=== PATIENT | male | born 1955 | race African-American/Black ===

== ENCOUNTER → 2018-02-06 | Outpatient (CLI) | payer OTHER, BC ==
[~2018-02-06] MED LIST: ASPIRIN81 M2 PO; B12INJ; CARBIDOPA-LEVO1 EAC2; CARBIDOPA-LEVO1 EAC8 PO; CARBIDOPA-LEVO1 EAC9 PO; CARVEDILOL25 MG PO; CLEOCIN HCL300 MG PO; CYCLOBENZAPRINE10 MG PO; CYMBALTA60 MG PO; DILAUDID4 MG PO; DITROPAN XL10 M1 PO; DOXEPIN 10 MG C10 M1 PO; DULERA 200 MCG/13 GM; DUONEB 2.5-0.5 M3 ML; EXALGO32 MG; FARXIGA5 MG; FISH OIL 1,001000 M1 PO; FOSAMAX 70 MG T70 MG; GABAPENTIN600 M1 PO; GLUCOPHAGE XR500 MG PO; GLUCOPHAGE500 MG PO; GRALISE600 MG PO; HUMALOG100 UNIT/2 SUBQ; INVOKANA300 MG; IRON256 MG PO; IRON325 PO; ISOSORBIDE DINI30 MG PO; LAMISIL250 MG; LANTUS SUBQ; LEVAQUIN 500 M500 MG PO; LISINOPRIL10 MG PO; LISINOPRIL20 MG PO; LISINOPRIL5 MG PO; LYRICA 50 MG50 MG PO; LYRICA 75 MG CA75 MG PO; MIRAPEX0.125 MG; MULTIVITAMINS PO; NIASPAN 500 MG500 M1 PO; NOVOLOG100 UNIT/1; NUCYNTA ER250 MG PO; NUCYNTA50 MG PO; PENTOPAK400 MG PO; PERCOCET 10-321 EACH; PERCOCET 5-3251 EACH PO; PREDNISONE 20 M20 M1 PO; PROAIR HFA8.5 GM INH; PROVENTIL HFA6.7 G1 INH; SPIRIVA RESPIMAT4 G1 INH; TIZANIDINE HCL4 M1; TRAMADOL 50 MG50 MG PO; TRICOR145 MG PO; VITAMIN B-12250 MC2; VITAMIN D400 UNI1 PO; ZANAFLEX4 MG PO; ZETIA10 MG PO; ZPAK PO
== END ==
LOC: SLEEPLAB 16:27
DX: G47.33 Obstructive sleep apnea (adult) (pediatric) (principal); J44.9 Chronic obstructive pulmonary disease, unspecified

== ENCOUNTER 2018-10-06 17:47 | Inpatient (IN) | payer OTHER, BC ==
[~2018-10-06] VITALS: Ht 180.3 cm; Wt 125.6 kg
[2018-10-06] VITALS (7 sets, daily range): BP systolic 96–122; BP diastolic 36–57
--- NOTE | ~2018-10-06 | 2DMMODE ---
[facility] [address] [address] 2 D/M-MODE ECHOCARDIOGRAM Name: GERI MCARTHUR Room #: 455-P ADM IN .R.#: [id number] Admission: 10/06/18 Attend Phys: Talib Yi MD Discharge: Date of : 55 Date of Service: 10/11/18 1000 Report #: [id number] THIS REPORT FOR: //name// APPROVED REPORT Study performed: 10/11/2018 09:14:25 EXAM: Comprehensive 2D, Doppler, and color-flow Echocardiogram Patient Location: Bedside Room #: [facility] Status: routine BSA: 2.42 HR: 112 bpm BP: 159/110 mmHg Rhythm: Tachycardia Other Information Study Quality: Adequate Technically limited study due to body habitus, lung disease, heavy breathing. Indications Elevated Troponin. Hx: DM, COPD, [place], HTN, HLP. 2D Dimensions IVSd: 11.32 (7-11mm) LVOT Diam: 21.43 (18-24mm) LVDd: 56.17 mm PWd: 11.39 (7-11mm) LVDs: 49.56 (25-40mm) Aortic Root: 31.44 mm Volumes Left Atrial Volume (Systole) Single Plane 4CH: 67.36 mL Single Plane 2CH: 95.57 mL LA ESV Index: 37.00 mL/m2 Aortic Valve AoV Peak Gold.: 0.96 m/s AO Peak Gr.: 3.69 mmHg LVOT Max P.05 mmHg LVOT Max V: 0.72 m/s BENJIE Vmax: 2.69 cm2 Tricuspid Valve TR Peak Gold.: 2.63 m/s RAP Estimate: 10.00 mmHg TR Peak Gr.: 27.67 mmHg [facility] [address] [place] [address] 2 D/M-MODE ECHOCARDIOGRAM Name: GERI MCARTHUR Room #: 455- ADM IN .R.#: [id number] Admission: 10/06/18 Attend Phys: Talib Yi MD Discharge: Date of : 55 Date of Service: 10/11/18 1000 Report #: [id number] PA Pressure: 38.00 mmHg Left Ventricle The left ventricle is normal size. There is hypokinesis of the inferior and lateral segments. There is normal left ventricular wall thickness. Left ventricular systolic function is severely decreased. LVEF is 30%. This study is not technically sufficient to allow evaluation of the LV diastolic function. Right Ventricle The right ventricle is normal size. Right ventricle is hypokinetic. Atria Left atrium is mildly dilated. The right atrium size is normal. Aortic Valve The aortic valve is not well visualized but appears grossly normal. Trace to mild aortic regurgitation. Mitral Valve The mitral valve is normal in structure. Mild to moderate mitral regurgitation. Tricuspid Valve The tricuspid valve is normal in structure. Mild tricuspid regurgitation. Estimated PAP is 38mmHg. Pulmonic Valve Pulmonic valve is not well visualized. Great Vessels The aortic root is normal in size. Ascending aorta is not well visualized. IVC is dilated and collapses >50% with inspiration. Pericardium There is no pericardial effusion. <Conclusion> The left ventricle is normal size. There is normal left ventricular wall thickness. Left ventricular systolic function is severely decreased. LVEF is 30%. The right ventricle is normal size. [facility] [address] [place] [address] 2 D/M-MODE ECHOCARDIOGRAM Name: GERI MCARTHUR Room #: 455-P [facility] IN M.R.#: [id number] Admission: 10/06/18 Attend Phys: Talib Yi MD Discharge: Date of : 55 Date of Service: 10/11/18 1000 Report #: [id number] Left atrium is mildly dilated. The aortic valve is not well visualized but appears grossly normal. Trace to mild aortic regurgitation. Mild to moderate mitral regurgitation. Mild tricuspid regurgitation. Estimated PAP is 38mmHg. <ELECTRONICALLY SIGNED> By: Paul Rojas MD 10/11/18 1000 1000 1000 Paul Rojas MD /INF
--- NOTE | ~2018-10-06 | EKG ---
[address] [place] [address] ELECTROCARDIOGRAM REPORT Name: GERI MCARTHUR Room #: 241-P ADM IN M.R.#: [id number] Admission: 10/06/18 Attend Phys: Talib Yi MD Discharge: Date of : 55 Report #: [id number] THIS REPORT FOR: //name// [facility] Test Date: 2018-10-06 Test Time: 18:00:10 Pat Name: GERI MCARTHUR Department: Room: 241 Gender: M Authorization Representative: TITI : 1955 Requested By: Raven Wood Order Number: [id number] MD: Chet Rodriguez Measurements Intervals [place] Rate: 112 P: 36 RI: 144 QRS: -60 QRSD: 103 T: 250 QT: 415 QTc: 567 Interpretive Statements Sinus tachycardia Inferior infarct, age indeterminate Nonspecific ST and T wave abnormality Prolonged QT interval Compared to ECG 03/09/2018 06:00:04 Prolonged QT interval now present ST and T wave abnormality is more pronounced Electronically Signed On 10-07-2018 8:31:32 [employer] by Chet Rodriguez [email or web address] <ELECTRONICALLY SIGNED> By: Chet Rodriguez MD, [facility] 10/07/18 0831 1800 1800 Chet Rodriguez MD, [facility] /EPI
--- NOTE | ~2018-10-06 | HC ---
[facility] [place] [address] CONSULTATION Name: GERI MCARTHUR Room #: 242-P [facility] IN M.R.#: [id number] Admission: 10/06/18 Attend Phys: Talib Yi MD Discharge: Date of : 55 Report #: [id number] THIS REPORT FOR: //name// CC: Talib Plata DATE OF SERVICE: 10/08/2018 INFECTIOUS DISEASE CONSULTATION REASON FOR CONSULTATION: Evaluate bacteremia and sepsis. HISTORY OF PRESENT ILLNESS: The patient was a 63-year-old with underlying diabetes, COPD, chronic kidney disease, coronary artery disease, who has had chronic low back pain and a neurostimulator implant. He presents on 10/06/2018 with change in mental status that occurred the day before. His reports that on 10/05/2018, the patient became more confused and lethargic. He had emesis several times where he vomited over himself without regard. He remained anorexic. No diarrhea. No blood in his emesis. No abdominal pain. No documented fever, chills or sweats. He has had chronic low back pain. He had one blood sugar checked, which was 50. stated she treated this and it improved. He had further episodes of vomiting and remained obtunded. Brought in through the Emergency Room by EMS where he was found to be hypotensive with blood pressure down to 60 systolic and he was tachycardic at 114. The patient was unable to give much more detail. No documented chest pain, cough or sputum production. Denied any dysuria or hematuria. There has been no rash or ulcerations. No headache or seizure activity noted. A 10-point review of systems was negative other than what has been described above. He was admitted through the Emergency Room to the Intensive Care Unit. He was found to have acute renal failure and required hemodialysis. He dialyzed yesterday. Blood glucose control has been better. No further vomiting. No diarrhea. He had a right IJ catheter placed and a right IJ dialysis catheter placed. He received vancomycin. He has had 1 of 2 blood cultures positive for gram-positive cocci. Last hospitalization was in 02/2018 where he was diagnosed with congestive heart failure, possible aspiration and methicillin-susceptible Staph aureus left flank spinal stimulator pocket incision infection. This was treated initially with IV antibiotics and switched to oral therapy. He had followup in the outpatient clinic with pain management who reassessed his pocket, finding no further [address] [address] CONSULTATION Name: GERI MCARTHUR Room #: 242-P [facility] IN [facility].#: [id number] Admission: 10/06/18 Attend Phys: Talib Yi MD Discharge: Date of : 55 Report #: [id number] issues. The patient has gone 6 months without pain or swelling in that region. The patient also has bilateral total knee arthroplasties, which has been asymptomatic. ALLERGIES: COMPAZINE, CODEINE, STATINS. MEDICATIONS: As noted on his MAR including vancomycin. PAST MEDICAL HISTORY: Anterior diskectomy, chronic low back pain with neural stimulator implant, diabetes, COPD, obstructive sleep apnea, degenerative joint disease, peripheral neuropathy, hyperlipidemia, hypertension, [place], chronic kidney disease, bilateral total knee arthroplasties, depression, restless leg syndrome, meningitis, left elbow surgery, MRSA empyema in 2010. It is noted that it was a methicillin-susceptible Staph aureus infection in 02/2018. FAMILY HISTORY: Noncontributory. SOCIAL HISTORY: Past smoker. No significant alcohol intake. PHYSICAL EXAMINATION: GENERAL: The patient was alert and cooperative. He would drift off to sleep when not stimulated. He was able to give a reasonable history of the current events, but nothing prior to his admission. VITAL SIGNS: He is afebrile and hemodynamically stable. SKIN: Without decubitus. He had a wound to the right first metatarsophalangeal plantar skin with separation in the crease. There was no purulent drainage. No palpable adenopathy. HEENT: Eyes without scleral icterus or conjunctivitis. Mouth without lesion or mucositis. NECK: Supple, with no thyromegaly or mass. LUNGS: Clear to auscultation. No adventitious sounds. HEART: Regular, without murmur, gallop or rub. ABDOMEN: Protuberant with diffuse abdominal tenderness. There was some guarding where he grabbed my hand trying to remove it during the evaluation. No rebound tenderness. No appreciable mass or hepatosplenomegaly. GENITOURINARY: External genitalia unremarkable without lesion or mass. He has an indwelling Hernandez catheter. BACK: Left flank spinal stimulator pocket was tender. No erythema or fluctuance along the incision line. Also tenderness to his lumbar spine region to palpation. I did not appreciate any cellulitis, fluctuance or rash. Remainder of his spine was nontender to percussion. EXTREMITIES: No peripheral edema, cyanosis or clubbing. Cranial nerves were intact with strength in the upper or lower extremities normal. Sensation was intact in upper and lower extremities. MOOD: The patient was a bit sedate, but with no evidence of depression and anxiety. [facility] [address] [place] [address] CONSULTATION Name: GERI MCARTHUR Room #: 242-P ADM IN [place]#: [id number] Admission: 10/06/18 Attend Phys: Talib Yi MD Discharge: Date of : 55 Report #: [id number] LABORATORY STUDIES: Blood cultures 1 of 2 showing gram-positive cocci. Urinalysis was unremarkable. Chest x-ray was clear. ABG on room air, pO2 of 87, pCO2 of 28, pH 7.25. Hemoglobin 13.7, platelet count 111,000, WBC 5.7 with 70% segs, 16% lymphs. Sodium 139, potassium 5.2, creatinine was 5.8. Liver function test normal. IMPRESSION: A 63-year-old with sepsis associated with encephalopathy, vomiting, hypotension in the setting of diabetes and now acute renal failure. He has Gram-positive cocci bacteremia, source of which is yet to be determined, although the patient does have tenderness over his spinal stimulator pocket and lumbar spine. I am suspecting staphylococcal infection may be the underlying disease process here. Further complications include. 1. Acute renal failure and encephalopathy. 2. Diabetes. 3. Coronary artery disease. 4. Chronic obstructive pulmonary disease and obstructive sleep apnea. RECOMMENDATION: We will continue antibiotics with vancomycin and Unasyn adjusted for his renal failure. Images of the abdomen, pelvis and lumbar spine to assess for any abscess. Repeat his blood cultures. We will await identification of the current growth. Follow up chest x-ray and CBC. I have discussed the case with nursing at the bedside along with his family. I have discussed the plan of care with Nephrology Service. He will have a CT scan performed with oral contrast, no IV due to his renal failure. Further recommendations pending laboratory results. <ELECTRONICALLY SIGNED> By: Aneudy Zhong MD 10/09/18 0955 [id number] Aneudy Zhong MD /nt
--- NOTE | ~2018-10-06 | HC ---
[facility] [place] [address] CONSULTATION Name: GERI MCARTHUR Room #: 242-[facility] IN .R.#: [id number] Admission: 10/06/18 Attend Phys: Talib Yi MD Discharge: Date of : 55 Report #: [id number] THIS REPORT FOR: //name// CC: Talib Plata HISTORY OF PRESENT ILLNESS: The patient is a 63-year-old man who was admitted to the hospital with acute on chronic renal failure and sepsis. He was having myoclonus prior to admission and was noted to be very confused. He has improved markedly. On today's examination, he is alert and oriented with normal memory. The patient has chronic pain and has had has a nerve stimulator implanted in the back. He has had both cervical and lumbar laminectomies. He has also had bilateral knee arthroplasties. He had at home, been taking, apparently a combination of both Lyrica and gabapentin at relatively high doses as well as taking opiates. In addition, he was taking Mirapex or pramipexole for restless leg syndrome as well as trazodone. These medicines were held on admission. He continues to take tizanidine. FAMILY HISTORY, SOCIAL HISTORY, REVIEW OF SYSTEMS: As noted in the chart. PHYSICAL EXAMINATION: VITAL SIGNS: At this hour, blood pressure 155/90, pulse 102, temperature 36.5. NECK: Supple. GENERAL APPEARANCE: The patient is overweight. He is sitting up in bed, eating breakfast. His is at the bedside. He is calm, pleasant and cooperative. NECK: Supple. EXTREMITIES: No pedal edema is noted. NEUROLOGIC: He is alert and oriented with normal memory and speech. He could remember 3 words after 3 minutes. He could do simple calculations. He had no difficulty in giving a good medical narrative; however, his memory over the last few days is somewhat sketchy. On cranial nerve testing, the pupils are small, but equally round and reactive. There is a small cataract in the left eye with slight impairment of vision in that eye. Extraocular movements are full without nystagmus. Visual [place] were full to confrontation. Facial sensation and mobility were normal. Hearing was intact bilaterally. The tongue was normal. On motor testing, the patient had full power in his arms and right leg. There was 4/5 weakness of hip flexor in the left leg. No myoclonus was noted. No other movement disorder was noted. Tone was normal. Sensation testing revealed diminished vibration sense at the big toe. They had decreased appreciation to pin in the feet. Coordination testing was done well. Reflexes were absent throughout. [address] [address] CONSULTATION Name: GERI MCARTHUR Room #: 242-P [facility] IN M.R.#: [id number] Admission: 10/06/18 Attend Phys: Talib Yi MD Discharge: Date of : 55 Report #: [id number] scan done yesterday was unremarkable. IMPRESSION: Acute encephalopathy in the setting of acute renal failure and sepsis, but also in the setting of possible effects of medication, particularly the Lyrica and gabapentin, which are in the same family, which now are recognized as interacting with opiates. The patient also was on pramipexole, which has a high risk of mental confusion. We would recommend continuation of stopping the Lyrica and gabapentin at the doses since he will be on opiates indefinitely. By: [id number] Kye Wolfe MD /nt
--- NOTE | ~2018-10-06 | HC ---
[facility] [place] [address] CONSULTATION Name: GERI MCARTHUR Room #: 241-P [facility] IN M.R.#: [id number] Admission: 10/06/18 Attend Phys: Talib Yi MD Discharge: Date of : 55 Report #: [id number] THIS REPORT FOR: //name// CC: Talib Plata DATE OF SERVICE: 10/06/2018 TYPE OF REPORT: Nephrology consultation. REASON FOR CONSULTATION: Hyperkalemia and acute renal failure on top of chronic kidney disease. HISTORY OF PRESENT ILLNESS: This is a 63-year-old male who came to the Emergency Room as he was noted to have some mental status changes. He is a bit lethargic at this time, although apparently more responsive than upon first arrival. His gives much of the history. Up until yesterday, he apparently was feeling his normal self. Yesterday, he was weak and fatigued. Intake was less than normal. By the evening, he had an episode of emesis and that was repeated once earlier today and then what sounds like another time later on. With this, he became exceedingly weak, less responsive, he was noted to have a myoclonic like muscle twitches. He has been mildly short of breath. Once he started having mental status changes and became more obtunded, he was brought to the Emergency Room. Labs will be discussed below. The patient has a previously documented chronic kidney disease. He is followed in our office Octavio Hensley M.D. He was last seen in July of 2018. At that time, his creatinine level in the office was 2.28. He was on multiple medications for control of blood pressure and related issues. Looking back, he has had prior episodes of acute kidney injury with a creatinine level in February of 2018 as high as 2.4 in this institution. He was also hyperkalemic at that time. Both were treated and his creatinine improved down to 1.6 by the time of discharge. In addition, looking back to Dr. Hensley's last office note, the patient had 1.3 g of proteinuria at that time. Potassium level was 5.0. He had a bicarbonate of 21. Again, that was during the last office visit. Asked the patient multiple times about nonsteroidals or other new pain medications. He has not taken any usual nonsteroidals or ESCALANTE-2 inhibitors. He is unaware of prior potassium related problems. I would note that he has been on metformin with his worsening renal disease and comes in with a serum bicarbonate of 12. He reports no difficulty voiding urine. No recent problems with edema. He is unaware of what his blood pressure has been running. I would note that when he was last in the office, his blood pressure was still a bit elevated, in the 155/[address] [address] CONSULTATION Name: GERI MCARTHUR Room #: 241-P [facility] IN ..#: [id number] Admission: 10/06/18 Attend Phys: Talib Yi MD Discharge: Date of : 55 Report #: [id number] PAST MEDICAL HISTORY: Longstanding type 2 diabetes mellitus. He has some diabetic neuropathy as well as the diabetic nephropathy. He also has a history of hypertension. He has had 2 prior MIs with previous coronary artery angioplasty. He has ischemic cardiomyopathy with low ejection fraction. Echocardiogram done in February of this year showed EF of 40%. He had some inferolateral akinesis, inferior hypokinesis on that study. He has had prior episodes of acute renal failure. He is obese. He has sleep apnea. He supposed to be on BiPAP at home, but he wears it only occasionally and has some underlying COPD. Biggest problem from his standpoint is the fact that he has chronic pain. This includes both back lower and upper. He has had previous lumbar surgery. He has a previous cervical disk surgery. He has chronic pain with a pain pump and nerve stimulator implanted. MEDICATIONS: In the list that the patient's brought and is very similar to what Dr. Hensley had in the office and these include Zetia 10 mg daily; carvedilol 25 mg twice daily, which was increased from 12.5 mg twice daily during that July visit; gabapentin 600 mg twice daily; isosorbide mononitrate 30 mg daily; oxycodone; hydrocodone; tizanidine 8 mg daily; albuterol and ipratropium inhaler; multivitamin daily; Spiriva Respimat daily; Lyrica 150 mg in the morning, 300 mg in the evening; Welchol 3.75 g daily; metformin 2000 mg once daily and when I asked his he is taking this as recently as yesterday; Novolin and Lantus; aspirin 81 mg daily; Niaspan 500 mg 2 tablets daily; fish oil 3000 mg daily; furosemide 40 mg daily; Mirapex 0.125 mg daily; trazodone 150 mg at bedtime and Entresto 24/26 mg twice daily. ALLERGIES: No known medical allergies. FAMILY HISTORY: Negative for any renal disease of which he is aware. SOCIAL HISTORY: The patient is and lives in [place], [place]. He is medically disabled due to his back. He has not worked for many years, accompanied by his at this time. REVIEW OF SYSTEMS: States that prior to 2 days ago, he fairly much is normal self. He wears his BiPAP regularly. He does have dyspnea on exertion that has gotten worse, recently has been very weak. He has had some orthostatic type symptoms. He had a couple of episodes of emesis last night and this morning. States he has not been having recent edema. No problem passing urine until yesterday. Appetite was fairly good. No bowel issues. PHYSICAL EXAMINATION: GENERAL: This is a very large man. He intermittently drifts off to sleep and has immediate episodes of apnea when he does that. He is noted to have some myoclonic jerks while interviewing him. VITAL SIGNS: Blood pressure on presentation dropped as low as 62/43 and most [facility] [address] [place] [address] CONSULTATION Name: GERI MCARTHUR Room #: 241-P [facility] IN M.R.#: [id number] Admission: 10/06/18 Attend Phys: Talib Yi MD Discharge: Date of : 55 Report #: [id number] recently up to 105/43, heart rate 115, respiratory rate 17, oxygen saturation 99% and temperature 98.1 degrees Fahrenheit. HEENT: Shows pupils are 4 mm and reactive. Sclerae nonicteric. Oral mucosa is moist, without lesions. NECK: Supple without adenopathy, thyromegaly, JVD or bruit. CHEST: Fairly clear bilaterally, is a very large man. He has good excursion. BACK: Shows no CVA tenderness. CARDIOVASCULAR: Heart has a regular rate and rhythm, somewhat distant heart tones. No murmur, gallop or rub. ABDOMEN: Very large, few bowel sounds are present. EXTREMITIES: Shows no peripheral edema. He does have diminished pedal pulses. SKIN: Shows few irregular small nearly vesicular type lesions, which are erythematous, very mildly raised. LABORATORY DATA: Sodium 134, potassium 7.6, chloride 95, bicarbonate 12, BUN 95, creatinine 10.9 and glucose 147. AST 61, ALT 41, calcium 9.5, magnesium 2.2, total bilirubin normal, total protein 7.3 and albumin 3.4. Troponin 6.89. White count 6.2; hemoglobin 14.7; hematocrit 43.9 and platelets 157,000. Differential includes 82 neutrophils, 16 lymphs and 2 monocytes. Urinalysis: Specific gravity greater than 1.030, pH 5.0, 1+ protein, 1+ ketones and trace blood. Unremarkable microscopic exam. RADIOLOGICAL DATA: I looked at his chest x-ray, it is generally clear and no infiltrates. ASSESSMENT: 1. Hyperkalemia. He was treated his symptoms that was found in the Emergency Room. Currently, he has no EKG changes consistent with hyperkalemia. He received insulin, dextrose, albuterol and bicarbonate. We will recheck potassium level at this point and then retreat as needed. 2. Acute kidney injury. The labs would represent a longer term course of renal decline to get to a creatinine of 10.9. This is understood starting with creatinine level of 2.2, so he would likely take at least 5 or 6 days if not slightly longer to get those changes. In my history taking, I could not find anything in the timeframe between 6 and 10 days. As far as new medications, exposures, acute illnesses or anything else that could cause acute kidney injury. Of particular note with his chronic pain, I asked him multiple times about whether he had been taking any nonsteroidals and he denies that. It sounds like he was taking most of his other medications through yesterday. At this point, he has gotten a couple liters of IV fluids. His blood pressure is starting to come up. We need to make sure we support that blood pressure. 3. Chronic kidney disease stage 3, may be borderline stage 4. 4. Cardiomyopathy with ejection fraction of 40%. We will be cognizant of that as we give him IV fluids. 5. Longstanding diabetes mellitus. [facility] [address] [place] [address] CONSULTATION Name: GERI MCARTHUR Room #: 241-P ADM IN M.R.#: [id number] Admission: 10/06/18 Attend Phys: Talib Yi MD Discharge: Date of : 55 Report #: [id number] PLAN: 1. He has got a significant amount of IV fluids. We will continue with that, although we will switch him to bicarbonate containing IV fluids overnight. 2. Closely monitor urine output. 3. Repeat labs both now and then again in a few hours in the morning. 4. We will treat the potassium as needed. 5. Potentially retreating for hyperkalemia. 6. Consideration of dialysis, although I do not think it is needed at this time. 7. We will get him on his BiPAP at night. 8. Cultures have been drawn to make sure he is not septic. 9. We will talk more with the patient's going forward to make sure they are in complete understanding. 10. We will follow along closely in the care of this acutely ill patient. By: 01 231 Alex Thibodeaux MD /nt
[~2018-10-06 17:47] MED LIST changes: +ADULT LOW DOSE81 MG PO; +AUGMENTIN 500-1 EACH PO; +COZAAR 50 MG TA50 M2 PO; +DOXYCYCLINE150 MG PO; -DULERA 200 MCG/13 GM; +DULERA 200 MCG/13 GM INH; -DUONEB 2.5-0.5 M3 ML; +DUONEB 2.5-0.5 M3 ML INH; -EXALGO32 MG; +EXALGO32 MG PO; +GLUCOPHAGE XR500 M1 PO; +HUMALOG100 UNIT/1 SUBQ; +IMDUR 30 MG TAB30 M1 PO; +LASIX 40 MG TAB40 M2 PO; -LYRICA 75 MG CA75 MG PO; +LYRICA150 MG PO; +MIRAPEX0.125 MG PO; +PERCOCET PO; +TESTOSTERONE CYP5 GM BUCCAL; -TIZANIDINE HCL4 M1; +TIZANIDINE HCL4 M1 PO; +WELCHOL 625 MG625 MG PO
[2018-10-06 18:53] LABS: URINE BLOOD TRACE (Negative); URINE CLARITY CLEAR; URINE COLOR YELLOW; URINE GLUCOSE-RANDOM* NEGATIVE (Negative); URINE KETONES 1+ (Negative); URINE LEUKOCYTES NEGATIVE (Negative); URINE NITRITE NEGATIVE (Negative); URINE PROTEIN (DIPSTICK) 1+ (Negative); URINE SPECIFIC GRAVITY >= 1.030 (1.005-1.035); URINE UROBILINOGEN 0.2 E.U./dl (0.2-1.0)
[2018-10-06 18:55] LABS: ICTOTEST (BILI CONFIRMATORY) Negative (Negative); URINE BILIRUBIN NEGATIVE (Negative)
[2018-10-06 19:03] LABS: AMORPHOUS URATES Moderate /LPF (None Seen); BACTERIA None Seen /HPF (None Seen); HYALINE CASTS 0-3 Few /LPF (None Seen); SQUAMOUS None Seen /LPF (0-3); URINE RBC None Seen /HPF (0-2); URINE WBC None Seen /HPF (0-5)
[2018-10-06 19:03] LABS: HEMATOCRIT 43.9 % (42.0-52.0); HEMOGLOBIN 14.7 gm/dL (14.0-18.0); MCHC 33.6 g/dL (28.0-37.0); MCV 92.4 fL (80.0-100.0); PLATELET COUNT 157 thou/uL (150-400); RBC 4.75 mil/uL (4.50-6.00); RDW 15.3 % (10.5-14.5); WBC 6.2 thou/uL (4.0-11.0)
[2018-10-06 19:13] LABS: CALCIUM 9.5 mg/dL (8.5-10.1); CREATININE 10.9 mg/dL (0.7-1.3)
[2018-10-06 19:17] LABS: POTASSIUM 7.6 mmol/L (3.5-5.1)
[2018-10-06 19:21] LABS: ALBUMIN 3.4 g/dL (3.4-5.0); TOTAL BILIRUBIN 0.6 mg/dL (<0.1-1.0); TOTAL PROTEIN 7.3 g/dL (6.4-8.2)
[2018-10-06 19:23] LABS: TROPONIN-I 6.89 ng/mL (<0.06)
[2018-10-06 20:02] LABS: ABSOLUTE NEUTROPHILS 5.1 thou/uL (1.4-8.2)
[2018-10-06 22:25] LABS: CALCIUM 8.7 mg/dL (8.5-10.1)
[2018-10-06 22:36] LABS: POTASSIUM 6.7 mmol/L (3.5-5.1)
[2018-10-06] MEDS ORDERED: ZANAFLEX4 MG PO ×2 (22:54→22:55)
[2018-10-06] MEDS ORDERED: LUMIGAN2.5 M1 OPHTHALMIC (23:05)
[2018-10-06] MEDS ORDERED: PERCOCET 7.5-31 EACH PO (23:06)
[2018-10-06] MEDS ORDERED: TRAZODONE HCL100 MG PO (23:07)
[2018-10-06] MEDS ORDERED: SPIRIVA INH (23:12)
[2018-10-06] MEDS ORDERED: DULERA 200 MCG/13 GM INH (23:14)
[2018-10-06] MEDS ORDERED: HYDROMORPHONE E12 MG PO (23:17)
[2018-10-06] MEDS ORDERED: WELCHOL 625 MG625 M1 PO (23:20)
[2018-10-06] MEDS ORDERED: ENTRESTO 24 MG1 EACH PO (23:23)
[2018-10-06] MEDS ORDERED: NEURONTIN600 MG PO (23:27)
[2018-10-06] MEDS ORDERED: MIRAPEX0.125 MG PO (23:29)
[2018-10-06] MEDS ORDERED: ASPIR 8181 MG PO (23:38)
[2018-10-07] VITALS (77 sets, daily range): BP systolic 85–213; BP diastolic 40–113
[2018-10-07 04:49] LABS: ALBUMIN 2.8 g/dL (3.4-5.0); CALCIUM 8.4 mg/dL (8.5-10.1); CREATININE 10.5 mg/dL (0.7-1.3); PHOSPHORUS 4.9 mg/dL (2.5-4.9)
[2018-10-07 04:52] LABS: POTASSIUM 6.7 mmol/L (3.5-5.1)
[2018-10-07 05:00] LABS: BE(vivo) -13.3 mmol/L (-2 to +3); HCO3 12.4 mmol/L (22.0-26.0); PCO2 28.8 mmHg (35.0-45.0); PO2 87.6 mmHg (80.0-100.0); sO2 95.5 % (92.0-98.0)
[2018-10-07 05:01] LABS: pH 7.251 (7.360-7.450)
[2018-10-07 05:51] LABS: MCH 30.4 pg (26.0-34.0); MCHC 32.5 g/dL (28.0-37.0); MCV 93.5 fL (80.0-100.0); RBC 4.28 mil/uL (4.50-6.00); RDW 15.9 % (10.5-14.5); WBC 6.8 thou/uL (4.0-11.0)
[2018-10-07 08:04] LABS: CALCIUM 8.5 mg/dL (8.5-10.1); CREATININE 10.6 mg/dL (0.7-1.3)
[2018-10-07 08:05] LABS: POTASSIUM 5.3 mmol/L (3.5-5.1)
[2018-10-07 09:22] LABS: APTT 30.1 Seconds (24.5-32.8); INR 1.5; PROTIME 15.4 Seconds (9.3-11.4)
[2018-10-07 13:39] LABS: ALBUMIN 2.9 g/dL (3.4-5.0); CALCIUM 8.5 mg/dL (8.5-10.1); CREATININE 10.2 mg/dL (0.7-1.3); PHOSPHORUS 4.4 mg/dL (2.5-4.9)
[2018-10-07 23:07] LABS: HEPATITIS B SURFACE AG Negative (Negative)
[2018-10-08] VITALS (33 sets, daily range): BP systolic 115–169; BP diastolic 70–119
[2018-10-08 05:14] LABS: BASOPHILS 0.2 % (0.0-2.0); EOSINOPHILS 0.7 % (0.0-3.0); HEMATOCRIT 41.5 % (42.0-52.0); HEMOGLOBIN 13.7 gm/dL (14.0-18.0); LYMPHOCYTES 16.2 % (24.0-44.0); MCV 90.9 fL (80.0-100.0); PLATELET COUNT 111 thou/uL (150-400); POLYS 70.9 % (36.0-66.0); RBC 4.56 mil/uL (4.50-6.00); RDW 15.9 % (10.5-14.5); WBC 5.7 thou/uL (4.0-11.0)
[2018-10-08 05:23] LABS: ALBUMIN 2.9 g/dL (3.4-5.0); CALCIUM 8.4 mg/dL (8.5-10.1); MAGNESIUM 1.4 mg/dL (1.8-2.4); PHOSPHORUS 3.5 mg/dL (2.5-4.9); POTASSIUM 5.2 mmol/L (3.5-5.1); TOTAL BILIRUBIN 0.6 mg/dL (<0.1-1.0); TOTAL PROTEIN 6.6 g/dL (6.4-8.2)
[2018-10-08 05:28] LABS: CREATININE 5.8 mg/dL (0.7-1.3)
[2018-10-09] VITALS (80 sets, daily range): BP systolic 57–181; BP diastolic 36–124
[2018-10-09 03:30] LABS: ALBUMIN 2.5 g/dL (3.4-5.0); CALCIUM 8.5 mg/dL (8.5-10.1); CREATININE 4.4 mg/dL (0.7-1.3); PHOSPHORUS 2.5 mg/dL (2.5-4.9); POTASSIUM 4.5 mmol/L (3.5-5.1)
[2018-10-09 04:08] LABS: HEMATOCRIT 39.4 % (42.0-52.0); HEMOGLOBIN 13.1 gm/dL (14.0-18.0); MCHC 33.3 g/dL (28.0-37.0); MCV 90.2 fL (80.0-100.0); PLATELET COUNT 102 thou/uL (150-400); RBC 4.37 mil/uL (4.50-6.00); RDW 15.8 % (10.5-14.5); WBC 6.1 thou/uL (4.0-11.0)
[2018-10-09 05:43] LABS: ABSOLUTE NEUTROPHILS 3.2 thou/uL (1.4-8.2)
[2018-10-09 05:44] LABS: LARGE PLATELETS SEVERAL; PLATELET ESTIMATE NORMAL
[2018-10-09 12:15] LABS: BE(vivo) -1.8 mmol/L (-2 to +3); HCO3 23.5 mmol/L (22.0-26.0); PCO2 41.9 mmHg (35.0-45.0); PO2 85.2 mmHg (80.0-100.0); pH 7.366 (7.360-7.450); sO2 96.1 % (92.0-98.0)
[2018-10-10] VITALS (18 sets, daily range): BP systolic 105–158; BP diastolic 68–109
[2018-10-10 03:33] LABS: HEMATOCRIT 38.8 % (42.0-52.0); MCH 30.5 pg (26.0-34.0); MCHC 33.5 g/dL (28.0-37.0); PLATELET COUNT 82 thou/uL (150-400); RBC 4.27 mil/uL (4.50-6.00); RDW 15.7 % (10.5-14.5); WBC 5.7 thou/uL (4.0-11.0)
[2018-10-10 04:01] LABS: ALBUMIN 2.5 g/dL (3.4-5.0); CALCIUM 8.9 mg/dL (8.5-10.1); CREATININE 3.8 mg/dL (0.7-1.3); PHOSPHORUS 3.5 mg/dL (2.5-4.9); POTASSIUM 4.6 mmol/L (3.5-5.1)
[2018-10-10 05:42] LABS: ABSOLUTE NEUTROPHILS 3.4 thou/uL (1.4-8.2); ATYPICAL LYMPHS 3 %; LARGE PLATELETS OCCASIONAL; PLATELET ESTIMATE DECREASED
[2018-10-11 04:20] VITALS: BP 154/99
[2018-10-11 05:49] LABS: HEMATOCRIT 38.2 % (42.0-52.0); HEMOGLOBIN 12.4 gm/dL (14.0-18.0); MCHC 32.3 g/dL (28.0-37.0); MCV 92.6 fL (80.0-100.0); PLATELET COUNT 82 thou/uL (150-400); RBC 4.13 mil/uL (4.50-6.00); RDW 15.7 % (10.5-14.5); WBC 5.6 thou/uL (4.0-11.0)
[2018-10-11 06:04] LABS: ALBUMIN 2.6 g/dL (3.4-5.0); CALCIUM 9.1 mg/dL (8.5-10.1); CREATININE 3.5 mg/dL (0.7-1.3); PHOSPHORUS 2.9 mg/dL (2.5-4.9); POTASSIUM 4.2 mmol/L (3.5-5.1)
[2018-10-11 07:55] VITALS: BP 159/110
[2018-10-11 08:36] LABS: ABSOLUTE NEUTROPHILS 3.5 thou/uL (1.4-8.2); ANISOCYTOSIS SLIGHT; MACROCYTES SLIGHT; POLYCHROMASIA SLIGHT
[2018-10-11 20:58] VITALS: BP 132/92
[2018-10-12 04:10] VITALS: BP 148/101
[2018-10-12 07:05] LABS: ALBUMIN 2.6 g/dL (3.4-5.0); CREATININE 3.1 mg/dL (0.7-1.3); PHOSPHORUS 3.3 mg/dL (2.5-4.9)
[2018-10-12 08:13] VITALS: BP 150/90
[2018-10-12] MEDS ORDERED: COZAAR 25 MG TA25 M1 PO (12:46)
[2018-10-12] MEDS ORDERED: AUGMENTIN 500-1 EACH PO (12:46)
[2018-10-12] MEDS ORDERED: DEMADEX 2020 MG/1 TA PO (12:46)
[2018-10-12] MEDS ORDERED: LANTUS SUBQ (12:56)
[2018-10-12 13:18] VITALS: BP 150/90
== END 2018-10-12 14:14 | disposition home or self-care (01) | DRG 871 ==
LOC: ER 17:47 → EROBS 19:54 → ICU 19:54 → EROBS 21:04 → ICU 22:42 → 4W 10-10 12:19
PROVIDERS: Hospitalist; Internal Medicine Nephrology; Physician Assistant
PROC: 5A09357 Assistance with Respiratory Ventilation, Less than 24 Consecutive Hours, Continuous Positive Airway Pressure (ICD-10-PCS; 2018-10-06)
PROC: 02HV33Z Insertion of Infusion Device into Superior Vena Cava, Percutaneous Approach (ICD-10-PCS; principal; 2018-10-07)
PROC: B548ZZA Ultrasonography of Superior Vena Cava, Guidance (ICD-10-PCS; principal; 2018-10-07)
PROC: B5181ZA Fluoroscopy of Superior Vena Cava using Low Osmolar Contrast, Guidance (ICD-10-PCS; principal; 2018-10-07)
PROC: 5A1D70Z Performance of Urinary Filtration, Intermittent, Less than 6 Hours Per Day (ICD-10-PCS; 2018-10-07)
PROC: 5A09357 Assistance with Respiratory Ventilation, Less than 24 Consecutive Hours, Continuous Positive Airway Pressure (ICD-10-PCS; 2018-10-07)
PROC: B5181ZA Fluoroscopy of Superior Vena Cava using Low Osmolar Contrast, Guidance (ICD-10-PCS; 2018-10-07)
PROC: 02HV33Z Insertion of Infusion Device into Superior Vena Cava, Percutaneous Approach (ICD-10-PCS; 2018-10-07)
PROC: B548ZZA Ultrasonography of Superior Vena Cava, Guidance (ICD-10-PCS; 2018-10-07)
PROC: 5A09357 Assistance with Respiratory Ventilation, Less than 24 Consecutive Hours, Continuous Positive Airway Pressure (ICD-10-PCS; 2018-10-08)
PROC: 5A09357 Assistance with Respiratory Ventilation, Less than 24 Consecutive Hours, Continuous Positive Airway Pressure (ICD-10-PCS; 2018-10-09)
PROC: 5A09357 Assistance with Respiratory Ventilation, Less than 24 Consecutive Hours, Continuous Positive Airway Pressure (ICD-10-PCS; 2018-10-10)
PROC: 5A09357 Assistance with Respiratory Ventilation, Less than 24 Consecutive Hours, Continuous Positive Airway Pressure (ICD-10-PCS; 2018-10-11)
DX: A41.9 Sepsis, unspecified organism (principal); G93.41 Metabolic encephalopathy; J96.01 Acute respiratory failure with hypoxia; I50.43 Acute on chronic combined systolic (congestive) and diastolic (congestive) heart failure; N17.9 Acute kidney failure, unspecified; I13.0 Hypertensive heart and chronic kidney disease with heart failure and stage 1 through stage 4 chronic kidney disease, or unspecified chronic kidney disease; E87.2 Acidosis; F11.23 Opioid dependence with withdrawal; G93.49 Other encephalopathy; E11.22 Type 2 diabetes mellitus with diabetic chronic kidney disease; J44.9 Chronic obstructive pulmonary disease, unspecified; G47.33 Obstructive sleep apnea (adult) (pediatric); E11.40 Type 2 diabetes mellitus with diabetic neuropathy, unspecified; E78.00 Pure hypercholesterolemia, unspecified; G25.81 Restless legs syndrome; F32.9 Major depressive disorder, single episode, unspecified; F17.210 Nicotine dependence, cigarettes, uncomplicated; E87.5 Hyperkalemia; I25.5 Ischemic cardiomyopathy; K52.9 Noninfective gastroenteritis and colitis, unspecified; I95.9 Hypotension, unspecified; I25.10 Atherosclerotic heart disease of native coronary artery without angina pectoris; E78.5 Hyperlipidemia, unspecified; G89.4 Chronic pain syndrome; M19.90 Unspecified osteoarthritis, unspecified site; D69.6 Thrombocytopenia, unspecified; E86.9 Volume depletion, unspecified; N18.3 Chronic kidney disease, stage 3 (moderate); M54.9 Dorsalgia, unspecified; Z96.653 Presence of artificial knee joint, bilateral; Z79.4 Long term (current) use of insulin; I25.2 Old myocardial infarction; Z98.61 Coronary angioplasty status; Z86.14 Personal history of Methicillin resistant Staphylococcus aureus infection; Z88.6 Allergy status to analgesic agent; Z88.8 Allergy status to other drugs, medicaments and biological substances
CPT/HCPCS: 10045; 10078; 32100

== ENCOUNTER → 2018-12-14 | Outpatient (CLI) | payer OTHER, BC ==
[~2018-12-14] MED LIST changes: +ASPIR 8181 MG PO; +COZAAR 25 MG TA25 M1 PO; +DEMADEX 2020 MG/1 TA PO; +ENTRESTO 24 MG1 EACH PO; +HYDROMORPHONE E12 MG PO; +LUMIGAN2.5 M1 OPHTHALMIC; +NEURONTIN600 MG PO; +PERCOCET 7.5-31 EACH PO; +SPIRIVA INH; +TRAZODONE HCL100 MG PO; +WELCHOL 625 MG625 M1 PO
--- NOTE | 2018-12-15 17:27 | SLE ---
[facility] [place] [address] POLYSOMNOGRAPHY STUDY Name: GERI MCARTHUR Room #: REG [facility]#: [id number] Admission: 12/14/18 ������������������ Attend Phys: Frank Hernandez MD Discharge: ������������������ Date of : 55 Report #: [id number] THIS REPORT FOR: //name// CC: Frank THOMPSON MD DATE OF SERVICE: 12/14/2018 ATTENDING PHYSICIAN: Dr. David Thompson., The patient is 63 years old who weighs 291 pounds with a BMI of 40.6. The patient has history of complex sleep apnea. The patient has been on BiPAP. During his last titration, his BiPAP pressure was 20/11 with an AHI of 3.9 per hour. The patient has history of cardiomyopathy with an EF of 36%. He also was on chronic narcotics with hydromorphone and oxycodone. The patient was referred back for another BiPAP titration study. During the night study, the patient spent 429 minutes in bed and slept for 363 minutes with a sleep efficiency of 84%. Sleep latency was 2.5 minutes with a REM latency of 91.5 minutes. Overall, sleep architecture showed increased stage 1 and stage 2 sleep, normal N3 sleep and normal REM sleep, which was 17% of the total sleep time. EKG monitoring revealed an average heart rate of 65 beats per minute, maximum of 90 beats per minute. PVCs seen throughout the night, but no sustained arrhythmias observed. PLMS were seen at an index of 48 per hour and 7 per hour caused EEG arousals. The patient was started on BiPAP at a pressure of 16/6. The pressure was increased to eliminate apneas, hypopneas. Backup rate was initially added at 10 for central apneas and then increased to 14 towards the later part of the study. At a final pressure of 22/10, patient slept for 140 minutes. Backup rate was 14. The patient's AHI was 8 per hour and oxygen saturation remained above 90%. The patient had supine sleep throughout the final pressure and 29 minutes of REM sleep was also observed. I would recommend that the patient's final BiPAP pressure should be 23/11 to overcome the residual hypopneas seen at the final pressure. His rate was still be 14. IMPRESSION: 1. Complex sleep apnea diagnosed previously. 2. Moderate to severe periodic limb movements. RECOMMENDATIONS: 1. BiPAP at 23/11 should be used on a nightly basis along with a backup rate of [facility] [address] [place] [address] POLYSOMNOGRAPHY STUDY Name: GERI MCARTHUR Room #: REG [facility]#: [id number] Admission: 12/14/18 ������������������ Attend Phys: Frank Hernandez MD Discharge: ������������������ Date of : 55 Report #: [id number] 14 per minute/ ST mode 2. Follow up in 4-6 weeks to assess compliance and to document clinical improvement. 3. The patient has underlying cardiomyopathy with an EF of 36%, He is also on chronic narcotics including hydromorphone and oxycodone. Both can contribute to central apneas as well as hypopneas and if clinically feasible , dose of the narcotics should be reduced. 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 4. Caution regarding driving until the patient's hypersomnia is resolved with the above recommendations. ��������������������������������������������� <ELECTRONICALLY SIGNED> ���������������������������������������� By: Frank Hernandez MD ��������������������������������������������� 12/15/18 1727 1617 1640 Frank Hernandez MD /nt
== END ==
LOC: SLEEPLAB 10:58
DX: G47.33 Obstructive sleep apnea (adult) (pediatric) (principal); G47.61 Periodic limb movement disorder; Z88.8 Allergy status to other drugs, medicaments and biological substances; Z88.5 Allergy status to narcotic agent

== ENCOUNTER → 2019-02-28 | Outpatient (CLI) | payer OTHER, BC | LOC: HYPER 02-24 10:28 | DX: E11.621 Type 2 diabetes mellitus with foot ulcer (principal); L97.512 Non-pressure chronic ulcer of other part of right foot with fat layer exposed; L97.522 Non-pressure chronic ulcer of other part of left foot with fat layer exposed; E11.43 Type 2 diabetes mellitus with diabetic autonomic (poly)neuropathy; E11.22 Type 2 diabetes mellitus with diabetic chronic kidney disease; N13.0 Hydronephrosis with ureteropelvic junction obstruction; N18.4 Chronic kidney disease, stage 4 (severe); I50.9 Heart failure, unspecified; I25.10 Atherosclerotic heart disease of native coronary artery without angina pectoris; E78.00 Pure hypercholesterolemia, unspecified; N17.9 Acute kidney failure, unspecified; L84 Corns and callosities; I42.9 Cardiomyopathy, unspecified; I25.2 Old myocardial infarction; E78.5 Hyperlipidemia, unspecified; R60.0 Localized edema; G47.30 Sleep apnea, unspecified; J44.9 Chronic obstructive pulmonary disease, unspecified; Z79.4 Long term (current) use of insulin; Z96.653 Presence of artificial knee joint, bilateral; Z87.891 Personal history of nicotine dependence ==

== ENCOUNTER → 2019-03-08 | Outpatient (CLI) | payer OTHER, BC | LOC: HYPER 06:15 | DX: E11.621 Type 2 diabetes mellitus with foot ulcer (principal); L97.512 Non-pressure chronic ulcer of other part of right foot with fat layer exposed; L97.522 Non-pressure chronic ulcer of other part of left foot with fat layer exposed; E11.43 Type 2 diabetes mellitus with diabetic autonomic (poly)neuropathy; R60.0 Localized edema; I25.10 Atherosclerotic heart disease of native coronary artery without angina pectoris; E78.00 Pure hypercholesterolemia, unspecified ==

== ENCOUNTER → 2019-03-22 | Outpatient (CLI) | payer OTHER, BC | LOC: HYPER 06:52 | DX: E11.621 Type 2 diabetes mellitus with foot ulcer (principal); L97.512 Non-pressure chronic ulcer of other part of right foot with fat layer exposed; L97.522 Non-pressure chronic ulcer of other part of left foot with fat layer exposed; E11.43 Type 2 diabetes mellitus with diabetic autonomic (poly)neuropathy; R60.0 Localized edema; I25.10 Atherosclerotic heart disease of native coronary artery without angina pectoris; E78.00 Pure hypercholesterolemia, unspecified; E11.22 Type 2 diabetes mellitus with diabetic chronic kidney disease; I13.2 Hypertensive heart and chronic kidney disease with heart failure and with stage 5 chronic kidney disease, or end stage renal disease; N18.4 Chronic kidney disease, stage 4 (severe); I50.9 Heart failure, unspecified; I42.9 Cardiomyopathy, unspecified; I25.2 Old myocardial infarction; E78.5 Hyperlipidemia, unspecified; G47.30 Sleep apnea, unspecified; J44.9 Chronic obstructive pulmonary disease, unspecified; Z96.653 Presence of artificial knee joint, bilateral; Z79.4 Long term (current) use of insulin; Z87.891 Personal history of nicotine dependence ==

== ENCOUNTER → 2019-03-30 | Outpatient (CLI) | payer OTHER, BC ==
[~2019-03-30] VITALS: Ht 180.3 cm; Wt 127.0 kg
[~2019-03-30] MED LIST changes: +ALLOPURINOL 10100 M1 PO; +COLESEVELAM H3.75 GM PO; +DEMADEX20 MG PO; +FISH OIL 1,001000 M2 PO; +LOSARTAN POTASS50 MG PO; +LUNESTA3 MG PO; +NITROGLYCERIN0.4 MG SUBLING; +OXYCODONE-ACET1 EACH PO; +PLAVIX 75 MG TA75 M1 PO; +REGRANEX15 GM TOP; +SILDENAFIL20 MG PO; +SYMBICORT160 MCG/4. INH
[2019-03-30 07:51] VITALS: BP 131/72
--- NOTE | 2019-04-03 09:01 | HC ---
[facility] [place] [address] CONSULTATION Name: GERI MCARTHUR Room #: REG [facility]#: [id number] Admission: 03/30/19 ������������������ Attend Phys: Trevor Lopez MD Discharge: ������������������ Date of : 55 Report #: [id number] THIS REPORT FOR: //name// CC: Adele Bean DATE OF SERVICE: 03/30/2019 We were asked by Dr. Lopez to see the patient. HISTORY OF PRESENT ILLNESS: The patient is a 63-year-old with limiting left lower extremity claudication. The patient states that after he walks a block or so his leg goes , it takes some time for it to get better. No history of rest pain or night pain. The patient does have neuropathy distally, but no nonhealing lesions. PAST MEDICAL HISTORY: Also significant for coronary artery disease, heart failure, chronic kidney disease, chronic obstructive pulmonary disease, hypercholesterolemia, hypertension, diabetes mellitus. The patient has had back surgery and total knee replacement on both sides. MEDICATIONS: Includes allopurinol, Lumigan ophthalmic drops, Coreg, Welchol, Lunesta, Zetia, Neurontin, hydromorphone, insulin, isosorbide, Dulera inhaler, vitamins, niacin, oxycodone, Mirapex, Lyrica, Bactrim, Spiriva, Zanaflex and Demadex. ALLERGIES: CODEINE, PROCHLORPERAZINE, CRESTOR, LIPITOR, LIVALO, ZOCOR, LISINOPRIL. FAMILY HISTORY: The patient states that father had many of his diseases, which include coronary artery disease, kidney disease, diabetes mellitus, and hypertension. SOCIAL HISTORY: The patient is a former smoker, smoked for 30 years, quit approximately 6 years ago. REVIEW OF SYSTEMS: GENERAL: Denies weight change, fever. EYES: Denies vision change. ENT: Denies hearing loss or sinus problem. CARDIAC: Denies having angina to me. No palpitations. RESPIRATORY: No cough or hemoptysis. GASTROINTESTINAL: No blood in stools. No nausea or vomiting. GENITOURINARY: No blood in urine, no dysuria. [facility] [address] [place] [address] CONSULTATION Name: GERI MCARTHUR Room #: REG [facility]#: [id number] Admission: 03/30/19 ������������������ Attend Phys: Trevor Lopez MD Discharge: ������������������ Date of : 55 Report #: [id number] MUSCULOSKELETAL: As mentioned, the patient has limiting left lower extremity claudication not related to his joints. Does have chronic back problems. SKIN: No rash or infection. ENDOCRINE: No tremor. No goiter. NEUROLOGIC: Has peripheral neuropathy. Denies weakness. HEMATOLOGIC: Denies bruisability or bleeding. PHYSICAL EXAMINATION: GENERAL: The patient is lying in bed, alert, oriented, without distress after catheterization today. HEENT: No scleral icterus, no arcus. Pupils are round, equal. Normocephalic. No oral or pharyngeal problems evident. NECK: No mass, no bruit. CHEST: Clear to auscultation. HEART: Rhythm regular, no murmur. ABDOMEN: Soft, no mass. EXTREMITIES: Trace edema in the periphery. I do not feel left popliteal dorsalis pedis or posterior tibial pulses. Left femoral pulses 1+. Right femoral pulse was not examined due to recent catheterization. We note that catheterization today demonstrated important left iliac and left femoral problems. The left external iliac stent was placed, but there was a tight left common femoral lesion seen that would be most amenable to angioplasty. Below the femoral artery, there was some popliteal arterial occlusive disease and this appears to have been ballooned satisfactorily without stenting. I discussed risks and details of left femoral endarterectomy to improve blood flow to the left lower extremity. The risks and details of this were discussed. Options and alternatives were reviewed. The patient understands all of this and wishes to proceed with surgery. We will schedule this as an elective admission. We note that the patient will be started on aspirin and Plavix and we will be able to continue this for our operation. Thank you for the consult. ��������������������������������������������� <ELECTRONICALLY SIGNED> ���������������������������������������� By: Benito Mo MD ��������������������������������������������� 04/03/19 0901 1316 0007 Benito Mo MD /nt
== END | disposition home or self-care (01) ==
LOC: SPEC 07:14
DX: I70.248 Atherosclerosis of native arteries of left leg with ulceration of other part of lower leg (principal); I70.212 Atherosclerosis of native arteries of extremities with intermittent claudication, left leg; L97.929 Non-pressure chronic ulcer of unspecified part of left lower leg with unspecified severity; I70.1 Atherosclerosis of renal artery; I13.0 Hypertensive heart and chronic kidney disease with heart failure and stage 1 through stage 4 chronic kidney disease, or unspecified chronic kidney disease; N18.3 Chronic kidney disease, stage 3 (moderate); E11.22 Type 2 diabetes mellitus with diabetic chronic kidney disease; J44.9 Chronic obstructive pulmonary disease, unspecified; E78.00 Pure hypercholesterolemia, unspecified; I50.20 Unspecified systolic (congestive) heart failure; G47.33 Obstructive sleep apnea (adult) (pediatric); G62.9 Polyneuropathy, unspecified; F32.9 Major depressive disorder, single episode, unspecified; I25.2 Old myocardial infarction; Z96.653 Presence of artificial knee joint, bilateral; Z98.890 Other specified postprocedural states; Z79.899 Other long term (current) drug therapy; Z79.4 Long term (current) use of insulin; Z87.891 Personal history of nicotine dependence; Z87.01 Personal history of pneumonia (recurrent); Z88.6 Allergy status to analgesic agent; Z88.8 Allergy status to other drugs, medicaments and biological substances; Z79.82 Long term (current) use of aspirin

== ENCOUNTER → 2019-03-31 | Outpatient (CLI) | payer OTHER, BC | LOC: HYPER | DX: E11.621 Type 2 diabetes mellitus with foot ulcer (principal); L97.512 Non-pressure chronic ulcer of other part of right foot with fat layer exposed; L97.522 Non-pressure chronic ulcer of other part of left foot with fat layer exposed; E11.43 Type 2 diabetes mellitus with diabetic autonomic (poly)neuropathy; E11.22 Type 2 diabetes mellitus with diabetic chronic kidney disease; I12.9 Hypertensive chronic kidney disease with stage 1 through stage 4 chronic kidney disease, or unspecified chronic kidney disease; N18.4 Chronic kidney disease, stage 4 (severe); E11.40 Type 2 diabetes mellitus with diabetic neuropathy, unspecified; R60.0 Localized edema; I25.10 Atherosclerotic heart disease of native coronary artery without angina pectoris; E78.00 Pure hypercholesterolemia, unspecified; N17.9 Acute kidney failure, unspecified; L84 Corns and callosities; I42.9 Cardiomyopathy, unspecified; E78.5 Hyperlipidemia, unspecified; I25.2 Old myocardial infarction; G47.30 Sleep apnea, unspecified; J44.9 Chronic obstructive pulmonary disease, unspecified; Z96.653 Presence of artificial knee joint, bilateral; Z79.4 Long term (current) use of insulin; Z87.891 Personal history of nicotine dependence ==

== ENCOUNTER → 2019-04-07 | Outpatient (CLI) | payer OTHER, BC ==
--- NOTE | 2019-04-07 15:44 | 2DMMODE ---
[facility] [address] [place] [address] 2 D/M-MODE ECHOCARDIOGRAM Name: GERI MCARTHUR Room #: REG [facility]#: [id number] ������������� Admission: 04/07/19 ������������� Attend Phys: Paul Rojas MD Discharge: ��� ������������� ��� Date of : 55 Date of Service: 04/07/19 1544 �� Report #: [id number] �������� ��������������������������������������������[id number] THIS REPORT FOR: //name// APPROVED REPORT Study performed: 04/07/2019 13:56:48 EXAM: Comprehensive 2D, Doppler, and color-flow Echocardiogram Patient Location: Echo lab Room #: Outpatient Status: routine BSA: 2.43 HR: 76 bpm BP: 146/80 mmHg Rhythm: NSR Other Information Study Quality: Adequate Technically limited study due to body habitus, lung disease. Risk Factors: Cardiac Risk Factors: DM, HTN, Hyperlipidemia Indications Pre-Op COPD Previous MT 2D Dimensions IVSd: 8.82 (7-11mm) LVOT Diam: 22.00 (18-24mm) LVDd: 67.68 mm PWd: 9.25 (7-11mm) Ascending Ao: 32.11 (22-36mm) LVDs: 59.31 (25-40mm) Aortic Root: 31.29 mm LV Single Plane 4CH: 33.95 % LV Single Plane 2CH: 40.93 % Biplane EF: 39.1 % Volumes Left Atrial Volume (Systole) Single Plane 4CH: 82.66 mL Single Plane 2CH: 70.86 mL LA ESV Index: 35.00 mL/m2 Aortic Valve [facility] [address] [place] [address] 2 D/M-MODE ECHOCARDIOGRAM Name: GERI MCARTHUR Room #: REG [facility]#: [id number] ������������� Admission: 04/07/19 ������������� Attend Phys: Paul Rojas MD Discharge: ��� ������������� ��� Date of : 55 Date of Service: 04/07/19 1544 �� Report #: [id number] �������� ��������������������������������������������[id number] AoV Peak Gold.: 1.55 m/s AO Peak Gr.: 9.63 mmHg LVOT Max P.23 mmHg LVOT Max V: 1.03 m/s BENJIE Vmax: 2.46 cm2 AI Vmax: 3.42 m/s AI Vernon: 2.16 m/s2 AI PHT: 459.96 ms TDI Medial E' Gold.: 0.06 m/s Lateral E' Gold.: 0.05 m/s Pulmonary Valve PV Peak Gold.: 0.87 m/s PV Peak Gr.: 3.04 mmHg Pulmonary Vein P Vein S: 0.33 m/s P Vein A: 0.30 m/s P Vein D: 0.63 m/s P Vein A Dur.: 92.3 msec P Vein S/D Ratio: 0.52 Tricuspid Valve RAP Estimate: 7.00 mmHg Left Ventricle Left ventricle is dilated. There is hypokinesis of the septum, inferior, and lateral guevara. There is normal left ventricular wall thickness. Left ventricular systolic function is moderate to severely decreased. LVEF is 35%. Grade II - pseudonormal filling dynamics. Right Ventricle The right ventricle is normal size. Right ventricle is mildly hypokinetic. Atria Left atrium is borderline dilated. The right atrium size is normal. Aortic Valve The Aortic valve is sclerotic. Mild aortic regurgitation. There is no aortic valvular stenosis. Mitral Valve There is mitral annular calcification. Mild to moderate mitral regurgitation. No evidence of mitral valve stenosis. [facility] [address] [place] [address] 2 D/M-MODE ECHOCARDIOGRAM Name: GERI MCARTHUR Room #: REG [facility]#: [id number] ������������� Admission: 04/07/19 ������������� Attend Phys: Paul Rojas MD Discharge: ��� ������������� ��� Date of : 55 Date of Service: 04/07/19 1544 �� Report #: [id number] �������� ��������������������������������������������[id number] Tricuspid Valve The tricuspid valve is normal in structure. Trace tricuspid regurgitation. Unable to assess PA pressure. Pulmonic Valve The pulmonary valve is normal in structure. Trace pulmonic regurgitation. Great Vessels The aortic root is normal in size. The ascending aorta is normal in size. IVC is normal in size and collapses >50% with inspiration. Pericardium There is no pericardial effusion. <Conclusion> Left ventricle is dilated. There is normal left ventricular wall thickness. Left ventricular systolic function is moderate to severely decreased. LVEF is 35%. Grade II - pseudonormal filling dynamics. The right ventricle is normal size. Left atrium is borderline dilated. Mild aortic regurgitation. Mild to moderate mitral regurgitation. Trace tricuspid regurgitation. ��������������������������������������������� <ELECTRONICALLY SIGNED> ���������������������������������������� By: Paul Rojas MD ��������������������������������������������� 04/07/19 1544 1544 1544 Paul Rojas MD /INF
== END ==
LOC: CV 13:44
DX: I08.0 Rheumatic disorders of both mitral and aortic valves (principal); R60.0 Localized edema; I25.10 Atherosclerotic heart disease of native coronary artery without angina pectoris; E11.9 Type 2 diabetes mellitus without complications; I10 Essential (primary) hypertension; E78.5 Hyperlipidemia, unspecified; Z88.5 Allergy status to narcotic agent; Z88.8 Allergy status to other drugs, medicaments and biological substances

== ENCOUNTER 2019-05-14 09:44 | Inpatient (IN) | payer OTHER, BC ==
[~2019-05-14] VITALS: Ht 180.3 cm; Wt 133.9 kg
[2019-05-14 09:47] VITALS: BP 172/98
[2019-05-14 10:01] LABS: HEMATOCRIT 37.4 % (42.0-52.0); HEMOGLOBIN 11.8 gm/dL (14.0-18.0); MCH 26.4 pg (26.0-34.0); MCHC 31.5 g/dL (28.0-37.0); MCV 83.8 fL (80.0-100.0); PLATELET COUNT 153 thou/uL (150-400); RBC 4.46 mil/uL (4.50-6.00); RDW 18.4 % (10.5-14.5); WBC 14.2 thou/uL (4.0-11.0)
[2019-05-14 10:07] LABS: ANION GAP 7 mmol/L (7-16); BUN 70 mg/dL (7-18); CALCIUM 9.2 mg/dL (8.5-10.1); CHLORIDE 102 mmol/L (98-107); CO2 29 mmol/L (21-32); CREATININE 3.8 mg/dL (0.7-1.3); GLUCOSE 136 mg/dL (74-106); POTASSIUM 4.7 mmol/L (3.5-5.1); SODIUM 138 mmol/L (136-145)
[2019-05-14 10:16] LABS: TROPONIN-I <0.06 ng/mL (<0.06)
[2019-05-14 10:28] LABS: ABSOLUTE NEUTROPHILS 12.2 thou/uL (1.4-8.2)
[2019-05-14 10:29] LABS: ANISOCYTOSIS 2+
[2019-05-14 10:44] LABS: BE(vivo) 0.2 mmol/L (-2 to +3); HCO3 24.3 mmol/L (22.0-26.0); PCO2 37.6 mmHg (35.0-45.0); PO2 52.2 mmHg (80.0-100.0); pH 7.428 (7.360-7.450)
[2019-05-14] MEDS ORDERED: OMEGA-31000 M2 PO (12:27)
[2019-05-14 14:54] LABS: ALBUMIN 3.5 g/dL (3.4-5.0); TOTAL PROTEIN 7.8 g/dL (6.4-8.2)
[2019-05-14 15:21] LABS: TSH 2.284 uIU/mL (0.358-3.740)
[2019-05-14 19:21] VITALS: BP 134/66
[2019-05-14 19:43] VITALS: BP 114/54
[2019-05-14 20:05] VITALS: BP 104/73
[2019-05-15] VITALS (8 sets, daily range): BP systolic 86–118; BP diastolic 31–70
[2019-05-15 05:19] LABS: CALCIUM 8.5 mg/dL (8.5-10.1); MAGNESIUM 1.7 mg/dL (1.8-2.4)
[2019-05-15 05:21] LABS: POTASSIUM 6.6 mmol/L (3.5-5.1)
[2019-05-15 05:22] LABS: HEMATOCRIT 35.1 % (42.0-52.0); MCH 26.4 pg (26.0-34.0); MCHC 31.2 g/dL (28.0-37.0); MCV 84.6 fL (80.0-100.0); RBC 4.15 mil/uL (4.50-6.00); RDW 19.1 % (10.5-14.5); WBC 21.8 thou/uL (4.0-11.0)
--- NOTE | 2019-05-15 07:14 | NUR ---
PATIENT ARRIVED TO THE FLOOR FROM THE ED AT APPROXIMATELY 2000. PATIENT ACCOMPANIED BY SPOUSE. PATIENT IS AAOX4, ON ROOM AIR, AND PLEASANT. PATIENT EDUCATED ON CARE PLAN AND FALL PRECAUTIONS. PATIENT VERBALIZED UNDERSTANDING. HOURLY ROUNDING COMPLETED AND ASSESSMENTS CHARTED. NO ACUTE EVENTS OCCURRED AND VS REMAINED STABLE.
[2019-05-15 09:32] LABS: BE(vivo) -2.5 mmol/L (-2 to +3); HCO3 21.2 mmol/L (22.0-26.0); PCO2 33.1 mmHg (35.0-45.0); PO2 64.9 mmHg (80.0-100.0); pH 7.424 (7.360-7.450); sO2 93.4 % (92.0-98.0)
[2019-05-15 09:58] LABS: URINE BILIRUBIN NEGATIVE (Negative); URINE BLOOD TRACE (Negative); URINE CLARITY CLEAR; URINE COLOR YELLOW; URINE GLUCOSE-RANDOM* NEGATIVE (Negative); URINE KETONES NEGATIVE (Negative); URINE LEUKOCYTES NEGATIVE (Negative); URINE NITRITE NEGATIVE (Negative); URINE PROTEIN (DIPSTICK) TRACE (Negative); URINE SPECIFIC GRAVITY <= 1.005 (1.005-1.035)
[2019-05-15 10:03] LABS: URINE CREATININE-RANDOM* 169.2 mg/dL; URINE PROTEIN-RANDOM* 31.7 mg/dL (<11.9)
--- NOTE | 2019-05-15 17:47 | HC ---
[facility] [place] [address] CONSULTATION Name: GERI MEDLEY Room #: 353-P ADM IN M.R.#: [id number] Admission: 05/14/19 Attend Phys: Melvin Martinez MD Discharge: Date of : 55 Report #: [id number] THIS REPORT FOR: //name// CC: SEPIDEH physician/PCP Melvin Martinez DATE OF SERVICE: 05/15/2019 CONSULTATION: Infectious Diseases. HISTORY OF PRESENT ILLNESS: Geri Medley is a 63-year-old -Chinese gentleman admitted through the ER yesterday with sepsis. According to his , the patient was in his usual reasonably good health on 05/13/2019. On 05/14/2019, the patient developed chest pain and shortness of breath. Workup revealed that his creatinine was elevated, his white count was elevated, his temperature was elevated and he had an elevated procalcitonin. The patient was admitted to the hospital for possible sepsis. Infectious Disease consultation was requested. PAST MEDICAL HISTORY: Significant for diabetes with hypertension and hyperlipidemia. Other diagnoses include chronic obstructive pulmonary disease, empyema in 2010, peripheral artery disease, chronic kidney disease, sleep apnea, coronary artery disease with myocardial infarctions and congestive heart failure. PAST SURGICAL HISTORY: Include laminectomy with chronic pain treated with a neurostimulator. He has had bilateral knee replacements. Approximately a month ago, the patient had angioplasty to the left femoral popliteal area. At that time, an MRSA swab of the nares was done, which was positive for MRSA. Other surgical history includes cholecystectomy, hernia repair, cervical disk, elbow surgery, umbilical hernia as well as surgical treatment for the empyema. ALLERGIES: THE PATIENT HAS A HISTORY OF ALLERGY OR INTOLERANCE TO COMPAZINE, STATINS AND CODEINE. FAMILY HISTORY: Noncontributory. SOCIAL HISTORY: The patient is and lives with his of 40 years. No history of drug use. REVIEW OF SYSTEMS: The patient notes he is feeling better now. He is breathing comfortably on a BiPAP. He has not been complaining of fevers, chills or sweats. No head or neck complaints. The patient has been mentally baseline and alert. He has not had any stiffness of the neck. The patient currently is not feeling short of breath nor having chest pain. The patient denies nausea, vomiting, diarrhea, constipation, abdominal pain. Of note, the says the [facility] [place] [address] [place] [address] CONSULTATION Name: GERI MEDLEY Room #: 353-P [facility] IN ..#: [id number] Admission: 05/14/19 Attend Phys: Melvin Martinez MD Discharge: Date of : 55 Report #: [id number] patient has had no complaints of urinary symptoms. He specifically has not had any symptoms of urinary obstruction or bladder distention. No frequency or dysuria. He takes diuretics and generally has a daily diuresis. No pain in the extremities. PHYSICAL EXAMINATION: GENERAL: The patient appears her stated age, somewhat lethargic, but appearing comfortable on a BiPAP, not in any distress. VITAL SIGNS: Showed temperature was 103.3 in the ER. It went down to 98 and this morning again went up to 103.2. The blood pressure now is 98/54, pulse 93. On admission, in the ER the blood pressure is 172/98 with pulse 113. SKIN: Shows no rash, lesion, or exanthem. ENT: Negative, although exam limited by the BiPAP mask. NECK: Supple. HEART: Sounds S1, S2. LUNGS: Breath sounds are diminished. ABDOMEN: Belly is obese, soft, nontender. I cannot appreciate any organomegaly. GENITALIA: Demonstrates a Hernandez catheter with clear urine. EXTREMITIES: Unremarkable. LABORATORY DATA: Blood gas on 2 liters oxygen supplementation the ER had pH 7.43, pCO2 of 38, pO2 of 52. Sodium was 136, potassium has gone up from 4.7 to 6.6, chloride 103, bicarbonate 21, BUN is 73, creatinine 4.0. Yesterday, creatinine was 3.8. His creatinine when discharged from the hospital a month ago had gone from 3.0 to 2.2. The CBC shows a white count was 14,000 yesterday and 21.8 today, hemoglobin 11, hematocrit 35%, platelet 130,000. On 04/04/2019, the patient had a positive MRSA swab from the nares. The urinalysis shows no white cells. The nurses report that the patient had 900 mL in the bladder when a catheter was placed. He had no complaints from that. The chest x-ray shows chronic changes, but really no acute disease. CT of the chest is pending. ASSESSMENT AND PLAN: In summary, we have a gentleman who presents with chest pain and shortness of breath, but was found to have fever, leukocytosis, elevated procalcitonin, worsening renal failure with 900 mL of urine in the bladder without symptoms. I am suspicious that the patient may have had a urinary tract infection, although he did not have any white cells in the urine. The UA may be worth repeating. The chest x-ray does not suggest pneumonia and his chest pain and shortness of breath might have just been an anginal complication from the sepsis. We will see if the CT scan shows any acute disease in the chest. The patient clearly has evidence of sepsis with a systemic failure including breathing, renal and the leukocytosis. I would suggest we treat him broadly. With a history of methicillin-resistant Staphylococcus aureus in the nares, we will use Zyvox for Gram-positive coverage and Zosyn for gram-negative. I would [facility] [place] [address] CONSULTATION Name: GERI MEDLEY Room #: 353-P ADM IN M.R.#: [id number] Admission: 05/14/19 Attend Phys: Melvin Martinez MD Discharge: Date of : 55 Report #: [id number] like to follow septic parameters including lactate and procalcitonin. We can obtain repeat blood cultures if fever. We want to repeat the MRSA in the nares and use mupirocin decontamination. We will use contact isolation until the MRSA swabs come back negative. I appreciate the opportunity of input in the care of this ill gentleman. I discussed my conclusions with the patient and his who was at the bedside. Dr. Zhong will return tomorrow to assume additional care from the Infectious Disease specialty. Thank you for this consultation. <ELECTRONICALLY SIGNED> By: Benito Valentino MD 05/15/19 1747 1104 1235 Benito Valentino MD /nt
--- NOTE | 2019-05-15 18:28 | NUR ---
ASSUMED PATIENT CARE AT 0700. A/O X4. GENERLIZED WEAKNESS. CRITUCAL LAB REPORTED TO PHYSISAN. BOLUS 2L NS FOR LOW BP. PATIENT WAS ON 35% FIO2 BIPAP MOST OF TIMES TODAY. LAST VIT AT 1830 BP UP TO 118/52. TEMP DOWN TO 100.1. AT BEDSIDE. SOLWLY TOWARDS POC GOALS.
[2019-05-16 04:28] VITALS: BP 99/56
[2019-05-16 06:08] LABS: HEMATOCRIT 30.9 % (42.0-52.0); HEMOGLOBIN 9.9 gm/dL (14.0-18.0); MCH 26.9 pg (26.0-34.0); MCHC 31.9 g/dL (28.0-37.0); MCV 84.5 fL (80.0-100.0); RBC 3.66 mil/uL (4.50-6.00); RDW 18.8 % (10.5-14.5); WBC 19.7 thou/uL (4.0-11.0)
[2019-05-16 06:17] LABS: CALCIUM 8.7 mg/dL (8.5-10.1); CREATININE 4.1 mg/dL (0.7-1.3); MAGNESIUM 1.8 mg/dL (1.8-2.4); POTASSIUM 4.2 mmol/L (3.5-5.1)
--- NOTE | 2019-05-16 07:46 | NUR ---
PT MAKING PROGRESS TOWARDS GOALS. ELEVATED TEMP REPORTED BY DAY RN AND TYLENOL GIVEN. NO FEVERS NOTED OVERNIGHT. NO REPORTED SWEATS OR CHILLS. ON BIPAP THROUGHOUT THE NIGHT.
[2019-05-16 07:56] VITALS: BP 104/60
--- NOTE | 2019-05-16 08:50 | EKG ---
[address] [place] [address] ELECTROCARDIOGRAM REPORT Name: JEREMI MCARTHURIN ZACHARIAH Room #: 353-P ADM IN M.R.#: [id number] Admission: 05/14/19 Attend Phys: Melvin Martinez MD Discharge: Date of : 55 Report #: [id number] THIS REPORT FOR: //name// [facility] ED Test Date: 2019-05-14 Test Time: 09:46:24 Pat Name: GERI MCARTHUR Department: Room: 353 Gender: M [employer] Processing [employer] Leader: 12 : 1955 Requested By: Joseph Rayo Order Number: [id number] MD: Chet Rodriguez Measurements Intervals [place] Rate: 112 P: UT: QRS: -25 QRSD: 79 T: 42 QT: 305 QTc: 417 Interpretive Statements Atrial fibrillation Abnormal R-wave progression, early transition Inferior infarct, old Compared to ECG 04/04/2019 10:33:10 Ventricular premature complex(es) no longer present Electronically Signed On 05-16-2019 8:49:48 CDT by Chet Rodriguez [email or web address] <ELECTRONICALLY SIGNED> By: Chet Rodriguez MD, [facility] 05/16/19 0849 0946 0946 Chet Rodriguez MD, [facility] /EPI
--- NOTE | 2019-05-16 09:54 | 2DMMODE ---
[facility] [address] [place] [address] 2 D/M-MODE ECHOCARDIOGRAM Name: GERI MCARTHUR Room #: 353-P ADM IN M.R.#: [id number] Admission: 05/14/19 Attend Phys: Melvin Martinez, Discharge: Date of : 55 Date of Service: 05/16/19 0954 Report #: [id number] THIS REPORT FOR: //name// APPROVED REPORT Study performed: 05/16/2019 08:58:45 EXAM: Comprehensive 2D, Doppler, and color-flow Echocardiogram Patient Location: Bedside Room #: 353 Status: routine BSA: 2.50 HR: 82 bpm BP: 99/56 mmHg Rhythm: NSR Other Information Study Quality: Adequate Indications Hypotension COPD Diabetes Dyspnea CAD Hypertension/HDD 2D Dimensions IVSd: 9.91 (7-11mm) LVDd: 50.54 mm PWd: 10.35 (7-11mm) LVDs: 42.17 (25-40mm) Aortic Root: 31.47 mm IVC: 30.00 mm Tricuspid Valve TR Peak Gold.: 2.66 m/s TR Peak Gr.: 28.26 mmHg PA Pressure: 38.00 mmHg Left Ventricle The left ventricle is normal size. Regional wall motion abnormalities are noted. There is normal left ventricular wall thickness. Left ventricular systolic function is moderately decreased. LVEF is 35%. This study is not technically sufficient to allow evaluation of the [facility] [address] [place] [address] 2 D/M-MODE ECHOCARDIOGRAM Name: GERI MCARTHUR Room #: 353-P ADM IN M.R.#: [id number] Admission: 05/14/19 Attend Phys: Melvin Martinez, Discharge: Date of : 55 Date of Service: 05/16/19 0954 Report #: [id number] LV diastolic function. Right Ventricle Right ventricle is borderline dilated. Atria Left atrium is dilated. Right atrium is dilated. Aortic Valve The aortic valve is normal in structure. Aortic valve is calcified. Trace aortic regurgitation. There is no aortic valvular stenosis. Mitral Valve The mitral valve is normal in structure. Mild mitral regurgitation. No evidence of mitral valve stenosis. Tricuspid Valve The tricuspid valve is normal in structure. There is mild tricuspid regurgitation. Estimated PAP 38 mmHg. There is mild pulmonary hypertension. Pulmonic Valve The pulmonary valve is normal in structure. Great Vessels The aortic root is normal in size. IVC is dilated and collapses <50% with inspiration. Pericardium Trace pericardial effusion. <Conclusion> The left ventricle is normal size. There is normal left ventricular wall thickness. Left ventricular systolic function is moderately decreased. Regional wall motion abnormalities are noted. Left atrium is dilated. Right atrium is dilated. Mild mitral regurgitation. Aortic valve is calcified. There is mild tricuspid regurgitation. Estimated PAP 38 mmHg. <ELECTRONICALLY SIGNED> By: Paul Rojas MD 05/16/19 0954 0954 0954 Paul Rojas MD /INF
[2019-05-16 11:37] VITALS: BP 108/54
--- NOTE | 2019-05-16 12:11 | NUR ---
ASSESSMENT: CM REVIEWED CHART AND MET WITH PATIENT AT THE BEDSIDE. PT REPORTS HE LIVES AT HOME WITH HIS IN A HOUSE. PT REPORTS NO STEPS TO ENTER THE HOME AND NO STEPS HE HAS TO USE ONCE INSIDE. PT REPORTS USING A CANE FOR AMBULATION AND ALSO HAS A WALKER. PT STATES HE USES A BIPAP AT NIGHT. PT REPORTS HAVING A GRAB BAR IN THE SHOWER AND HAS A SHOWER CHAIR. PT STATES HE IS INDEPENDENT WITH ADLS. CM DISCUSSED ROLE. PT REPORTS THAT HE DOES NOT FEEL HE WILL NEED HH AND HAS NOT HAD IT IN THE PAST. PT/OT EVALS PENDING. CM WILL CONTINUE TO FOLLOW TO ASSIST NEEDED.
[2019-05-16 16:28] VITALS: BP 119/49
--- NOTE | 2019-05-16 19:57 | NUR ---
ASSUMED PATIENT CARE AT 0700. A/0 X4. TOLERATED ON 3L/NC. UP WALK WITH CANE. VSS, LOW GRADE TEMP. C/O BACK PAIN. WOUND CARE PER ORDER.USE BIPAP AT NIGHT. PROGRESSING TOWARDS POC GOAls.
[2019-05-16 21:39] VITALS: BP 114/56
--- NOTE | 2019-05-17 03:39 | NUR ---
PT COMPLAINS OF A HEADACHE TONIGHT. HE IS RESTING, AND CONTINUES ON HIS IV FLUIDS. KEEPING O2 SATS GREater than 97%. careplan revewied. no discharge concerns voiced.
[2019-05-17 04:33] VITALS: BP 138/66
[2019-05-17 05:18] LABS: HEMATOCRIT 31.2 % (42.0-52.0); HEMOGLOBIN 9.9 gm/dL (14.0-18.0); MCH 26.4 pg (26.0-34.0); MCHC 31.7 g/dL (28.0-37.0); MCV 83.2 fL (80.0-100.0); RBC 3.76 mil/uL (4.50-6.00); RDW 18.3 % (10.5-14.5); WBC 21.8 thou/uL (4.0-11.0)
[2019-05-17 05:29] LABS: ALBUMIN 2.3 g/dL (3.4-5.0); CALCIUM 8.6 mg/dL (8.5-10.1); CREATININE 3.2 mg/dL (0.7-1.3); PHOSPHORUS 3.7 mg/dL (2.5-4.9); POTASSIUM 3.6 mmol/L (3.5-5.1)
[2019-05-17 07:56] VITALS: BP 134/67
[2019-05-17 11:10] VITALS: BP 116/49
--- NOTE | 2019-05-17 12:40 | NUR ---
on-going assessment: CM REVIEWED CHART AND SPOKE WITH ATTENDING. PT IS NOT MEDICALLY STABLE FOR DISCHARGE TODAY DUE TO WBC IS STILL ELEVATEDAND IS STILL ON 2L OXYGEN WHICH HE DOES NOT HAVE AT HOME. CM SPOKE WITH PATIENT REGARDING RECOMMENDATION FOR HH. PT STATING HE DOES NOT WANT HH AT DISCHARGE. CM DISCUSSED BENEFITS OF HH BUT PT STILL DECLINES. CM ATTEMPTED TO REACH PATIENTS REINIER BUT UNABLE TO REACH AT THIS TIME AND VM WAS LEFT.
--- NOTE | 2019-05-17 14:20 | NUR ---
Nutrition: pt admitted with PNA, sepsis, MARGO on CKD. Seen due to BMI 41, extreme class 3 obesity. Weight hx shows no significant changes. Pt rolled his eyes when this senior mortgage underwriter came into room. Was lethargic. Currently eating < 50% of meals. Usual appetite at home is good. Attempted to obtain food preferences, assist with meal ordering-pt refused. On multiple diet restrictions. May benefit from liberalization if po does not improve. Voiced no desire for diet review at this time. Place as low risk.
--- NOTE | 2019-05-17 14:56 | HC ---
[facility] [place] [address] CONSULTATION Name: GERI MCARTHUR Room #: 353-P ADM IN M.R.#: [id number] Admission: 05/14/19 Attend Phys: Melvin Martinez MD Discharge: Date of : 55 Report #: [id number] THIS REPORT FOR: //name// CC: SEPIDEH physician/PCP Melvin Martinez DATE OF SERVICE: 05/16/2019 CHIEF COMPLAINT: Bilateral great toe ulcerations. HISTORY OF PRESENT ILLNESS: This is a 63-year-old male patient with whom we are familiar from the Wound Care Service with a history of hypertension, peripheral arterial disease and diabetes. He has had recent femoral endarterectomy. He was admitted with fever, chills and hypotension. He denies any pain associated with his feet, but I have been asked to see him with regard to wound care here. PAST MEDICAL HISTORY: The patient's past medical history is positive for history of hyperlipidemia, back pain, COPD, diabetes mellitus, hypertension, bilateral knee replacements and peripheral arterial disease, status post popliteal artery stent placement, 03/2019. ALLERGIES: COMPAZINE, STATINS AND CODEINE. MEDICATIONS: Include [place] 3 fatty acids, Mirapex, Zetia, niacin, Coreg, multivitamin, Lyrica, Dulera, Imdur, Humalog, testosterone, Zanaflex, Lumigan, hydromorphone, Neurontin, aspirin, Plavix, sildenafil, torsemide and allopurinol. SOCIAL HISTORY: The patient is a previous smoker, having quit greater than a year ago. History of occasional alcohol use. FAMILY HISTORY: Noncontributory. REVIEW OF SYSTEMS: CONSTITUTIONAL: The patient denies fever, chills or weight loss. NEUROLOGIC: The patient denies focal weakness, numbness or tingling. EYES: The patient denies any visual changes, redness or drainage. ENT: The patient denies earache, nasal drainage or sore throat. CARDIOVASCULAR: The patient denies chest pain, palpitations or diaphoresis. PULMONARY: The patient denies cough or shortness of breath. GASTROINTESTINAL: The patient denies nausea, vomiting, diarrhea or abdominal pain. ORTHOPEDIC: The patient has ulcerations on bilateral great toes. Other systems in a 14-point review of systems are negative. PHYSICAL EXAMINATION: [address] [address] CONSULTATION Name: GERI MCARTHUR Room #: 353-[facility] IN ..#: [id number] Admission: 05/14/19 Attend Phys: Melvin Martinez MD Discharge: Date of : 55 Report #: [id number] VITAL SIGNS: The patient's vital signs at this time include temperature 37.0, pulse 82, respiratory rate 16 and blood pressure 119/49. GENERAL: This is a chronically ill-appearing male patient, who appears to be in minimal distress. HEENT: Head normocephalic. Nose and throat are clear. NECK: Supple. LUNGS: Clear. ABDOMEN: Soft. Bowel sounds present. EXTREMITIES: Examination of the lower extremities demonstrates circular ulcerations on the great toes bilaterally, larger on the right than on the left. Both are healthy, clean and granulating. No evidence of infection or exposure of deep structures. NEUROLOGIC: The patient is alert, oriented and appropriate. LABORATORY DATA: White blood cell count 19.7 with hemoglobin of 9.9, hematocrit of 30.9 and platelet count is 109,000. Sodium 137, potassium 4.2, chloride 105, CO2 of 20, BUN 76, creatinine 4.1 and glucose 128. CLINICAL IMPRESSION: 1. Diabetic ulcerations to bilateral great toes. 2. Peripheral arterial disease. 3. Diabetes mellitus with hyperglycemia. 4. Chronic kidney disease. 5. Sepsis, pneumonia versus urinary tract infection. RECOMMENDATIONS: At this point in time, we will recommend topical Xeroform gauze and a bordered foam to both toe ulcers daily. Continuation of current medications and current medical therapy, will need nutritional support to maintain optimal wound healing and maintain glycemic control. I appreciate being asked to see him in consultation. <ELECTRONICALLY SIGNED> By: Beau Guillermo MD 05/17/19 1456 1846 1434 Beau Guillermo MD /nt
[2019-05-17 16:00] VITALS: BP 119/67
--- NOTE | 2019-05-17 20:27 | NUR ---
pt is A&OX3, pt is cotinuing o2 2l/nolan/nc, and iv abt, pt's vs, o2sat are stable , pt has slowly meet care plan goals.
[2019-05-17 22:06] LABS: ADENOVIRUS Negative (Negative); INFLUENZA A Negative (Negative); INFLUENZA B Negative (Negative); METAPNEUMOVIRUS Negative (Negative); PARAINFLUENZA 1 Negative (Negative); PARAINFLUENZA 2 Negative (Negative); PARAINFLUENZA 3 Negative (Negative); RHINOVIRUS Negative (Negative); RSV A Negative (Negative); RSV B Negative (Negative)
[2019-05-17 23:10] VITALS: BP 141/65
[2019-05-17 23:59] LABS: CALCIUM 8.9 mg/dL (8.5-10.1); CREATININE 3.2 mg/dL (0.7-1.3); MAGNESIUM 1.7 mg/dL (1.8-2.4); POTASSIUM 3.3 mmol/L (3.5-5.1)
[2019-05-18 04:10] VITALS: BP 139/79
[2019-05-18 07:05] LABS: HEMOGLOBIN 9.9 gm/dL (14.0-18.0); MCHC 32.1 g/dL (28.0-37.0); MCV 84.3 fL (80.0-100.0); RBC 3.68 mil/uL (4.50-6.00); RDW 18.6 % (10.5-14.5); WBC 27.1 thou/uL (4.0-11.0)
--- NOTE | 2019-05-18 07:37 | NUR ---
0: TELEMETRY SHOW SR 70-80'S WITH BURSTS OF SVT THAT LAST AROUND 30 SEC. Jena CASEYP NOTIFIED AND ORDERS FOR LOPRESSOR 5MG IVP GIVEN. LABS DRAWN 19 Jena CASEYP NOTIFIED OF LAB RESULTS AND K+ AND MG++ ORDERED. 06 NO FURTHER BURST OF SVT SINCE 339. VSS. NOTED ABDOMAN MORE DISTENDED AND FIRM THIS AM SINCE 429. DENIES COMPLAINTS OF PAIN IN ABDOMAN, NAUSEA OR DIFFICULTY BREATHING. STATES YEAH ITS A LITTLE BIGGER. BOWEL SOUNDS HYPOACTIVE. DR. ISABEL HERE AND CT OF ABDOMAN ORDERED. NOTIFIED Jersey LLAMAS OF STATUS CHANGE. NO FURTHER ORDERS.
[2019-05-18 08:15] VITALS: BP 135/67
[2019-05-18 09:09] LABS: ALBUMIN 2.4 g/dL (3.4-5.0); CREATININE 3.2 mg/dL (0.7-1.3); PHOSPHORUS 3.7 mg/dL (2.5-4.9); POTASSIUM 3.4 mmol/L (3.5-5.1)
--- NOTE | 2019-05-18 10:18 | NUR ---
PT RETURN FROM MRI.
[2019-05-18 11:10] VITALS: BP 125/65
--- NOTE | 2019-05-18 11:24 | NUR ---
PT ON HOME CPAP.
[2019-05-18 14:29] LABS: ALBUMIN 2.5 g/dL (3.4-5.0); DIRECT BILIRUBIN 0.8 mg/dL (<0.1-0.3); TOTAL BILIRUBIN 1.2 mg/dL (<0.1-1.0); TOTAL PROTEIN 6.1 g/dL (6.4-8.2)
--- NOTE | 2019-05-18 14:42 | NUR ---
ON-GOING ASSESSMENT: PT HAD CT OF SPINE COMPLETED. PATIETNS WBC CONTINUES TO ELEVATE AND HE IS NOT MEDICALLY STABLE FOR DISCHARGE TODAY. CM WILL CONTINUE TO FOLLOW TO ASSIST NEEDED.
[2019-05-18 16:24] VITALS: BP 125/61
[2019-05-18 17:29] LABS: % SATURATION 4 % (20-39); IRON 10 ug/dL (65-175); TIBC 239 ug/dL (250-450)
--- NOTE | 2019-05-18 17:51 | NUR ---
PT UP TO CHAIR WITH PT TODAY. PT HAD SEVERAL LOOSE STOOLS. CHANGE DRESSING LEFT AC.
[2019-05-18 19:59] VITALS: BP 115/55
[2019-05-19] VITALS (7 sets, daily range): BP systolic 108–139; BP diastolic 37–68
[2019-05-19 00:47] LABS: URINE BILIRUBIN 2+ (Negative); URINE BLOOD 3+ (Negative); URINE CLARITY TURBID; URINE COLOR BROWN; URINE GLUCOSE-RANDOM* NEGATIVE (Negative); URINE KETONES TRACE (Negative); URINE NITRITE-REFLEX NEGATIVE (Negative); URINE PROTEIN (DIPSTICK) 2+ (Negative); URINE SPECIFIC GRAVITY >= 1.030 (1.005-1.035); URINE UROBILINOGEN 0.2 E.U./dl (0.2-1.0)
[2019-05-19 00:53] LABS: URINE LEUKOCYTES-REFLEX 1+ (Negative)
[2019-05-19 01:19] LABS: CALCIUM OXALATE 4-10 Moderate /LPF (None Seen); FINE GRANULAR CASTS 0-3 Few /LPF (None Seen); HYALINE CASTS 0-3 Few /LPF (None Seen); MUCUS 4-6 Moderate strn/LPF (None Seen); SQUAMOUS 4-10 Moderate /LPF (0-3); URINE RBC >20 Many /HPF (0-2); URINE WBC-REFLEX 6-15 Few /HPF (0-5)
--- NOTE | 2019-05-19 05:00 | NUR ---
SLEPT MOST OF SHIFT. ON HOME BIPAP. DENIES PRESENT COMPLAINTS OF PAIN. ABDOMAN REMAINS DISTENDED PAST 3 SOFT/LOOSE BOWEL MOVEMENTS. DENIES COMPLAINTS OF ABDOMANAL PAIN OR NAUSEA. URINE OUTPUT 100 CC THIS SHIFT, RESTAURANT HOSTESS NOTIFIED AND HOME DOSE OF DEMEDEX ORDERED AND GIVEN. TELEMETRY SHOWS SR WITH PVC'S AMD HAD 11 BEATS VT, RESTAURANT HOSTESS NOTIFIED, PATIENT ASYMPTOMATIC. WORKING ON GOALS AND PLAN OF CARE FOR NOC. NOT PROGRESSING TOWARDS DISCHARGE GOALS. ASSIST TO REPOSITION NEEDED. CONTINUE TO ASSES CLOSELY.
[2019-05-19 05:58] LABS: CALCIUM 8.5 mg/dL (8.5-10.1); PHOSPHORUS 4.3 mg/dL (2.5-4.9); POTASSIUM 3.3 mmol/L (3.5-5.1)
[2019-05-19 06:14] LABS: CREATININE 4.7 mg/dL (0.7-1.3)
[2019-05-19 08:27] LABS: HEMATOCRIT 27.4 % (42.0-52.0); HEMOGLOBIN 8.7 gm/dL (14.0-18.0); RDW 18.3 % (10.5-14.5)
[2019-05-19 08:29] LABS: MCHC 31.8 g/dL (28.0-37.0); RBC 3.23 mil/uL (4.50-6.00)
[2019-05-19 08:48] LABS: BE(vivo) -19.5 mmol/L (-2 to +3); HCO3 10.4 mmol/L (22.0-26.0); PCO2 40.3 mmHg (35.0-45.0); PO2 81.9 mmHg (80.0-100.0)
[2019-05-19 08:49] LABS: pH 7.029 (7.360-7.450)
--- NOTE | 2019-05-19 09:10 | NUR ---
Received pt s/p code blue from floor. Awake and alert. VSS although difficult to read NBP at times. Currently on 50 venimask. Bilateral BS clear and diminished. Denies chest pain or pressure. Does have some slight abd pain but pt states it is better today. Incontinent of stool, brown with red flecks. SR in the 90s. At 0949 pt went into a narrow complex SVT, Dr. Garcia here and cardiology UNIVERSITY COUNSELOR. Pt was asmymtoatic at this time. Adenosine drawn up but never given because pt then tin down and eventually went asystole. Code blue called. CPR was started at once. See code blue sheet. Once pt intubated and stablized, was transferred to laborer wharf for heart cath, IABP therapy and IR was consulted to place HD catheter. Pt left unit with laborer wharf personell at 1045.
[2019-05-19 09:21] LABS: ABSOLUTE NEUTROPHILS 11.3 thou/uL (1.4-8.2); PLATELET COUNT 96 thou/uL (150-400)
[2019-05-19 09:22] LABS: ANISOCYTOSIS 1+
[2019-05-19 10:26] LABS: BE(vivo) -16.2 mmol/L (-2 to +3); HCO3 13.8 mmol/L (22.0-26.0); PCO2 51.5 mmHg (35.0-45.0); PO2 63.7 mmHg (80.0-100.0); pH 7.046 (7.360-7.450); sO2 81.3 % (92.0-98.0)
[2019-05-19 10:39] LABS: CALCIUM 9.1 mg/dL (8.5-10.1); CREATININE 4.9 mg/dL (0.7-1.3); POTASSIUM 3.2 mmol/L (3.5-5.1)
--- NOTE | 2019-05-19 10:43 | NUR ---
0910-Into 236 via bed s/p resp arrest on floor (accompanied pt from floor). Pt waking up, approp answers all ?'s,CURRY,follows 1&2 step commands.-Jeanette updated. in,updated.--vw 1045-TO CV LAB W CV CREW,FULLY MONITORED,.100% ON VENT. GTTS-AMIODARONE @ 1MG/MIN, LEVOPHED @ 20MCG/MIN, EPI @ 2MCG/MIN, PROPOFOL @ 50MCG/KG/MIN. IN BRIEFLY TO SEE. PT MOVING ALL EXTREM'S, NOT FOLLOWING ANY COMMANDS,PULLING AGAINST RESTRAINTS.2 AMPS NA BICARB GIVEN PER PRIOR TO LEAVING FOR CV LAB.--VW
[2019-05-19 10:45] LABS: ALBUMIN 2.1 g/dL (3.4-5.0); TOTAL BILIRUBIN 1.1 mg/dL (<0.1-1.0); TOTAL PROTEIN 6.4 g/dL (6.4-8.2)
--- NOTE | 2019-05-19 11:19 | NUR ---
CALL TO TO UPDATE VIA OFFICE.--VW
--- NOTE | 2019-05-19 12:16 | NUR ---
Dinh WEEMS& AL-YARA UPDATED.--VW
--- NOTE | 2019-05-19 12:56 | EKG ---
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: REENA : 1955 Requested By: Suman Garcia Order Number: [id number] MD: Antwon Champagne Measurements Intervals [place] Rate: 106 P: 38 PA: 165 QRS: -43 QRSD: 90 T: 133 QT: 334 QTc: 444 Interpretive Statements Sinus tachycardia Multiform ventricular premature complexes Probable left atrial enlargement Inferior lateral infarct, old Nonspecific ST-T wave changes Compared to ECG 05/14/2019 09:46:24 Ventricular premature complex(es) now present Atrial fibrillation no longer present Electronically Signed On 05-19-2019 12:55:56 CDT by Antwon Champagne [email or web address] <ELECTRONICALLY SIGNED> By: Antwon Champagne MD 05/19/19 1255 0845 0845 Antwon Champagne MD /EPI
--- NOTE | 2019-05-19 12:57 | EKG ---
[address] [address] ELECTROCARDIOGRAM REPORT Name: GERI MCARTHUR Room #: 236-P ADM IN M.R.#: [id number] Admission: 05/14/19 Attend Phys: Melvin Martinez MD Discharge: Date of : 55 Report #: [id number] THIS REPORT FOR: //name// [facility] Test Date: 2019-05-19 Test Time: 10:12:43 Pat Name: GERI MCARTHUR Department: Room: 236 P Gender: M Agent Based Modeler: REENA : 1955 Requested By: Vish Jose Order Number: [id number] MD: Antwon Champagne Measurements Intervals [place] Rate: 87 P: 67 FL: 191 QRS: -29 QRSD: 106 T: 144 QT: 401 QTc: 483 Interpretive Statements Sinus rhythm Atrial premature complex Inferior lateral infarct, old Nonspecific ST-T wave changes Compared to ECG 05/14/2019 09:46:24 Atrial premature complex(es) now present Electronically Signed On 05-19-2019 12:57:09 CDT by Antwon Champagne [email or web address] <ELECTRONICALLY SIGNED> By: Antwon Champagne MD 05/19/19 1257 1012 1012 Antwon Champagne MD /EPI
[2019-05-19 13:55] LABS: HEMATOCRIT 27.2 % (42.0-52.0); HEMOGLOBIN 8.8 gm/dL (14.0-18.0); MCH 26.9 pg (26.0-34.0); MCHC 32.2 g/dL (28.0-37.0); MCV 83.4 fL (80.0-100.0); RBC 3.26 mil/uL (4.50-6.00)
[2019-05-19 14:11] LABS: APTT 83.6 Seconds (24.5-32.8); INR 3.2; PROTIME 32.8 Seconds (9.3-11.4)
[2019-05-19 14:12] LABS: URINE BILIRUBIN NEGATIVE (Negative); URINE BLOOD 3+ (Negative); URINE CLARITY CLEAR; URINE COLOR YELLOW; URINE GLUCOSE-RANDOM* NEGATIVE (Negative); URINE KETONES NEGATIVE (Negative); URINE LEUKOCYTES-REFLEX NEGATIVE (Negative); URINE NITRITE-REFLEX NEGATIVE (Negative); URINE PROTEIN (DIPSTICK) 1+ (Negative); URINE UROBILINOGEN 0.2 E.U./dl (0.2-1.0)
[2019-05-19 14:13] LABS: ALBUMIN 1.9 g/dL (3.4-5.0); CALCIUM 8.7 mg/dL (8.5-10.1); CREATININE 4.9 mg/dL (0.7-1.3); POTASSIUM 3.1 mmol/L (3.5-5.1); TOTAL BILIRUBIN 1.1 mg/dL (<0.1-1.0)
[2019-05-19 14:21] LABS: BACTERIA-REFLEX None Seen /HPF (None Seen); CRYSTALS None Seen /LPF (None Seen); HYALINE CASTS 0-3 Few /LPF (None Seen); SQUAMOUS None Seen /LPF (0-3); URINE RBC >20 Many /HPF (0-2); URINE WBC-REFLEX 0-5 Rare /HPF (0-5)
[2019-05-19 14:37] LABS: BE(vivo) -10.9 mmol/L (-2 to +3); HCO3 15.7 mmol/L (22.0-26.0); PCO2 37.2 mmHg (35.0-45.0); PO2 313.4 mmHg (80.0-100.0); pH 7.242 (7.360-7.450); sO2 99.6 % (92.0-98.0)
--- NOTE | 2019-05-19 14:45 | NUR ---
CALL TO VIA OFFICE W LAB/ABG RESULTS,UPDATE.--VW
[2019-05-19 14:48] LABS: HEMATOCRIT 27.2 % (42.0-52.0); MCV 83.7 fL (80.0-100.0); RBC 3.25 mil/uL (4.50-6.00)
[2019-05-19 14:49] LABS: HEMOGLOBIN 8.8 gm/dL (14.0-18.0); MCH 27.1 pg (26.0-34.0); MCHC 32.4 g/dL (28.0-37.0); PLATELET COUNT 91 thou/uL (150-400); RDW 18.2 % (10.5-14.5); WBC 17.4 thou/uL (4.0-11.0)
[2019-05-19 15:31] LABS: ABSOLUTE NEUTROPHILS 16.5 thou/uL (1.4-8.2); ANISOCYTOSIS 1+; PLATELET ESTIMATE SLIGHTLY DECREASED
--- NOTE | 2019-05-19 16:05 | NUR ---
PT CODED (VFIB) TODAY AND NOW INTUBATED ON VENT, WENT TO [facility]TER [facility], HAD PTCA TO LAD, NOW ON CRRT AND IABP. FAMILY HERE AND UPDATED.
--- NOTE | 2019-05-19 16:18 | CATHLAB ---
[facility] [address] [place] [address] INVASIVE PROCEDURE REPORT Name: GERI MCARTHUR Room #: 236-P ADM IN M.R.#: [id number] Admission: 05/14/19 Attend Phys: Melivn Martinez, Discharge: Date of : 55 Date of Service: 05/19/19 1618 Report #: [id number] THIS REPORT FOR: //name// APPROVED REPORT Study performed: 05/19/2019 10:26:27 Patient Details Patient Status: In-Patient Room #: The patient is a 63 year-old male Event Personnel Paul Rojas Hardboard Panel Printer, Brandon Walker RN RN, Jemima Suh Monitor, Piper Cameron RTR, STALIN Scrub, Sedrick Jimenez RTR Scrub, Cristin Pino RTR Monitor, Brandin Gomez RN RN, Irma Esteves Interventional Radiologist Procedures Performed Art Access - R femoral artery* Shahram Access - R femoral vein Left Heart Cath w/or w/o Coronaries [id number] [facility] w/wo Plasty Single LAD [id number] IABP Placement [id number] IABPI Hemostasis with Manual pressure Indication Arrhythmia, Unstable angina , Chest pain, Patient with cardiac arrest/ventricle tachycardia/cardiogenic shock. Risk Factors Obesity, Hypercholesterolemia, Coronary Artery DiseaseHypertensionRenal Failure, Diabetes Previous Procedures/Diagnoses Previous CVAPrevious PCI, Previous Femoral Procedure, Previous CA Procedure Narrative The patient was brought emergently to the Cardiac Catheterization Laboratory and was prepped and draped in a sterile manner. The Right Groin^ was infiltrated with 1% Lidocaine subcutaneous anesthesia. A PINNACLE 6FR Sheath #[id number] sheath was inserted into the RFA^. Coronary angiography was performed using coronary diagnostic catheters. The right coronary system was accessed and visualized with a JR 4 catheter. The left coronary system was accessed and visualized with a JL 4 catheter. The left ventricle was accessed and visualized with a JR 4 catheter. Left ventricular/Aortic Valve gradient assessed [facility] [address] [place] [address] INVASIVE PROCEDURE REPORT Name: GERI MCARTHUR Room #: 236-P [facility] IN ..#: [id number] Admission: 05/14/19 Attend Phys: Melvin Martinez, Discharge: Date of : 55 Date of Service: 05/19/19 1618 Report #: [id number] via catheter pullback. The patient tolerated the procedure well and there were no complications associated with the procedure. There was no hematoma. Fluoro Time: 12.48 minutes Dose: DAP 49522.00 cGycm2 3017 mGy Contrast Type and Amount: Visipaque 160 ml Coronary Angiography The patient's coronary anatomy is right dominant. Diagnostic Cath Left Main This is a large caliber vessel with mild disease at the distal segment. LAD This is a moderate to large caliber vessel, traversing the anterior wall and wrapping around the apex, terminating in the distal inferior wall. There is a severe occlusion in the proximal segment, 95%. Diagonal 1 This is a small to moderate size caliber vessel with a severe stenosis proximally, 70%. Circumflex This supplies a moderate size OM1 vessel. May be occluded after giving off OM1. OM1 This is a moderate size caliber vessel, traversing the lateral wall, with mild disease in the midsegment. Right Coronary This is a chronically occluded vessel. The distal branches are filled via collateral circulation from the left coronary artery. Left Ventriculography Left Ventriculography was not performed. Ejection Fraction was 35% based off patient's Echocardiogram. An LVEDP was measured and there is no gradient across the outflow tract. Hemodynamics The aortic pressure is 92/55 mmHg with a mean of 70 mmHg. The left ventricular pressure is 108/23 mmHg with a mean of mmHg. The left ventricular end diastolic pressure is 42 mmHg. PCI Technique Lesion Anticoagulation was achieved with Angiomax. Patient was preloaded with Effient. Percutaneous coronary intervention was performed on the proximal left anterior descending artery segment. The lesion stenosis prior to intervention was 95% with BEN 3 flow. A VISTA 6FR XB 3.5 #[id number] Guide Catheter was used to engage the ostium. A Luge Wire .014 x 182CM #[id number] Interventional Guidewire was used to cross the lesion. [address] [address] INVASIVE PROCEDURE REPORT Name: GERI MCARTHUR Room #: 236-P [facility] IN M.R.#: [id number] Admission: 05/14/19 Attend Phys: Melvin Martinez, Discharge: Date of : 55 Date of Service: 05/19/19 1618 Report #: [id number] BALLOON DILATION A Balloon catheter Euphora RX 2.5 x 15 #[id number] was inserted and inflated up to 18.00atm for 28seconds. STENT DEPLOYMENT A drug-eluting stent RESOLUTE BONY RX 3.0 X 18 #[id number] was inserted and inflated up to 16.00atm for 29seconds. POST STENT DEPLOYMENT BALLOON DILATION A Balloon catheter Euphora NC RX 3.25 x 12 #[id number] was inserted and inflated up to 18.00atm for 22seconds. Additional Inflation: 18.00atm for 21seconds. Final angiography reveals 0 % stenosis with BEN 3 flow. Conclusion 1. Successful insertion of a drug-eluting stent into the proximal LAD stenosis. 2. Placement of an intra-aortic balloon pump for cardiogenic shock. 3. Chronically occluded RCA, the distal vessel is filled via collateral circulation from the left coronary artery. 4. Recommend dual antiplatelet therapy. <ELECTRONICALLY SIGNED> By: Paul Rojas MD 05/19/19 1618 17 Paul Rojas MD /INF
[2019-05-19 17:07] LABS: IgG 748 mg/dL (700-1600)
[2019-05-19 20:07] LABS: BE(vivo) -7.2 mmol/L (-2 to +3); HCO3 18.7 mmol/L (22.0-26.0); PCO2 39.1 mmHg (35.0-45.0); PO2 140.8 mmHg (80.0-100.0); sO2 98.6 % (92.0-98.0)
[2019-05-19 20:08] LABS: pH 7.297 (7.360-7.450)
--- NOTE | 2019-05-19 20:23 | NUR ---
1335-RETURNED FROM [employer], S/P PTCA LAD,IABP & LINE PLACEMENTS. SEE CCFS FOR VS,GTT TITRATIONS,SIG EVENTS,HRLY UOP.--VW SUMMARY-VRY DEPENDENT ON LEVOPHED-CHANGED TO QUAD STR EARLIER,TOOK ~40 MIN TO REGAIN ADEQ AO PRESSURES. DOPPLED DISTAL PULSES HRLY,NO CHANGES. RT GROIN SITE SOFT,NO HEMATOMA. HEPARING GTT INFUSING. IN EARLIER,UPDATED.MUCH SUPPORT TO PT'S & SON. AWARE OF CRITICAL CONDITION OF PT.KEPT UPDATED ON POC.CARE TURNED OVER TO ONCOMING RN.--VW
[2019-05-19 20:25] LABS: HEMATOCRIT 28.1 % (42.0-52.0); HEMOGLOBIN 9.2 gm/dL (14.0-18.0)
[2019-05-19 20:35] LABS: ALBUMIN 1.9 g/dL (3.4-5.0); CALCIUM 8.6 mg/dL (8.5-10.1); TOTAL BILIRUBIN 0.8 mg/dL (<0.1-1.0); TOTAL PROTEIN 6.1 g/dL (6.4-8.2)
[2019-05-19 20:36] LABS: CREATININE 3.9 mg/dL (0.7-1.3)
[2019-05-20] VITALS: BP 144/58
[2019-05-20 00:42] LABS: HEMATOCRIT 28.5 % (42.0-52.0); HEMOGLOBIN 9.3 gm/dL (14.0-18.0)
[2019-05-20 02:06] LABS: HAV IgM AB (ANTI-HAV IgM) Negative (Negative); HEPATITIS B SURFACE AG Negative (Negative); HEPATITIS C VIRUS AB <0.1 (0.0-0.9)
[2019-05-20 04:28] LABS: RDW 18.4 % (10.5-14.5); WBC 11.5 thou/uL (4.0-11.0)
[2019-05-20 04:30] LABS: HEMATOCRIT 27.4 % (42.0-52.0); MCH 26.8 pg (26.0-34.0); MCHC 32.6 g/dL (28.0-37.0); MCV 82.2 fL (80.0-100.0); PLATELET COUNT 82 thou/uL (150-400); RBC 3.34 mil/uL (4.50-6.00)
[2019-05-20 04:31] LABS: PROTIME 12.2 Seconds (9.3-11.4)
[2019-05-20 04:33] LABS: INR 1.2
[2019-05-20 04:37] LABS: ALBUMIN 1.7 g/dL (3.4-5.0); CALCIUM 8.7 mg/dL (8.5-10.1); POTASSIUM 3.1 mmol/L (3.5-5.1); TOTAL BILIRUBIN 0.9 mg/dL (<0.1-1.0); TOTAL PROTEIN 5.9 g/dL (6.4-8.2); TROPONIN-I 0.08 ng/mL (<0.06)
[2019-05-20 04:50] LABS: BE(vivo) -4.9 mmol/L (-2 to +3); PCO2 36.1 mmHg (35.0-45.0); PO2 163.9 mmHg (80.0-100.0); pH 7.361 (7.360-7.450)
[2019-05-20 04:58] LABS: CREATININE 2.8 mg/dL (0.7-1.3)
[2019-05-20 06:25] LABS: ABSOLUTE NEUTROPHILS 11.3 thou/uL (1.4-8.2)
[2019-05-20 06:26] LABS: ANISOCYTOSIS 2+; PLATELET ESTIMATE DECREASED; POIKILOCYTOSIS 2+; POLYCHROMASIA 1+
--- NOTE | 2019-05-20 07:38 | NUR ---
END OF SHIFT SUMMARY: Slow progress toward goals. Pt remains extremely bradycardic, rates 32-45, with frequent multi-focal PVC's. Initally on Levophed 30 mcg/min and Vasopressin 0.03 units/min to keep augmented SBP >/= 100 and MAP >/= 60; able to titrate Levophed off and Vasopressin down to 0.02 units/min. Pt remains on Amiodorone 0.5 mg/min per order Dr. Rodriguez. Pt remains on ventilator; FiO2 titrated down from 80% to 50% over this shift. Sat remains 100%. OG tube patent, initially small amount coffee ground drainage, but now just brown bile. Hgb and Hct checked q 4 hours per order and have remained stable around 9.0 and 28.0. Pt on CRRT throughout shift. Tolerated well. See CRRT flowsheet for details.
--- NOTE | 2019-05-20 08:01 | EKG ---
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: Xavier PRESLEY : 1955 Requested By: Paul Rojas Order Number: [id number] MD: Chet Rodriguez Measurements Intervals [place] Rate: 56 P: 58 MT: 190 QRS: -31 QRSD: 87 T: QT: 559 QTc: 540 Interpretive Statements Sinus bradycardia Frequent premature ventricular complexes Inferior infarct, old Nonspecific ST and T wave abnormality Prolonged QT interval Compared to ECG 05/19/2019 10:12:43 Ventricular premature complex(es) now present Atrial premature complexes are no longer present Prolonged QT interval now present Electronically Signed On 05-20-2019 8:01:45 CDT by Chet Rodriguez [email or web address] <ELECTRONICALLY SIGNED> By: Chet Rodriguez MD, [facility] 05/20/19 0801 171 171 Chet Rodriguez MD, FAC /EPI
--- NOTE | 2019-05-20 08:17 | EKG ---
[address] [address] [address] [facility] [facility] 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: Sanket SANDERS : 1955 Requested By: Paul Rojas Order Number: [id number] MD: Chet Rodriguez Measurements Intervals [place] Rate: 41 P: 26 WI: 194 QRS: -28 QRSD: 106 T: -30 QT: 607 QTc: 502 Interpretive Statements Sinus bradycardia Inferior infarct, old Abnormal T, consider ischemia, anterior leads Prolonged QT interval Compared to ECG 05/19/2019 10:12:43 premature ventricular complexes are no longer present QT interval has lengthened Electronically Signed On 05-20-2019 8:17:35 CDT by Chet Rodriguez [email or web address] <ELECTRONICALLY SIGNED> By: Chet Rodriguez MD, [facility] 05/20/19 0817 [phone] Chet Rodriguez MD, [facility] /EPI
[2019-05-20 11:47] LABS: HEMATOCRIT 26.6 % (42.0-52.0); HEMOGLOBIN 8.6 gm/dL (14.0-18.0)
--- NOTE | 2019-05-20 11:52 | NUR ---
Nutrition status change, S/P cardiac arrest
[2019-05-20 15:10] LABS: ANA INTERPRETATION Negative (Negative); CERULOPLASMIN 50.8 mg/dL (16.0-31.0)
[2019-05-20 15:31] LABS: ALBUMIN 1.7 g/dL (3.4-5.0); CALCIUM 8.5 mg/dL (8.5-10.1); CREATININE 2.3 mg/dL (0.7-1.3); PHOSPHORUS 3.8 mg/dL (2.5-4.9); POTASSIUM 3.5 mmol/L (3.5-5.1)
--- NOTE | 2019-05-20 19:30 | NUR ---
SHIFT SUMMARY: PT REMAINS CRITICAL WITH VERY MINIMAL PROGRESS TODAY. SEDATED ON VENT WITH 4 POINT RESTRAINTS TO KEEP R FEMORAL IABP INTACT, TO KEEP ETT INTACT AND DIALYSIS CATHETER INTACT DURING CRRT. IN AFTERNOON, NOTED SLIGHT SPONTANEOUS MOVEMENT OF EYES/MOUTH. SB IN 40'S, AMIODARONE GTT OFF IN AM, SLOWLY HR INCREASED TO SB UPPER 50'S. VASOPRESSIN DOWN TO O.O1 UNITS/MIN. HEPARIN GTT INCREASED PER PROTOCOL SINCE SIGNIFICANTLY SUBTHERAPEUTIC. PER PAGE TO DR. BLAKELY, HE OPTED NOT TO ADMINISTER HEPARIN BOLUS WITH THIS DOSE. BREATHING ABOVE SET RATE ON VENT. BLOODY ORAL DRAINAGE IN MOUTH & PER HI/LOW SUCTION. NG DRAINAGE SLOWLY IMPROVING- NOW BROWN LIQUID WITH COFFEE GROUNDS. NO STOOLS. CONTINOUS CRRT 1:1, WELL TOLERATING. SMALL AMOUNT URINE OUTPUT DESPITE DIALYSIS. SEVERAL FAMILY MEMBERS PRESENT INTERMITTENTLY THROUGH SHIFT. DOCTORS UPDATING ON PT STATUS, IE DR. BLAKELY. SEE ICU FLOWSHEET, INSULIN INFUSION FLOWSHEET, IABP STRIPS AND CRRT (CONTINOUS RENAL) FLOWSHEET PER CHART. REPORT TO ARMAAN MEADOWS. NO BOLUS
[2019-05-21] VITALS (8 sets, daily range): BP systolic 115–130; BP diastolic 46–81
[2019-05-21 00:28] LABS: HEMOGLOBIN 8.9 gm/dL (14.0-18.0)
[2019-05-21 04:22] LABS: HEMATOCRIT 26.7 % (42.0-52.0); HEMOGLOBIN 8.8 gm/dL (14.0-18.0); MCHC 32.8 g/dL (28.0-37.0); MCV 82.3 fL (80.0-100.0); RBC 3.25 mil/uL (4.50-6.00); RDW 18.1 % (10.5-14.5); WBC 16.3 thou/uL (4.0-11.0)
[2019-05-21 04:33] LABS: ALBUMIN 1.8 g/dL (3.4-5.0); CALCIUM 8.8 mg/dL (8.5-10.1); CREATININE 1.9 mg/dL (0.7-1.3); PHOSPHORUS 3.7 mg/dL (2.5-4.9); POTASSIUM 3.4 mmol/L (3.5-5.1)
[2019-05-21 04:59] LABS: BE(vivo) -2.2 mmol/L (-2 to +3); HCO3 23.1 mmol/L (22.0-26.0); PCO2 42.2 mmHg (35.0-45.0); PO2 127.8 mmHg (80.0-100.0); pH 7.357 (7.360-7.450); sO2 98.4 % (92.0-98.0)
--- NOTE | 2019-05-21 06:00 | NUR ---
PT REMAINS INTUBATED AND SEDATED WITH PROPOFOL GTT 40 MCG VASO INSULIN HEPARIN AND PROTONIX GTT ORDERED REMAINS ON CONT CRRT R JUG AND IABP 1:1 RIGHT FEMEROLO SITE EYES SLIGHTLY OPEN. FOLLOWS NO COMMANDS. PUPILS SLUGGISH. SUCTIONED FOR A MOD AMT ORAL BLOODY SECRETIONS EARLIER. MUCH LESS NOW. 117 CC UO THIS SHIFT. REMAINS IN SINUS STEPHY TO SINUS RHYTHM WITH OCC PVC. WILL CONT TO
--- NOTE | 2019-05-21 07:45 | NUR ---
dr. Ocampo here. Reported APTT results. Will check again later and pull IABP if down.
--- NOTE | 2019-05-21 13:40 | NUR ---
Dr. Ocampo called to check on pt. APTT now 25. on his way to pull balloon. 1510 MS04 4mg given prior to pulling balloon pump. 1515 IABP and veneous sheath d/cd per Dr. Ocampo. Hemostasis at 1540.
--- NOTE | 2019-05-21 18:45 | NUR ---
End of shift note. Pt progressing towards goals. Pressors weaned off. Continues on SLED. Tolorating well. IABP dcd. R groin stable. VSS. SB. Morphine given x 1 for percieved pain. Remains intubated fi02 down to 40% today. Insulin gtt at 4u/hr. Propofol for sedation.
[2019-05-22] VITALS (14 sets, daily range): BP systolic 93–138; BP diastolic 52–77
[2019-05-22 04:18] LABS: BE(vivo) 0.3 mmol/L (-2 to +3); HCO3 24.8 mmol/L (22.0-26.0); PCO2 39.4 mmHg (35.0-45.0); PO2 82.9 mmHg (80.0-100.0); pH 7.416 (7.360-7.450); sO2 96.3 % (92.0-98.0)
[2019-05-22 04:30] LABS: HEMATOCRIT 28.6 % (42.0-52.0); HEMOGLOBIN 9.3 gm/dL (14.0-18.0); MCH 26.7 pg (26.0-34.0); MCHC 32.6 g/dL (28.0-37.0); RBC 3.49 mil/uL (4.50-6.00); RDW 18.4 % (10.5-14.5); WBC 13.6 thou/uL (4.0-11.0)
[2019-05-22 04:44] LABS: ALBUMIN 1.9 g/dL (3.4-5.0); CALCIUM 8.5 mg/dL (8.5-10.1); CREATININE 1.5 mg/dL (0.7-1.3); MAGNESIUM 2.4 mg/dL (1.8-2.4); PHOSPHORUS 3.3 mg/dL (2.5-4.9); POTASSIUM 3.7 mmol/L (3.5-5.1); TOTAL BILIRUBIN 0.6 mg/dL (<0.1-1.0); TOTAL PROTEIN 5.9 g/dL (6.4-8.2)
--- NOTE | 2019-05-22 06:00 | NUR ---
REMAINS INTUBATED AND SEDATED. ON CONT CRRT FOLLOWS NO COMMANDS. PUPILS SLUGGISH. RIGHT GROIN SITE INTACT. AREA IS SOFT. INSULIN GTT AT 3 UNITS PROTONIX GTT PROPOFOL 36 MCG. REMAINS IN SINUS STEPHY TO SR WITH OCC PVC BATHED. WILL CONT TO MONITOR CLOSELY.
--- NOTE | 2019-05-22 16:15 | NUR ---
NOTIFYING DR. FARIAS OF CONSULT REQUESTED BY DR. RIBEIRO FOR L GROIN INCISIONAL ABCESS. ATTEMPTING TO EXPLAIN THE WEEPING INCISION'S COMPLEXITY/ DETERIORATION, THEN ORDER GIVEN FOR JASMYN DRESSING PER NURSING.
--- NOTE | 2019-05-22 19:30 | NUR ---
SHIFT SUMMARY: PT PROGRESSING TODAY. MOVING HEAD SLIGHTLY BACK AND FORTH, FACIAL GRIMACE WHEN UNCOMFORTABLE NURSING CARES PROVIDED, NOTED SLIGHT SPONTANEOUS MOVEMENT OF ALL EXTEMITIES HOWEVER NOT SIMULTANEOUSLY. NO COMMANDS FOLLOWED TO VOICE OR DEEP PAIN. PROPOFOL TITRATED DOWN SOON CRRT COMPLETED. SB WITH PVC'S, INCREASED TO SR. WARMING BLANKET REAPPLIED AFTER CRRT. CONTINUES BREATHING ABOVE VENT SET RATE, FIO2 DOWN TO 30%. RED THICK SECRETIONS PER HIGH/LOW TUBE IN AM, RESOLVING. CONTINUING SMALL AMOUNT URINE OUTPUT. PROGRESSING. , DAUGHER, SON IN LAW ALL PRESENT TODAY. DR. BLAKELY, RAISSA HERNÁNDEZ AND DR. RIBEIRO ALL SPOKE WITH FAMILY.
--- NOTE | 2019-05-22 22:30 | NUR ---
JASMYN DRESSING APPLIED TO RIGHT FEMEROL SITE WOUND.
[2019-05-23] VITALS (41 sets, daily range): BP systolic 101–145; BP diastolic 44–75
[2019-05-23 05:27] LABS: BE(vivo) -1.2 mmol/L (-2 to +3); HCO3 23.4 mmol/L (22.0-26.0); PCO2 38.7 mmHg (35.0-45.0); PO2 86.5 mmHg (80.0-100.0); pH 7.399 (7.360-7.450); sO2 96.6 % (92.0-98.0)
--- NOTE | 2019-05-23 06:00 | NUR ---
PT IS AWAKE AND MUCH MORE ALERT. REMAINS INTUBATED AND LIGHTLY SEDATED WITH PROPOFOL GTT.MOVING ARMS AND LEGS. LEFT GROIN JASMYN DRESSING SATURATED WITH SEROUS DRAINAGE. PULSES INTACT., 500 CC UO THIS SHIFT. REMAINS ON INSULIN AND PROTONIX GTTS ORDERED. SINUS RHYTHM. WILL CONT TO MONITOR CLOSELY.
[2019-05-23 06:21] LABS: HEMATOCRIT 30.1 % (42.0-52.0); HEMOGLOBIN 9.7 gm/dL (14.0-18.0); MCH 26.6 pg (26.0-34.0); MCHC 32.1 g/dL (28.0-37.0); MCV 82.9 fL (80.0-100.0); RBC 3.63 mil/uL (4.50-6.00); RDW 18.2 % (10.5-14.5); WBC 16.2 thou/uL (4.0-11.0)
[2019-05-23 06:33] LABS: ALBUMIN 2.1 g/dL (3.4-5.0); CALCIUM 8.6 mg/dL (8.5-10.1); CREATININE 1.9 mg/dL (0.7-1.3); PHOSPHORUS 3.3 mg/dL (2.5-4.9); POTASSIUM 3.9 mmol/L (3.5-5.1)
--- NOTE | 2019-05-23 10:02 | 2DMMODE ---
[address] [place] [address] 2 D/M-MODE ECHOCARDIOGRAM Name: GERI MCARTHUR Room #: 236-P ADM IN M.R.#: [id number] Admission: 05/14/19 Attend Phys: Melvin Martinez, Discharge: Date of : 55 Date of Service: 05/23/19 1002 Report #: [id number] THIS REPORT FOR: //name// APPROVED REPORT Study performed: 05/23/2019 09:09:24 EXAM: Comprehensive 2D, Doppler, and color-flow Echocardiogram Patient Location: ICU Room #: 236 Status: routine BSA: 2.60 HR: 77 bpm BP: 136/71 mmHg Rhythm: NSR Other Information Study Quality: Adequate Indications Hypotension CAD S^P Cardiac arrest Tricuspid Valve TR Peak Gold.: 2.89 m/s TR Peak Gr.: 33.33 mmHg PA Pressure: 48.00 mmHg Left Ventricle Left ventricle is borderline dilated. Regional wall motion abnormalities are noted. There is hypokinesis of the inferior wall. There is normal left ventricular wall thickness. Left ventricular systolic function is moderate to severely decreased. LVEF is 35%. Right Ventricle Right ventricle is at the upper limits of normal. Right ventricle is mildly hypokinetic. Atria Left atrium is dilated. Right atrium is borderline dilated. Aortic Valve The aortic valve is normal in structure. Trace aortic regurgitation. [address] [place] [address] 2 D/M-MODE ECHOCARDIOGRAM Name: GERI MCARTHUR Room #: 236-P ADM IN M.R.#: [id number] Admission: 05/14/19 Attend Phys: Melvin Martinez, Discharge: Date of : 55 Date of Service: 05/23/19 1002 Report #: [id number] There is no aortic valvular stenosis. Mitral Valve The mitral valve is normal in structure. Mild mitral regurgitation. No evidence of mitral valve stenosis. Tricuspid Valve The tricuspid valve is normal in structure. There is trace tricuspid regurgitation. Estimated PAP 48 mmHg. There is moderate pulmonary hypertension. Pulmonic Valve The pulmonary valve is normal in structure. Great Vessels The aortic root is normal in size. The inferior vena cava is dilated with no inspiratory collapse. Pericardium Trace pericardial effusion. <Conclusion> Left ventricle is borderline dilated. Left ventricular systolic function is moderate to severely decreased. LVEF is 35%. Regional wall motion abnormalities are noted. Left atrium is dilated. Trace aortic regurgitation. Mild mitral regurgitation. There is trace tricuspid regurgitation. Estimated PAP 48 mmHg. <ELECTRONICALLY SIGNED> By: Paul Rojas MD 05/23/19 1002 1002 1002 Paul Rojas MD /INF
--- NOTE | 2019-05-23 10:15 | NUR ---
PATIENT TO OR PER BED WITH MONITOR FOR DEBRIDMENT OF LEFT GROIN WOUND, WITH MONITOR ACCOMPANIED BY OR STAFF. FAMILY HERE AND AWARE OF CONDITION.
--- NOTE | 2019-05-23 14:31 | NUR ---
PATIENT RETURNED TO THE ROOM DIRECTLY FROM OR POST DEBRIDMENT OF LEFT GROIN WOUND WITH WOUND VAC IN PLACE. SILVANA IN LEFT RADIAL ARTERY PATENT. READING HIGHER THAN CUFF, PROPOFOL INCREASED TO 55 MCG/KG/HR BY ANETHETHIA.
--- NOTE | 2019-05-23 15:20 | NUR ---
CALLED INTO THE ROOM BY THE PATIENT'S FOR BLEEDING FROM THE LEFT GROIN. LEFT GROIN DRESSING OOZING FROM WOUND VAC DRESSING. WOUND VAC NURSE FERNANDO NOTIFIED AND CAME OVER TO INSPECT WOUND. DR VALLES INFORMED OF THE SITUATION.
[2019-05-23 16:59] LABS: HEMATOCRIT 30.7 % (42.0-52.0); HEMOGLOBIN 10.1 gm/dL (14.0-18.0); MCHC 32.9 g/dL (28.0-37.0); MCV 81.9 fL (80.0-100.0); PLATELET COUNT 109 thou/uL (150-400); RBC 3.74 mil/uL (4.50-6.00); RDW 18.2 % (10.5-14.5); WBC 18.1 thou/uL (4.0-11.0)
--- NOTE | 2019-05-23 17:10 | NUR ---
DR VALLES IN EARLIER AND EXAMINED THE WOUND SITE, DISCUSSED THE SITUATION WITH THE PATIENT'S AND PATIENT WAS TRANSPORTED TO THE OR VIA OR STAFF WITH CARDIOPULMONARY SUPERVISOR. DIALYSIS CCOMPLETED EARLIER TO RETURN TO THE OR.
[2019-05-23 17:22] LABS: ABSOLUTE NEUTROPHILS 16.7 thou/uL (1.4-8.2)
[2019-05-23 17:23] LABS: ANISOCYTOSIS 1+
--- NOTE | 2019-05-23 19:00 | NUR ---
PATIENT RETURNED FROM THE OR AT YI 1820 AND ATTACHED TO MONITOR. VSS. TEMP 94.4 AXILLARY AND WARMING BLANKET APPLIED. VENT SETTING UNCHANGED AND INSULIN DRIP REMAINS AT 3UNITS/HR. LEFT GROIN DRESSING IS DRY AND INTACT.
[2019-05-24] VITALS (90 sets, daily range): BP systolic 93–146; BP diastolic 43–80
[2019-05-24] LABS: HEMATOCRIT 26.3 % (42.0-52.0); HEMOGLOBIN 8.6 gm/dL (14.0-18.0)
--- NOTE | 2019-05-24 01:18 | NUR ---
ASSUMED CARE OF PATIENT AT 190. GROIN SITE CHECKED WITH OUTGOING RN. C/D/I AT THAT TIME. AT 2229, SITE REASSESSED AND FOUND TO BE SATURATED. DRESSING REPLACED AND REINFORCED. 2329, OBTAINED ORDERS FROM CELINA FELDMAN NP FOR STAT HH. BLOOD PRESSURE IN THE HIGH 90'S SYSTOLIC. LAB RESULTS OBTAINED, DR FARIAS NOTIFIED. ORDERS TO GIVE ONE UNIT OF PRBC OBTAINED. CALLED, VERBAL CONSENT FOR BLOOD TRANSFUSION OBTAINED. BLOOD INFUSING AT THIS TIME, TOLERATING WELL. WILL CONTINUE TO MONITOR.
[2019-05-24 04:51] LABS: BE(vivo) 0.5 mmol/L (-2 to +3); HCO3 24.6 mmol/L (22.0-26.0); PCO2 37.4 mmHg (35.0-45.0); PO2 68.5 mmHg (80.0-100.0); pH 7.436 (7.360-7.450); sO2 94.3 % (92.0-98.0)
[2019-05-24 05:05] LABS: HEMATOCRIT 29.5 % (42.0-52.0); HEMOGLOBIN 9.6 gm/dL (14.0-18.0); MCH 26.8 pg (26.0-34.0); MCHC 32.5 g/dL (28.0-37.0); MCV 82.6 fL (80.0-100.0); PLATELET COUNT 131 thou/uL (150-400); RBC 3.57 mil/uL (4.50-6.00); RDW 17.3 % (10.5-14.5); WBC 19.4 thou/uL (4.0-11.0)
[2019-05-24 05:06] LABS: ALBUMIN 2.1 g/dL (3.4-5.0); CALCIUM 8.3 mg/dL (8.5-10.1); CREATININE 2.4 mg/dL (0.7-1.3); PHOSPHORUS 3.5 mg/dL (2.5-4.9); POTASSIUM 4.8 mmol/L (3.5-5.1)
[2019-05-24 05:27] LABS: ABSOLUTE NEUTROPHILS 18.2 thou/uL (1.4-8.2)
[2019-05-24 05:28] LABS: ANISOCYTOSIS 1+
[2019-05-24 07:03] LABS: FIBRINOGEN 295.7 mg/dL (210-360); INR 1.1; PROTIME 11.4 Seconds (9.3-11.4)
--- NOTE | 2019-05-24 09:35 | NUR ---
Nutrition: Pt NPO x 5 days. REC start Nepro at 25 mL/hr goal rate 35 mL/hr while on dialysis/propofol. Vital High protein formula will best meet needs if dialysis is discontinued, REC goal 60 mL/hr with this formula.
--- NOTE | 2019-05-24 16:35 | NUR ---
PT HAD SURGERY YESTERDAY TO ADDRESS WOUND AT SITE OF FEMORAL VASCULAR SURGERY DONE AT PRIOR ADMIT. SITE BLED POST OP AND PT RETURNED TO OR AND WAS TRANSFUSED. HEMODIALYSIS WITH UF TODAY. REMAINS ON VENT. FAMILY HERE DAILY AND PHYSICIANS COMMNUNICATE WITH FAMILY. UNCLEAR DC PLAN AT PRESENT, LTAC STAY?
--- NOTE | 2019-05-24 19:00 | NUR ---
ASSUMMED CARE THIS AM. WOUND DRESSING NOW HAS WOUND VAC PLACED BY FERNANDO WOUND CARE NURSE AND Janelle HALL. DRESSOMG REMAINS D/I WITH SEAL INTACT. TOLERATED DIALYSIS WITHOUT INCIDENT, VSS. INSULIN DRIP AND PROPOFOL TARAH PER PROTOCOL. UPDATED AND REASSURANCE GIVEN.
[2019-05-25] VITALS (49 sets, daily range): BP systolic 116–145; BP diastolic 53–99
[2019-05-25 05:30] LABS: ALBUMIN 2.1 g/dL (3.4-5.0); CALCIUM 8.4 mg/dL (8.5-10.1); CREATININE 1.7 mg/dL (0.7-1.3); PHOSPHORUS 4.7 mg/dL (2.5-4.9); POTASSIUM 4.3 mmol/L (3.5-5.1)
[2019-05-25 05:42] LABS: MCHC 32.6 g/dL (28.0-37.0); RBC 2.31 mil/uL (4.50-6.00)
[2019-05-25 05:43] LABS: MCH 27.3 pg (26.0-34.0); MCV 83.9 fL (80.0-100.0); PLATELET COUNT 87 thou/uL (150-400); RDW 17.2 % (10.5-14.5); WBC 11.5 thou/uL (4.0-11.0)
[2019-05-25 05:56] LABS: HEMATOCRIT 19.4 % (42.0-52.0); HEMOGLOBIN 6.3 gm/dL (14.0-18.0)
[2019-05-25 06:05] LABS: BE(vivo) 0.1 mmol/L (-2 to +3); HCO3 24.9 mmol/L (22.0-26.0); PCO2 41.1 mmHg (35.0-45.0); PO2 127.1 mmHg (80.0-100.0); pH 7.401 (7.360-7.450); sO2 98.5 % (92.0-98.0)
--- NOTE | 2019-05-25 06:23 | NUR ---
ASSUMED CARE OF PATIENT AT 1900. VSS, AFEBRILE. BLOOD SUGARS CHECKED, SEE FLOW SHEET. INSULIN GTT INFUSING WELL PROPOFOL. CRITICAL LAB VALUES CALLED TO FOOD BEVERAGE MANAGER THIS AM. REPEAT LABS ORDERED FOR 6 HOURS FROM NOW. TWO LARGE BOWEL MOVEMENTS. TUBE FEEDING STARTED. WORKING TOWARDS POC GOALS
--- NOTE | 2019-05-25 08:11 | O ---
[facility] [place] [address] OPERATIVE REPORT Name: GERI MCARTHUR Room #: 236-P ADM IN M.R.#: [id number] Admission: 05/14/19 Attend Phys: Melvin Martinez MD Discharge: Date of : 55 Report #: [id number] THIS REPORT FOR: //name// CC: SEPIDEH physician/PCP Melvin Martinez DATE OF SERVICE: 05/23/2019 PREOPERATIVE DIAGNOSIS: Dehiscence of left groin wound. POSTOPERATIVE DIAGNOSIS: Dehiscence of left groin wound. OPERATION: Exploration, debridement and wound VAC placement for nonhealing left groin wound. SURGEON: Benito Mo MD SECOND BALLER: David Melo. ANESTHESIA: General. INDICATIONS: The patient is a 63-year-old who approximately a month and a half ago had a left femoral endarterectomy. The patient had done well and we had followed the patient in the office and he had no evidence for wound healing issues. However, this past week, the patient was admitted with infection, pulmonary dysfunction and required Emergency angioplasty for coronary artery disease with a high-grade LAD lesion. The patient began to develop a clear drainage from the left groin incision and a duplex exam yesterday showed a seroma. FINDINGS AND TECHNIQUE: After general anesthesia was established, an incision was made in the left groin. The left groin incision had in areas. There was more evidence of nonhealing that rather than cellulitis at the skin level. The wound was opened and there was a seroma medially in an area of what appeared to be fat necrosis. Cultures were sent, but there was no evidence for purulence. The wound was debrided sharply down to fascia and the measurements were 12 cm x 2 cm and the debridement was done sharply. Hemostasis was ascertained after the sharp debridement, Pulsavac was used for irrigation and debridement of the subcutaneous fat, more of this was debrided sharply. When we sought that the wound had been satisfactorily debrided, then fine mesh [facility] [address] [place] [address] OPERATIVE REPORT Name: LYUBOVGERI SONI Room #: 236-P [facility] IN M.R.#: [id number] Admission: 05/14/19 Attend Phys: Melvin Martinez MD Discharge: Date of : 55 Report #: [id number] was placed at the depth and then the wound VAC sponge was placed followed by the adhesive covering. The patient tolerated all of this well and was taken back to the intensive care unit. <ELECTRONICALLY SIGNED> By: Benito Mo MD 05/25/19 0811 1149 1156 Benito Mo MD /nt
[2019-05-25 08:35] LABS: ABSOLUTE NEUTROPHILS 10.7 thou/uL (1.4-8.2); ANISOCYTOSIS SLIGHT; HYPOCHROMASIA 2+; PLATELET ESTIMATE DECREASED
[2019-05-25 11:40] LABS: BE(vivo) 1.1 mmol/L (-2 to +3); HCO3 25.5 mmol/L (22.0-26.0); PCO2 39.6 mmHg (35.0-45.0); PO2 107.5 mmHg (80.0-100.0); pH 7.427 (7.360-7.450)
[2019-05-25 14:47] LABS: MAGNESIUM 1.4 mg/dL (1.8-2.4); PHOSPHORUS 3.4 mg/dL (2.5-4.9)
[2019-05-25 15:21] LABS: HEMOGLOBIN 9.4 gm/dL (14.0-18.0); MCH 26.9 pg (26.0-34.0); MCHC 32.5 g/dL (28.0-37.0); MCV 82.8 fL (80.0-100.0); RBC 3.5 mil/uL (4.50-6.00); RDW 17.4 % (10.5-14.5); WBC 15.3 thou/uL (4.0-11.0)
--- NOTE | 2019-05-25 19:26 | HC ---
[facility] [place] [address] CONSULTATION Name: GERI MCARTHUR Room #: 236-P ADM IN M.R.#: [id number] Admission: 05/14/19 Attend Phys: Melvin Martinez MD Discharge: Date of : 55 Report #: [id number] THIS REPORT FOR: //name// CC: [facility] physician/PCP Melvin Martinez REASON FOR THE CONSULTATION: Acute kidney injury. REASON FOR THE PRESENTATION: Fever. HISTORY OF PRESENT ILLNESS: A 63-year-old with past medical history of hypertension, coronary artery disease, diabetes mellitus, peripheral vascular disease, status post recent femoral endarterectomy. He presented to the hospital reporting that he has been having shortness of breath, associated with fever, increased pulse rate and hypoxia. He was on the hypotensive side when he presented. He denies previous similar episodes. The patient was admitted for further evaluation and management. Creatinine on presentation was found to be elevated at 3.8. This had risen up significantly. He did report suprapubic pain. V/Q scan was negative for PE. He continued to have high temperature all through yesterday and cultures were obtained along with the appropriate antibiotic. He is currently being treated as pneumonia. I am being consulted to manage his acute kidney injury. Of note is the fact that the patient has been evaluated by our team in the past. He had required hemodialysis. Specifically and back in 09/2018, he was evaluated by Dr. Thibodeaux. He is followed in our office also by Dr. Hensley. His most recent creatinine was 2.28 back in 07/2018 when he used to see Dr. Hensley. PAST MEDICAL HISTORY: 1. Diabetes mellitus. 2. Chronic kidney disease. 3. Diabetic nephropathy. 4. Cardiomyopathy with ejection fraction of 40%. 5. Obstructive sleep apnea. 6. Femoral endarterectomy. 7. Lumbar surgeries. 8. Chronic pain with pain pump stimulator. FAMILY HISTORY: No known family history of renal disease. SOCIAL HISTORY: and lives in [place]. ALLERGIES: STATIN. MEDICATIONS: 1. Tizanidine. 2. Plavix. 3. Carvedilol. [facility] [address] [place] [address] CONSULTATION Name: GERI MCARTHUR Room #: 236-P [facility] IN .R.#: [id number] Admission: 05/14/19 Attend Phys: Melvin Martinez MD Discharge: Date of : 55 Report #: [id number] 4. Losartan. 5. Torsemide. 6. Allopurinol. REVIEW OF SYSTEMS: GENERAL: Significant for fever and chills. CARDIOVASCULAR: No chest pain, but significant shortness of breath. PULMONARY: Significant for shortness of breath. GASTROINTESTINAL: No nausea or vomiting, but decreased p.o. intake. GENITOURINARY: He did report reduced urine output. PHYSICAL EXAMINATION: GENERAL: He seems to be confused. VITAL SIGNS: Blood pressure is 102/31. HEAD AND NECK: No jugular venous distention. CHEST: No crackles. CARDIOVASCULAR: No rub. ABDOMEN: Soft, distended bladder. EXTREMITIES: Lower extremities: No edema. LABORATORY AND DIAGNOSTIC DATA: Laboratory values reviewed. White blood cell count is 21.8. Sodium 136, potassium 6.6, BUN 73, creatinine is 4.0. Of note is the fact that the patient's creatinine on 04/19/2019 was 2.2. ASSESSMENT AND IMPRESSION: 1. Acute kidney injury. 2. Obstructive uropathy. 3. Hyperkalemia. 4. Fever. 5. Leukocytosis. 6. Chronic kidney disease. 7. Diabetes mellitus. 8. Hypertension. The patient's acute kidney injury seems to be due to obstructive uropathy. Bedside bladder scan revealed more than 900 mL of urine. PLAN: 1. Place Hernandez catheter. 2. Hold all medication that might contribute to hyperkalemia. 3. Treat his hyperkalemia. 4. Address his fever with appropriate workup and antibiotic. [address] [address] CONSULTATION Name: GERI MCARTHUR Room #: 236-P ADM IN .R.#: [id number] Admission: 05/14/19 Attend Phys: Melvin Martinez MD Discharge: Date of : 55 Report #: [id number] Baseline creatinine is around 2.0 and I expect his kidney function to fully recover back to his baseline. <ELECTRONICALLY SIGNED> By: Kojo Aj MD 05/25/19 1926 2 0852 MD jomar Rucker
--- NOTE | 2019-05-25 20:10 | NUR ---
END OF SHIFT NOTE PT CPAP SEVERAL HOURS TODAY. TOLORATED WELL BUT WAS GAGING ALOT. VSS. LIQUID STOOL. RECTAL TUBE PLACED. REMAINS SEDATED ON DIPRIVAN. INSULIN GTT OFF. PURPOSEFUL MOVEMENT BUT NOT FOLLOWING ANY COMMANDS.
[2019-05-26] VITALS (18 sets, daily range): BP systolic 121–156; BP diastolic 53–85
[2019-05-26 03:59] LABS: BE(vivo) 1.6 mmol/L (-2 to +3); HCO3 26.5 mmol/L (22.0-26.0); PCO2 42.9 mmHg (35.0-45.0); PO2 92.1 mmHg (80.0-100.0); pH 7.409 (7.360-7.450); sO2 97.1 % (92.0-98.0)
--- NOTE | 2019-05-26 06:00 | NUR ---
REMAINS INTUBATED AND SEDAted with propofol. LUNGS COARSE BILAT. [facility] CATH INTACT. LEFT GROIN WOUND VAC 200 CC OUT AND 1800 CCTHIS HSIFT. BATHED. FLEXISEAL CATH WITH 100 CC BROWN STOOL. WILL CONT TO MONITOR
[2019-05-26 06:14] LABS: HEMATOCRIT 27.1 % (42.0-52.0); HEMOGLOBIN 8.9 gm/dL (14.0-18.0); MCH 27.2 pg (26.0-34.0); MCHC 32.7 g/dL (28.0-37.0); MCV 83.1 fL (80.0-100.0); RBC 3.26 mil/uL (4.50-6.00); RDW 17.4 % (10.5-14.5); WBC 15.6 thou/uL (4.0-11.0)
[2019-05-26 06:31] LABS: ALBUMIN 2.2 g/dL (3.4-5.0); CALCIUM 8.4 mg/dL (8.5-10.1); CREATININE 1.6 mg/dL (0.7-1.3); PHOSPHORUS 3.8 mg/dL (2.5-4.9)
[2019-05-26 06:32] LABS: ALBUMIN 2.1 g/dL (3.4-5.0); DIRECT BILIRUBIN 0.3 mg/dL (<0.1-0.3); TOTAL BILIRUBIN 0.6 mg/dL (<0.1-1.0); TOTAL PROTEIN 5.8 g/dL (6.4-8.2)
--- NOTE | 2019-05-26 16:14 | NUR ---
PT REMAINS ON VENT. VS STALBE. PT FOLLOWS COMMANDS WITH EYES OPEN AND CLOSES. VS STABLE. LUNGS ARE CLEAR TO DIMINISHED. WOUND VAC TO LEFT GROIN AREA. BOOTS ON BILATERAL TO LEGS. TURN Q 2 HOURS PER NURSING. REMAINS ON THE VENT. FAMILY AT BEDSIDE TODAY FOR SUPPORT. BUCKLEY TO DD WITH PERLA URINE PRESENT. TOLERATING TUBR FEEDINGS WELL. LOOSE STOOL TODAY WITH FECAL MANAGEMENT SYSTEM CHANGED SHEETS AND BATH DONE AT THIS TIME PER NURSING. WILL CONTINUE TO ASSESS AND MONITOR PER NURSING
[2019-05-27] VITALS (19 sets, daily range): BP systolic 130–162; BP diastolic 60–91
[2019-05-27 05:37] LABS: HEMATOCRIT 27.7 % (42.0-52.0); MCH 27.4 pg (26.0-34.0); MCHC 32.5 g/dL (28.0-37.0); MCV 84.5 fL (80.0-100.0); RBC 3.28 mil/uL (4.50-6.00); RDW 17.4 % (10.5-14.5); WBC 12.5 thou/uL (4.0-11.0)
[2019-05-27 05:43] LABS: ALBUMIN 2.2 g/dL (3.4-5.0); CALCIUM 8.6 mg/dL (8.5-10.1); CREATININE 1.4 mg/dL (0.7-1.3); PHOSPHORUS 3.5 mg/dL (2.5-4.9); POTASSIUM 3.4 mmol/L (3.5-5.1)
--- NOTE | 2019-05-27 06:00 | NUR ---
REMAINS INTUBATED AND SEDATED WITH PROPOFOL GTT. HAD 3 LARGE SOFT BROWN STOOLS OZZING AROUND FLEXISEAL. BATHED. EUGENIA TUBE FEEDING. LUNGS SLIGHTLY COARSE BILAT. 1000 CC UO AND 250 CC WOUND VAc drg this shfft. will cont to monitor. henley but not to command. sinus rhythm. will cont to monitor.
--- NOTE | 2019-05-27 12:16 | NUR ---
OPENS EYES TO VERBAL STIULI AND APPEARS TO TRACK BUT DOES NOT FOLLOW COMMANDS. PROPROFOL OFF AT 1130 AND VENT CHANGED TO CPAP. WOUND CARE TEAM CHANGED LEFT GROIN WOUND VAC MORPHINE 2MG GIVEN PRIOR TO DRESSING CHANGE. RIGHT TRIPLE LUMEN JUGULAR INTACT. BUCKLEY TO DD WITH CLEAR YELLOW URINE OUTPUT. TUBE FEEDING CHANGED TO VITAL HP WITH A RATE OF 60CC/HR PER TUBE BENDER HAND RECOMENDATION. FAMILY AT BEDSIDE.
--- NOTE | 2019-05-27 16:26 | NUR ---
FOLLOWING FOR DC PLANNING. CLINICAL INFO REVIEWED. REMAINS ON VENT, POORLY RESPONSIVE, CT HEADA PLANNED FOR TODAY. DIALYSIS CATH OUT. WOUND VAC REMAINS TO FEMORAL WOUND SITE AND CTS FOLLOWING.
[2019-05-28] VITALS (28 sets, daily range): BP systolic 132–181; BP diastolic 58–113
[2019-05-28 06:01] LABS: ALBUMIN 2.1 g/dL (3.4-5.0); CALCIUM 8.7 mg/dL (8.5-10.1); CREATININE 1.5 mg/dL (0.7-1.3); PHOSPHORUS 3.2 mg/dL (2.5-4.9); POTASSIUM 4.1 mmol/L (3.5-5.1)
--- NOTE | 2019-05-28 17:41 | NUR ---
PT OFF SEDATION SINCE 939, OPENS EYES, TRACKS NURSE FROM SIDE TO SIDE OF BED. NODDED HEAD YES WHEN ASKED IF HE WAS COLD. SQUEEZES WIFES HAND ON COMMAND. VITAL SIGNS STABLE, FECAL SYSTEM INTACT NOT LEAKING AT THIS TIME, HOWEVER DID LEAK TIME TO TIME THROUGHOUT DAY, BARRIER CREAM APPLIED TO BOTTOM, WHEN WIPED PT WINCES TO PAIN, BOTTOM RED, EXCORATED. FAMILY AGREES WITH CURRENT PLAN OF CARE, DISCUSSED DAILY CPAP TRIALS AND SEDATION VACATIONS. WILL CONTINUE TO MONITOR.
[2019-05-29] VITALS (16 sets, daily range): BP systolic 139–187; BP diastolic 72–111
--- NOTE | 2019-05-29 04:42 | NUR ---
ASSUMED CARE OF PATIENT AT 1900. VITAL SIGNS STABLE, OPENS EYES, WILL BLINK OR SQUEEZE HANDS OCCASIONALLY ON COMMAND. FECAL MANAGEMENT SYSTEM LEAKING, FLUSHED AND IRRIGATED. CHECKED BALLOON FOR ACCURATE INFLATION. NO MORE LEAKING NOTED. TURNED Q2, ORAL CARE GIVEN. AT BEDSIDE THROUGH THE NIGHT. PROGRESSING SLOWLY TOWARDS POC GOALS.
[2019-05-29 05:40] LABS: ABSOLUTE NEUTROPHILS 14.4 thou/uL (1.4-8.2); BASOPHILS 0.1 % (0.0-2.0); HEMATOCRIT 26.5 % (42.0-52.0); HEMOGLOBIN 8.4 gm/dL (14.0-18.0); LYMPHOCYTES 15.5 % (24.0-44.0); MCHC 31.7 g/dL (28.0-37.0); MCV 85.3 fL (80.0-100.0); MONOCYTES 7.4 % (1.0-8.0); PLATELET COUNT 193 thou/uL (150-400); RBC 3.11 mil/uL (4.50-6.00); RDW 17.7 % (10.5-14.5); WBC 18.7 thou/uL (4.0-11.0)
[2019-05-29 05:44] LABS: ALBUMIN 2.3 g/dL (3.4-5.0); CALCIUM 8.5 mg/dL (8.5-10.1); CREATININE 1.6 mg/dL (0.7-1.3); PHOSPHORUS 2.9 mg/dL (2.5-4.9); POTASSIUM 3.6 mmol/L (3.5-5.1)
[2019-05-29 05:45] LABS: ALBUMIN 2.2 g/dL (3.4-5.0); DIRECT BILIRUBIN 0.4 mg/dL (<0.1-0.3); TOTAL BILIRUBIN 0.6 mg/dL (<0.1-1.0); TOTAL PROTEIN 6.6 g/dL (6.4-8.2)
[2019-05-29 07:30] LABS: URINE BILIRUBIN NEGATIVE (Negative); URINE BLOOD 3+ (Negative); URINE CLARITY SL CLOUDY; URINE COLOR YELLOW; URINE GLUCOSE-RANDOM* NEGATIVE (Negative); URINE KETONES NEGATIVE (Negative); URINE NITRITE-REFLEX NEGATIVE (Negative); URINE PROTEIN (DIPSTICK) 2+ (Negative); URINE SPECIFIC GRAVITY 1.015 (1.005-1.035); URINE UROBILINOGEN 0.2 E.U./dl (0.2-1.0)
[2019-05-29 07:31] LABS: URINE LEUKOCYTES-REFLEX 2+ (Negative)
[2019-05-29 07:42] LABS: CRYSTALS None Seen /LPF (None Seen)
[2019-05-29 07:43] LABS: URINE RBC >20 Many /HPF (0-2)
[2019-05-29 07:44] LABS: CASTS None Seen /LPF (None Seen); SQUAMOUS 0-3 Few /LPF (0-3)
--- NOTE | 2019-05-29 10:55 | O ---
[facility] [place] [address] OPERATIVE REPORT Name: GERI MCARTHUR Room #: 236-P ADM IN M.R.#: [id number] Admission: 05/14/19 Attend Phys: Melvin Martinez MD Discharge: Date of : 55 Report #: [id number] THIS REPORT FOR: //name// CC: [facility] physician/PCP Melvin Martinez DATE OF SERVICE: 05/23/2019 PREOPERATIVE DIAGNOSIS: Bleeding, status post exploration of the left groin. POSTOPERATIVE DIAGNOSIS: Bleeding, status post exploration of the left groin. OPERATION: Exploration of the bleeding. SURGEON: Benito Mo M.D. SHEET METAL OPERATOR: ISABEL Holt. ANESTHESIA: General. INDICATIONS: The patient is a 63-year-old who is known to me from the left femoral endarterectomy. The patient had dehiscence of the left groin incision after readmission to the hospital for pneumonia and important cardiac event. The patient appears to have a draining seroma and earlier in the day, the wound was explored and debrided and wound VAC was placed. Unfortunately, during the course of dialysis, the wound VAC canister and a VAC sponge itself has become saturated with blood and there appears to be some bleeding points that need to be addressed. This is likely related to the important antiplatelet medicine that the patient is on after his cardiac procedure. FINDINGS AND TECHNIQUE: After general anesthesia was established, the wound VAC was removed. Wound was explored. There were multiple tiny bleeding points along the skin edge where the wound had been freshened and these were addressed with cautery. The wound itself was irrigated and then packed. We waited at least 10 minutes before deciding that we were satisfied with the hemostasis because of the problems related to the VAC, we made a decision to just line the wound with the Darmacea fine mesh gauze and then to pack it with moist Kerlix with the anticipation that in the morning we would place the VAC when things have stabilized. The patient tolerated all this well and was returned to the Intensive Care Unit in good condition. <ELECTRONICALLY SIGNED> By: Benito Mo MD 05/29/19 1055 0808 0851 Benito Mo MD /nt
--- NOTE | 2019-05-29 11:49 | EKG ---
[address] [place] [address] ELECTROCARDIOGRAM REPORT Name: GERI MCARTHUR Room #: 236-P ADM IN M.R.#: [id number] Admission: 05/14/19 Attend Phys: Melvin Martinez MD Discharge: Date of : 55 Report #: [id number] THIS REPORT FOR: //name// [facility] Test Date: 2019-05-29 Test Time: 07:32:44 Pat Name: GERI MCARTHUR Department: Room: 236 P Gender: M Meter Supervisor: roderick : 1955 Requested By: Paul Rojas Order Number: [id number] MD: Paul Rojas Measurements Intervals [place] Rate: 112 P: 65 CT: 159 QRS: -21 QRSD: 83 T: 117 QT: 263 QTc: 359 Interpretive Statements Sinus tachycardia ventricular premature complexes Inferior infarct, old Lateral leads are also involved Compared to ECG 05/20/2019 06:58:45 Ventricular premature complex(es) now present Sinus bradycardia no longer present T-wave abnormality no longer present Possible ischemia no longer present Prolonged QT interval no longer present Myocardial infarct finding still present Electronically Signed On 05-29-2019 11:48:56 CDT by Paul Rojas [email or web address] <ELECTRONICALLY SIGNED> By: Paul Rojas MD 05/29/19 1148 0732 0732 Paul Rojas MD /EPI
--- NOTE | 2019-05-29 17:54 | NUR ---
0710 PT HEART RATE 150, BP REMAINED STABLE, STAT EKG ORDERED. DR ROSA BAZAN. PT ONLY RAPID HEART RATE APPROX 4 MINS, THEN STABLIZED TO LOW 100'S. 0900 DR BLAKELY AND DONNA AT BEDSIDE, ORDERS TO INCREASE COREG AND MONITOR.
--- NOTE | 2019-05-29 18:19 | NUR ---
PT VITALS SIGNS STABLE THROUGHTOUT THE REST OF THE DAY, FAMILY AT BEDSIDE ON AND OFF, PT OPENS EYES, RESPONDS TO VERBAL STIMULATION, PT HAS BEEN AWAKE ALL DAY, ORDERS TO PLACE PT ON LOW DOSE PROPOFOL TO ALLOW PT FOR REST.
[2019-05-30] VITALS (19 sets, daily range): BP systolic 121–145; BP diastolic 62–79
[2019-05-30 05:49] LABS: HEMATOCRIT 24.1 % (42.0-52.0); HEMOGLOBIN 7.7 gm/dL (14.0-18.0); MCH 27.3 pg (26.0-34.0); MCHC 31.8 g/dL (28.0-37.0); MCV 85.9 fL (80.0-100.0); RBC 2.81 mil/uL (4.50-6.00); RDW 17.7 % (10.5-14.5); WBC 17.7 thou/uL (4.0-11.0)
[2019-05-30 06:05] LABS: CALCIUM 8.5 mg/dL (8.5-10.1); CREATININE 1.6 mg/dL (0.7-1.3); PHOSPHORUS 3.4 mg/dL (2.5-4.9); POTASSIUM 3.9 mmol/L (3.5-5.1)
--- NOTE | 2019-05-30 07:13 | NUR ---
SEE [facility] FOR ASSESSMENT. PT RESTING ON PROPOFOL -AWAKENS EASILY. BECOMES AGITATED WITH CARE AT TIMES. REFUSED ORAL CARE. MONITOR SHOWS SR WITH PAC, PVC ELECTROLYTES WNL. GOOD UO. INCONT AT TIMES AROUND FECAL TUBE. BATH AND PERICARE DONE. MINIMAL RESIDUAL WITH TUBE FEEDING. INSULIN GIVEN FOR BS. CONT ON VENT, WITH 02 AT .30FIO2. LS-DIMINISHED BUT CLEAR. RESTRAINTS ON ORDERED. CONT PLAN OF CARE
--- NOTE | 2019-05-30 18:35 | NUR ---
END OF SHIFT NOTE. PT TRIED TO EXTUBATE SELF, NOT FOLLOWING COMMANDS. CURRY SPONTANEOUSLY. VSS. COPIOUS ORAL SECRETIONS. NO CPAP TRIAL TODAY. PLAN FOR TRACH. TOLORATING TUBE FEEDING. BLOOD SUGARS GOING UP. WILL INCREASE TO HIGHER SCALE.
[2019-05-31] VITALS (23 sets, daily range): BP systolic 100–164; BP diastolic 52–98
[2019-05-31 05:52] LABS: HEMATOCRIT 23.9 % (42.0-52.0); HEMOGLOBIN 7.7 gm/dL (14.0-18.0); MCH 27.6 pg (26.0-34.0); MCHC 32.1 g/dL (28.0-37.0); MCV 85.9 fL (80.0-100.0); RBC 2.78 mil/uL (4.50-6.00); RDW 17.8 % (10.5-14.5); WBC 14.4 thou/uL (4.0-11.0)
[2019-05-31 06:03] LABS: CALCIUM 8.6 mg/dL (8.5-10.1); CREATININE 1.6 mg/dL (0.7-1.3); PHOSPHORUS 3.8 mg/dL (2.5-4.9); POTASSIUM 4.1 mmol/L (3.5-5.1)
--- NOTE | 2019-05-31 08:38 | NUR ---
PT RESTING ON PROPOFOL. WILL AWAKEN WHEN LIGHTENED, OPENS EYES SPONT. MOVES EXTREMITIES ON OWN, NOT TO COMMANDS. REMAINS IN RESTRAINTS. VS WNL. GOOD URINE OUTPUT. 02SAT WNL ON VENT. THICK YELLOW SECRETIONS. FIGHTS WITH DOING ORAL CARE, HE DOES NOT LIKE IT. TUBE FEEDING INFUSING. EUGENIA WITH WATER FLUSHES -CONT WITH FECAL TUBE. CONT PLAN OF CARE. PROGRESSING TOWARD GOALS. SEE [facility] FOR ASSESSMENTS
--- NOTE | 2019-05-31 09:31 | NUR ---
Nutrition: To meet protein needs suggest add 1 packet beneprotein powder in each water flush. If propofol remains off, REC increase tube feed rate to 60 mL/hr and no need for beneprotein powder.
[2019-05-31 11:04] LABS: BE(vivo) -2.3 mmol/L (-2 to +3); HCO3 22.5 mmol/L (22.0-26.0); PCO2 38.7 mmHg (35.0-45.0); PO2 125.7 mmHg (80.0-100.0); pH 7.383 (7.360-7.450); sO2 98.5 % (92.0-98.0)
--- NOTE | 2019-05-31 12:32 | NUR ---
SW reviewed chart and spoke with attending physician. Pt is progressing well and plan to hopefully extubate pt today. Should pt fail extubation, may need trach and peg. [facility] is following to assist as needed with discharge planning.
--- NOTE | 2019-05-31 16:31 | NUR ---
PATIENT EXTUBATED TODAY AT 1240. HE TOLERATED EXTUBATION WELL. HE IS COOPERATIVE AND PLEASANT. O2 HAS BEEN TITRATED BY RT. FECAL MANAGEMENT SYSTEM DISCONTINUED FLUSH PORT WAS BROKEN OFF. HE HAS HAD FREQUENT STOOLS AROUND FECAL MANAGEMENT SYSTEM TOO PRIOR TO REMOVAL. OG TUBE REMOVED WITH EXTUBATION. NO TUBE FEEDINGS AT THIS TIME. PATIENT TO WEAR BIPAP AT WHEN ASLEEP HE WEARS IT AT HOME TOO. THIS IS PER DR. CADET. ANOTHER ABG TO BE DRAWN PER PHYSICIAN ORDER. NURSE TO CONTINUE TO MONITOR PATIENT STATUS, ASSESSMENTS, OXYGENATION, AND INCREASE ACTIVITY.
[2019-05-31 17:34] LABS: BE(vivo) -1.1 mmol/L (-2 to +3); HCO3 23.9 mmol/L (22.0-26.0); PCO2 41.1 mmHg (35.0-45.0); PO2 83.2 mmHg (80.0-100.0); pH 7.382 (7.360-7.450); sO2 96.1 % (92.0-98.0)
[2019-06-01] VITALS (21 sets, daily range): BP systolic 132–176; BP diastolic 68–100
[2019-06-01 06:47] LABS: ALBUMIN 2.2 g/dL (3.4-5.0); CALCIUM 9.4 mg/dL (8.5-10.1); CREATININE 1.5 mg/dL (0.7-1.3); PHOSPHORUS 2.8 mg/dL (2.5-4.9); POTASSIUM 3.3 mmol/L (3.5-5.1)
--- NOTE | 2019-06-01 17:13 | NUR ---
SW reviewed chart and spoke with attending physician. Pt was extubated yesterday and tolerating O2 via NC. Therapy ordered and 5N consult ordered to evaluate pt for inpt acute rehab. [facility] is following to assist as needed with discharge planning.
--- NOTE | 2019-06-01 18:12 | NUR ---
Patient progressing towards outcome goals as evident by increased ability to assist with turning from side to side for bed changes. Advanced to pureed diet and sitting in the chair position for meals. Occ strong loose non productive cough.
[2019-06-02] VITALS (27 sets, daily range): BP systolic 124–171; BP diastolic 58–104
[2019-06-02 05:21] LABS: ALBUMIN 2.3 g/dL (3.4-5.0); CALCIUM 9.2 mg/dL (8.5-10.1); CREATININE 1.7 mg/dL (0.7-1.3); PHOSPHORUS 2.5 mg/dL (2.5-4.9); POTASSIUM 3.4 mmol/L (3.5-5.1)
[2019-06-02 05:57] LABS: HEMATOCRIT 25.7 % (42.0-52.0); HEMOGLOBIN 8.2 gm/dL (14.0-18.0); MCH 27.4 pg (26.0-34.0); MCHC 31.9 g/dL (28.0-37.0); RBC 2.99 mil/uL (4.50-6.00); RDW 17.5 % (10.5-14.5); WBC 14.1 thou/uL (4.0-11.0)
--- NOTE | 2019-06-02 06:30 | NUR ---
Pt remains stable in this shift. No changes from last assessment. Wound vac is inplaced with serious drainage noted. No other skin issues. Reposition him q 2 hrs. VSS. Afebrile in this shift. he is slowly progressing toward goals.
--- NOTE | 2019-06-02 19:43 | NUR ---
Patient affect flat today, restless in bed, scooting down. Right concrete handler and movement weaker than left. KCL replacement givent for serum potassium of 3.5. Monitor continues to show NSR with PVC's and rare couplet noted. Consuming saw 30 to 40% of diet. Honey thick water encouraged. IS encouraged but appears to have difficulty with the coordination of using it, will pull 500 to 750 about 3 times and then refuses to try anymore. Family at bedside and kept informed of the POC and reassurance given.
[2019-06-03] VITALS (36 sets, daily range): BP systolic 124–206; BP diastolic 46–133
--- NOTE | 2019-06-03 01:36 | NUR ---
WHEN ASSESSED AT START OF SHIFT, PT FOLLOWED SIMPLE COMMANDS AND STRENGTH WAS EQUAL BILATERALLY, JUST SLIGHTLY MORE REACTIVE WITH THE RUE. PRIOR NURSE SUSPECTED R SIDED WEAKNESS AND A HEAD CT WAS ORDERED. PT TAKEN TO CT, WHICH SHOWED NO ACUTE CHANGES. SINCE RETURNING FROM CT, PT HAS SHOWN MOVEMENT OF ALL EXTREMETIES AND EQUAL STRENGTH BILATERALLY. HOWEVER, PT IS SLOW TO RESPOND AND RELUCTANT TO FOLLOW COMMANDS; PT MUST BE ASKED MULTIPLE TIMES TO FOLLOW SIMPLE COMMANDS. PT WILL TRACK NURSING STAFF, BUT IT SEEMS THOUGH PT IS HAVING A DIFFICULT TIME PROCESSING WHAT IS SAID TO HIM. PT'S SPEECH IS INCOMPREHENSIBLE AND SOUNDS THOUGH HE IS ATTEMPTING TO RESPOND TO A QUESTION, BUT IS UNABLE TO MAKE OUT THE WORDS. PT HAS BEEN VERY RESTLESS TONIGHT, AND IT IS EVIDENT THAT THE PT HAS RESTLESS LEG SYNDROME. PRIOR SHIFT REPORTED THAT THE PT HAS NOT SLEPT WELL SINCE BEING EXTUBATED. PT TAKES MIRAPEX AND ZANAFLEX AT HOME. PT MAY NEED TO BE STARTED BACK ON SOMETHING FOR HIS RESTLESS LEG SYNDROME, SO THAT HE CAN SLEEP AT NIGHT. THIS WILL BE PASSED ALONG TO THE NEXT NURSE IN THE MORNING. WILL CONTINUE TO MONITOR.
[2019-06-03 05:55] LABS: HEMATOCRIT 25.4 % (42.0-52.0); MCH 27.5 pg (26.0-34.0); MCHC 31.7 g/dL (28.0-37.0); MCV 86.7 fL (80.0-100.0); RBC 2.93 mil/uL (4.50-6.00); WBC 12.6 thou/uL (4.0-11.0)
[2019-06-03 06:03] LABS: ALBUMIN 2.2 g/dL (3.4-5.0); CALCIUM 9.1 mg/dL (8.5-10.1); CREATININE 1.6 mg/dL (0.7-1.3)
--- NOTE | 2019-06-03 15:32 | NUR ---
SW reviewed chart and spoke with nursing and attending physician. Pt is progressing towards goals to discharge to 5N. SW discussed case with rehabilitation inspector, who states they are able to accept pt as early as Thursday, 06/05. SW updated attending physician. Discharge to 5N is anticipated for Thursday. [facility] rehabilitation inspector aware. SW is following to assist as needed with discharge planning.
--- NOTE | 2019-06-03 16:01 | NUR ---
PATIENT IS ACCEPTED FOR ADMISSION TO ACUTE REHAB/5N. POSSIBLE ADMISSION OVER WEEKEND OF JUN 04. IF PATIENT IS READY TO DISCHARGE, PLEASE NOTIFIY INGOT CASTER BRUCE AT [phone] TO MAKE ARRANGEMENTS FOR REHAB ADMISSION. THANK YOU FOR THIS REFERRAL.
--- NOTE | 2019-06-03 19:32 | NUR ---
PATIENT REMAINED ALERT WITH CONFSION AND SLOW TO RESPOND. PATIENT WOULD FOLLOW SOME SIMPLE COMMANDS, HOWEVER OTHER TIMES HE WOULD NOT. PATIENT WENT INTO [facility] RVR THIS AM, DR TREVINO AWARE AND ORDERS RECIEVED TO INCREASE COREG AND START AMIO. PATIENT CONVERTED BACK TO SR WITH FREQUENT ECTOPY. PATIENT AT BEDSIDE FOR MOST OF THE DAY. PATIENT NOW TRANSFERRED TO ROOM 350 ON 3W. PATIENT'S WAS NOTIFIED OF THE ROOM PLACEMENT. NO FURTHER CONCERNS AT THIS TIME. WILL CONTINUE TO MONITOR AND CARE PER PLAN OF CARE.
[2019-06-04 00:10] LABS: MAGNESIUM 1.7 mg/dL (1.8-2.4); POTASSIUM 3.2 mmol/L (3.5-5.1)
[2019-06-04 01:32] VITALS: BP 184/90
--- NOTE | 2019-06-04 02:07 | NUR ---
PT ARRIVED FROM ICU VIA BED. PLACED IN ROOM 350. PT AWAKE, POORLY ALERT. PT WOULD ONLY SAY HIS FIRST NAME "GERI." DID NOT ANSWER ANY OTHER QUESTIONS. RECIEVED INFORMATION FOR REPORT FROM DAY RN. ASSESSMENT ONGOING.
[2019-06-04 04:05] VITALS: BP 159/91
[2019-06-04 07:11] VITALS: BP 173/92
--- NOTE | 2019-06-04 08:22 | NUR ---
PT MAKING SLOW PROGRESS TOWARDS GOALS. PT IN SINUS RHYTHM/TACH OVERNIGHT WITH OCCASIONAL FREQUENT PVC'S. AT APPROXIMATELY 2244 HRS PT HAD SUDDEN RUN OF WIDE COMPLEX RAPID TACHYCARDIA WITH SPONTANEOUS AND UNASSISTED RESUMPTION OF SINUS RHYTHM. PT WAS REPORTEDLY JUST LYING IN BED PER RN THAT CHECKED ON THE PT. LABS DRAWN, MAG 1.7 AND k+3.2. SPOKE WITH DIAGNOSTIC TECHNOLOGIST, TELE STRIPS VIEWED. MAG AND K+ REPLACEMENT ORDER AND INTITIATED. PT DID HAVE SECOND EPISODE OF WIDE COMPLEX AND RAPID TACHYCARDIA THAT WAS 12 BEATS IN LENGTH. PT VIEW AT THAT MOMENT BUT DID NOT APPEAR TO BE IN ANY DISTRESS. PT ASKED "ARE YOU OK." PT REPLIED, "YEA." K/MG INFUSIONS ALREADY IN PROGRESS. REPORT GIVEN TO KHRIS CROOK THIS MORNING.
[2019-06-04 08:58] LABS: HEMATOCRIT 26.5 % (42.0-52.0); HEMOGLOBIN 8.5 gm/dL (14.0-18.0); MCV 87.6 fL (80.0-100.0); RBC 3.02 mil/uL (4.50-6.00); RDW 18.1 % (10.5-14.5); WBC 13.8 thou/uL (4.0-11.0)
[2019-06-04 09:08] LABS: ALBUMIN 2.3 g/dL (3.4-5.0); CALCIUM 8.9 mg/dL (8.5-10.1); CREATININE 1.7 mg/dL (0.7-1.3); PHOSPHORUS 2.8 mg/dL (2.5-4.9); POTASSIUM 3.4 mmol/L (3.5-5.1)
--- NOTE | 2019-06-04 10:30 | EKG ---
[address] [place] [address] ELECTROCARDIOGRAM REPORT Name: GERI MCARTHUR Room #: 350-P ADM IN M.R.#: [id number] Admission: 05/14/19 Attend Phys: Melvin Martinez MD Discharge: Date of : 55 Report #: [id number] THIS REPORT FOR: //name// [facility] Test Date: 2019-06-03 Test Time: 09:34:22 Pat Name: GERI MCARTHUR Department: Room: 350 Gender: M Raw Shellfish Preparer: BLAKE : 1955 Requested By: Chet Rodriguez Order Number: [id number] MD: Chet Rodriguez Measurements Intervals [place] Rate: 122 P: IN: QRS: -15 QRSD: 93 T: 55 QT: 361 QTc: 515 Interpretive Statements Probable sinus tachycardia with first-degree AV block Ventricular premature complex Inferior infarct, old Poor R wave progression Nonspecific ST and T wave abnormality Prolonged QT interval Compared to ECG 05/29/2019 07:32:44 No significant change was found Electronically Signed On 06-04-2019 10:30:38 CDT by Chet Rodriguez [email or web address] <ELECTRONICALLY SIGNED> By: Chet Rodriguez MD, [facility] 06/04/19 1030 0934 0934 Chet Rodriguez MD, [facility] /EPI
--- NOTE | 2019-06-04 10:46 | EKG ---
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 Mixer Driver: REENA : 1955 Requested By: Vish Jose Order Number: [id number] MD: Chet Rodriguez Measurements Intervals [place] Rate: 88 P: 51 [place]: 151 QRS: -13 QRSD: 76 T: 31 QT: 393 QTc: 476 Interpretive Statements Sinus rhythm Multiple ventricular premature complexes Abnormal R-wave progression, early transition Inferior infarct, old Nonspecific T wave abnormality No previous ECGs available for comparison Electronically Signed On 06-04-2019 10:46:19 CDT by Chet Rodriguez [email or web address] <ELECTRONICALLY SIGNED> By: Chet Rodriguez MD, [facility] 06/04/19 1046 0756 0756 Chet Rodriguez MD, [facility] /EPI
[2019-06-04 11:03] VITALS: BP 128/72
[2019-06-04 16:45] VITALS: BP 172/96
--- NOTE | 2019-06-04 17:53 | NUR ---
ASSUMED CARE OF PT AT 0700. PT ALERT AND ORIENTED TO SELF - MINIMALLY INTERACTIVE. UNABLE TO GET OUT OF BED TODAY PER PHYSICAL THERAPY. VERY SMALL APPETITE. FLUIDS ENCOURAGED - PT REFUSING. MANY FAMILY AT BEDSIDE. INCONTINENT OF STOOL. UNEVENTFUL ON TELEMETRY THIS SHIFT. RELAYED TO CARDIOLOGY EVENTS OVERNIGHT - CARDIAC MEDS ADJUSTED. CURRENTLY SINUS. WILL CONT TO MONITOR. NO PROGRESS TOWARD POC GOALS AT THIS TIME.
[2019-06-04 19:19] VITALS: BP 138/68
[2019-06-05 04:08] VITALS: BP 147/79
--- NOTE | 2019-06-05 04:41 | NUR ---
Patient making progrss towards outcome goals. Vital signs and rhythm stbale. No vtach tonight. IVFluids infusing. Fair urine output. Wound vac intact . Discharge plans to rehab tomorrow.
[2019-06-05 05:25] LABS: HEMOGLOBIN 8.4 gm/dL (14.0-18.0)
[2019-06-05 05:27] LABS: HEMATOCRIT 25.9 % (42.0-52.0); MCH 28.5 pg (26.0-34.0); MCHC 32.5 g/dL (28.0-37.0); MCV 87.9 fL (80.0-100.0); RBC 2.95 mil/uL (4.50-6.00); RDW 18.9 % (10.5-14.5); WBC 9.8 thou/uL (4.0-11.0)
[2019-06-05 05:39] LABS: CALCIUM 8.7 mg/dL (8.5-10.1); CREATININE 1.7 mg/dL (0.7-1.3); POTASSIUM 3.5 mmol/L (3.5-5.1)
[2019-06-05 07:33] VITALS: BP 140/61
--- NOTE | 2019-06-05 11:03 | EKG ---
[address] [place] [address] ELECTROCARDIOGRAM REPORT Name: GERI MCARTHUR Room #: 350-P ADM IN M.R.#: [id number] Admission: 05/14/19 Attend Phys: Melvin Martinez MD Discharge: Date of : 55 Report #: [id number] THIS REPORT FOR: //name// [facility] Test Date: 2019-06-05 Test Time: 10:13:05 Pat Name: GERI MCARTHUR Department: Room: 350 P Gender: M Hunter Trapper: BS : 1955 Requested By: Chet Rodriguez Order Number: [id number] MD: Chet Rodriguez Measurements Intervals [place] Rate: 74 P: 57 [place]: 157 QRS: -20 QRSD: 82 T: QT: 510 QTc: 566 Interpretive Statements Sinus rhythm Multiple premature complexes, vent & supraven Abnormal R-wave progression, early transition Inferior infarct, old Prolonged QT interval Compared to ECG 06/04/2019 07:56:39 Prolonged QT interval now present Ventricular premature complex(es) no longer present Electronically Signed On 06-05-2019 11:03:25 CDT by Chet Rodriguez [email or web address] <ELECTRONICALLY SIGNED> By: Chet Rodriguez MD, [facility] 06/05/19 1103 1013 1013 Chet Rodriguez MD, [facility] /EPI
[2019-06-05 11:55] VITALS: BP 163/83
[2019-06-05 15:58] VITALS: BP 144/89
--- NOTE | 2019-06-05 18:10 | NUR ---
ASSUMED CARE AT SHIFT CHANGE, ALERT AND ORIENTED X1-2, MININMUM VERBAL RESPONDS AND POOR PO INTAKE. PATIENT WAS ENCOURAGED TO DRINK WATER THROUGH THE DAY, AND FAMILY HELPED BUT HE REFUSES TO DRINK OT EAT. IV FLUIDS INFUSING. BUCKLEY TO DD, AND WOUND VAC INTACT TO LT GRION. WILL CONTINUE WITH POC.
[2019-06-05 19:30] VITALS: BP 154/86
[2019-06-06 04:37] VITALS: BP 150/74
--- NOTE | 2019-06-06 04:48 | NUR ---
PT RESTING OFF AND ON THRU THE NOC, Q 2H TURNS, NO C/O PAIN, BUCKLEY DRAINING YELLOW URINE, ENCOURAGED PO INTAKE PT USUALLY REFUSES, WND VAC TO LEFT GROIN INTACT, VSS, WILL CON'T TO MONITOR PER PPOC.
[2019-06-06 07:43] VITALS: BP 169/85
[2019-06-06 08:30] LABS: HEMOGLOBIN 8.5 gm/dL (14.0-18.0)
[2019-06-06 08:32] LABS: HEMATOCRIT 26.5 % (42.0-52.0); MCH 28.4 pg (26.0-34.0); MCHC 32.1 g/dL (28.0-37.0); MCV 88.4 fL (80.0-100.0); RBC 2.99 mil/uL (4.50-6.00); WBC 8.3 thou/uL (4.0-11.0)
[2019-06-06 08:40] LABS: CALCIUM 9.2 mg/dL (8.5-10.1); CREATININE 1.7 mg/dL (0.7-1.3); POTASSIUM 3.3 mmol/L (3.5-5.1)
--- NOTE | 2019-06-06 13:13 | NUR ---
SW reviewed chart and spoke with nursing and attending physician. Pt was transferred to ICU from 3W. Slowly progressing towards goals for discharge. SW discussed case with 5N rehabilitation therapist. Plan was for pt to discharge to 5N yesterday or today. Will determine if pt still qualifies for 5N based on therapy today and tomorrow. Should pt not qualify for 5N, SNF would be recommended. ELOINA is following to assist as needed with discharge planning.
[2019-06-06 16:29] VITALS: BP 150/70
--- NOTE | 2019-06-06 18:28 | NUR ---
PT A LITTLE MORE ALERT THIS EVENING. STILL GARBLED SPEECH, ABLE TO UNDERSTAND SOME INTERMITTENT CURSE WORDS AND THE WORD PHONE.
[2019-06-06 20:00] VITALS: BP 109/57
[2019-06-07 05:02] VITALS: BP 155/76
--- NOTE | 2019-06-07 05:15 | NUR ---
FOLLOWING POC WITH IVF/IVPB. PT IS FUSSY AND SLAPS AT STAFF DURING 2 BED CHANGES AFTER FECAL INCONTINENCE. WOUND VAC AND BUCKLEY IN PLACE. INSTALLED LOW LOSS AIR PUMP DUE TO SERGO SCORE AND IMMOBILE. INSOLATION PRECAUTIONS IN PLACE. HOURLY ROUNDING.
[2019-06-07 05:25] LABS: HEMATOCRIT 25.5 % (42.0-52.0); HEMOGLOBIN 8.2 gm/dL (14.0-18.0); MCH 28.4 pg (26.0-34.0); MCHC 32.1 g/dL (28.0-37.0); MCV 88.3 fL (80.0-100.0); RBC 2.89 mil/uL (4.50-6.00); RDW 19.8 % (10.5-14.5); WBC 7.3 thou/uL (4.0-11.0)
[2019-06-07 05:38] LABS: ALBUMIN 2.2 g/dL (3.4-5.0); CALCIUM 8.5 mg/dL (8.5-10.1); CREATININE 1.8 mg/dL (0.7-1.3); PHOSPHORUS 3.1 mg/dL (2.5-4.9); POTASSIUM 3.2 mmol/L (3.5-5.1)
[2019-06-07 07:56] VITALS: BP 135/61
--- NOTE | 2019-06-07 14:49 | NUR ---
ELOINA reviewed chart and spoke with nursing and attending physician. Discussed case with IrvinN. Pt is not able to follow commands or work with therapy at this time. Pt's HS meds to be adjusted. Pt is also in need of a life vest. At this time, but is unable to receive education on the life vest. Recommendation made for pt to go to a SNF until he would be able to tolerate the required hours of therapy for acute rehab. ELOINA met with pt's and dtr-in-law at bedside. Provided update. Pt and family verbalize understand that SNF will need to be considered. Pt's requests to see if the [facility] will cover post acute needs. [facility]. ELOINA spoke with Aleksandra at [facility] who states that she is unable to pull up pt's info. ELOINA spoke with Priya at the [facility], who states pt appears to be 50-100% service connected. ELOINA placed call to the transition SW team at the [facility] and spoke with Miley, who transferred SW to [place] in the outpatient SNF and dept. The VA will not cover post-acute care following this hospitalization, due to pt being here under his Medicare Part A. ELOINA is following to assist as needed with discharge planning.
[2019-06-07 17:06] VITALS: BP 143/80
--- NOTE | 2019-06-07 17:18 | EKG ---
[address] [place] [address] ELECTROCARDIOGRAM REPORT Name: GERI MCARTHUR Room #: 350-P ADM IN M.R.#: [id number] Admission: 05/14/19 Attend Phys: Melvin Martinez MD Discharge: Date of : 55 Report #: [id number] THIS REPORT FOR: //name// [facility] Test Date: 2019-06-06 Test Time: 08:24:11 Pat Name: GERI MCARTHUR Department: Room: 350 P Gender: M Client Reporting Associate: BLAKE : 1955 Requested By: Chet Rodriguez Order Number: [id number] MD: Chet Rodriguez Measurements Intervals [place] Rate: 66 P: 45 NV: 50 QRS: -17 QRSD: 158 T: 75 QT: 455 QTc: 477 Interpretive Statements Sinus rhythm Ventricular premature complex Nonspecific ST and T wave abnormality Inferior infarct, old Compared to ECG 06/05/2019 10:13:05 Ventricular premature complex(es) now present Electronically Signed On 06-07-2019 17:18:25 CDT by Chet Rodriguez [email or web address] <ELECTRONICALLY SIGNED> By: Chet Rodriguez MD, FACC 06/07/19 1718 3 Chet Rodriguez MD, [facility] /EPI
--- NOTE | 2019-06-07 19:50 | NUR ---
Assumed care approx. 0700 this AM. Family updated at bedside between nursing staff, doctors and therapists. Patient was confused, agitated, and would thrash arms many different times when touched. Patient became more cooperative around 1700, but not oriented and still confused. PPN started, IV potassium, and suppository given per orders. Patient taken to CT for abdominal distention, then suppository given per request of EZRA Sal. Patient passed flatus, but no BM's this shift. Hernandez remains intact. Maintenance fluids remain infusing; Right IJ line intact- IV team came to reinforce dressing due to it peeling back. Wound vac and groin dressing intact. Patient not eating meals sent by dietary, but tolerating pills crushed in applesauce. Report passed on to spinning frame fixer by this RN to use PRN haldol that was ordered by Dr. Martinez today if needed for patient to tolerate bipap tonight. Dr. Meidna made nursing staff and RT aware that he wants the patient to be wearing bipap at bedtime. Not much progression toward plan of care at this time.
[2019-06-07 20:31] VITALS: BP 141/73
[2019-06-08 05:56] VITALS: BP 139/76
[2019-06-08 05:59] LABS: HEMATOCRIT 25.6 % (42.0-52.0); HEMOGLOBIN 8.1 gm/dL (14.0-18.0); MCH 27.9 pg (26.0-34.0); MCHC 31.7 g/dL (28.0-37.0); MCV 88.1 fL (80.0-100.0); RBC 2.9 mil/uL (4.50-6.00); RDW 20.8 % (10.5-14.5); WBC 6.7 thou/uL (4.0-11.0)
[2019-06-08 06:24] LABS: CALCIUM 8.4 mg/dL (8.5-10.1); CREATININE 1.6 mg/dL (0.7-1.3); MAGNESIUM 1.8 mg/dL (1.8-2.4); POTASSIUM 3.6 mmol/L (3.5-5.1)
--- NOTE | 2019-06-08 06:35 | NUR ---
RESUMED CARE FOR PT AGAIN. DURING HANDOFF WAS INSTRUCTED TO PLACE PT BACK ON BIPAP THIS EVENING. ORDERS WERE TO GIVE HALIDOL PER EMAR BEFORE AND IT WORKED WELL. Q2 TURNS, IVF/IVPB PER POC. THE PT WAS STARTED ON PPN AT 80ML/HR. FALL AND ISOLATION PRECAUTIONS IN PLACE. HOURLY ROUNDING.
[2019-06-08 08:17] VITALS: BP 140/67
[2019-06-08 11:46] VITALS: BP 125/57
--- NOTE | 2019-06-08 12:24 | NUR ---
SW reviewed chart and spoke with attending physician. Pt's meds changed and pt is doing better today. 5N to re-evaluate pt today. Discussed with 5N rehabilitation services manager. SW is following to assist as needed with discharge planning.
[2019-06-08 16:44] VITALS: BP 143/70
[2019-06-08 19:30] VITALS: BP 134/66
--- NOTE | 2019-06-08 20:23 | NUR ---
Assumed care approx. 0700 this AM. Patient much more awake and alert than yesterday. Patient attempted to feed himself, but not eating much because he doesn't like the thickened liquids and soft/pureed food. Speech therapy assessed patient and told family a swallow study will be performed tomorrow to see if we can safely advance the patient's diet. PPN and dextrose still infusing per orders. Blood sugars remain high. Room air still tolerated well during day time. Right IJ, shepadr, and wound vac intact. Pills crushed in applesauce then given one at a time whole in pudding. Patient making slow progress toward plan of care.
[2019-06-09 04:00] VITALS: BP 146/75
[2019-06-09 05:00] LABS: CALCIUM 8.6 mg/dL (8.5-10.1); CREATININE 1.6 mg/dL (0.7-1.3); MAGNESIUM 1.7 mg/dL (1.8-2.4); POTASSIUM 3.7 mmol/L (3.5-5.1)
[2019-06-09 05:35] LABS: HEMATOCRIT 25.7 % (42.0-52.0); HEMOGLOBIN 8.4 gm/dL (14.0-18.0); MCH 28.6 pg (26.0-34.0); MCHC 32.8 g/dL (28.0-37.0); MCV 87.3 fL (80.0-100.0); RBC 2.95 mil/uL (4.50-6.00); RDW 19.6 % (10.5-14.5); WBC 8.7 thou/uL (4.0-11.0)
[2019-06-09 08:01] VITALS: BP 138/68
--- NOTE | 2019-06-09 10:28 | NUR ---
Nutrition: Received consult for Calorie Count to start 06/08 and stop 06/10. Calorie Count sign was not hung or started yesterday. RD hung appropriate signage this AM for staff to start saving menus. At time of visit, pt was being taken to video swallow. Spoke to ON SITE MANAGER. Per chart review, pt continues on Clinimix PPN at 80 ml/hr and a Pureed Carb Controlled Diet with nectar thick liquids. The hope today is that diet can possibly be advanced as nursing notes indicate pt is not eating much. Does not like pureed foods, does not like thickened liquids. Refused all supplements yesterday (magic cup, Ensure pudding) and only managed 20% of meals. Unable to complete calorie count today. Will follow up for results tomorrow. Video swallow results pending.
--- NOTE | 2019-06-09 10:43 | HC ---
[facility] [place] [address] CONSULTATION Name: GERI MCARTHUR Room #: 350- ADM IN M.R.#: [id number] Admission: 05/14/19 Attend Phys: Melvin Martinez MD Discharge: Date of : 55 Report #: [id number] THIS REPORT FOR: //name// CC: [facility] physician/PCP Melvin Martinez DATE OF SERVICE: 06/02/2019 HISTORY OF PRESENT ILLNESS: This is a 63-year-old male patient who was seen by me because rehab physician evaluated him and he was found to have weakness on the right side. It is not clear how long this weakness is going on. He has been admitted to the ICU with multiple critical problems and he has been followed by multiple consultants here. Nurses tell me he was in the balloon pump. He was at one time running temperature. He had shortness of breath when he came in and now he was noticed to have weakness on the right side. REVIEW OF SYSTEMS: Positive for renal failure, hypoxemic respiratory failure and this patient had a pretty prolonged course here in the hospital. REVIEW OF SYSTEMS: A 14-point review of system was carried out as well. He also had cardiac abnormalities for which he is being followed by Cardiology. PAST MEDICAL HISTORY: Negative for the stroke, the best I can tell. FAMILY HISTORY: Unremarkable. SOCIAL HISTORY: He is and I talked to his . PHYSICAL EXAMINATION: Indicates he speaks he does not make much sense. His memory is pretty impaired. Cranial nerve examination 2-12 was attempted. He could not cooperate, so I cannot tell about visual [place] or even facial weakness. He does appear to be weak on the right side, but sometimes he does not move anything well at all including left leg and so the responses intermittent but is not possible to tell how much is because of the patient's inability to understand and how much it is because of actual weakness. He did have a CT scan looks like on 05/27/2019 that was unremarkable, but the weakness has been noticed recently. Vital signs indicated blood pressure of 149/95, pulse is 91. LABORATORY DATA: Indicates a hemoglobin of 8.2. CT is as described above. IMPRESSION: It is difficult to form in this patient, but I agree with Dr. Villalobos that this patient needs a workup for that. I am going to order a CT scan after getting clearance from Cardiology. Further workup will depend upon [address] [address] CONSULTATION Name: GERI MCARTHUR Room #: 350-P [facility] IN ..#: [id number] Admission: 05/14/19 Attend Phys: Melvin Martinez MD Discharge: Date of : 55 Report #: [id number] the outcome of that testing. Dr. Delgado will follow up this patient with you from tomorrow. <ELECTRONICALLY SIGNED> By: Alessandro Diamond MD 06/09/19 1043 [id number] Alessandro Diamond MD /kandi
[2019-06-09 11:40] VITALS: BP 134/69
--- NOTE | 2019-06-09 12:19 | HC ---
[facility] [place] [address] CONSULTATION Name: GERI MCARTHUR Room #: 350- ADM IN M.R.#: [id number] Admission: 05/14/19 Attend Phys: Melvin Martinez MD Discharge: Date of : 55 Report #: [id number] THIS REPORT FOR: //name// CC: SEPIDEH physician/PCP Melvin Martinez DATE OF SERVICE: 06/01/2019 HISTORY OF PRESENT ILLNESS: The patient is a 63-year-old male with a complex history with peripheral arterial disease, left leg angio, left popliteal stent on 03/30/2019 followed by a left femoral endarterectomy on 04/18/2019. He was admitted on 05/14/2019 with increased shortness of breath, noted to have sepsis likely secondary to community-acquired pneumonia. He had acute on chronic kidney disease and COPD. He had exploration of the left groin wound on 05/23/2019. His course has been complicated by a code blue with SVT followed by asystole and ventricular tachycardia. Code blue was called twice. He was intubated and moved to the ICU, taken to the veterinary laboratory technician, had a stent placed to LAD and balloon pump placed. He is on hemodialysis per Nephrology. He was treated for severe sepsis with possible aspiration pneumonia. He has gradually improved. He was extubated 2 days ago and is now off dialysis and is back to his prior chronic renal function. He continues to be treated for the sepsis/possible aspiration pneumonia and has a wound VAC to the left thigh post incision and drainage. Infectious Disease is involved. He is noted to have an encephalopathy, toxic metabolic and there is a question of a hypoxic component. He was noted to have COPD, severity unknown. As far as the cardiac arrest, the emergent catheterization was on 05/19/2019 with stent to the LAD and the intraaortic balloon pump was discontinued on 05/21/2019. The patient continues in the ICU and we are seeing him in rehabilitation medicine consultation. PAST MEDICAL HISTORY: Extensive with a prior history of an anterior cervical diskectomy, ____; history of insulin-dependent diabetes mellitus, COPD, sleep apnea with BiPAP, chronic back pain, history of neuropathy, hypertension, bilateral knee replacements, restless legs syndrome, and left knee quadriceps repair. He has had a spinal stimulator, prior history of thoracentesis with empyema. MEDICATIONS: Please see the full medication listing. SOCIAL HISTORY: He lives with , house, no steps, premorbidly ambulated without gait aids in the house, used a cane in the community. is retired and supportive. 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 FAMILY HISTORY: Noncontributory. REVIEW OF SYSTEMS: Did not offer any current complaints of chest pain, [address] [place] [address] CONSULTATION Name: GERI MCARTHUR Room #: 350-P ADM IN M.R.#: [id number] Admission: 05/14/19 Attend Phys: Melvin Martinez MD Discharge: Date of : 55 Report #: [id number] shortness of breath, or abdominal discomfort. He is a vague historian. PHYSICAL EXAMINATION: GENERAL: The patient is seen in the ICU, 63-year-old male, nasal prong O2 is in place, left groin wound VAC, Hernandez catheter. NEUROLOGIC: There is a definite delay in his responses and he tends to be easily distractable. He will follow basic 1-step commands, but I need to be looking at him and have his full attention. He does have exogenous obesity. Upper extremity strength is probably a grade 3+/5. Lower extremity strength, he appeared weaker of that right lower extremity proximal than distal, but again it was difficult to get him to follow commands for actual manual muscle testing. He has bilateral knee incisions that are well healed. No focal calf swelling. He appears to be around antigravity for basic strength, but again it was somewhat difficult to test with his mental status. ASSESSMENT: The patient is a 63-year-old male with the following problem list: 1. Multifactorial encephalopathy, toxic metabolic and possibly hypoxic. 2. Cardiac arrest, supraventricular tachycardia followed by asystole, emergent catheterization, stent to LAD, prior intraaortic balloon pump, discontinued. 3. Acute respiratory failure due to cardiac arrest, is now stable post-extubation. 4. Acute renal injury, was on hemodialysis, has obstructive uropathy, urinary retention, and chronic kidney disease, is now off hemodialysis. 5. Severe sepsis with septic shock, severe acidosis, improved. 6. 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 7. Chronic obstructive pulmonary disease. 8. Peripheral vascular disease with recent right femoral endarterectomy, stent. 9. Chronic back pain with prior neurostimulator. 10. Diabetes mellitus type 2. 11. Hypertension. PLAN: Therapies will be reevaluating him and we will need to see what his functional status is. Discussion with the patient's and [id number]. Speech therapy saw him and have placed him on a pureed honey thickened liquid diet. We will need to see how he does as far as tolerance for rehab therapies and we will follow with you as he further stabilizes. Thank you for asking us to assist in this patient's care. <ELECTRONICALLY SIGNED> By: Trevor Villalobos MD 06/09/19 1219 [id number] Trevor Villalobos MD /[facility]
--- NOTE | 2019-06-09 14:00 | NUR ---
ELOINA reviewed chart and spoke with nursing and attending physician. Discussed case with [facility]. Pt has been accepted to [facility] when medically stable. Pt to have GI procedure tomorrow. ELOINA received call from pt's dtr-in-law, Wendy, regarding need to be fitted for a Life Vest. [facility] rep was by this morning and states that pt cannot be fitted more than 48 hours prior to admission. ELOINA spoke with Samantha at [facility], who states that she will coordinate with pt's family to have pt fitted later today or tomorrow. Anticipate pt will discharge to [facility] tomorrow after GI procedure. Pt and family all in agreement with plan. Pt's family was in agreement with [facility], if [facility] was not an option. ELOINA provided update to family about VA benefits. Post acute services will not be covered by the VA, as pt is here using his Medicare benefits. ELOINA is following to assist as needed with discharge planning.
[2019-06-09 15:56] VITALS: BP 129/73
--- NOTE | 2019-06-09 17:50 | NUR ---
END OF SHIFT NOTE. PT WITH PT TODAY, SAT ON BSC X 3 ASSIST. TO SPEECH FOR EVAL. ALSO FITTED FOR ZOLL DEFIBILATOR. REMAINS LETHARGIC. APPITITE POOR. WOUND VAC WITH GOOD SEAL.
[2019-06-09 19:30] VITALS: BP 127/66
[2019-06-10 04:00] VITALS: BP 125/57
--- NOTE | 2019-06-10 06:43 | NUR ---
PATIENT IS ALERT TO SELF. PATIENT IS ON CPAP HS AND PRN. PATIENT IS INCONTIENT. PATIENT HAS A BUCKLEY. PATIENT HAS ORDERS TO GET UP TO CHAIR DURING THE DAY. PATIENT IS ROOM AIR DURING DAY. PATIENT DENIES PAIN. PATIENT IS Q2 TURN. PATIENT IS PENDING POSSIBLE REHAB TODAY. PATIENT WOUND VAC IS CLEAN DRY AND INTACT. PATIENTS CENTERAL LINE WAS DC PER Magdiel STOKES. PATIENT IS RESSTING COMFORTABLY IN BED. WCM. PATIENT IS PROGRESSING TO GOALS.
--- NOTE | 2019-06-10 10:21 | NUR ---
Followup: Video swallow result completed and pt will be on puree, mo mix consistencies, and upgrade to regular liquids with constant supervision. Noted pt still with fatigue. Remains on supplemental PPN. NPO today for colonoscopy, then possible transfer to rehab over the weekend which calorie count can be reinitiated. Plan to followup again on Wednesday 06/13.
[2019-06-10 11:02] LABS: HEMOGLOBIN 8.9 gm/dL (14.0-18.0); MCH 28.5 pg (26.0-34.0); MCHC 33.1 g/dL (28.0-37.0); MCV 86.1 fL (80.0-100.0); RBC 3.14 mil/uL (4.50-6.00); RDW 19.3 % (10.5-14.5); WBC 8.1 thou/uL (4.0-11.0)
[2019-06-10 11:06] LABS: CALCIUM 8.5 mg/dL (8.5-10.1); CREATININE 1.6 mg/dL (0.7-1.3); MAGNESIUM 1.8 mg/dL (1.8-2.4); POTASSIUM 3.1 mmol/L (3.5-5.1)
[2019-06-10 11:59] VITALS: BP 121/61
--- NOTE | 2019-06-10 14:32 | NUR ---
ELOINA reviewed chart and spoke with nursing and attending physician. Pt is progressing towards goals for discharge. Pt to have GI procedure tomorrow and then discharge to . ELOINA discussed case with rehab tech who states they are able to accept pt over the weekend. Pt was fitted for his Life Vest yesterday. ELOINA updated [employer] Life Vest rep, Mariam. ELOINA spoke with pt's dtr-in-law, Wendy to provide update. Pt's family is aware and agreeable with discharge plan. ELOINA is following to assist as needed with discharge planning.
[2019-06-10 16:29] VITALS: BP 146/77
--- NOTE | 2019-06-10 17:30 | NUR ---
PATIENT IS BEING FOLLOWED BY DR. MERRITT TO ASSESS CANDIDACY FOR ACUTE REHAB. DR. MERRITT TO CONTINUE FOLLOWING. FOR QUESTIONS/UPDATES ABOUT REHAB REHAB ADMISSION OVER THE WEEKEND, PLEASE CONTACT GEOMAGNETICIAN AT [phone].
--- NOTE | 2019-06-10 17:57 | NUR ---
ASSUMED CARE OF PT AT 0700. PT ALERT AND ORIENTED X2 IN NO ACUTE DISTRESS. STARTED COLON PREP AT APPROX 1100. PT ALREADY WITH MULTIPLE LOOSE ORANGE COLORED STOOL. MANY FAMILY AT BEDSIDE, AGREEABLE WITH COLON SCOPE. IV TEAM PLACED NEW PERIPHERAL. NOTED CLOT ON RIGHT FOREARM - ULTRASOUND OF RUE ORDERED. VITALS STABLE. REHAB STATES UNABLE TO RECEIVE PATIENT AFTER COLONSCOPY TOMORROW, AND WILL HAVE TO WAIT UNTIL THURSDAY, ASSUMING PATIENT IN STABLE CONDITION. PT PROGRESSING TOWARD POC GOALS.
[2019-06-10 19:23] VITALS: BP 124/67
--- NOTE | 2019-06-11 03:05 | NUR ---
PATIENT IS ALERT TO SELF AND SITUATION. PATIENT IS ON ROOM AND C PAP HS. PATIENT HAS A WOUND VAC CANISTER CHANGED. PATIENT IS ON PPN. PATIENT IS Q2TURN. PATIENT HAS BEEN NPO SENSE MIDNIGHT. PATIENT IS PENDING COLONOSCOPY TODAY. AND MAYBE REHAB THE . PATIENT IS INCONTIENT LBM WAS TODAY THE . PATIENT HAS A BUCKLEY. PATIENT IS NSR TO SINUS STEPHY ON TELE. PATIENT DENIES PAIN. PATIENT IS RESTING COMFORTABLY IN BED. WCM. PATIENT IS PRGRESSING TO GOALS.
[2019-06-11 03:09] VITALS: BP 156/75
[2019-06-11 06:25] LABS: ALBUMIN 1.8 g/dL (3.4-5.0); CALCIUM 7.4 mg/dL (8.5-10.1); CREATININE 1.3 mg/dL (0.7-1.3); PHOSPHORUS 3.7 mg/dL (2.5-4.9)
[2019-06-11 06:30] LABS: POTASSIUM 2.9 mmol/L (3.5-5.1)
[2019-06-11 08:16] VITALS: BP 142/69
[2019-06-11 11:40] VITALS: BP 125/54
--- NOTE | 2019-06-11 15:22 | NUR ---
PATIENT HAS SLEPT POST COLONOSCOPY. UTILIZES BIPAP. WHEN HE IS AWAKE HE SPEAKS IN LOW TONE MOSTLY UNINTELLIGIBL. TURN Q2. RESPIRATIONS NON LABORED. WILL CONT WITH PLAN OF CARE.
[2019-06-11 16:31] VITALS: BP 133/67
[2019-06-11 19:38] VITALS: BP 129/66
--- NOTE | 2019-06-12 03:12 | NUR ---
PATIENT IS ALERT TO SELF AND SITUATION. PATIENT IS Q2 TURN. PATIENT IS AWAKE MOST OF THE NIGHT AND DOES NOT WANT BIPAP ON WHEN WATCHING TV. PATIENT IS ON ROOM AIR. STATS IN THE 90S. PATIENT IS NSR ON TELE EXTERNAL ZOLL IN PLACE. PATIENTS LBM WAS THE . SUMIT HAS MARCIO. PATIENT IS ACHS ACCUCHECKS. PATIENTS WOUND VAC IS CLEAN DRY AND INTACT. SUCTION 125MMHG. PATIENT IS PENDING DISCHARGE TO REHAB TODAY. PATIENT DENIES PAIN. PATIENT IS RESTING COMFORTABLY IN BED. WCM. PATIENT IS PROGRESSING TO GOALS
[2019-06-12 03:45] VITALS: BP 138/76
[2019-06-12 07:42] VITALS: BP 121/61
--- NOTE | 2019-06-12 11:09 | NUR ---
PT WILL BE ADMITTED TO 5TH FLOOR REHAB TODAY. IV TEAM STARTED NEW IV LEFT UA 20G. PT UP IN CARDIAC CHAIR TODAY. WILL CONTINUE TO ASSESS.
[2019-06-12 11:37] VITALS: BP 141/67
[2019-06-12] MEDS ORDERED: PACERONE 200 M200 M1 PO (12:12)
[2019-06-12] MEDS ORDERED: CATAPRES-TTS 20.2 MG TRANSDERM (12:13)
--- NOTE | 2019-06-12 12:22 | NUR ---
REPORT CALLED TO ANJANA RN IN REHAB.
[2019-06-12] MEDS ORDERED: LANTUS100 UNIT/M SUBQ (12:23)
[2019-06-12] MEDS ORDERED: CEFAZOLIN2 GM/100 M IV (12:27)
--- NOTE | 2019-06-14 08:06 | HC ---
[facility] [place] [address] CONSULTATION Name: GERI MCARTHUR Room #: 350-[facility] IN M.R.#: [id number] Admission: 05/14/19 Attend Phys: Hoda Hernandez MD Discharge: 06/12/19 Date of : 55 Report #: [id number] THIS REPORT FOR: //name// CC: SEPIDEH physician/PCP Hoda Hernandez DATE OF SERVICE: 06/04/2019 ENDOCRINOLOGY CONSULTATION CONSULTING PHYSICIAN: Dr. Suman Garcia. REASON FOR CONSULTATION: Uncontrolled type 2 diabetes mellitus. HISTORY OF PRESENT ILLNESS: This is a 63-year-old male patient whose medical background is noted for multiple issues including type 2 diabetes mellitus, chronic kidney disease, obesity, obstructive sleep apnea and hypertension. The patient was admitted to [facility] on 05/14/2019 with shortness of breath as well as chest pain and was febrile, tachycardic and hypoxic on arrival to the ER. Since his admission, the patient had a fairly eventful hospital stay including cardiac arrest several days ago and issues pertaining to SVT, asystole and V-tach. The patient was intubated and monitored in the ICU at that time. The patient was also catheterized and a stent was placed to the LAD and a balloon pump was placed at that time, but then discontinued. Also, the patient had needed to undergo hemodialysis multiple times. The patient had dealt with severe sepsis in the setting of aspiration pneumonia. Again, the patient has a background as noted for type 2 diabetes mellitus and has been managed by insulin therapy slowly since metformin was discontinued over a year ago due to declining kidney function. The patient's was available at bedside and provided much of the history as the patient is not interactive and seems sleepy and lethargic. She indicated that prior to this admission, the patient was treated with Lantus insulin 12 units at night in addition to Humalog insulin taken in a sliding scale manner, but averaging at about 12 units per meal. She notes that most of his blood glucose values had been under adequate control and reports that most were in the low to mid 100 mg/dL range with infrequent occurrences of hypoglycemia. REVIEW OF SYSTEMS: CONSTITUTIONAL: 1. Fatigue, tiredness, fever, pulmonary shortness of breath, cough, but not hemoptysis. Also, the patient utilizes a BiPAP due to obstructive sleep apnea. 2. CARDIAC: As noted above the patient had the events of a recent cardiac arrest and at that time complained of chest pain, palpitations. [facility] [address] [place] [address] CONSULTATION Name: GERI MCARTHUR Room #: 350-P [facility] IN .R.#: [id number] Admission: 05/14/19 Attend Phys: Hoda Hernandez MD Discharge: 06/12/19 Date of : 55 Report #: [id number] 3. GASTROINTESTINAL: Negative for abdominal pain, nausea, vomiting. 4. GENITOURINARY: Negative for polyuria, hematuria, nocturia. 5. MUSCULOSKELETAL: Back pain, muscle aches, joint aches, nonspecific. 6. NEUROLOGY: The patient has been less interactive, less verbal, sleepy, but without reports of seizures or headaches. 7. HEENT: Negative for congestion or hemoptysis. 8. SKIN: Negative for ecchymosis, itching, rash. Otherwise, review of systems noncontributory other than what is noted in HPI. PAST MEDICAL HISTORY: 1. Type 2 diabetes mellitus. 2. Hypertension. 3. Hyperlipidemia. 4. Obesity. 5. Obstructive sleep apnea. 6. Chronic kidney dysfunction. 7. Recent cardiac arrest. 8. SVT. 9. CAD, status post recent stent placement in the LAD. 10. Aspiration pneumonia. 11. Obesity. 12. Atrial flutter. 13. COPD. 14. Back pain. 15. Gout. 16. Osteoarthritis. 17. Glaucoma. CURRENT MEDICATIONS: Amiodarone 200 mg daily, aspirin 81 mg daily, Solu-Medrol 40 mg IV daily, latanoprost 1 drop, pantoprazole 40 mg b.i.d. IV, budesonide 0.5 mg b.i.d., carvedilol 25 mg b.i.d. p.o., potassium chloride 40 mEq as needed, albuterol/ipratropium, Humalog supplemental scale, glucagon as needed, metoprolol 5 mg q. 6 hours IV, morphine 2 mg as needed, clonidine 0.2 mg q. 7 days transdermal. ALLERGIES: CODEINE, STATINS. FAMILY HISTORY: Hypertension. SOCIAL HISTORY: , ex-smoker, quit in 2012. Rare alcohol use. PHYSICAL EXAMINATION: GENERAL: This is a middle-aged -[place] male patient who is not in apparent pain or distress, but is sleepy, lethargic and does not answer questions readily. [facility] [address] [place] [address] CONSULTATION Name: GERI MCARTHUR Room #: 350-P [facility] IN M.R.#: [id number] Admission: 05/14/19 Attend Phys: Hoda Hernandez MD Discharge: 06/12/19 Date of : 55 Report #: [id number] VITAL SIGNS: Blood pressure is 128/72 mmHg, heart rate is 83 beats per minute, respirations 22 per minute, temperature 35.7 degrees. HEENT: Unremarkable to inspection. Anicteric. NECK: Supple, without JVD, carotid bruits or lymphadenopathy. Thyroid size appears normal. LUNGS: Chest is clear to auscultation with scattered rales and rhonchi. Distant breath sounds, but no wheezes. CARDIOVASCULAR: Heart is irregularly irregular. No murmurs, rubs or gallops. ABDOMEN: Soft and lax. No organomegaly. No tenderness or guarding. SKIN: Intact. No rash or skin ulceration is noted. Lower extremities noted. EXTREMITIES: Trace ankle edema. No ulceration. NEUROLOGIC: The patient again is arousable, follows verbal stimuli, but speaks very little, not interactive, not cooperative with a full neurological examination. PSYCHIATRIC: The patient again is arousable, follows verbal stimuli, but speaks very little, not interactive, not cooperative with a full neurological examination. The patient is lethargic and unable to assess his psych status. LABORATORY RESULTS: Glucose values have run consistently in the low to mid 200 mg/dL with occasional flashes in the 100 mg/dL range. Sodium 145, potassium 3.4, chloride 113, CO2 of 22, anion gap 10, BUN 38, creatinine 1.7, glucose 266, AST 33, lipase 609, total bilirubin 0.6, direct bilirubin 0.4, calcium 8.9, phosphorus 2.8, magnesium 1.7, ALT 54, total protein 6.6, albumin 2.3, lactic acid 2.1, troponin 0.08. Triglyceride 123. BNP 6591. INR 1.1. White blood count 13.8, hemoglobin 8.5, hematocrit 26.5, platelets 235. TSH 2.284, ferritin 278. Vitamin B12 552. Hemoglobin A1c 6.0. ASSESSMENT AND PLAN: 1. Type 2 diabetes mellitus. As noted in HPI, the patient's spouse gave a history of what appears to be reasonably controlled level of hyperglycemia at home, utilizing multiple daily injections of insulin. While the patient's most recent hemoglobin A1c measures at 6.0, this is highly unreliable in the setting of hemodialysis and cannot be adequately utilized to assess the patient's status. During his hospital stay, the patient's course had been complicated by multiple significant events as noted above including a cardiac arrest and now the patient has been significantly less interactive, has minimal p.o. intake and is largely bedridden. All these variables would certainly affect his current level of control. The patient is currently managed by Humalog sliding scale only and has maintained a blood glucose level of control in the low to mid 200 mg/dL range. I would very much like to see him more so in the 140-180 mg/dL range to help maintain adequate control. However with that in mind, it will be prudent to avoid occurrences of hypoglycemia, especially in the setting of recent SVTs and atrial flutter as these might be precipitated by severe hypoglycemia. This of course calls for caution as we approached the patient and in a such I would like to start with a low dose of Lantus insulin at 10 units daily in addition to his coverage with Humalog supplemental scale. Going [address] [address] CONSULTATION Name: GERI MCARTHURELL Room #: 350-P [facility] IN M.R.#: [id number] Admission: 05/14/19 Attend Phys: Hoda Hernandez MD Discharge: 06/12/19 Date of : 55 Report #: [id number] forward, the patient's therapeutic needs are highly likely to change again given the anticipated change to his p.o. intake level of activity and the status of the associated and current comorbidities. That said, blood sugar monitoring will continue a.c. and at bedtime and his therapeutic needs will be assessed continuously and his regimen will be adjusted according to his needs. 2. Thyroid disease. Given the active use of amiodarone, I would like to establish a baseline thyroid function panel including with a TSH and free T4 levels. 3. Hyperlipidemia. Given the patient's active events, diet lipid control will be required eventually, however, we are significantly limited by his sensitivity to statins. I believe that it would be prudent to bypass the current critical state that the patient is in before finalizing such treatment plans, which might include PSCK9 inhibitors, again to be considered following a sustained stability. I certainly appreciate this consultation by Dr. Garcia. <ELECTRONICALLY SIGNED> By: Marco A Campbell MD 06/14/19 0806 [id number] Marco A Campbell MD /nt
--- NOTE | 2019-06-14 08:07 | HC ---
[facility] [place] [address] CONSULTATION Name: GERI MCARTHUR Room #: 350-[facility] IN M.R.#: [id number] Admission: 05/14/19 Attend Phys: Hoda Hernandez MD Discharge: 06/12/19 Date of : 55 Report #: [id number] THIS REPORT FOR: //name// CC: SEPIDEH physician/PCP Hoda Hernandez DATE OF SERVICE: 06/04/2019 ENDOCRINOLOGY CONSULTATION CONSULTING PHYSICIAN: Dr. Suman Garcia. REASON FOR CONSULTATION: Uncontrolled type 2 diabetes mellitus. HISTORY OF PRESENT ILLNESS: This is a 63-year-old male patient whose medical background is noted for multiple issues including type 2 diabetes mellitus, chronic kidney disease, obesity, obstructive sleep apnea and hypertension. The patient was admitted to [facility] on 05/14/2019 with shortness of breath as well as chest pain and was febrile, tachycardic and hypoxic on arrival to the ER. Since his admission, the patient had a fairly eventful hospital stay including cardiac arrest several days ago and issues pertaining to SVT, asystole and V-tach. The patient was intubated and monitored in the ICU at that time. The patient was also catheterized and a stent was placed to the LAD and a balloon pump was placed at that time, but then discontinued. Also, the patient had needed to undergo hemodialysis multiple times. The patient had dealt with severe sepsis in the setting of aspiration pneumonia. Again, the patient has a background as noted for type 2 diabetes mellitus and has been managed by insulin therapy slowly since metformin was discontinued over a year ago due to declining kidney function. The patient's was available at bedside and provided much of the history as the patient is not interactive and seems sleepy and lethargic. She indicated that prior to this admission, the patient was treated with Lantus insulin 12 units at night in addition to Humalog insulin taken in a sliding scale manner, but averaging at about 12 units per meal. She notes that most of his blood glucose values had been under adequate control and reports that most were in the low to mid 100 mg/dL range with infrequent occurrences of hypoglycemia. REVIEW OF SYSTEMS: CONSTITUTIONAL: 1. Fatigue, tiredness, fever, pulmonary shortness of breath, cough, but not hemoptysis. Also, the patient utilizes a BiPAP due to obstructive sleep apnea. 2. CARDIAC: As noted above the patient had the events of a recent cardiac arrest and at that time complained of chest pain, palpitations. [facility] [address] [place] [address] CONSULTATION Name: GERI MCARTHUR Room #: 350-P [facility] IN .R.#: [id number] Admission: 05/14/19 Attend Phys: Hoda Hernandez MD Discharge: 06/12/19 Date of : 55 Report #: [id number] 3. GASTROINTESTINAL: Negative for abdominal pain, nausea, vomiting. 4. GENITOURINARY: Negative for polyuria, hematuria, nocturia. 5. MUSCULOSKELETAL: Back pain, muscle aches, joint aches, nonspecific. 6. NEUROLOGY: The patient has been less interactive, less verbal, sleepy, but without reports of seizures or headaches. 7. HEENT: Negative for congestion or hemoptysis. 8. SKIN: Negative for ecchymosis, itching, rash. Otherwise, review of systems noncontributory other than what is noted in HPI. PAST MEDICAL HISTORY: 1. Type 2 diabetes mellitus. 2. Hypertension. 3. Hyperlipidemia. 4. Obesity. 5. Obstructive sleep apnea. 6. Chronic kidney dysfunction. 7. Recent cardiac arrest. 8. SVT. 9. CAD, status post recent stent placement in the LAD. 10. Aspiration pneumonia. 11. Obesity. 12. Atrial flutter. 13. COPD. 14. Back pain. 15. Gout. 16. Osteoarthritis. 17. Glaucoma. CURRENT MEDICATIONS: Amiodarone 200 mg daily, aspirin 81 mg daily, Solu-Medrol 40 mg IV daily, latanoprost 1 drop, pantoprazole 40 mg b.i.d. IV, budesonide 0.5 mg b.i.d., carvedilol 25 mg b.i.d. p.o., potassium chloride 40 mEq as needed, albuterol/ipratropium, Humalog supplemental scale, glucagon as needed, metoprolol 5 mg q. 6 hours IV, morphine 2 mg as needed, clonidine 0.2 mg q. 7 days transdermal. ALLERGIES: CODEINE, STATINS. FAMILY HISTORY: Hypertension. SOCIAL HISTORY: , ex-smoker, quit in 2012. Rare alcohol use. PHYSICAL EXAMINATION: GENERAL: This is a middle-aged -[place] male patient who is not in apparent pain or distress, but is sleepy, lethargic and does not answer questions readily. [facility] [address] [place] [address] CONSULTATION Name: GERI MCARTHUR Room #: 350-P [facility] IN M.R.#: [id number] Admission: 05/14/19 Attend Phys: Hoda Hernandez MD Discharge: 06/12/19 Date of : 55 Report #: [id number] VITAL SIGNS: Blood pressure is 128/72 mmHg, heart rate is 83 beats per minute, respirations 22 per minute, temperature 35.7 degrees. HEENT: Unremarkable to inspection. Anicteric. NECK: Supple, without JVD, carotid bruits or lymphadenopathy. Thyroid size appears normal. LUNGS: Chest is clear to auscultation with scattered rales and rhonchi. Distant breath sounds, but no wheezes. CARDIOVASCULAR: Heart is irregularly irregular. No murmurs, rubs or gallops. ABDOMEN: Soft and lax. No organomegaly. No tenderness or guarding. SKIN: Intact. No rash or skin ulceration is noted. Lower extremities noted. EXTREMITIES: Trace ankle edema. No ulceration. NEUROLOGIC: The patient again is arousable, follows verbal stimuli, but speaks very little, not interactive, not cooperative with a full neurological examination. PSYCHIATRIC: The patient again is arousable, follows verbal stimuli, but speaks very little, not interactive, not cooperative with a full neurological examination. The patient is lethargic and unable to assess his psych status. LABORATORY RESULTS: Glucose values have run consistently in the low to mid 200 mg/dL with occasional flashes in the 100 mg/dL range. Sodium 145, potassium 3.4, chloride 113, CO2 of 22, anion gap 10, BUN 38, creatinine 1.7, glucose 266, AST 33, lipase 609, total bilirubin 0.6, direct bilirubin 0.4, calcium 8.9, phosphorus 2.8, magnesium 1.7, ALT 54, total protein 6.6, albumin 2.3, lactic acid 2.1, troponin 0.08. Triglyceride 123. BNP 6591. INR 1.1. White blood count 13.8, hemoglobin 8.5, hematocrit 26.5, platelets 235. TSH 2.284, ferritin 278. Vitamin B12 552. Hemoglobin A1c 6.0. ASSESSMENT AND PLAN: 1. Type 2 diabetes mellitus. As noted in HPI, the patient's spouse gave a history of what appears to be reasonably controlled level of hyperglycemia at home, utilizing multiple daily injections of insulin. While the patient's most recent hemoglobin A1c measures at 6.0, this is highly unreliable in the setting of hemodialysis and cannot be adequately utilized to assess the patient's status. During his hospital stay, the patient's course had been complicated by multiple significant events as noted above including a cardiac arrest and now the patient has been significantly less interactive, has minimal p.o. intake and is largely bedridden. All these variables would certainly affect his current level of control. The patient is currently managed by Humalog sliding scale only and has maintained a blood glucose level of control in the low to mid 200 mg/dL range. I would very much like to see him more so in the 140-180 mg/dL range to help maintain adequate control. However with that in mind, it will be prudent to avoid occurrences of hypoglycemia, especially in the setting of recent SVTs and atrial flutter as these might be precipitated by severe hypoglycemia. This of course calls for caution as we approached the patient and in a such I would like to start with a low dose of Lantus insulin at 10 units daily in addition to his coverage with Humalog supplemental scale. Going [address] [address] CONSULTATION Name: GERI MCARTHURELL Room #: 350-P [facility] IN M.R.#: [id number] Admission: 05/14/19 Attend Phys: Hoda Hernandez MD Discharge: 06/12/19 Date of : 55 Report #: [id number] forward, the patient's therapeutic needs are highly likely to change again given the anticipated change to his p.o. intake level of activity and the status of the associated and current comorbidities. That said, blood sugar monitoring will continue a.c. and at bedtime and his therapeutic needs will be assessed continuously and his regimen will be adjusted according to his needs. 2. Thyroid disease. Given the active use of amiodarone, I would like to establish a baseline thyroid function panel including with a TSH and free T4 levels. 3. Hyperlipidemia. Given the patient's active events, diet lipid control will be required eventually, however, we are significantly limited by his sensitivity to statins. I believe that it would be prudent to bypass the current critical state that the patient is in before finalizing such treatment plans, which might include PSCK9 inhibitors, again to be considered following a sustained stability. I certainly appreciate this consultation by Dr. Garcia. <ELECTRONICALLY SIGNED> By: Marco A Campbell MD 06/14/19 0807 [id number] Marco A Campbell MD /[facility]
== END 2019-06-12 14:00 | DRG 853 ==
LOC: ER 09:44 → ICU 12:19 → 3W 12:19 → EROBS 12:19 → 3W 19:50 → ICU 05-19 09:15 → 3W 05-27 18:20 → ICU 05-27 18:23 → 3W 06-03 20:42
PROVIDERS: Emergency Medicine; Hospitalist; Internal Medicine; Internal Medicine Cardiovascular Disease; Internal Medicine Gastroenterology; Internal Medicine Infectious Disease; Internal Medicine Nephrology; Internal Medicine Pulmonary Disease; Nurse Practitioner; Nurse Practitioner Acute Care; Nurse Practitioner Family; Pediatrics; Specialist; Surgery Vascular Surgery; ADMIT Internal Medicine
PROC: 5A09357 Assistance with Respiratory Ventilation, Less than 24 Consecutive Hours, Continuous Positive Airway Pressure (ICD-10-PCS; 2019-05-14)
PROC: 5A09357 Assistance with Respiratory Ventilation, Less than 24 Consecutive Hours, Continuous Positive Airway Pressure (ICD-10-PCS; 2019-05-15)
PROC: 5A09357 Assistance with Respiratory Ventilation, Less than 24 Consecutive Hours, Continuous Positive Airway Pressure (ICD-10-PCS; 2019-05-16)
PROC: 5A09357 Assistance with Respiratory Ventilation, Less than 24 Consecutive Hours, Continuous Positive Airway Pressure (ICD-10-PCS; 2019-05-17)
PROC: 5A09357 Assistance with Respiratory Ventilation, Less than 24 Consecutive Hours, Continuous Positive Airway Pressure (ICD-10-PCS; 2019-05-18)
PROC: 5A09357 Assistance with Respiratory Ventilation, Less than 24 Consecutive Hours, Continuous Positive Airway Pressure (ICD-10-PCS; principal; 2019-05-19)
PROC: B5181ZA Fluoroscopy of Superior Vena Cava using Low Osmolar Contrast, Guidance (ICD-10-PCS; principal; 2019-05-19)
PROC: B548ZZA Ultrasonography of Superior Vena Cava, Guidance (ICD-10-PCS; principal; 2019-05-19)
PROC: 02HV33Z Insertion of Infusion Device into Superior Vena Cava, Percutaneous Approach (ICD-10-PCS; principal; 2019-05-19)
PROC: 0BH17EZ Insertion of Endotracheal Airway into Trachea, Via Natural or Artificial Opening (ICD-10-PCS; principal; 2019-05-19)
PROC: 027034Z Dilation of Coronary Artery, One Artery with Drug-eluting Intraluminal Device, Percutaneous Approach (ICD-10-PCS; principal; 2019-05-19)
PROC: 5A02210 Assistance with Cardiac Output using Balloon Pump, Continuous (ICD-10-PCS; principal; 2019-05-19)
PROC: B211YZZ Fluoroscopy of Multiple Coronary Arteries using Other Contrast (ICD-10-PCS; principal; 2019-05-19)
PROC: 5A1955Z Respiratory Ventilation, Greater than 96 Consecutive Hours (ICD-10-PCS; principal; 2019-05-19)
PROC: 4A023N7 Measurement of Cardiac Sampling and Pressure, Left Heart, Percutaneous Approach (ICD-10-PCS; principal; 2019-05-19)
PROC: 0Y380ZZ Control Bleeding in Left Femoral Region, Open Approach (ICD-10-PCS; 2019-05-23)
PROC: 5A1D70Z Performance of Urinary Filtration, Intermittent, Less than 6 Hours Per Day (ICD-10-PCS; 2019-05-23)
PROC: 0JD80ZZ Extraction of Abdomen Subcutaneous Tissue and Fascia, Open Approach (ICD-10-PCS; 2019-05-23)
PROC: 30233N1 Transfusion of Nonautologous Red Blood Cells into Peripheral Vein, Percutaneous Approach (ICD-10-PCS; 2019-05-24)
PROC: 5A1D70Z Performance of Urinary Filtration, Intermittent, Less than 6 Hours Per Day (ICD-10-PCS; 2019-05-24)
PROC: 5A09357 Assistance with Respiratory Ventilation, Less than 24 Consecutive Hours, Continuous Positive Airway Pressure (ICD-10-PCS; 2019-06-07)
PROC: 5A09357 Assistance with Respiratory Ventilation, Less than 24 Consecutive Hours, Continuous Positive Airway Pressure (ICD-10-PCS; 2019-06-08)
PROC: 5A09357 Assistance with Respiratory Ventilation, Less than 24 Consecutive Hours, Continuous Positive Airway Pressure (ICD-10-PCS; 2019-06-10)
PROC: 0DJD8ZZ Inspection of Lower Intestinal Tract, Via Natural or Artificial Opening Endoscopic (ICD-10-PCS; 2019-06-11)
DX: A41.01 Sepsis due to Methicillin susceptible Staphylococcus aureus (principal); G92 Toxic encephalopathy; I46.9 Cardiac arrest, cause unspecified; R65.21 Severe sepsis with septic shock; J69.0 Pneumonitis due to inhalation of food and vomit; J15.1 Pneumonia due to Pseudomonas; E43 Unspecified severe protein-calorie malnutrition; J96.21 Acute and chronic respiratory failure with hypoxia; N17.9 Acute kidney failure, unspecified; I13.0 Hypertensive heart and chronic kidney disease with heart failure and stage 1 through stage 4 chronic kidney disease, or unspecified chronic kidney disease; I47.1 Supraventricular tachycardia; I47.2 Ventricular tachycardia; E87.2 Acidosis; Z68.41 Body mass index [BMI] 40.0-44.9, adult; T81.31XA Disruption of external operation (surgical) wound, not elsewhere classified, initial encounter; K56.7 Ileus, unspecified; G93.1 Anoxic brain damage, not elsewhere classified; L76.34 Postprocedural seroma of skin and subcutaneous tissue following other procedure; E87.0 Hyperosmolality and hypernatremia; G72.81 Critical illness myopathy; I48.92 Unspecified atrial flutter; J44.9 Chronic obstructive pulmonary disease, unspecified; E78.5 Hyperlipidemia, unspecified; E11.22 Type 2 diabetes mellitus with diabetic chronic kidney disease; E11.40 Type 2 diabetes mellitus with diabetic neuropathy, unspecified; I50.9 Heart failure, unspecified; G25.81 Restless legs syndrome; Z96.653 Presence of artificial knee joint, bilateral; I25.10 Atherosclerotic heart disease of native coronary artery without angina pectoris; E11.51 Type 2 diabetes mellitus with diabetic peripheral angiopathy without gangrene; G47.33 Obstructive sleep apnea (adult) (pediatric); N13.9 Obstructive and reflux uropathy, unspecified; E87.5 Hyperkalemia; L97.529 Non-pressure chronic ulcer of other part of left foot with unspecified severity; L97.519 Non-pressure chronic ulcer of other part of right foot with unspecified severity; E11.621 Type 2 diabetes mellitus with foot ulcer; E11.65 Type 2 diabetes mellitus with hyperglycemia; R33.9 Retention of urine, unspecified; M19.90 Unspecified osteoarthritis, unspecified site; H40.9 Unspecified glaucoma; M54.9 Dorsalgia, unspecified; M54.2 Cervicalgia; D69.6 Thrombocytopenia, unspecified; D50.9 Iron deficiency anemia, unspecified; I25.5 Ischemic cardiomyopathy; E66.9 Obesity, unspecified; M10.9 Gout, unspecified; N18.3 Chronic kidney disease, stage 3 (moderate); K64.8 Other hemorrhoids; F17.210 Nicotine dependence, cigarettes, uncomplicated; I25.2 Old myocardial infarction; Z98.42 Cataract extraction status, left eye; Z90.49 Acquired absence of other specified parts of digestive tract; Z98.41 Cataract extraction status, right eye; Z95.820 Peripheral vascular angioplasty status with implants and grafts; Z86.14 Personal history of Methicillin resistant Staphylococcus aureus infection; Z79.02 Long term (current) use of antithrombotics/antiplatelets; Z79.4 Long term (current) use of insulin; Z79.82 Long term (current) use of aspirin; Z79.899 Other long term (current) drug therapy; Z88.5 Allergy status to narcotic agent; Z88.8 Allergy status to other drugs, medicaments and biological substances; Z82.49 Family history of ischemic heart disease and other diseases of the circulatory system; Z74.01 Bed confinement status
CPT/HCPCS: 10078; 10203; 10204; 10779; 10879; 32100; 50101; 50386; 50417; 50643; 50970; 53078; 56760; 57092; 57116; 57188; 57189; 62110; 62900; 65020; 65040; 85076

== ENCOUNTER 2019-06-05 16:07 | Inpatient (IN) | payer OTHER, BC ==
[~2019-06-05] VITALS: Ht 180.3 cm; Wt 124.4 kg
--- NOTE | ~2019-06-05 | H ---
[facility] [place] [address] HISTORY AND PHYSICAL Name: GERI MCARTHUR Room #: 513-P ADM IN M.R.#: [id number] Admission: 06/12/19 Attend Phys: Trevor Villalobos MD Discharge: Date of : 55 Report #: [id number] THIS REPORT FOR: //name// CC: Trevor Villalobos [facility] physician/PCP DATE OF SERVICE: 06/12/2019 HISTORY AND PHYSICAL/POST-ADMISSION PHYSICIAN EVALUATION HISTORY OF PRESENT ILLNESS: The patient is a 63-year-old male with a complex history with peripheral arterial disease, left leg angiogram, left popliteal stent on 03/30/2019 followed by a left femoral endarterectomy on 04/18/2019. He was admitted to the [facility] acute hospital on 05/14/2019 with increased shortness of breath, noted to have sepsis likely secondary to a community-acquired pneumonia. He had acute on chronic kidney disease and COPD. He had exploration of the left groin wound on 05/23/2019. His course has been complicated by code blue with SVT followed by asystole and ventricular tachycardia. Code blue was called twice. He was intubated and moved to the ICU, taken to the paint laboratory technician and had a stent placed to the LAD and a balloon pump was placed. He was on hemodialysis per Nephrology. He was treated for severe sepsis with possible aspiration pneumonia. He gradually improved. He was extubated and taken off dialysis with improvement in his renal function. He has been treated for sepsis/possible aspiration pneumonia and has a wound VAC to the left thigh post incision and drainage. He is noted to have an encephalopathy, toxic metabolic along with a hypoxic component. He had a prolonged hospital course. He did have a video swallow and has been advanced. He has been fitted with a LifeVest/external defibrillator. He was felt to be ready and to have the tolerance to now, be admitted for an acute in-hospital inpatient rehabilitation stay. PAST MEDICAL HISTORY: Prior history of anterior cervical diskectomy, history of insulin-dependent diabetes mellitus, COPD, sleep apnea with BiPAP, chronic back pain, neuropathy, hypertension, bilateral knee replacements, restless leg syndrome, left knee quadriceps repair, spinal stimulator and prior history of thoracentesis with empyema. MEDICATIONS: Please see the full medication listing. This includes vitamins, herbals, and supplements per report. SOCIAL HISTORY: He lives with , house, no steps, premorbidly ambulated without gait aids in the house. He use a cane in the community. is retired and supportive. 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 FAMILY HISTORY: Noncontributory. [address] [address] HISTORY AND PHYSICAL Name: GERI MCARTHURELL Room #: 513-P [facility] IN M.R.#: [id number] Admission: 06/12/19 Attend Phys: Trevor Villalobos MD Discharge: Date of : 55 Report #: [id number] REVIEW OF SYSTEMS: No current complaints of chest pain, shortness of breath or abdominal discomfort. No noted fever or chills. Denies any visual issues. He has the numbness of his distal lower extremities, which is premorbid. He does have some generalized weakness. He has some discomfort from the left groin as expected and has the wound VAC in place. He has had both knee replacements and has some chronic arthritic complaints. No new GI complaints. PHYSICAL EXAMINATION: GENERAL: A 63-year-old male, in no obvious distress. He is a male, 5 feet 11 inches, 274 pounds. NEUROLOGIC: There is a definite latency to his responses. There is some decreased attention. He will follow basic 1 step commands, has problems with any further complexity of commands, however. EOMs appeared to be full. Facies are symmetric. CHEST: Some diffuse decreased breath sounds throughout. CARDIOVASCULAR: Sounded regular rate and rhythm. ABDOMEN: Obese, bowel sounds positive, nontender. GENITOURINARY AND RECTAL: He does have the indwelling Hernandez catheter. He has the left groin wound VAC in place. EXTREMITIES: He has bilateral knee incisions, which are well healed. There is no focal calf swelling. He has decreased distal sensation consistent with his peripheral neuropathy with decreased proprioception and large toes. Lower extremity strength is quite weak, probably a grade 3+/5. He has been full max assist of 2 with basic bed mobility, but again this was prior to the rehab hughes transfers. ASSESSMENT: A 63-year-old male with the following problem list: 1. Critical illness myopathy. 2. Multifactorial encephalopathy with a toxic metabolic and hypoxic component. 3. Cardiac arrest supraventricular tachycardia followed by asystole emergent catheterization prior intraaortic balloon pump. 4. Acute respiratory failure due to cardiac arrest. 5. Acute renal injury, was on hemodialysis and is now off. 6. Severe sepsis with septic shock. 7. Chronic obstructive pulmonary disease. 8. Peripheral vascular disease with recent right femoral endarterectomy. 9. Diabetes mellitus type 2 with peripheral neuropathy. 10. Chronic pain with prior neural stimulator. 11. Hypertension. PLAN: The patient has been admitted for acute in-hospital inpatient rehabilitation. From a postadmission physician evaluation perspective, there are no relevant changes since the preadmission screening. Please see the above review of prior and current medical and functional conditions and comorbidities. Please see the patient's previous and current functional status. As far as [facility] [address] [place] [address] HISTORY AND PHYSICAL Name: GERI MCARTHUR Room #: 513-P ADM IN M.R.#: [id number] Admission: 06/12/19 Attend Phys: Trevor Villalobos MD Discharge: Date of : 55 Report #: [id number] risk of complications, the patient has multiple medical comorbidities as noted above. Initial plan of care involves the interdisciplinary acute inpatient rehabilitation program with the goal of maximizing his functional independence, he can hopefully return back to his prior living situation. Measurable functional goals would be for the patient to become modified independent with transfers, mobility, ADLs as well as communication, cognition, so he can return back to the home setting. Prognosis is reasonably good with estimated length of stay probably several weeks at least 3 weeks. Potential barriers would include his multiple medical comorbidities and decreased functional status. The patient meets diagnostic criteria for an acute in-hospital inpatient rehabilitation stay. He meets medical necessity criteria and we will have the multiple programmer analyst consultant physicians continue to follow. He does have the tolerance for therapies and has appropriate discharge goals back to the home setting. By: [id number] Trevor Villalobos MD /nt
--- NOTE | ~2019-06-05 | PLAN ---
[facility] [place] [address] REHAB UNIT PLAN OF CARE Name: GERI MCARTHUR Room #: 513-P ADM IN M.R.#: [id number] Admission: 06/12/19 Attend Phys: Trevor Villalobos MD Discharge: Date of : 55 Report #: [id number] THIS REPORT FOR: //name// CC: Trevor Villalobos [facility] physician/PCP DATE OF SERVICE: 06/15/2019 PROGRESS NOTE AND OVERALL PLAN OF CARE SUBJECTIVE: The patient is seen back today in followup. He is alert, in good spirits. We will follow basic 1 step commands and appears to have a less latency in doing so. Temperature 97.5, pulse 72, respirations 20, blood pressure 104/55. Transfers are still max assist of 2. Bed mobility is improved from dependent to max assist. Sit to supine is now mod assist. In occupational therapy, lower body dressing is dependent, upper body is dependent. In speech therapy, he has significant dysphagia and is on a pureed diet with thin liquids. Functionally, he needs assistance with basic cognition and has a definite latency overall in his responses. ASSESSMENT: 1. Critical illness myopathy. 2. Multifactorial encephalopathy. 3. Respiratory failure. 4. Acute renal insufficiency, was previously on hemodialysis. 5. Severe sepsis. 6. Dysphagia, on modified diet. 7. Left groin surgical site wound with wound VAC. 8. Chronic obstructive pulmonary disease. 9. Peripheral vascular disease with recent endarterectomy with stent. 10. Diabetes mellitus type 2. 11. Hypertension. 12. Chronic back pain. PLAN: The overall plan of care is based on the preadmission screen, post-admission physician evaluation and information garnered from therapy assessments. 1. Estimated length of stay is at least 2-3 weeks. We will be ____ next week. 2. Medical prognosis is reasonably good. 3. Anticipated interventions includes the interdisciplinary acute inpatient rehabilitation program. 4. Anticipated functional outcomes at this point would be for him to become modified independent with transfers, and basic mobility issues at the wheelchair level. 5. Discharge destination would be for him to return back home with family as he does have a very supportive as well as involved children. He will need to [facility] [address] [place] [address] REHAB UNIT PLAN OF CARE Name: GERI MCARTHUR Room #: 513-P [facility].#: [id number] Admission: 06/12/19 Attend Phys: Trevor Villalobos MD Discharge: Date of : 55 Report #: [id number] make significant progress in this regard, however. 6. Expected therapy by discipline includes PT and OT and speech 1 hour per day each five days a week throughout the duration of the acute inpatient rehabilitation stay. By: [id number] Trevor Villalobos MD /nt
[~2019-06-05 16:07] MED LIST changes: +OMEGA-31000 M2 PO
[2019-06-12] MEDS ORDERED: PACERONE 200 M200 M1 PO (12:12)
[2019-06-12] MEDS ORDERED: CATAPRES-TTS 20.2 MG TRANSDERM (12:13)
[2019-06-12] MEDS ORDERED: LANTUS100 UNIT/M SUBQ (12:23)
[2019-06-12] MEDS ORDERED: CEFAZOLIN2 GM/100 M IV (12:27)
--- NOTE | 2019-06-12 14:51 | NUR ---
1415 PATIENT ADMITTED TO ROOM 513. PATIENT TRANSFERED FROM THE CARDIAC CHAIR WITH 3 STAFF AND GAITBELT. PATIENT HAS WOUND VAC TO BE CHANGED ON THURSDAY. PATIENT HAS CARDIAC VEST ON. PATIENT LUNGS ARE CLEAR AND DEMINISHED. PATIENT COTINUES ON RESPIRATORY TX. ABD IS SOFT WITH BSX4. PATIENT HAS BUCKLEY CATHETER TO DD, DRAINING PERLA COLORED URINE. PATIENT VERY SLEEPY, ALERT AND ORIENTED TO SELF ONLY. POOR FIRER PORTABLE BOILER STRENGTH. PT/OT/ST EVALS TO BE DONE IN A.M. WILL CONTINUE TO MONITER.
[2019-06-12 20:57] VITALS: BP 152/82
--- NOTE | 2019-06-13 02:46 | NUR ---
ASSUMED CARES AT 1900. PT ORIENTED TO SELF ONLY. VERY SLEEPY, IMPULSIVE (SLIDING HIS LEGS OFF THE BED). DENIES PAIN. VITALS REMAIN STABLE. PT SLEPT THROUGH THE NIGHT BUT AWAKENS EASILY. CARDIAC VEST REMAINS IN PLACE. WOUND VAC REMAINS INTACT AND PATENT, DRAINAGE IS CREAMY COLORED. BUCKLEY REMAINS INTACT AND PATENT, URINE IS CLEAR AND PERLA. PT REFUSED REPOSITIONING, FIGHTS OR GRABS STAFF'S HANDS. PT REMOVED BIPAP AFTER 10MINS AND REFUSED TO HAVE IT BACK ON. O2 SATS REMAIN STABLE. FREQUENT VISUAL CHECKS. CALL LIGHT WITHIN REACH. FALL PRECAUTIONS IN PLACE
[2019-06-13 05:45] LABS: HEMATOCRIT 24.5 % (42.0-52.0); MCHC 32.5 g/dL (28.0-37.0); MCV 86.2 fL (80.0-100.0); RBC 2.85 mil/uL (4.50-6.00); RDW 18.9 % (10.5-14.5)
[2019-06-13 05:51] LABS: CALCIUM 8.4 mg/dL (8.5-10.1); CREATININE 1.3 mg/dL (0.7-1.3); POTASSIUM 3.3 mmol/L (3.5-5.1)
[2019-06-13 08:26] VITALS: BP 139/76
--- NOTE | 2019-06-13 12:13 | NUR ---
chart review, pt on isolation precaution. pt at bedside. pt did not verbally , he would open eyes off and on. bedside nurse in room. pt have cough vest " i know how to change it and needs to be changed every 2-3 days to be washed"/ zane. pt lives with at home, no steps. hh in past not sure who it will as with, independent, doesnt drive much, drives 99.9% of time. has cane and fww. helps with socks and shoes. manages own medication. has transport chair, has not used it in while. education with on dcp, and team meeting. will cont following as needed for dc needs.
[2019-06-13 18:53] VITALS: BP 153/86
[2019-06-13 20:00] VITALS: BP 164/82
--- NOTE | 2019-06-13 20:10 | NUR ---
PATIENT ALERT AND ORIENTED AND COOPERTIVE BUT DOES NOT HAVE APPETITE AND EATING VERY LITTLE ON MEAL TRAYS. STAFF AND SPOUSE ATTEMPT TO ENCOURAGE EATING UNSUCCESSFUL. CALORIE COUNT PER DIETARY. WOUND CARE CHANGED WOUND VAC DRESSING TODAY.
--- NOTE | 2019-06-14 03:01 | NUR ---
ASSUMED CARES AT 1900. PT IN BED ASLEEP. CONFUSED, ORIENTED TO PERSON ONLY. DENIES PAIN. VITALS STABLE. LS CLEAR/DIMINISHED, PT REFUSED BIPAP AT HS ON O2 MONITOR OVERNIGHT WITH SATS AT 98-100% AND HR IN THE 60'S. GLOVE SEWER VEST REMAINS IN PLACE. LEFT GROIN WOUND REMAINS INTACT, WOUND VAC INTACT AND PATENT, NS BAG CHANGED. BUCKLEY REMAINS INTACT AND PATENT, URINE LIGHT YELLOW AND CLEAR. PT REMAINS INCONTINENT OF BM, PERICARE COMPLETED. REPOSITIONED Q2H. Q1H VISUAL CHECKS. CALL LIGHT WITHIN REACH. FALL PRECAUTIONS IN PLACE
[2019-06-14 06:30] LABS: ALBUMIN 2.2 g/dL (3.4-5.0); CALCIUM 8.8 mg/dL (8.5-10.1); CREATININE 1.6 mg/dL (0.7-1.3); PHOSPHORUS 2.8 mg/dL (2.5-4.9); POTASSIUM 3.1 mmol/L (3.5-5.1)
--- NOTE | 2019-06-14 08:07 | HC ---
[facility] [place] [address] CONSULTATION Name: GERI MCARTHUR Room #: 513-P ADM IN M.R.#: [id number] Admission: 06/12/19 Attend Phys: Trevor Villalobos MD Discharge: Date of : 55 Report #: [id number] THIS REPORT FOR: //name// CC: Trevor Villalobos FAM physician/PCP DATE OF SERVICE: 06/13/2019 ENDOCRINE CONSULTATION CONSULTING PHYSICIAN: Trevor Villalobos MD REASON FOR CONSULTATION: Uncontrolled type 2 diabetes mellitus. HISTORY OF PRESENT ILLNESS: This is a 63-year-old male patient whose medical background is significant for a recent prolonged hospital admission at [facility] during which he had experienced several significant medical issues including respiratory failure requiring mechanical ventilation, cardiopulmonary arrest requiring a code blue, encephalopathy as well as difficulties controlling his type 2 diabetes mellitus. During this hospital stay, the patient has had difficulties resuming normal p.o. intake and has resisted eating despite the continuous attempts of his family members as well as those of speech therapy. His p.o. intake remains minimal at this point. The patient's outpatient antidiabetic regimen consisted of multiple daily injections of Lantus insulin, Humalog insulin coverage for meals, but in the hospital, we had to rerefer to a combination of Lantus insulin, Humalog supplemental scale, as well as Tradjenta due to his limited and inconsistent p.o. intake. His most recent regimen have consisted of Lantus insulin 30 units q.p.m., Humalog supplemental scale, moderate intensity as well as Tradjenta. Blood glucose control has improved significantly with this setup; however, the patient exhibited features of tyoy-bh-bkshlcjt hypoglycemia over the past 48 hours with his most recent blood glucose being at 64 mg/dL. REVIEW OF SYSTEMS: CONSTITUTIONAL: Fatigue, tiredness, but no fever or chills. PULMONARY: Shortness of breath and cough, but no hemoptysis. CARDIAC: Negative for chest pain, palpitations, syncope or presyncope with noted for lower extremity edema. GASTROINTESTINAL: Noted for diminished appetite, occasional nausea, distention, but not pain or hematemesis. NEUROLOGIC: Lightheadedness, dizziness, but not seizures or loss of consciousness. SKIN: Negative for rash, ulceration or itching. PSYCHIATRIC: Negative for depression, hallucination or delusions. HEENT: Negative for congestion, nasal drainage or epistaxis. [address] [address] CONSULTATION Name: GERI MCARTHUR Room #: 513-P [facility] IN .R.#: [id number] Admission: 06/12/19 Attend Phys: Trevor Villalobos MD Discharge: Date of : 55 Report #: [id number] Otherwise his review of systems is noncontributory other than those mentioned in HPI. PAST MEDICAL HISTORY: 1. Type 2 diabetes mellitus. 2. Obesity. 3. Hypertension. 4. Hyperlipidemia. 5. CAD status post AR and stent placement on 05/19/2019. 6. Cardiopulmonary arrest requiring code blue for asystole, V-tach and SVTs. 7. Chronic obstructive pulmonary disease. 8. Recent history of respiratory failure requiring intubation, currently using BiPAP intermittently. 9. Obstructive sleep apnea. 10. Encephalopathy. 11. Chronic kidney disease with acute kidney injury. 12. Gastroesophageal reflux disease. 13. Glaucoma. CURRENT MEDICATIONS: 1. Lantus insulin 30 units q.p.m. 2. Tradjenta 5 mg daily. 3. Humalog, supplemental scale, moderate intensity. 4. Albuterol p.r.n. 5. Hydromorphone p.r.n. 6. Haloperidol 1 mg every 6 hours p.r.n. 7. Cefazolin q. 12 hours. 8. Amiodarone 400 mg b.i.d. 9. Aspirin 81 mg daily. 10. Methylprednisolone 40 mg daily. 11. Latanoprost one drop ophthalmic. 12. Pantoprazole 40 mg b.i.d. 13. Carvedilol 25 mg b.i.d. 14. Metoprolol 5 mg q. 6 hours IV. ALLERGIES: No known drug allergies. FAMILY HISTORY: Noncontributory. SOCIAL HISTORY: Denies use of tobacco, alcohol or illicit drugs. PHYSICAL EXAMINATION: GENERAL: Pleasant, middle-aged -[place] male patient who is not in apparent pain or distress. VITAL SIGNS: Blood pressure is 139/76 mmHg, heart rate is 62 beats per minute, respiratory rate is 16 per minute and temperature 98.4 [place] [address] CONSULTATION Name: GERI MCARTHUR Room #: 513-P [facility] IN ..#: [id number] Admission: 06/12/19 Attend Phys: Trevor Villalobos MD Discharge: Date of : 55 Report #: [id number] HEENT: Anicteric sclerae. Intact extraocular motions. NECK: Supple, without JVD, carotid bruits or lymphadenopathy. I do not appreciate thyromegaly. CHEST: Noted for distant breath sounds, scattered rales and rhonchi. No wheezes or crackles. HEART: Regular rate and rhythm without murmurs or gallops. ABDOMEN: Obese, but soft and lax without tenderness or organomegaly. No guarding. Active bowel sounds. EXTREMITIES: Lower extremity exam, +1 ankle edema bilaterally. No skin breaks or ulcerations. SKIN: No ulceration or discoloration. NEUROLOGIC: Awake, alert and oriented to time, place and person. The patient is the most interactive that I have seen him since I started caring for him over a week ago. His exam is grossly nonfocal. His speech is fairly clear. PSYCHIATRIC: Normal mood and affect. Answers questions appropriately. The remainder of his examination is unremarkable. LABORATORY RESULTS: Blood glucose was 78 mg/dL, 102 mg/dL, 88 mg/dL. Otherwise, sodium 144, potassium 3.3, chloride 112, CO2 of 20, anion gap 12, BUN 22, creatinine 1.3, glucose 67, AST 33, lipase 609, total bilirubin 0.6, calcium 8.4, phosphorus 3.7, magnesium 1.7, alkaline phosphatase 205, GFR 68. Lactic acid 2.1, triglycerides 123. BNP 6591. Free T4 1.3. White blood count 5.0, hemoglobin 8.0, hematocrit 24.5, platelets 172. TSH 3.125. Hemoglobin A1c 6.0. ASSESSMENT AND PLAN: 1. Type 2 diabetes mellitus. This is a patient who has had a longstanding history of type 2 diabetes mellitus, but with reportedly well controlled outlook in the outpatient setting. During this hospital stay, the patient had dramatic events surrounding his stay as noted above including a cardiopulmonary arrest. The main challenge and variable to his glycemic control has been his limited p.o. intake. Subsequently, he was maintained on a framework of basal insulin plus Humalog supplemental scale plus Tradjenta, with which he has done fairly well. Towards the last 2 days of his hospital stay, the patient was noted to develop lower blood glucose values than we would like to see including one at 64 mg/dL this morning. That said, I would like to reduce his insulin dose so as to avoid hypoglycemia. I am optimistic about his improving p.o. intake and I hope to see us going back to where we can have a more structured meal coverage like he had in the outpatient setting. Currently, I will place him on Lantus insulin 24 units q.p.m., Humalog supplemental scale low intensity, and maintain Tradjenta 5 mg daily coverage. Blood glucose monitoring will continue a.c. and at bedtime, and blood glucose and insulin regimen will be adjusted accordingly. 2. Hypertension. The patient is currently on carvedilol, clonidine, Demadex [address] [address] CONSULTATION Name: GERI MCARTHURELL Room #: 513-P [facility] IN ..#: [id number] Admission: 06/12/19 Attend Phys: Trevor Villalobos MD Discharge: Date of : 55 Report #: [id number] and doing well. Continue with the current regimen. 3. Hyperlipidemia. The patient has a reported intolerance to statins; he is currently on ezetimibe 10 mg daily. Given his significant cardiovascular disease including AR as noted above, the patient will need tight lipid control. He might be a candidate for PCSK9 inhibitors; however, this would have to wait until we get the patient stabilized further and possibly address this following his discharge. I certainly appreciate this consultation by Dr. Villalobos. <ELECTRONICALLY SIGNED> By: Marco A Campbell MD 06/14/19 0807 [id number] Marco A Campbell MD /nt
--- NOTE | 2019-06-14 11:57 | NUR ---
Nutrition: Day one calorie count confirms very poor intake continues. Pt consumed 300 kcals and 10 gm protein meeting 13% kcal needs, 10% low end protein needs. Supplements are provided, consumed 25% and 75% of [address] reports pt needs to be fed and requires constant cueing to swallow. Weight down 25# in one month-8% severe. REC PEG tube for nutrition if POC is aggressive. Will continue calorie count one more day.
--- NOTE | 2019-06-14 13:56 | NUR ---
team meeting, recommendation: 1-1 feeding all meals, on puree with thin. re team.
[2019-06-14 19:50] VITALS: BP 104/55
--- NOTE | 2019-06-14 21:35 | NUR ---
ASSUMED CARE OF PT AT 0715. PT IS DISORIENTED X4 AND VITAL SIGNS ARE STABLE. PT IS UNABLE TO PARTICIPATE IN ASSESSMENT OR CARES. PT UNABLE TO ADEQUATELY EXPRESS NEEDS AND WANTS. PER JAMES PAIN ASSESSMENT, PT IN NOT IN ANY PAIN, BUT IS PERIODICLY AGITATED WITH STAFF WHEN CARES AND THERAPY BEING PERFORMED. PT QUICKLY ABLE TO BE CALMED WITH REMOVAL OF STIMULATION AND REST PERIODS. PT TURNED EVERY 2 HOURS BY STAFF. LIFE VEST IN PLACE AND WAS CHANGED DURING MORNING OT SESSION WITH THIS NURSE IN ROOM DURING ENTIRE CHANGING. BUCKLEY CATHETER IN PLACE AND DRAINING APPROPRITELY WITH SECUREMENT TO THE LEFT LEG. WOUND VAC TO THE LEFT GROIN IN PLACE AND WORKING APPROPRIATELY, CANISTER CHANGED THIS SHIFT. IV TO RIGHT HAND AND LEFT UPPER ARM FLUSH APPROPRAITELY, DRESSINGS C/D/I, SITES WITHOUT REDNESS, DRAINAGE, WARMTH, OR EDEMA. ACCU CHECKS ACHS, PT DID NOT REQUIRE CORRECTION OF BG THIS SHIFT. REQUIRES STAFF MEMBER TO FEED PT. IN CONTACT ISOLATION FOR MRSA OF NARES. PT REQUIRES EXTRA TIME WITH MEDICATION ADMINISTRATION. MEDICATIONS CRUSHED IN PUREE, THIN LIQUIDS BETWEN BITES. REQUIRED EDUCATION ABOUT PT SAFETY MEASURES WITH DIET AND MEDICAITONS, VERBALIZED UNDERSTADING. IV MAGNESIUM ADMINISTERED THIS SHIFT PER ORDERS. FALL PRECAUTIONS IN PLACE AND NURSING WILL CONTINUE TO MONITOR.
--- NOTE | 2019-06-15 04:32 | NUR ---
PT ALERT AND ORIENTED X 4. BUCKLEY PATENT DRAINING CLEAR YELLOW URINE. LEFT GROIN WOUND VAC INTACT WITH YELLOW DRAINAGE. PT TOOK HS MEDS CRUSHED IN APPLESAUCE WITHOUT DIFFICULTY. PT REFUSED BIPAP TONIGHT. CONT 02 SAT MONITOR ON. PT DENIES PAIN OR DISCOMFORT. BED ALARM ON FOR SAFETY. PT APPEARS TO BE SLEEPING ON HOURLY ROUNDS.
[2019-06-15 06:21] LABS: ALBUMIN 2.1 g/dL (3.4-5.0); CALCIUM 8.6 mg/dL (8.5-10.1); CREATININE 1.6 mg/dL (0.7-1.3); PHOSPHORUS 2.9 mg/dL (2.5-4.9); POTASSIUM 3.5 mmol/L (3.5-5.1)
[2019-06-15 08:00] VITALS: BP 134/71
--- NOTE | 2019-06-15 14:34 | NUR ---
WOUND CARE FOLLOW UP; THE DIRECTOR GRAPHICS NOTIFIED ME ABOUT CALLOUSED DARK AREA TO THE PLANTAR SURFACE OF THE FEET BILATERALLY. UPON ASSESSMENT NO ACUTE WOUNDS WERE VISUALIZED. RECOMMENMDATIONS; GET A PODIATRY CONSULT IF DR MERRITT AGREES. DISCUSSED WITH ARMAAN
[2019-06-15 18:22] LABS: ABSOLUTE NEUTROPHILS 4.2 thou/uL (1.4-8.2); BASOPHILS 0.2 % (0.0-2.0); HEMATOCRIT 27.2 % (42.0-52.0); HEMOGLOBIN 8.7 gm/dL (14.0-18.0); LYMPHOCYTES 18.1 % (24.0-44.0); MCH 27.7 pg (26.0-34.0); MCHC 31.8 g/dL (28.0-37.0); MONOCYTES 11.2 % (1.0-8.0); PLATELET COUNT 184 thou/uL (150-400); POLYS 69.5 % (36.0-66.0); RBC 3.13 mil/uL (4.50-6.00); RDW 19.1 % (10.5-14.5)
[2019-06-15 18:34] LABS: ALBUMIN 2.3 g/dL (3.4-5.0); CALCIUM 8.7 mg/dL (8.5-10.1); CREATININE 1.9 mg/dL (0.7-1.3); PHOSPHORUS 3.1 mg/dL (2.5-4.9); POTASSIUM 3.4 mmol/L (3.5-5.1)
[2019-06-15 19:30] VITALS: BP 132/67
[2019-06-15 19:41] LABS: ANISOCYTOSIS 2+
[2019-06-15 19:42] LABS: POLYCHROMASIA OCCASIONAL
--- NOTE | 2019-06-15 20:27 | NUR ---
ASSUMED CARE OF PT AT 0715. PT IS ALERT OCCASSIONALLY ORIENTED TO SELF, BUT HAS PERIODS OF BEING DISORIENTED X4. PT REPORTED ABDOMIAL PAIN, ABDOMINAL SOUNDS NOTED IN ALL QUADRANTS ABDOMEN DISTENDED AND FIRM. KUB ORDERED BY OIL LEASE BROKER AND RESULTS RECOMMENDED SURGICAL CONSULT. DR. RAUSCH CONSULTED AND ORDERS GIVEN FOR STRICT NPO STATUS NOW, CBC AND RENAL PANEL NOW AND IN AM. OIL LEASE BROKER NOTIFIED OF STRICT NPO STATUS AND ABOUT INABILITY TO GIVE PO MEDICAITONS, AWAITING ORDERS AT THIS TIME. SURGEON INDICATED PLAN TO VISIT PT IN AM. ORDERS TO CONTACT IF PT BECOMES FEBRILE, VOMITS, OR INCREASED PAIN. IV TO RIGHT HAND AND LEFT UPPER ARM FLUSH APPROPRIATELY, DRESSING C/D/I, SITE W/O REDNESS, WARMTH, DRAINAGE AND EDEMA. ACCU CHECKS ACHS, NO CORRECTION INDICATED PER ORDERS THIS SHIFT. WOUND VAC TO LEFT GROIN, CANISTER CHANGED THIS SHIFT. BUCKLEY IN PLACE AND DRAINING APPROPRIATELY, SECURED TO LEG. LIFE VEST IN PLACE AND MONITORED BY THIS NURSE FOR PROPER FUCTION, BATTERY CHANGED AT START OF SHIFT. TURNED Q2 PER ORDERS. ISOLATION FOR MRSA OF NARES. FALL PRECAUTIONS IN PLACE AND NURSING WILL CONTINUE TO MONITOR.
--- NOTE | 2019-06-16 00:59 | NUR ---
ASSUMED CARE AT APPROX 1900. PT LYING IN BED WITH HEAD OF BED ELEVATED C/O ABD PAIN, RESTLESS, CALLING OUT FREQUENTLY FOR SOMEONE TO HELP HIM. PT SOMEWHAT CONFUSED, FORGETFUL. PT ABLE TO SETTLE DOWN WITH STAFF IN ROOM. BUCKLEY TO DD WITH YELLOW URINE TO BAG. PT WITH BRIEF ON AND NO STOOL IN BRIEF. WOUND VAC TO LEFT GROIN AREA WITH CARTRIDGE FULL AND CHANGED BY INNOVATION ANALYST. PT WITH LIFE VEST ON BEEPING AT CHANGE OF SHIFT AND PT REPOSITIONED TO CHECK AND ALARM STOPPED AFTER REPOSITIONING. PT WITH NO VOMITING HOWEVER STATES HE HAS NAUSEA OFF AND ON. IV TO RIGHT HAND DCD IT WAS LEAKING. PT NPO. DR RAUSCH ROUNDED ON PT APPROX 2100 AND ORDER FOR CONSULT TO DR SHEREE CALLE. BENI AND DR CALLE CALLED BACK GIVING ORDERS AND TO MOVE PT TO MED SURG/TELE TO BE MORE CLOSELY MONITORED. INNOVATION ANALYST BENI AND TOBIAS ABZAN. PT TRANSFERRE TO 359 APPROX 0030. REPORT GIVEN TO MIGUEL ON [facility]. PTS REINIER CALLED BY THIS WET AND DRY SUGAR BIN OPERATOR TO NOTIFY OF ROOM CHANGE. PT WITH NO STOOL AND THEREFORE RECTAL TUBE NOT PLACED BEFORE TRANSFER HOWEVER NOTIFED MIGUEL OF SUCH ON [facility].
[2019-06-16] MEDS ORDERED: PACERONE 200 M200 M1 PO (02:02)
[2019-06-16] MEDS ORDERED: ASPIR 8181 MG PO (02:03)
[2019-06-16] MEDS ORDERED: BUDESONIDE0.5 MG/2 M INH (02:05)
[2019-06-16] MEDS ORDERED: COREG25 MG PO (02:06)
[2019-06-16] MEDS ORDERED: PLAVIX 75 MG TA75 M1 PO (02:08)
[2019-06-16] MEDS ORDERED: ZANAFLEX4 MG PO (02:14)
[2019-06-16] MEDS ORDERED: MAGOX 400400 MG PO (02:16)
[2019-06-16] MEDS ORDERED: ZETIA10 MG PO (02:17)
[2019-06-16] MEDS ORDERED: IPRAT-ALBUT 0.5-3 ML INH (02:22)
--- NOTE | 2019-06-16 11:26 | HC ---
[facility] [place] [address] CONSULTATION Name: GERI MCARTHUR Room #: 513-P [facility] IN M.R.#: [id number] Admission: 06/12/19 Attend Phys: Trevor Villalobos MD Discharge: 06/16/19 Date of : 55 Report #: [id number] THIS REPORT FOR: //name// CC: Trevor Villalobos [facility] physician/PCP DATE OF SERVICE: 06/15/2019 CONSULTING PHYSICIAN: Dr. Collin Contreras. REASON FOR CONSULTATION: Severe colonic distention. ASSESSMENT: Likely adynamic ileus of colon. The patient is having liquid stools and a lot of flatus. However, his colonic distention has seemed to worsen on serial imaging, RECOMMENDATIONS: 1. Thank you for the consultation. We will follow. 2. Recommend Gastroenterology consultation for possible decompressive colonoscopy. A consultation has been and they will evaluate. He will likely only be able to undergo conservative measures for treatment of ileus, which includes correction of electrolytes, correction of any underlying comorbidities, ambulation, bowel rest, possible NG tube, limiting narcotics, limiting agents that decrease motility of the GI tract such as calcium channel blockers or narcotics, etc. There are medications we could consider; however, this likely will not be possible in this gentleman with his severe cardiac status and currently wearing a LifeVest. 3. We will follow along. HISTORY OF PRESENT ILLNESS: This is a very pleasant 63-year-old gentleman that I was consulted on for a reported 2-day history of abdominal pain. The patient underwent a KUB, which showed severe colonic distention. The nurse and the patient endorsed that he is having bowel movements, several liquid stools, the patient reports that he is passing gas. He denies nausea or vomiting. The patient has been stable today and afebrile. From the chart, I did review his history, but felt that he initially came in with pneumonia and had a very complex hospital stay including left leg angiogram and stent placement, which was complicated by wound issue. The patient coded twice while in the ICU. He did go for heart catheterization and a stent was placed in the LAD. He did require a balloon pump. He did require hemodialysis. He did gradually improve. He was transferred to the inpatient rehabilitation. Although the patient does converse with me, he is not reliable in answering questions. For example when I asked if he had any abdominal surgeries, he did [facility] [address] [place] [address] CONSULTATION Name: GERI MCARTHUR Room #: 513-P [facility] IN .R.#: [id number] Admission: 06/12/19 Attend Phys: Trevor Villalobos MD Discharge: 06/16/19 Date of : 55 Report #: [id number] respond yeah I have had some of those, but not sure which one. PAST MEDICAL HISTORY: 1. Coronary artery disease, status post stent, on Plavix. 2. Peripheral vascular disease. 3. Hypertension. 4. Hyperlipidemia. 5. Status post cardiopulmonary arrest, now with a LifeVest. 6. Morbid obesity. 7. Diabetes mellitus. PAST SURGICAL HISTORY: 1. Cholecystectomy. 2. Hernia repair. 3. Total knee replacement. 4. Cervical diskectomy. 5. Elbow surgery. 6. Neurostimulator. 7. Knee surgery. 8. Umbilical hernia repair. 9. Thoracentesis. SOCIAL HISTORY: Nonsmoker, occasional alcohol use, no drug use. Lives with family. FAMILY HISTORY: Denies coagulopathy. REVIEW OF SYSTEMS: CONSTITUTIONAL: No fever. No chills. HEENT: Denies blurring of vision, double vision, headaches, hearing loss, sinus drainage or sore throat. Denies blurring of vision, double vision, headaches, hearing loss, sinus drainage or sore throat. CARDIOVASCULAR: See above and below. RESPIRATORY: Denies cough, wheezing, hemoptysis, or shortness of air. GASTROINTESTINAL: See above and below. GENITOURINARY: Denies dysuria or hematuria or kidney stones. No urinary frequency, urgency or incontinence. Denies dysuria or hematuria or kidney stones. No urinary frequency, urgency or incontinence. MUSCULOSKELETAL: No joint pain. No muscle pain. NEUROLOGICAL: Denies tremor, stroke or seizure. Denies tremor, stroke or seizure. HEMATOLOGIC / LYMPHATICS: Denies easy bruising, easy bleeding or enlarged lymph nodes. SKIN: No rash or ulceration. ENDOCRINE: No heat or cold intolerance PSYCHIATRIC: Denies depression, anxiety, or schizophrenia. [address] [address] CONSULTATION Name: GERI MCARTHUR Room #: 513-P [facility] IN M.R.#: [id number] Admission: 06/12/19 Attend Phys: Trevor Villalobos MD Discharge: 06/16/19 Date of : 55 Report #: [id number] PHYSICAL EXAMINATION: VITAL SIGNS: Blood pressure is stable, heart rate in the 60s, afebrile. GENERAL: No apparent distress, alert and oriented x3. HEENT: PERRLA, EOMI, MMM, NCAT NECK: Supple. No LAD CARDIOVASCULAR: Normal capillary refill, LifeVest present. PULMONARY: Nonlabored. Clear to auscultation bilaterally ABDOMEN: Soft, morbidly obese, mild tenderness to palpation throughout, distended, no obvious hernias, no guarding, rebound or rigidity. EXTREMITIES: Calves soft, nontender, no edema. SKIN: No rashes or bruises. PSYCHIATRIC: Normal mood and affect Normal mood and affect NEUROLOGICAL: Grossly intact. CN II-XII grossly intact. MUSCULOSKELETAL: 5/5 strength in upper extremities and lower extremities bilaterally LYMPHATICS: No cervical, inguinal, or supraclavicular lymphadenopathy. LABORATORY DATA: White blood count normal, hemoglobin 8. KUB: On my impression, the patient does have severe colonic distention and small bowel distention with a cecum of 15 cm. No free air. <ELECTRONICALLY SIGNED> By: Collin Contreras MD 06/16/19 1126 [id number] Collin Contreras MD /nt
== END 2019-06-16 00:33 | DRG 91 ==
PROVIDERS: Hospitalist; Surgery; ADMIT Physical Medicine & Rehabilitation
PROC: 5A09357 Assistance with Respiratory Ventilation, Less than 24 Consecutive Hours, Continuous Positive Airway Pressure (ICD-10-PCS; principal; 2019-06-13)
DX: G72.81 Critical illness myopathy (principal); G92 Toxic encephalopathy; I46.9 Cardiac arrest, cause unspecified; J96.00 Acute respiratory failure, unspecified whether with hypoxia or hypercapnia; A41.9 Sepsis, unspecified organism; R65.21 Severe sepsis with septic shock; J69.0 Pneumonitis due to inhalation of food and vomit; E43 Unspecified severe protein-calorie malnutrition; G93.1 Anoxic brain damage, not elsewhere classified; N17.9 Acute kidney failure, unspecified; I47.1 Supraventricular tachycardia; D62 Acute posthemorrhagic anemia; L76.34 Postprocedural seroma of skin and subcutaneous tissue following other procedure; J44.9 Chronic obstructive pulmonary disease, unspecified; E11.51 Type 2 diabetes mellitus with diabetic peripheral angiopathy without gangrene; E11.42 Type 2 diabetes mellitus with diabetic polyneuropathy; G89.29 Other chronic pain; E87.6 Hypokalemia; E11.22 Type 2 diabetes mellitus with diabetic chronic kidney disease; N18.9 Chronic kidney disease, unspecified; M10.9 Gout, unspecified; E78.5 Hyperlipidemia, unspecified; I25.10 Atherosclerotic heart disease of native coronary artery without angina pectoris; G47.33 Obstructive sleep apnea (adult) (pediatric); I12.9 Hypertensive chronic kidney disease with stage 1 through stage 4 chronic kidney disease, or unspecified chronic kidney disease; K21.9 Gastro-esophageal reflux disease without esophagitis; R13.10 Dysphagia, unspecified; E66.01 Morbid (severe) obesity due to excess calories; Z96.653 Presence of artificial knee joint, bilateral; Y83.8 Other surgical procedures as the cause of abnormal reaction of the patient, or of later complication, without mention of misadventure at the time of the procedure; E11.649 Type 2 diabetes mellitus with hypoglycemia without coma; E11.65 Type 2 diabetes mellitus with hyperglycemia; E11.621 Type 2 diabetes mellitus with foot ulcer; L97.519 Non-pressure chronic ulcer of other part of right foot with unspecified severity; L97.529 Non-pressure chronic ulcer of other part of left foot with unspecified severity; Z95.5 Presence of coronary angioplasty implant and graft; Z79.4 Long term (current) use of insulin; Z79.899 Other long term (current) drug therapy; Z88.6 Allergy status to analgesic agent; Y92.89 Other specified places as the place of occurrence of the external cause; Z79.02 Long term (current) use of antithrombotics/antiplatelets; Z88.8 Allergy status to other drugs, medicaments and biological substances; Z68.38 Body mass index [BMI] 38.0-38.9, adult
CPT/HCPCS: 10112; 57188

== ENCOUNTER 2019-06-15 23:50 | Inpatient (IN) | payer OTHER, BC ==
[~2019-06-15] VITALS: Ht 182.9 cm; Wt 128.6 kg
[~2019-06-15 23:50] MED LIST changes: +CATAPRES-TTS 20.2 MG TRANSDERM; +CEFAZOLIN2 GM/100 M IV; +LANTUS100 UNIT/M SUBQ; +PACERONE 200 M200 M1 PO
[2019-06-16 00:20] VITALS: BP 140/68
[2019-06-16] MEDS ORDERED: PACERONE 200 M200 M1 PO (02:02)
[2019-06-16] MEDS ORDERED: ASPIR 8181 MG PO (02:03)
[2019-06-16] MEDS ORDERED: BUDESONIDE0.5 MG/2 M INH (02:05)
[2019-06-16] MEDS ORDERED: COREG25 MG PO (02:06)
[2019-06-16] MEDS ORDERED: PLAVIX 75 MG TA75 M1 PO (02:08)
[2019-06-16] MEDS ORDERED: ZANAFLEX4 MG PO (02:14)
[2019-06-16] MEDS ORDERED: MAGOX 400400 MG PO (02:16)
[2019-06-16] MEDS ORDERED: ZETIA10 MG PO (02:17)
[2019-06-16] MEDS ORDERED: IPRAT-ALBUT 0.5-3 ML INH (02:22)
[2019-06-16 04:10] VITALS: BP 151/70
--- NOTE | 2019-06-16 06:39 | NUR ---
Admitted from -Rehab around 0035. Pt. alert and oriented to person,place with periods of confusion. Unable tos ign consent due to cognitive status. He has been repositioned. Fecal management system placed. KUB done an hour later per order. Result called to OUTSIDE SALES ACCOUNT MANAGER and Dr. Baker. He started having liquid stools per FMS. Stool for c diff sent to lab. Isolation precaution maintained , afebrile.IV fluids started. Kept NPO per order. No nausea or vomiting. Will continue to monitor.
[2019-06-16 07:34] VITALS: BP 157/84
[2019-06-16 09:06] LABS: HEMATOCRIT 28.4 % (42.0-52.0); MCH 27.8 pg (26.0-34.0); MCHC 31.8 g/dL (28.0-37.0); MCV 87.4 fL (80.0-100.0); RBC 3.25 mil/uL (4.50-6.00); RDW 19.5 % (10.5-14.5); WBC 5.9 thou/uL (4.0-11.0)
[2019-06-16 09:09] LABS: CALCIUM 9.2 mg/dL (8.5-10.1); CREATININE 1.7 mg/dL (0.7-1.3); POTASSIUM 3.1 mmol/L (3.5-5.1)
[2019-06-16 09:11] LABS: INR 1.6; PROTIME 16.3 Seconds (9.3-11.4)
--- NOTE | 2019-06-16 10:30 | NUR ---
Severe protein calorie malnutrition with severe wt loss >25 lb, poor oral intake several weeks. With ileus, may need to consider start of tpn, and possible need to address PEG for longer term nutrition. Will continue to follow plan of care.
--- NOTE | 2019-06-16 15:33 | NUR ---
[facility] CAN ACCEPT PATIENT BACK TO REHAB UNIT, BUT PATIENT WILL NEED TO BE ON AT LEAST A FULL LIQUID DIET WITH PLANS FOR ADVANCEMENT. ALSO, FECAL TUBE WILL NEED TO BE DISCONTINUED. THIS INFORMATION WAS SHARED WITH PATIENT'S AVIATION METALSMITH AND SOCAIL WORKER. THANK YOU FOR THIS REFERAL.
[2019-06-16 16:30] VITALS: BP 123/61
[2019-06-16 17:41] LABS: ALBUMIN 2.3 g/dL (3.4-5.0); CALCIUM 8.6 mg/dL (8.5-10.1); CREATININE 1.6 mg/dL (0.7-1.3); TOTAL BILIRUBIN 0.6 mg/dL (<0.1-1.0); TOTAL PROTEIN 5.8 g/dL (6.4-8.2)
--- NOTE | 2019-06-16 19:47 | NUR ---
care of pt assumed this am @ ~0700. pt noted to be awake and restless most of the day. pt attended to by his family members (spouse and daughter) most of the day, they are very attentive to him. pt npo today, but requesting to have water to drink frequently throughout the day, pt given swabs to hydrate mouth. pt receiving ivf's to fiona w/o concern. pt w/ a fecal management system intact, cdiff specimen sent today. pt denies co pain today, but co nausea early evening and given zofran w/ relief. shepard intact and functional. pt w/ wound vac to lt groin intact, functional w/o a leak. pt and family are hopeful for dc back up to [facility] within the next couple of days so taht his acute rehab can continue.
[2019-06-16 20:05] VITALS: BP 156/78
[2019-06-17 04:13] VITALS: BP 157/87
[2019-06-17 06:12] LABS: ALBUMIN 2.3 g/dL (3.4-5.0); CALCIUM 8.8 mg/dL (8.5-10.1); CREATININE 1.4 mg/dL (0.7-1.3); PHOSPHORUS 3.4 mg/dL (2.5-4.9)
[2019-06-17 06:16] LABS: POTASSIUM 4.1 mmol/L (3.5-5.1)
--- NOTE | 2019-06-17 07:43 | NUR ---
Pt. slept intermittently in between cares and repositioning. Periods of confusion and disorientation. Frequently reoriented. Denies any pain. Life vest on , no dysrythmias. Tolerating RA , no respiratory distress. refused BIPAP last night and also refused SCD's.Cont. on MRSA isolation , c diff sent came back negative. FMS in place with liquid stool. Left groin with wound vac in place. Kept NPO per order. Bed alarm on for safety. Will continue to monitor.
--- NOTE | 2019-06-17 08:06 | HC ---
[facility] [place] [address] CONSULTATION Name: GERI MCARTHUR Room #: 359-P [facility] IN ..#: [id number] Admission: 06/16/19 Attend Phys: Suman Garcia MD Discharge: Date of : 55 Report #: [id number] THIS REPORT FOR: //name// CC: FAM physician/PCP Suman Garcia DATE OF SERVICE: 06/16/2019 ENDOCRINE CONSULTATION NOTE CONSULTING PHYSICIAN: Jenna Billingsley MD REASON FOR CONSULTATION: Uncontrolled type 2 diabetes mellitus. HISTORY OF PRESENT ILLNESS: This is a 63-year-old male patient who is known to have an extensive medical background including type 2 diabetes mellitus, hypertension, coronary artery disease, peripheral vascular disease, who had a lengthy hospital stay starting on 05/14/2019, when he presented with what appears to be community-acquired pneumonia and sepsis. During that initial hospital stay, the patient's course has been complicated by the issues of respiratory failure requiring mechanical ventilation, as well as asystole on the heels of SVT and ventricular tachycardia leading to a code blue being called twice. Moreover, the patient had acutely worsening kidney function requiring hemodialysis and ongoing therapy for sepsis. During the last 2 weeks of his hospital stay, the patient's glycemic control was impacted by the issues of minimal p.o. intake, ongoing medical complications, initiating glucocorticoids for pulmonary indications, all of which led to a rising blood glucose values. Eventually, he was placed on a combination of basal insulin in the form of Lantus insulin, Tradjenta, and Humalog supplemental scale coverage. He did well with that until glucocorticoids were discontinued and his insulin needs dropped continuously until he was completely off Lantus insulin and has remained that way for the past 5 days. Subsequently, the patient was maintained on Tradjenta monotherapy as well as coverage with Humalog supplemental scale, which he hardly needed during the past several days. The patient was transferred to the acute inpatient rehabilitation unit on 06/12/2019, but due to issues pertaining to increasing abdominal pain and distention and a suspicion of bowel obstruction, the patient was moved back again to the med/surg floor on 06/15/2019. REVIEW OF SYSTEMS: CONSTITUTIONAL: Fatigue, tiredness, but no fever or chills. PULMONARY: Shortness of breath, cough, but no hemoptysis. CARDIAC: Negative for chest pain, palpitations, syncope or presyncope. [address] [address] CONSULTATION Name: GERI MCARTHUR Room #: 359-P [facility] IN [facility].#: [id number] Admission: 06/16/19 Attend Phys: Suman Garcia MD Discharge: Date of : 55 Report #: [id number] GASTROINTESTINAL: Noted for abdominal distention, abdominal pain, occasional nausea, but no vomiting. MUSCULOSKELETAL: Muscle aches, joint aches, nonspecific diffuse. NEUROLOGY: Negative for loss of consciousness, headaches or seizures. HEENT: Negative for sinus pressure, nasal drainage. Otherwise, review of systems noncontributory other than those mentioned in HPI. PAST MEDICAL HISTORY: 1. Chronic kidney disease with acute renal injury during his recent hospital stay. 2. Respiratory failure requiring mechanical ventilation. The patient is currently stable. 3. Obstructive sleep apnea. 4. Obesity. 5. Cellulitis of the left hand. 6. Cellulitis of the left thumb. 7. Congestive heart failure. 8. COPD. 9. Type 2 diabetes mellitus. 10. Hypertension. 11. Hyperlipidemia. 12. Atrial flutter. 13. GERD. MEDICATION ALLERGIES: Include COMPAZINE, CODEINE, AND STATINS. ACTIVE MEDICATIONS: Include Zanaflex 4 mg daily, amiodarone 200 mg b.i.d., aspirin 81 mg daily, carvedilol 25 mg b.i.d., Plavix 75 mg daily, ezetimibe 10 mg daily, ipratropium albuterol sulfate q. 6 hours while awake. Mirapex 0.125 mg at bedtime, Niaspan 500 mg, Multivitamins, Spiriva, Humalog supplemental scale coverage. SOCIAL HISTORY: The patient quit tobacco over 10 years ago. Denies use of alcohol. PHYSICAL EXAMINATION: GENERAL: A pleasant middle-aged -Sudanese male patient who is not in apparent pain or distress. VITAL SIGNS: Blood pressure is 157/84 mmHg, heart rate of 75 beats per minute, respirations 18 per minute, temperature 36.9 degrees. HEENT: Anicteric sclerae. Intact extraocular motions. NECK: Supple, without JVD, carotid bruits or lymphadenopathy. I do not appreciate thyromegaly. CHEST: Noted for distant breath sounds, scattered rales, but no wheezes or crackles. CARDIOVASCULAR: Regular rate and rhythm without murmurs or gallops. [address] [address] CONSULTATION Name: GERI MCARTHURELL Room #: 359-P [facility] IN M.R.#: [id number] Admission: 06/16/19 Attend Phys: Suman Garcia MD Discharge: Date of : 55 Report #: [id number] ABDOMEN: Obese, but soft and lax, a bit distended, no guarding, no tenderness. Sluggish bowel sounds. EXTREMITIES: Lower extremity, ankle edema noted bilaterally. NEUROLOGIC: Awake, alert, oriented x 3, more interactive verbally. PSYCHIATRIC: Normal mood and affect. LABORATORY RESULTS: Glucose 91. White blood count 5.9, hemoglobin 9.0, hematocrit 28.4, platelets 200. INR 1.6, sodium 143, potassium 3.1, chloride 109, carbon dioxide 17, anion gap 17, BUN 15, creatinine 1.7, GFR 50, calcium 9.2. ASSESSMENT AND PLAN: 1. Type 2 diabetes mellitus. The patient has an uncontrolled baseline; however, judging by the history obtained from his family, it seems that he was not far from good control on a regimen that involves using Lantus insulin 14 units q.p.m. and Humalog insulin 12 units t.i.d. a.c. As noted above, the patient's therapeutic needs have changed dramatically during this hospital stay, but then again this happened in the context of significant clinical events that were noted in HPI. More recently, the patient was under very good control with Tradjenta 5 mg daily with background coverage with Humalog supplemental scale, which had not come in to use at all over the past week or so. If anything, the patient's blood glucose values were trending just below 100. Currently, he has been without Tradjenta for 48 hours and his blood glucose values continued to be in the 90s for the majority of the time. That said, I would like to go on for the time being without active therapy while we maintain coverage for potential hyperglycemia with supplemental scale as we are doing currently. I suspect that once the patient's overall state stabilizes further and his p.o. intake draws near to normal that his therapeutic needs will change yet again. We will maintain blood glucose monitoring a.c. and at bedtime to be in tune to that and adjust his regimen as needed when that happens. 2. Hypertension. The patient's level of blood pressure control has fluctuated over the past few days. He remains on therapy with clonidine. I will defer this aspect of management to Nephrology. 3. Hyperlipidemia. The patient has severe statin intolerance and therefore his therapeutic options will have to rule these out. He had tolerated his ramipril well in the past. He is currently on niacin. Given his significant CVD background, the patient might need to be considered for PCSK9 inhibitors in the future. 4. Chronic kidney disease. As noted above, the patient had acute kidney injury requiring hemodialysis in the past few weeks. However, he has stabilized somewhat since then and his creatinine today is at 1.7 with a GFR of 50. He remains under Nephrology followup. [address] [address] CONSULTATION Name: GERI MCARTHURELL Room #: 359-P [facility] IN [facility]#: [id number] Admission: 06/16/19 Attend Phys: Suman Garcia MD Discharge: Date of : 55 Report #: [id number] I certainly appreciate this consultation. <ELECTRONICALLY SIGNED> By: Marco A Campbell MD 06/17/19 0806 [id number] 0019 MD jomar Daly
[2019-06-17 08:12] VITALS: BP 149/63
--- NOTE | 2019-06-17 09:09 | HC ---
[facility] [place] [address] CONSULTATION Name: GERI MCARTHUR Room #: 359-P [facility] IN M.R.#: [id number] Admission: 06/16/19 Attend Phys: Suman Garcia MD Discharge: Date of : 55 Report #: [id number] THIS REPORT FOR: //name// CC: [facility] physician/PCP Suman Garcia DATE OF SERVICE: 06/16/2019 INTRODUCTION: The patient is a 63-year-old male being seen at [facility] for evaluation of his feet. The patient has a history of diabetes, diabetic peripheral neuropathy, onychodystrophy and chronic plantar hallux ulcerations. He has been admitted last month for complications stemming from sepsis, which have included cardiovascular event, respiratory distress, sepsis, and renal failure. His status has improved. He is being seen on a regular hospital floor today. Remainder of his past medical history with regard to this consultation is unremarkable. He has seen me in my private office regularly for general foot care and as mentioned above he has had a history of ulcerations that have periodically transitioned from phases of healing only to be followed by reoccurrence. These ulcers are associated with the creases of both great toes and had been initiated by abnormal weight load and neuropathy. PHYSICAL EXAMINATION: PEDAL EXAM: Dorsalis pedis, posterior tibial pulses graded at 1/4, capillary refill time is within normal limits. NEUROLOGICAL: The patient lacks protective threshold to the ankle level with testing utilizing [place] monofilament. MUSCULOSKELETAL: Reveals no gross abnormalities. DERMATOLOGIC: Demonstrates elongated, thickened nails clinically consistent with onychomycosis in varying degrees. There are no acute findings in this regard. His skin is generally dry. Bilateral plantar hallux wound sites are completely healed with hyperkeratosis in these areas. There is a thick hyperkeratotic tissue was debrided today and there is no underlying wound and no evidence of infection. The current stable status of these wounds is likely owing to the fact the patient has been relatively nonweightbearing. IMPRESSION: 1. Diabetes mellitus with diabetic peripheral neuropathy. 2. A past history of diabetic foot wounds. 3. Onychodystrophy associated with onychomycosis, bilateral feet. PLAN: The patient's condition was reviewed with him once again. His nails were debrided as were the past wound site areas with hyperkeratotic callus tissue. No additional pathology noted. No additional treatment was required. It has been a pleasure having the opportunity of working with the patient. [address] [address] CONSULTATION Name: GERI MCARTHUR Room #: 359-P [facility] IN [facility]#: [id number] Admission: 06/16/19 Attend Phys: Suman Garcia MD Discharge: Date of : 55 Report #: [id number] will be pleased to follow up with him upon request and suggested that if able that we resume regular foot care schedule on a quarterly basis. <ELECTRONICALLY SIGNED> By: Vipul Cullen DPM 06/17/19 0909 [id number] Vipul Cullen DPM /nt
--- NOTE | 2019-06-17 10:02 | NUR ---
Since ileus slow to resolve, recommend change IVF to clinimix PPN at 100ml/hr with 250ml 20% lipids MWF. Pt has not eaten well for several weeks and severe wt loss.
--- NOTE | 2019-06-17 14:09 | NUR ---
WOUND CARE FOLLOW UP; I WAS ASKED TO CHANGE THE LEFT GROIN WOUND DRESSING TODAY. TODAY WE WILL HOLD THE VAC FOR THE WEEKEND. TODAY WE WILL APPLY PURACOL AG, AQUACEL AG TO THE WOUND BED, ABD, SECURE WITH TAPE. RN PRESENT
[2019-06-17 15:13] VITALS: BP 164/79
--- NOTE | 2019-06-17 16:05 | NUR ---
INITIAL ASSESSMENT: ELOINA reviewed chart and spoke with nursing and attending physician. Pt was admitted from due to abdminal distension. Pt has rectal tube in place and currently NPO. ELOINA discussed case with rehab physician's VACUUM FURNACE OPERATOR, who confirms they are able to accept pt back to on Thursday/Thursday or once he is medically stable. Pt's family are aware and agreeable. Pt must be started on a diet and have rectal tube removed prior to discharge to . SW is available to assist as needed.
--- NOTE | 2019-06-17 19:22 | NUR ---
FECAL MANAGEMENT SYSTEM IN PLACE. PATIENT HAS RESTED IN BED THROUGH DAY. HE IS QUITE CONFUSED. BUCKLEY IN PLACE DRAINING DARK BROWN URINE. WILL CONT WITH PLAN OF CARE.
[2019-06-17 19:32] VITALS: BP 146/82
--- NOTE | 2019-06-18 02:00 | NUR ---
RESTING QUIETLY TONIGHT. HE CONSTANTLY ASKS HOW HE CAN GO HOME. HE NEEDS CONSTANT REASSURING. CONTINUES ON IV FLUIDS. KEEPING LIFE VEST IN PLACE. CAREPLAN REVIEWED.
--- NOTE | 2019-06-18 02:42 | NUR ---
WOUND VAC REMAINS OFF. DRESSING TO LEFT GRION INTACT. TURNS AND CLEANING, CAREPLAN REVIWED. RESTING VERY WELL TONIGHT.
[2019-06-18 04:17] VITALS: BP 116/59
[2019-06-18 08:34] VITALS: BP 138/63
[2019-06-18 12:21] VITALS: BP 125/66
[2019-06-18 14:06] LABS: HEMATOCRIT 29.4 % (42.0-52.0); HEMOGLOBIN 9.4 gm/dL (14.0-18.0); MCH 28.3 pg (26.0-34.0); MCHC 31.9 g/dL (28.0-37.0); MCV 88.8 fL (80.0-100.0); RBC 3.31 mil/uL (4.50-6.00); RDW 19.3 % (10.5-14.5); WBC 10.2 thou/uL (4.0-11.0)
[2019-06-18 14:17] LABS: ALBUMIN 2.2 g/dL (3.4-5.0); CALCIUM 8.6 mg/dL (8.5-10.1); CREATININE 1.4 mg/dL (0.7-1.3); MAGNESIUM 1.3 mg/dL (1.8-2.4); PHOSPHORUS 3.1 mg/dL (2.5-4.9); POTASSIUM 3.5 mmol/L (3.5-5.1)
[2019-06-18 16:59] VITALS: BP 138/69
--- NOTE | 2019-06-18 19:28 | NUR ---
PATIENT IS QUITE HESITANT WITH CARES. HE SAYS NO TO ANY CARES BEING PROVIDED AND ONLY CONSENTS AFTER BEING TALKED TO. HE IS NOW SLEEPING AND RESPIRAIONS ARE EVEN AND NON LABORED. WILL CONT WITH PLAN OF CARE.
[2019-06-18 19:40] VITALS: BP 138/67
--- NOTE | 2019-06-19 03:44 | NUR ---
Pt. slept well during the night. When awake he likes to reposition frequently but does not want to be bothered when he's asleep. Refused to wear BIPAP. Life vest on , no dysrythmias. Left groin dressing intact. Making progress towards care plan goals.
--- NOTE | 2019-06-19 06:38 | NUR ---
Emptied 100 ml of blood tinged urine this am (light red). Irrigated and got out a small piece of blood clot then started draining. Emptied 300 ml of tea colored urine. PERIOPERATIVE ASSISTANT notified.
[2019-06-19 07:25] VITALS: BP 149/69
[2019-06-19 09:18] LABS: HEMATOCRIT 26.9 % (42.0-52.0); HEMOGLOBIN 8.7 gm/dL (14.0-18.0); MCH 28.1 pg (26.0-34.0); MCHC 32.5 g/dL (28.0-37.0); MCV 86.6 fL (80.0-100.0); RBC 3.1 mil/uL (4.50-6.00); RDW 19.7 % (10.5-14.5); WBC 7.7 thou/uL (4.0-11.0)
[2019-06-19 09:30] LABS: ALBUMIN 2.1 g/dL (3.4-5.0); CALCIUM 8.4 mg/dL (8.5-10.1); CREATININE 1.5 mg/dL (0.7-1.3); PHOSPHORUS 2.5 mg/dL (2.5-4.9)
[2019-06-19 12:41] VITALS: BP 149/69
[2019-06-19] MEDS ORDERED: EFFIENT10 MG PO (15:08)
[2019-06-19] MEDS ORDERED: PACERONE 200 M200 M1 PO (15:10)
[2019-06-19] MEDS ORDERED: LANTUS100 UNIT/M SUBQ (15:12)
--- NOTE | 2019-06-19 16:16 | NUR ---
PATIENT WILL BE DISCHARGED TO [facility] AT THIS TIME. IN NO PAIN AT THE MOMENT. RESPIRATIOSN ARE EVEN NON LABORED. IN A GOOD MOOD. WILL CONT WITH PLAN OF CARE.
== END 2019-06-19 16:20 | DRG 871 ==
LOC: 3W 23:50
PROVIDERS: Hospitalist; Nurse Practitioner; Nurse Practitioner Family; ADMIT Hospitalist
PROC: 0HBRXZZ Excision of Toe Nail, External Approach (ICD-10-PCS; principal; 2019-06-16)
DX: A41.9 Sepsis, unspecified organism (principal); J96.00 Acute respiratory failure, unspecified whether with hypoxia or hypercapnia; E43 Unspecified severe protein-calorie malnutrition; J69.0 Pneumonitis due to inhalation of food and vomit; N17.9 Acute kidney failure, unspecified; I13.0 Hypertensive heart and chronic kidney disease with heart failure and stage 1 through stage 4 chronic kidney disease, or unspecified chronic kidney disease; I48.92 Unspecified atrial flutter; I47.1 Supraventricular tachycardia; G93.1 Anoxic brain damage, not elsewhere classified; G72.81 Critical illness myopathy; K56.7 Ileus, unspecified; I47.2 Ventricular tachycardia; R65.20 Severe sepsis without septic shock; R14.0 Abdominal distension (gaseous); E11.42 Type 2 diabetes mellitus with diabetic polyneuropathy; L60.3 Nail dystrophy; B35.1 Tinea unguium; I25.10 Atherosclerotic heart disease of native coronary artery without angina pectoris; E11.51 Type 2 diabetes mellitus with diabetic peripheral angiopathy without gangrene; N18.9 Chronic kidney disease, unspecified; E11.22 Type 2 diabetes mellitus with diabetic chronic kidney disease; G47.33 Obstructive sleep apnea (adult) (pediatric); E66.9 Obesity, unspecified; I50.9 Heart failure, unspecified; J44.9 Chronic obstructive pulmonary disease, unspecified; E78.5 Hyperlipidemia, unspecified; K21.9 Gastro-esophageal reflux disease without esophagitis; E11.65 Type 2 diabetes mellitus with hyperglycemia; G89.29 Other chronic pain; M54.9 Dorsalgia, unspecified; Z96.653 Presence of artificial knee joint, bilateral; N18.3 Chronic kidney disease, stage 3 (moderate); E87.6 Hypokalemia; E83.42 Hypomagnesemia; R13.10 Dysphagia, unspecified; M10.9 Gout, unspecified; K59.8 Other specified functional intestinal disorders; E11.621 Type 2 diabetes mellitus with foot ulcer; L97.519 Non-pressure chronic ulcer of other part of right foot with unspecified severity; L97.529 Non-pressure chronic ulcer of other part of left foot with unspecified severity; K63.89 Other specified diseases of intestine; G47.00 Insomnia, unspecified; D64.9 Anemia, unspecified; B96.5 Pseudomonas (aeruginosa) (mallei) (pseudomallei) as the cause of diseases classified elsewhere; N13.9 Obstructive and reflux uropathy, unspecified; Z22.321 Carrier or suspected carrier of Methicillin susceptible Staphylococcus aureus; Z68.38 Body mass index [BMI] 38.0-38.9, adult; Z88.6 Allergy status to analgesic agent; Z88.8 Allergy status to other drugs, medicaments and biological substances; Z79.899 Other long term (current) drug therapy; Z79.4 Long term (current) use of insulin; Z79.82 Long term (current) use of aspirin; I25.2 Old myocardial infarction; Z98.42 Cataract extraction status, left eye; Z98.41 Cataract extraction status, right eye; Z87.891 Personal history of nicotine dependence; Z90.49 Acquired absence of other specified parts of digestive tract
CPT/HCPCS: 10879

== ENCOUNTER 2019-06-19 10:20 | Inpatient (IN) | payer OTHER, BC ==
[~2019-06-19] VITALS: Ht 180.3 cm; Wt 125.2 kg
[~2019-06-19 10:20] MED LIST changes: +BUDESONIDE0.5 MG/2 M INH; +COREG25 MG PO; +IPRAT-ALBUT 0.5-3 ML INH; +MAGOX 400400 MG PO
[2019-06-19] MEDS ORDERED: EFFIENT10 MG PO (15:08)
[2019-06-19] MEDS ORDERED: PACERONE 200 M200 M1 PO (15:10)
[2019-06-19] MEDS ORDERED: LANTUS100 UNIT/M SUBQ (15:12)
[2019-06-19 16:00] VITALS: BP 124/61
--- NOTE | 2019-06-19 19:22 | NUR ---
ASSUMED CARE OF PT AT 1600. REPORT GIVEN TO THIS NURSE BY RNMADELYN ON 3W. PT MEDICATION LIST FAXED TO PHARMACY, ADMISSION ASSESSMENT COMPLETED, ADMISSION EDUCATION COMPLETED, VITAL SIGNS AND BLOOD GLUCOSE DONE. CONSENTS SIGNED AND PLACED IN CHART, CONSULTS CALLED WHERE POSSIBLE, UNABLE TO CONTACT SOME DOCTORS AT THIS TIME. PT TRANSFERED TO BED WITH 3 STAFF SLIDE FROM CHAIR TO BED. LIFE VEST IN PLACE AND WORKING. AT BEDSIDE. FALL PRECATIONS IN PLACE AND NURSING WILL CONTINUE TO MONITOR.
[2019-06-19 20:05] VITALS: BP 133/73
--- NOTE | 2019-06-20 04:18 | NUR ---
Assumed pt care at 1900,A/OX3,confused but able to make needs known. Denies pain on assessment,VSS. Life vest in place.Abd slightly distended, BS active. Hernandez in place draining dark yellow urine. Dressing on left groin changed with wet to dry dressing at HS. Pt declined insulin at HS.Repositioned every 2 hrs.Contact isolation maintained. Fall precautions in place.
[2019-06-20 05:52] LABS: HEMATOCRIT 25.4 % (42.0-52.0); HEMOGLOBIN 8.2 gm/dL (14.0-18.0); MCH 28.4 pg (26.0-34.0); MCHC 32.4 g/dL (28.0-37.0); MCV 87.8 fL (80.0-100.0); RBC 2.89 mil/uL (4.50-6.00); RDW 19.9 % (10.5-14.5); WBC 4.8 thou/uL (4.0-11.0)
[2019-06-20 06:06] LABS: ALBUMIN 2.1 g/dL (3.4-5.0); CALCIUM 8.5 mg/dL (8.5-10.1); CREATININE 1.5 mg/dL (0.7-1.3); PHOSPHORUS 2.3 mg/dL (2.5-4.9); POTASSIUM 3.1 mmol/L (3.5-5.1)
[2019-06-20 07:45] VITALS: BP 138/84
[2019-06-20 19:24] VITALS: BP 156/94
--- NOTE | 2019-06-20 19:53 | NUR ---
ASSUME PT CARE AT 0715. VSS ON RA. PT ALERT AND ORIENTED X4, ABLE TO VOICE HIS OWN NEEDS. REPORTS DIDN'T SLEEP WELL LAST NIGHT. C/O NAUSEA, STOMACH DISCOMFORT, HEADACHE AND INSOMNIA. NOTIFIED DR. BLAKELY AND OBTAINED ORDERS FOR PT. SEE Gen110. DOCTOR ALSO CAME TO SEE PT. LIFE VEST IN PLACE. NO BM NOTICED TODAY. MIRALAX OBTAINED AND GIVEN. IV ON RIGHT UPPER ARM SL. BUCKLEY CATH INTACT AND PATENT. HAS DARK URINE 200CC. ENCOURAGED PT TO DRINK MORE. PT HAS POOR APPETITE. ENCOURAGED PT TO DRINK ENSURE. DRESSING ON LEFT GROIN C/D/I. NIGHT NURSE CHANGED LAST NIGHT. PT REFUSED TO CHANGE TODAY. WILL NOTIFY NIGHT NURSE TONIGHT TO CHANGE AND TAKE ADMISSION PICTURE. PT'S GOALS TO GO HOME. ENCOURAGED PT TO PARTICIPATE IN THERAPY. UP IN FROM 11AM- 4PM. FAMILY VISIT AND WHEELED PT AROUND. PT IS IN GOOD SPIRIT. DENIES PAIN, NAUSEA, N/V NOW. OFFERED SUPPORTIVE CARE. CONTACT ISOLATION MAINTAINED. FALL PRECAUTION IN PLACE. AT BEDSIDE. REPORT TO NIGHT NURSE TO CONTINUE TO MONITOR.
--- NOTE | 2019-06-21 00:20 | NUR ---
PT ASSESSMENT DONE AND VSS. MEDS GIVEN AND WELL TOLERATED. FALL PRECAUTIONS IN PLACE. LIFE VEST ON AND WNL. DRESSING TO LEFT LOWER GROIN COMPLETED AND PICTURE TAKEN. SUPPORTIVE AT BEDSIDE EARLY DURING SHIFT. SCD'S ON. BUCKLEY DRAINING DK YELLOW URINE. TURNING ORDERED. SLEEPING WELL WITH CPAP ON. WILL CONTINUE TO MONITOR FREQUENTLY.
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
[2019-06-21 09:00] VITALS: BP 146/81
--- NOTE | 2019-06-21 13:09 | NUR ---
team meeting recommendation: re teaming
[2019-06-21 16:29] VITALS: BP 154/112
--- NOTE | 2019-06-21 16:30 | NUR ---
RECEIVED REPORT FROM ARMAAN MEADOWS THAT SHE RECEIVED ORDER FROM DR. ARANGO TO GIVE FLUID 1L ONCE TIME AND WOUND DOCTOR MAY STOP BY TO REAPPLY WOUND VAC. B/P 154/112 HR 60. GIVE CARVEDILOL ORDERED. LIFE VEST IN PLACE. CONTINUE TO BE ON MRSA FOR NARE. BS 102, WILL GIVE 14 UNITS OF LANTUS WHEN PT EAT MEALS. PT STILL HAS POOR APPETITE. ENCOURAGED PT TO EAT. TOOK PT FOR A RIDE. MASK WEAR. DENIES PAIN OR DISCOMFORT AT THIS MOMENT. WILL CONTINUE TO MONITOR.
[2019-06-21 20:15] VITALS: BP 150/71
--- NOTE | 2019-06-22 01:48 | NUR ---
ASSUMED CARE AROUND 1900. AXOX4. VERY FRUSTRATED WITH CARE. WANTED TO AMA. CAME AND CONSOLED PT. OK NOW. L GROIN DRESSING CHANGE AND CARE COMPLETED. NO S/S ACUTE DISTRESS NOTED OR REPORTED AT THIS TIME. WILL CONT TO MONITOR FOR ANY CHANGES IN CONDITION.
[2019-06-22 07:08] LABS: CALCIUM 8.7 mg/dL (8.5-10.1); CREATININE 1.6 mg/dL (0.7-1.3); PHOSPHORUS 3.2 mg/dL (2.5-4.9); POTASSIUM 3.3 mmol/L (3.5-5.1)
[2019-06-22 09:00] VITALS: BP 145/75
--- NOTE | 2019-06-22 09:18 | HC ---
[facility] [place] [address] CONSULTATION Name: GERI MCARTHUR Room #: 513-P ADM IN M.R.#: [id number] Admission: 06/19/19 ������������������ Attend Phys: Trevor Villalobos MD Discharge: ������������������ Date of : 55 Report #: [id number] THIS REPORT FOR: //name// CC: Trevor Villalobos FAM physician/PCP DATE OF SERVICE: 06/20/2019 ENDOCRINE CONSULTATION ATTENDING PHYSICIAN: Dr. Trevor Villalobos. REASON FOR CONSULTATION: Uncontrolled type 2 diabetes mellitus. HISTORY OF PRESENT ILLNESS: This is a 63-year-old male patient whose medical background is significant for multiple medical issues including coronary artery disease, hypertension, obesity, hyperlipidemia, chronic kidney disease, obstructive sleep apnea among other issues. The patient has had a very prolonged hospital stay as he was initially admitted on 05/14/2019 with an outlook of septicemia and pneumonia. Later into his stay, the patient's course had been complicated by cardiopulmonary arrest, requiring code blue twice. He was subsequently mechanically ventilated and managed in the ICU. His course was further complicated by acute renal injury on top of chronic kidney disease requiring hemodialysis for a brief period of time. The patient had been stabilized considerably and had transferred to the rehab unit to undergo intensive physical therapy. However, a few days into his rehabilitation stay, the patient developed an outlook of small-bowel obstruction and was transferred back to med/surg floor where he was monitored for few days. Upon stabilization, the patient is being referred back to the rehab unit for intensive physical therapy. The patient has done remarkably well given the events that he has been through and is now quite interactive, alert, focus and is able to ambulate minimally and eat without difficulties. PAST MEDICAL HISTORY: As noted above, the patient has a background this is significant for type 2 diabetes mellitus for the past several years. MEDICATIONS: His antidiabetic regimen prior to admission consisted of Levemir insulin 14 units q.p.m. in addition to Humalog insulin 14 units before meals. His hemoglobin A1c at baseline was 6.0 and his family reported that his blood glucose control at home was fairly reasonable. During his hospital stay the patient has initially needed very little to no insulin as he had a minimal p.o. intake. Then, we found ourselves having to advance insulin therapy to progressively higher doses as the patient received glucocorticoids for pulmonary reasons. Later on, the patient had showed diminishing insulin needs again as glucocorticoids were stopped and he was maintained on Tradjenta monotherapy for [address] [address] CONSULTATION Name: GERI MCARTHUR Room #: 513-P [facility].#: [id number] Admission: 06/19/19 ������������������ Attend Phys: Trevor Villalobos MD Discharge: ������������������ Date of : 55 Report #: [id number] a while and then was kept on monitoring only for about a week. A few days ago, the patient has improved his p.o. intake significantly to where his blood glucose values have risen and he was placed 2 days ago on a combination of Lantus insulin 14 units q.p.m. in addition to Tradjenta 5 mg p.o. daily. With this combination, the patient has maintained blood glucose values predominantly below 160 mg/dL. Also, the patient has hyperlipidemia and reports significant allergies to STATINS, which has precluded their use in the past. He has been placed on ezetimibe 10 mg daily only. REVIEW OF SYSTEMS: CONSTITUTIONAL: Fatigue, tiredness, but improving. No chills or fever. HEENT: No sinus pain, nasal drainage, earache or ear drainage. PULMONARY: Occasional shortness of breath, especially on exertion. No cough or hemoptysis. CARDIAC: Occasional palpitations. No chest pain, syncope, or presyncope. GASTROINTESTINAL: No abdominal pain, nausea, vomiting or changes in bowel movement frequency. NEUROLOGY: No loss of consciousness, seizures or headaches. MUSCULOSKELETAL: Scattered joint and muscle aches. SKIN: Negative for ulceration, rash or itching. PSYCHIATRIC: No hallucinations, delusions. Otherwise, review of systems noncontributory other than those mentioned in HPI. PAST MEDICAL HISTORY: 1. Obesity. 2. Type 2 diabetes mellitus. 3. Hypertension. 4. Hyperlipidemia. 5. Chronic kidney disease with history of acute kidney injury during his recent hospital stay. 6. Obstructive sleep apnea. 7. Recent issues with respiratory failure, requiring mechanical ventilation. CURRENT MEDICATIONS: Include Zofran 4 mg q. 6 hours p.r.n., Zanaflex 8 mg at bedtime, Effient 10 mg daily, Mirapex 0.125 mg at bedtime, niacin ER 1000 mg daily, multivitamin 1 tab daily, mag oxide 400 mg daily, Humalog supplemental scale coverage, Lantus insulin 14 units q.p.m., ezetimibe 10 mg daily, trazodone 50 mg at bedtime, clonidine patch 0.2 mg q. 3 days, carvedilol 25 mg b.i.d., calcium carbonate 500 mg t.i.d., Pulmicort b.i.d., aspirin 81 mg daily, amiodarone 400 mg daily, albuterol p.r.n., acetaminophen p.r.n. ALLERGIES: The patient is allergic to COMPAZINE, CODEINE, AND STATINS. SOCIAL HISTORY: There is no active history of tobacco or alcohol use. PHYSICAL EXAMINATION: [facility] [place] [address] CONSULTATION Name: GERI MCARTHUR Room #: 513-P ADM IN M.R.#: [id number] Admission: 06/19/19 ������������������ Attend Phys: Trevor Villalobos MD Discharge: ������������������ Date of : 55 Report #: [id number] GENERAL: Pleasant, middle-aged -Beninese male patient who is not in apparent pain or distress. VITAL SIGNS: Blood pressure is 138/84 mmHg, heart rate is 58 beats per minute, respirations 18 per minute, temperature 36.6 degrees. HEENT: Anicteric sclerae. Intact extraocular motions. NECK: Supple, without JVD, carotid bruits or lymphadenopathy. I do not appreciate thyromegaly. CHEST: Noted for distant breath sounds, scattered rales. No wheezes or crackles. HEART: Regular rate and rhythm without murmurs or gallops. ABDOMEN: Obese, but soft and lax without tenderness or organomegaly. Has active bowel sounds. EXTREMITIES: Noted for edema bilaterally. No skin breaks or lacerations. NEUROLOGIC: Awake, alert and oriented to time, place and person. The remainder of his examination is grossly nonfocal. PSYCHIATRIC: Normal mood and affect, interactive, pleasant. LABORATORY RESULTS: Blood glucose values over the past 24 hours have ranged from 120-126. Hemoglobin 8.2, white blood count 4.8, hematocrit 25.4, platelets 145. Sodium 143, potassium 3.1, chloride 112, carbon dioxide 21, anion gap 10, BUN 7, creatinine 1.5, GFR 57. ASSESSMENT AND PLAN: 1. Type 2 diabetes mellitus, uncontrolled. As noted above, the patient has been through significant and fluctuating and shifting clinical events throughout the past 6 weeks. This mandated successive changes in his antidiabetic regimen. Notably, his p.o. intake has a weight in heavily on his diabetic management. Currently, the patient is on coverage with Lantus insulin 14 units q.p.m. in addition to Humalog supplemental scale coverage as well as a blood glucose monitoring a.c. and at bedtime. He seems to be doing very well in the immediate setting as per his recorded blood glucose values. I will maintain the same regimen for now, but will stay into his blood glucose values to adjust his regimen as needed going forward. I suspect that as we continue to see developments in his level of physical activity, p.o. intake and associated comorbidities that such therapeutic changes will be necessary. 2. Hypertension. The patient is currently on therapy with a clonidine patch, amiodarone, carvedilol and seems to be doing rather well. He is to continue with the current regimen. 3. Hyperlipidemia. As noted above, the patient has reported significant allergies [place] [id number] CONSULTATION Name: GERI MCARTHUR Room #: 513-P [facility] IN M.R.#: [id number] Admission: 06/19/19 ������������������ Attend Phys: Trevor Villalobos MD Discharge: ������������������ Date of : 55 Report #: [id number] such he is currently without any. For the time being, he is on a combination of ezetimibe and niacin. Given his background that is noted for type 2 diabetes mellitus and CAD, tight lipid control will be needed. He would likely need to be considered for PCSK9 inhibitors as an outpatient once his other medical issues stabilized. 4. Chronic kidney disease. The patient's current kidney function indices are consistent with stage 3 kidney disease with a GFR of 57. This aspect has been stable for the past 2 weeks since his acute renal injury, requiring hemodialysis earlier in his hospital stay. I certainly appreciate this consultation by Dr. Villalobos. ��������������������������������������������� <ELECTRONICALLY SIGNED> ���������������������������������������� By: Marco A Campbell MD ��������������������������������������������� 06/22/19 0918 [id number] Marco A Campbell MD /nt
--- NOTE | 2019-06-22 16:07 | NUR ---
ASSUME PT CARE AT 0700. VSS ON RA. ALERT AND ORIENTED X3, POOR INSIGHT, FRUSTRATED ABOUT SITUATION LAST NIGHT ABOUT LEAVING THE FLOOR. DRESSING CHANGED THIS AM ORDERED. PICTURE TAKEN ON THU PROTOCOL. WOUND NURSE CAME AND APPLIED WOUND VAC. REASSESSMENT PER CHART. BS TYMPANIC BS. GI DOCTOR CAME TO SEE PT AND ENCOURAGED PT TO TURN FROM SIDE TO SIDE. PT UP AND PARTICIPATES WELL WITH THERAPY. AT BEDSIDE. OFFERED SUPPORTIVE CARE. ENCOURAGED PT TO VOICE HIS NEEDS. MEDS GIVEN. LABS REVIEWED. K 3.3 POTASSIUM SUPPLEMENT GIVEN. BUCKLEY CATH INTACT WITH LOW URINE OUTPUT. LU AWARE. FALL PRECAUTION IN PLACE. CALL LIGHT WITHIN REACH. WILL CONTINUE TO MONITOR.
[2019-06-22 17:48] VITALS: BP 126/63
[2019-06-22 20:10] VITALS: BP 129/66
--- NOTE | 2019-06-23 01:13 | NUR ---
PT ASSESSMENT DONE AND VSS. MED GIVEN ORDERED AND TOLERATED WELL. FALL PRECAUTION IN PLACE. CPAP ON. SAT 100% ON RA. UA COLLECTED AND SENT TO LAB-PENDING. WOUND WNL. SCD'S ON. TURNS WITH WEDGE. SLEEP MED HELPFUL. IV MAG GIVEN. WILL CONTINUE TO MONITOR.
[2019-06-23 01:45] LABS: URINE BILIRUBIN 1+ (Negative); URINE BLOOD 3+ (Negative); URINE CLARITY SL CLOUDY; URINE COLOR YELLOW; URINE GLUCOSE-RANDOM* NEGATIVE (Negative); URINE KETONES NEGATIVE (Negative); URINE PROTEIN (DIPSTICK) 2+ (Negative); URINE UROBILINOGEN 0.2 E.U./dl (0.2-1.0)
[2019-06-23 01:53] LABS: URINE LEUKOCYTES-REFLEX 1+ (Negative); URINE NITRITE-REFLEX POSITIVE (Negative)
[2019-06-23 01:55] LABS: SQUAMOUS 0-3 Few /LPF (0-3); URINE WBC-REFLEX 6-15 Few /HPF (0-5)
[2019-06-23 01:56] LABS: CALCIUM OXALATE 0-3 Few /LPF (None Seen); HYALINE CASTS 4-10 Moderate /LPF (None Seen); MUCUS 0-3 Light strn/LPF (None Seen)
[2019-06-23 06:04] LABS: ABSOLUTE NEUTROPHILS 1.9 thou/uL (1.4-8.2); BASOPHILS 0.4 % (0.0-2.0); EOSINOPHILS 2.8 % (0.0-3.0); HEMATOCRIT 25.4 % (42.0-52.0); HEMOGLOBIN 8.2 gm/dL (14.0-18.0); LYMPHOCYTES 26.1 % (24.0-44.0); MCH 28.2 pg (26.0-34.0); MCHC 32.3 g/dL (28.0-37.0); MCV 87.4 fL (80.0-100.0); MONOCYTES 11.7 % (1.0-8.0); PLATELET COUNT 139 thou/uL (150-400); RBC 2.91 mil/uL (4.50-6.00); RDW 19.3 % (10.5-14.5); WBC 3.2 thou/uL (4.0-11.0)
[2019-06-23 06:39] LABS: CALCIUM 8.6 mg/dL (8.5-10.1); CREATININE 1.6 mg/dL (0.7-1.3); MAGNESIUM 1.9 mg/dL (1.8-2.4); POTASSIUM 3.2 mmol/L (3.5-5.1)
[2019-06-23 07:15] VITALS: BP 128/68
[2019-06-23 09:06] LABS: URINE BLOOD 3+ (Negative); URINE CLARITY CLOUDY; URINE COLOR YELLOW; URINE GLUCOSE-RANDOM* NEGATIVE (Negative); URINE KETONES NEGATIVE (Negative); URINE LEUKOCYTES-REFLEX 1+ (Negative); URINE NITRITE-REFLEX POSITIVE (Negative); URINE PROTEIN (DIPSTICK) 2+ (Negative); URINE SPECIFIC GRAVITY 1.025 (1.005-1.035); URINE UROBILINOGEN 0.2 E.U./dl (0.2-1.0)
[2019-06-23 09:07] LABS: ICTOTEST (BILI CONFIRMATORY) Negative (Negative); URINE BILIRUBIN NEGATIVE (Negative)
[2019-06-23 09:15] LABS: SQUAMOUS 0-3 Few /LPF (0-3)
[2019-06-23 09:16] LABS: CRYSTALS None Seen /LPF (None Seen); HYALINE CASTS 0-3 Few /LPF (None Seen); URINE WBC-REFLEX 6-15 Few /HPF (0-5)
[2019-06-23 20:22] VITALS: BP 139/77
--- NOTE | 2019-06-23 20:25 | NUR ---
Assumed care approx. 0700 this AM. Patient cooperative with nursing staff but frustrated and fussy because he is ready to be discharged. Patient noted to be fighting with family about leaving rehab, but family is telling the patient how he is no where ready to be discharged. IV antibiotics started today for UTI. Zofran given for intermittent nausea. Life vest and electrodes intact. Patient noted to start eating more of meals than he has reportedly been consuming. Urine output remains to be poor from shepard cath. Wound vac intact. Patient pivoted with nursing staff from wheelchair to bed a couple times today. Slow progression toward plan of care at this time.
--- NOTE | 2019-06-24 02:17 | NUR ---
ASSUMED CARE OF PT AT 1915. PT IS A&OX4. IS ON ROOM AIR, BUT USES CPAP AT HS. PT TAKES IT OFF & DOESN'T KEEP IT ON ALL NIGHT. PT IS STABLE. DENIES PAIN IN LEFT GROIN. WOUND VAC INTACT. LIFE VEST INTACT. IS UP WITH MAX ASSIST OF 1-2, GB, W, STAND PIVOT TO CHAIR & COMMODE. FALL PRECAUTIONS & HOURLY ROUNDING MAINTAINED. BUCKLEY INTACT. LABS & VITALS REVIEWED. WILL CONTINUE TO MONITOR. CALL LIGHT WITHIN REACH.
[2019-06-24 08:15] VITALS: BP 127/80
[2019-06-24 20:35] VITALS: BP 137/66
--- NOTE | 2019-06-24 21:05 | NUR ---
ASSUMED CARE OF PT AT 0715. PT IS A&OX4 AND VITAL SIGNS ARE STABLE. PT DENIES PAIN AND PARTICIPATED IN SCHEDULED THERAPIES. WOUND VAC CHANGED BY WOUND NURSE THIS MORNING. WOUND VAC DRAINING APPROPRAITELY. LIFE VEST IN PLACE, BATTERY CHANGED AT END 0F SHIFT, WORKING APPROPRAITELY. ACCU CHECKS ACHS AND MANGED WITH INSULIN SS. BUCKLEY CATHETER DRAINING APPROPRIATELY AND SECURED IN PLACE. AT BEDSIDE. PT CONTINUES TO BE IN ISOLATION FOR MRSA OF SPUTUM. FALL PRECAUTIONS IN PLACE AND NURSING WILL CONTINUE TO MONITOR.
--- NOTE | 2019-06-24 23:03 | NUR ---
ASSUMED CARE OF THE PT AT 1914 PM. ALERT ET ORIENTED X 3. MAKES NEEDS KNOWN. HAS A WOUND VAC IN PLACE, HAS A BUCKLEY WHICH IS IN PLACE. HEART RATE REGULAR, LUNGS CLEAR BILATERALLY. DENIES PAIN AT THIS TIME. CALL LIGHT WITHIN REACH.
[2019-06-25 08:45] VITALS: BP 127/77
--- NOTE | 2019-06-25 16:56 | NUR ---
ASSUMED CARE OF PT AT 0715. PT IS A&oX4 AND VITAL SIGNS ARE STABLE. REPORTED SOME GENERALIZED PAIN AND NAUSEA AND WAS TREATED WITH PO MEDICAITONS, PARTICIPATED IN SCHEDULED THERAPIES. LIFE VEST IN PLACE AND FUNCTIONING APPROPRAITELY. WOUND VAC IN PLACE, DRAINING APPROPRIATELY. BUCKLEY DRAINING APPROPRATELY AND SECURED TO LEG, MEASURING I&OX, ENCOURAGING PO FLUIDS FOR DECREASED URINE OUTPUT. ACCU CHECKS ACHS AND MANAGED WITH INSULIN AND PO MEDICATIONS. PT LEFT UNIT 2X WITH THIS SHIFT WITHOUT INCIDENT. FALL PRECAUTIONS IN PLACE AND NURSING WILL CONTINUE TO MONITOR.
[2019-06-25 19:54] VITALS: BP 122/68
--- NOTE | 2019-06-26 03:19 | NUR ---
PT UP IN WC AT START OF SHIFT. HAD BEEN OFF UNIT VISITING WITH . UPON RETURN TO UNIT, EXHIBITED INCREASED RESTLESSNESS. ABOUT 1999, PT DECIDED HE WANTED TO BE DISCHARGED. STATED THAT HE WAS TIRED OF"GETTING THE RUNAROUND". [employer] DISCUSSED HIS OPTIONS WITH HIM. FAMILY STRONGLY CONVINCED HIM THAT THE BEST THING FOR HIM AT THE MOMENT WAS TO REMAIN HERE. GRADUALLY SETTLED. EXAM SHOWED WOUND VAC IN PLACE AND DRAINING WELL, BUCKLEY IN PLACE AND DRAINING WELL, LIFE VEST IN PLACE, BUT BATTERY REPLACED. BS 192 AND 3u INSULIN PROVIDE. TOOK HS MEDS PRESCRIBED. SLEPT WELL UNTIL 0230, WHEN HE WAS ASSISTED TO RECLINER AT BEDSIDE.
--- NOTE | 2019-06-26 06:40 | NUR ---
Notified by staff that pt is unhappy and would like to leave AMA. Explained to pt that he is able to leave whenever he would like. Pt's family concerned with being able to care for him at home. Both pt and housekeeping manager encouraging pt and offering emotional support Re: his continued therapies and how well he is progressing. Explained to pt that he can dial "0" and reach the housekeeping manager anytime. Family has no further concerns/questions re: pt's POC and wish for him to stay in the hospital.
--- NOTE | 2019-06-26 09:51 | HC ---
[facility] [place] [address] [place] [address] CONSULTATION Name: GERI MCARTHUR Room #: 513-P ADM IN M.R.#: [id number] Admission: 06/19/19 ������������������ Attend Phys: Trevor Villalobos MD Discharge: ������������������ Date of : 55 Report #: [id number] THIS REPORT FOR: //name// CC: Trevor Villalobos [facility] physician/PCP NEUROBEHAVIORAL STATUS EXAM ATTENDING PHYSICIAN: Trevor Villalobos M.D. CONSULTING PHYSICIAN: Rome Rice, PhD. 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 His diagnosis on admission to rehab. included multifactorial encephalopathy with a toxic metabolic and hypoxic component, cardiac arrest, supraventricular tachycardia followed by asystole, [place] syndrome, respiratory insufficiency, renal insufficiency, had been previously on hemodialysis, recent severe sepsis with septic shock, COPD, peripheral vascular disease with recent femoral endarterectomy, diabetes mellitus type 2 with peripheral neuropathy, chronic pain with prior neurostimulator and hypertension. A complete description of his medical condition and history can be found in his medical records. Neuropsychological consultation was requested to provide assistance in the assessment of cognitive and emotional status and to provide recommendations and services. Prior to this most recent hospitalization, the patient is reported to have been living independently with his in their home. She reports that he was independent with instrumental activities of daily living including driving. 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 She reports him as being intermittently agitated and irritable. His stress level is high at home as his has had to resume treatment for cancer. They have one son. His son is a psychiatrist in [facility]. There is no reported history of cognitive disorder. A mild depression is reported prior to his most recent hospitalization. He has used Cymbalta for treatment of depression and with a good response, but it had been discontinued. TECHNIQUES UTILIZED: Clinical interview, review of medical records, staff consultation and behavioral observation, mini mental status exam 2 standard version and verbal fluency assessment (category and letter) and family interview -- . [address] [address] CONSULTATION Name: GERI MCARTHUR Room #: 513-P [facility] IN ..#: [id number] Admission: 06/19/19 ������������������ Attend Phys: Trevor Villalobos MD Discharge: ������������������ Date of : 55 Report #: [id number] EXAMINATION FINDINGS: The patient was alert and cooperative with the assessment. He was not able to accurately describe events surrounding his initial hospitalization. He reports being amnestic about his need at the time of his admission. Currently, he is describing difficulty with memory, sleep and appetite. He is also reported to be more irritable. The patient reports subjective depression and poor sleep. He does not describe fatigue, difficulty with memory or word finding. His stated that he has had intermittent periods of disorientation to location. He has 2 brothers and 1 sister. His mother is reported to have had a dementia, but they are not certain of what type. Performance on the MMSE 2 brief version is extremely low with a raw score of 12/16 and a T score of 21, which is at less than 1%. He was 3/3 for initial registration, 4/5 for orientation to time and 4/[address]. He was 1/3 correct for immediate recall of 3 items after a brief time delay and distraction. Performance on the MMSE 2 standard version was extremely low with a raw score 22/30. That is a T score of 21 and percentile rank of less than 1. He was 1/5 for serial sevens, 2/2 for naming, 1/1 for repetition, 3/3 for comprehension. He could read and follow a single command. The patient was able to dictate a sentence. Letter fluency was extremely low with a raw score of 5 and a T score of 19, which is less than 1%. Category fluency was a raw score of 20, which is a T score of 19 and less than 1%. Overall, total fluency was a raw score of 25, T score of 19 and percentile rank of less than 1. Extremely low functioning in verbal fluency is often seen in executive disorder. Impairment with memory and sustained concentration are also noted. He is very preoccupied and perseverating on conflict that occurred between his and his son regarding informing him of her recent need for cancer treatment. However, perseverative thinking and his mood being more irritable along with depression suggest a mixed presentation of neurocognitive disorder and mood disorder. DIAGNOSTIC IMPRESSION: Neurocognitive disorder -- with intermittent irritability and agitation -- extent to be determined, likely in the moderate range with current functioning moderate to severe. Unspecified depressive disorder. RECOMMENDATIONS: The patient will benefit from a treatment program for [facility] [address] [place] [address] CONSULTATION Name: GERI MCARTHUR Room #: 510-P ADM IN M.R.#: [id number] Admission: 06/19/19 ������������������ Attend Phys: Trevor Villalobos MD Discharge: ������������������ Date of : 55 Report #: [id number] depression that includes initiation of the use of antidepressant medicine. He reportedly had utilized Cymbalta in the past with a fairly good response. Psychiatric consultation to assist in the selection of medication is indicated. At this time, continued cognitive rehabilitation will be helpful to assist him in immediate recall and thought organization along with planning and problem solving. A followup neuropsych assessment approximately 6 weeks after discharge will help clarify the severity or lingering cognitive deficits. At this time, the patient is alert and oriented, but showing fairly severe impairment with immediate recall, attention/concentration, thought organization and executive functioning. Thank you very much for allowing me to provide the consultation on this patient. ��������������������������������������������� <ELECTRONICALLY SIGNED> ���������������������������������������� By: Rome Rice, PhD ��������������������������������������������� 06/26/19 0951 [id number] Rome Rice, PhD /nt
[2019-06-26 10:35] VITALS: BP 136/86
--- NOTE | 2019-06-26 19:57 | NUR ---
ASSUMED CARE OF PT AT 0715. PT IS A&OX4 AND VITAL SIGNS ARE STABLE. PT UP AT ALL MEALS AND TRANSFERED TO W/C WITH 1 PERSON STANDBY ASSISTANCE WITH GAIT BELT. LAB CALLED THIS AFTERNOON AND REPORTED THAT C/S SHOWED RESISTANCE TO ANTIBIOTIC, PROVIDER CONTACTED AND PT STARTED ON PO MEDICATIONS. NURSING WILL FOLLOW-UP [facility] PROVIDER ABOUT HAVING IV REMOVED IF NO LONGER NEEDED. WOUND VAC IN PLACE AND FUNCTIONING APPROPRIATELY. BUCKLEY CATHETER WAS CLAMPED Q2 HOURS, PT DENIED HAVING ANY URGE FOR URINATION. PT BLADDER SCANNED AND SHOWED >100ML WITH EACH SCAN. PT HAS TOTAL OF 375ML OUTPUT THIS SHIFT. PT ENCOURAGED TO INCREASE PO FLUID INTAKE. PT REPORTS DESIRE TO GO HOME, NURSE AND PT DISCUSSED DISCHARGE PLANS AND EXPECTATIONS. PT COMMUNICATES UNDERSTANDING AND PARTICIPATED IN SETTING AND MEETING GOALS DURING SHIFT. PT ON CONTACT ISOLATION FOR MRSA OF SPUTUM. FALL PRECAUTIONS IN PLACE AND NURSING WILL CONTINUE TO MONITOR.
[2019-06-26 20:00] VITALS: BP 128/68
--- NOTE | 2019-06-27 02:55 | NUR ---
ASSUMED CARE AT FROM DAY SHIFT , PT RETURN FROM GOING OUTSIDE WITH , CHEERFUL AND SUZI AND COOPERATIVE , DISCUSSED PLAN OF CARE AGREEABLE ASSISTED TO BED HS CARE GIVEN , RESTED WELL THROUGHOUT HOURLY ROUNDING, WILL REPORT CHANGES OR ABNORMAL FINDINSGS.
[2019-06-27 07:14] LABS: WBC 3.8 thou/uL (4.0-11.0)
[2019-06-27 07:17] LABS: HEMATOCRIT 28.1 % (42.0-52.0); MCH 27.7 pg (26.0-34.0); MCHC 31.9 g/dL (28.0-37.0); PLATELET COUNT 158 thou/uL (150-400); RBC 3.23 mil/uL (4.50-6.00); RDW 19.4 % (10.5-14.5)
[2019-06-27 07:34] LABS: ALBUMIN 2.3 g/dL (3.4-5.0); CALCIUM 8.7 mg/dL (8.5-10.1); CREATININE 1.6 mg/dL (0.7-1.3); MAGNESIUM 1.4 mg/dL (1.8-2.4); PHOSPHORUS 2.7 mg/dL (2.5-4.9)
[2019-06-27 08:05] LABS: ABSOLUTE NEUTROPHILS 2.2 thou/uL (1.4-8.2)
[2019-06-27 08:06] LABS: ANISOCYTOSIS 2+; HYPOCHROMASIA 1+
--- NOTE | 2019-06-27 08:40 | NUR ---
physical therapy let cm know that was holding on line phone call while cm was up in [facility] visiting pt this am. cm spoke with zane on phone, she had concerns voiced about her mental status and how is being treated and felt is affecting his ability to work with therapy. dr mores on [facility] as well who passed on that wanting him to go skilled rehab rt starting chemo. cm asked zane if she wanting cm to send referral to skilled rehab facility " no he is not going skilled i want him transferred to [facility] acute rehab. his mental state might be effected little because told him that i start chemo today but this has been going on and i would like him transferred to another acute rehab"/zane. active listing during visit and education that would discuss with [facility] team and [facility] manufacturing shift supervisor and one of us will call her back [phone]. will cont following as needed for dc needs, passed on information to [facility] nursing manufacturing shift supervisor.
[2019-06-27 09:00] VITALS: BP 150/82
[2019-06-27] MEDS ORDERED: ACIDOPHILUS1 EAC4 PO (10:47)
[2019-06-27] MEDS ORDERED: TRAZODONE HCL50 MG PO ×2 (10:47→11:31)
[2019-06-27] MEDS ORDERED: DEMADEX20 MG PO (10:47)
[2019-06-27] MEDS ORDERED: TYLENOL325 MG PO (10:47)
[2019-06-27] MEDS ORDERED: FLOMAX0.4 MG PO (10:47)
[2019-06-27] MEDS ORDERED: HYDROCODON-ACE1 EAC7 PO (10:48)
[2019-06-27] MEDS ORDERED: LEVAQUIN 500 M500 M2 PO (10:48)
--- NOTE | 2019-06-27 11:46 | NUR ---
nina sent snf referral to [facility], bel today, sent [facility] notice of referral and estefani said they received
--- NOTE | 2019-06-27 15:38 | NUR ---
ASSUMED CARE OF PT AT 0715. REPORTS SLEPT FAIR LAST NIGHT. PT IS A&OX4 AND VSS ON RA. PT REPORTS DESIRE TO GO HOME, NURSE AND PT DISCUSSED DISCHARGE PLANS AND EXPECTATIONS. PT COMMUNICATES UNDERSTANDING AND PARTICIPATED IN SETTING AND MEETING GOALS DURING SHIFT. PT UP WITH THERAPY AND UP TO DINNING ROOM FOR LUNCH. APPETITE GET BETTER. TRANSFER BED<>CHAIR MIN ASSIST WITH GB AND WALKER. PT IS GETTING STRONGER. HAS GENERAL EDEMA BLE. CONTINUE TO BE ON DIURETIC. CONTINUE TO BE ON LEVAQUIN PO FOR UTI. BUCKLEY CATH PATENT AND INTACT WITH 850CC YELLOW URINE ON THIS SHIFT. PRN HYDROCODONE GIVEN PRIOR WOUND VAC CHANGE. WOUND DISCHARGE PICTURE TAKEN. HAD ABOUT 50CC SEROUS DRAINGAGE SINCE THIS AM. WOUND VAC CHANGED BY WOUND NURSE THIS AFTERNOON BEFORE PT DISCHARGE TO [place]. REASSESSMENT PER CHART. LABS REVIEWED. CREATINE 1.6. PT ENCOURAGED TO INCREASE PO FLUID INTAKE. MAG 1.4, MAG SULFATE IV GIVEN. MEDS GIVEN ORDERED. DENIES OTHER PAIN, SOB, N/V. LAST BM WAS YESTERDAY. PT ON CONTACT ISOLATION FOR MRSA OF SPUTUM. [place] NURSE CAME TO ASK QUESTION AND INTERVIEWED PT. PT MAY LEAVE TODAY. AT BEDSIDE. FALL PRECAUTIONS IN PLACE AND NURSING WILL CONTINUE TO MONITOR.
[2019-06-27 20:02] VITALS: BP 153/89
--- NOTE | 2019-06-27 23:36 | NUR ---
ASSUMED CARE OF THE PT AT 191 PM. THE PT WAS SITTING IN A WHEELCHAIR, WHEN THIS SHIPWRIGHT FIRST CAME ON DUTY. ALERT ET ORIENTED X 3. MAKES NEEDS KNOWN. THE PT HAS A SL IN HIS LEFT AC. HE HAS ON A LIFE VEST. HAS A WOUND VAC, WHICH IS WORKING WITHOUT ANY DIFFICULTY. LUNGS CLEAR BILATERALLY, RESP., EVEN, AND UNLABORED. +BS HEARD IN ALL 4 QUADRANTS. FAMILY HERE AT BEDSIDE. CALL LIGHT WITHIN REACH.
[2019-06-28 08:00] VITALS: BP 130/73
[2019-06-28 08:13] VITALS: BP 130/73
--- NOTE | 2019-06-28 08:32 | NUR ---
ASSUMED CARE OF PT AT 0715. PT IS A&OX4 AND VSS ON RA. REPORTS DIDN'T SLEEP WELL LAST NIGHT BUT HAD GOOD REST. PLANS TO DISCHARGE TODAY TO [place]. REASSESSMENT PER CHART. DENIES PAIN. REQUESTS FOR NAUSEA MED. BS 147. NO INSULIN GIVEN. MORNINGS MEDS GIVEN. WOUND VAC INTACT HAS 50 CC SEROSANGUINO DRAINAGE IN CANISTER. BUCKLEY CATH INTACT WITH LIGHT YELLOW DRAINAGE. CONTINUE TO BE ON LEVOFLOXACIN PO FOR UTI. PT UP WITH SPEECH THERAPY THIS AM. APPETITE GET BETTER. ATE 50% BREAKFAST AND DRANK 100% ENSURE. TRANSFER BED<>CHAIR MIN ASSIST WITH GB AND WALKER. PT IS GETTING STRONGER. HAS GENERAL EDEMA BLE. CONTINUE TO BE ON TORESEMIDE. LAST BM WAS YESTERDAY. PT ON CONTACT ISOLATION FOR MRSA OF SPUTUM. AT BEDSIDE. FALL PRECAUTIONS IN PLACE AND NURSING WILL CONTINUE TO MONITOR.
--- NOTE | 2019-06-28 10:36 | NUR ---
Patient to dc today to [facility] sent dc paperwork to [facility] and to [facility] for chart copy. Waiting on [facility] to call with transportation time, stretcher no oxygent.
--- NOTE | 2019-06-28 14:12 | NUR ---
pt cont to dc today [facility] facility will getting all pt supplies, and still needing donovan wound vac from [facility]. pt will not take out wound vac, go with wet dry dressing. transportation stretcher van around 1500. bedside nurse called report.
--- NOTE | 2019-06-30 16:24 | H ---
[facility] [place] [address] [place] [address] HISTORY AND PHYSICAL Name: GERI MCARTHUR Room #: 513-P [facility] IN M.R.#: [id number] Admission: 06/19/19 ������������������ Attend Phys: Trevor Villalobos MD Discharge: 06/28/19 ������������������ Date of : 55 Report #: [id number] THIS REPORT FOR: //name// CC: Trevor Villalobos [facility] physician/PCP DATE OF SERVICE: 06/19/2019 HISTORY AND PHYSICAL/POST-ADMISSION PHYSICIAN EVALUATION HISTORY OF PRESENT ILLNESS: The patient is a 63-year-old male who has been readmitted for acute in-hospital inpatient rehabilitation. The patient was initially admitted on 06/12/2019 with critical illness myopathy, multifactorial encephalopathy with multiple complications after a cardiac arrest with supraventricular tachycardia, acute respiratory failure, acute renal injury for which he was on hemodialysis temporarily as well as septic shock and severe sepsis. Please see the full admission note dictation. On 06/15/2019, he developed abdominal pain, distention, and possible bowel obstruction and was transferred back to acute care. He was followed by multiple consultants physicians. GI was involved and assessed him as having colonic distention consistent with [place] syndrome. He had a rectal tube in place. He was aggressively monitored regarding his electrolytes, narcotics were avoided. He was okay to advance diet as tolerated. He has now been readmitted for acute in-hospital inpatient rehabilitation. As far as prior medical history and social history: Please see my prior dictation. MEDICATIONS: Please see the current medication listing. REVIEW OF SYSTEMS: No current complaints of chest pain, shortness of breath or abdominal discomfort. He has some generalized weakness throughout. PHYSICAL EXAMINATION: GENERAL: A 63-year-old male in no obvious distress. VITAL SIGNS: Last recorded temperature 97.6, pulse 64, respirations 20, and blood pressure 133/73. NEUROLOGIC: He is alert, follows basic 1 step commands, still has some latency to his responses, but appears to be doing better. HEAD, EYES, EARS, NOSE, AND THROAT: Facies were symmetric. He is obese. CHEST: Some diffuse decreased breath sounds, otherwise sounded clear. CARDIOVASCULAR: Regular rate and rhythm. He does have the cardiac vest in place. ABDOMEN: Obese, bowel sounds were positive. Nontender. GENITOURINARY AND RECTAL: He does have the indwelling Hernandez catheter in place. He has the dressing left groin. [facility] [address] [place] [address] HISTORY AND PHYSICAL Name: GERI MCARTHUR Room #: 513-P [facility] IN [facility].#: [id number] Admission: 06/19/19 ������������������ Attend Phys: Trevor Villalobos MD Discharge: 06/28/19 ������������������ Date of : 55 Report #: [id number] EXTREMITIES: Functional range of motion of both upper extremities. Strength is grade 3+ to 4-/5. Lower extremities, bilateral knee incisions well healed. No focal calf swelling, decreased distal sensation consistent with his peripheral neuropathy. Lower extremity strength is grade 3+/5. He has been dependent for lower body dressing and transfers have been max assist, but again this is before he was admitted for a rehab stay. ASSESSMENT: A 63-year-old male readmitted with the following problem list: 1. Critical illness myopathy. 2. Multifactorial encephalopathy with a toxic metabolic and hypoxic component. 3. Cardiac arrest supraventricular tachycardia followed by asystole. 4. Tiana's syndrome. 5. Respiratory insufficiency. 6. Renal insufficiency, had previously been on hemodialysis. 7. Recent severe sepsis with septic shock. 8. Chronic obstructive pulmonary disease. 9. Peripheral vascular disease with recent femoral endarterectomy. 10. Diabetes mellitus type 2 with peripheral neuropathy. 11. Chronic pain with prior neural stimulator. 12. Hypertension. PLAN: The patient has been admitted for acute in-hospital inpatient rehabilitation. He continues with the LifeVest as per Cardiology. He has been treated for his recent abdominal distention. From a postadmission physician evaluation perspective, there are no relevant changes since the preadmission screening. Please see the above review of prior and current medical and functional conditions and comorbidities. Please see the patient's previous and current functional status. As far as risk of complications, he does have the multiple medical comorbidities as noted above. Initial plan of care involves the interdisciplinary acute inpatient rehabilitation program. Prognosis is reasonably good with estimated length of stay probably at least 2-3 weeks pending progress. Potential barriers would include his multiple medical comorbidities and decreased functional status. ��������������������������������������������� <ELECTRONICALLY SIGNED> ���������������������������������������� By: Trevor Villalobos MD ��������������������������������������������� 06/30/19 1624 1018 1056 Trevor Villalobos MD /[facility]
--- NOTE | 2019-06-30 16:36 | PLAN ---
[facility] [place] [address] REHAB UNIT PLAN OF CARE Name: GERI MCARTHUR Room #: 513-P DIS IN M.R.#: [id number] Admission: 06/19/19 ������������������ Attend Phys: Trevor Villalobos MD Discharge: 06/28/19 ������������������ Date of : 55 Report #: [id number] THIS REPORT FOR: //name// CC: Trevor Villalobos [facility] physician/PCP DATE OF SERVICE: 06/22/2019 PROGRESS NOTE/OVERALL PLAN OF CARE SUBJECTIVE: The patient is seen back today in followup. He is in no distress. Last recorded temperature 97.9, pulse 65, respirations 20, blood pressure 145/75. He is alert. Continues to progress as far as therapies. He was able to ambulate 2 steps min assist with a front-wheeled walker. Sit to stand to the roller walker is now mod assist. He is able to perform wheelchair mobility, mod assist. He is on a mechanical soft diet with thin liquids. He does have moderate cognitive problems and severe memory problems. He is dependent for lower body dressing. ASSESSMENT: 1. Critical illness myopathy. 2. Multifactorial encephalopathy. 3. Tiana syndrome. 4. Acute respiratory failure. 5. Acute renal insufficiency. 6. Severe sepsis. 7. Dysphagia, on modified diet. 8. Left groin surgical site wound. 9. Chronic obstructive pulmonary disease. 10. Peripheral vascular disease with recent endarterectomy with stent. 11. Diabetes mellitus type 2. 12. Hypertension. PLAN: The overall plan of care is based on the preadmission screen, post-admission physician evaluation and information garnered from therapy assessments. 1. Estimated length of stay is 2-3 weeks as he is at a lower functional level. 2. Medical prognosis is reasonably good. 3. Anticipated interventions includes the interdisciplinary acute inpatient rehabilitation program. 4. Anticipated functional outcomes would be for him to improve as far as basic transfers, mobility, ADLs, cognition, so that he does well enough with his basic care, so he can return back to the home setting. 5. Discharge destination would be back home with . 6. Expected therapy by discipline includes PT, OT and speech 1 hour per day each five days a week throughout the duration of the acute inpatient [facility] [address] [place] [address] REHAB UNIT PLAN OF CARE Name: GERI MCARTHUR Room #: 513-P [facility] IN ..#: [id number] Admission: 06/19/19 ������������������ Attend Phys: Trevor Villalobos MD Discharge: 06/28/19 ������������������ Date of : 55 Report #: [id number] rehabilitation stay. As he is starting to front-wheeled himself around some of the wheelchair. I did institute closing the main doors to the rehab [facility] as he could become a potential elopement risk. This was discussed with the nursing staff. ��������������������������������������������� <ELECTRONICALLY SIGNED> ���������������������������������������� By: Trevor Villalobos MD ��������������������������������������������� 06/30/19 1636 1418 1828 Trevor Villalobos MD /kandi
== END 2019-06-28 16:05 | DRG 91 ==
PROVIDERS: Hospitalist; Nurse Practitioner; Nurse Practitioner Acute Care; Nurse Practitioner Family; ADMIT Physical Medicine & Rehabilitation
DX: G72.81 Critical illness myopathy (principal); G92 Toxic encephalopathy; J96.00 Acute respiratory failure, unspecified whether with hypoxia or hypercapnia; A41.9 Sepsis, unspecified organism; R65.20 Severe sepsis without septic shock; J96.01 Acute respiratory failure with hypoxia; I46.9 Cardiac arrest, cause unspecified; J69.0 Pneumonitis due to inhalation of food and vomit; E43 Unspecified severe protein-calorie malnutrition; I47.1 Supraventricular tachycardia; K56.7 Ileus, unspecified; G93.1 Anoxic brain damage, not elsewhere classified; N17.9 Acute kidney failure, unspecified; D62 Acute posthemorrhagic anemia; L76.34 Postprocedural seroma of skin and subcutaneous tissue following other procedure; R13.10 Dysphagia, unspecified; J44.9 Chronic obstructive pulmonary disease, unspecified; E11.51 Type 2 diabetes mellitus with diabetic peripheral angiopathy without gangrene; I10 Essential (primary) hypertension; I25.10 Atherosclerotic heart disease of native coronary artery without angina pectoris; I12.9 Hypertensive chronic kidney disease with stage 1 through stage 4 chronic kidney disease, or unspecified chronic kidney disease; E66.9 Obesity, unspecified; E78.5 Hyperlipidemia, unspecified; G47.33 Obstructive sleep apnea (adult) (pediatric); E11.22 Type 2 diabetes mellitus with diabetic chronic kidney disease; N18.3 Chronic kidney disease, stage 3 (moderate); R41.9 Unspecified symptoms and signs involving cognitive functions and awareness; E11.42 Type 2 diabetes mellitus with diabetic polyneuropathy; E87.6 Hypokalemia; E83.42 Hypomagnesemia; M10.9 Gout, unspecified; Y83.8 Other surgical procedures as the cause of abnormal reaction of the patient, or of later complication, without mention of misadventure at the time of the procedure; E11.65 Type 2 diabetes mellitus with hyperglycemia; E11.621 Type 2 diabetes mellitus with foot ulcer; L97.519 Non-pressure chronic ulcer of other part of right foot with unspecified severity; L97.529 Non-pressure chronic ulcer of other part of left foot with unspecified severity; Z68.38 Body mass index [BMI] 38.0-38.9, adult; Z79.899 Other long term (current) drug therapy; Z79.4 Long term (current) use of insulin; Z79.82 Long term (current) use of aspirin; Z88.6 Allergy status to analgesic agent; Z88.8 Allergy status to other drugs, medicaments and biological substances; Y92.89 Other specified places as the place of occurrence of the external cause
CPT/HCPCS: 10112

== ENCOUNTER 2019-07-14 08:51 | Emergency (ER) | payer OTHER, BC ==
[~2019-07-14] VITALS: Ht 180.3 cm; Wt 120.2 kg
[~2019-07-14 08:51] MED LIST changes: +ACIDOPHILUS1 EAC4 PO; +EFFIENT10 MG PO; +FLOMAX0.4 MG PO; +HYDROCODON-ACE1 EAC7 PO; +LEVAQUIN 500 M500 M2 PO; +TRAZODONE HCL50 MG PO; +TYLENOL325 MG PO
[2019-07-14 09:27] LABS: HEMOGLOBIN 10.2 gm/dL (14.0-18.0)
[2019-07-14 09:29] LABS: HEMATOCRIT 31.9 % (42.0-52.0); MCH 26.9 pg (26.0-34.0); MCHC 32.1 g/dL (28.0-37.0); MCV 83.7 fL (80.0-100.0); PLATELET COUNT 240 thou/uL (150-400); RBC 3.81 mil/uL (4.50-6.00); RDW 18.5 % (10.5-14.5); WBC 4.4 thou/uL (4.0-11.0)
[2019-07-14 09:34] LABS: CALCIUM 9.2 mg/dL (8.5-10.1); CREATININE 4.6 mg/dL (0.7-1.3); POTASSIUM 4.3 mmol/L (3.5-5.1)
[2019-07-14 09:40] LABS: ALBUMIN 2.8 g/dL (3.4-5.0); TOTAL BILIRUBIN 0.5 mg/dL (<0.1-1.0); TOTAL PROTEIN 6.7 g/dL (6.4-8.2)
[2019-07-14 09:51] LABS: ABSOLUTE NEUTROPHILS 2.6 thou/uL (1.4-8.2); PLATELET ESTIMATE NORMAL
[2019-07-14 11:24] LABS: URINE BILIRUBIN NEGATIVE (Negative); URINE BLOOD NEGATIVE (Negative); URINE CLARITY CLEAR; URINE COLOR YELLOW; URINE GLUCOSE-RANDOM* NEGATIVE (Negative); URINE KETONES NEGATIVE (Negative); URINE LEUKOCYTES-REFLEX NEGATIVE (Negative); URINE NITRITE-REFLEX NEGATIVE (Negative); URINE PROTEIN (DIPSTICK) NEGATIVE (Negative); URINE SPECIFIC GRAVITY <= 1.005 (1.005-1.035); URINE UROBILINOGEN 0.2 E.U./dl (0.2-1.0)
[2019-07-14 12:14] VITALS: BP 135/75
--- NOTE | 2019-07-15 15:08 | EKG ---
[address] [place] [address] ELECTROCARDIOGRAM REPORT Name: GERI MCARTHUR Room #: DEP 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 : 1955 Requested By: Pelon Prasad Order Number: [id number] MD: Tate Winn Measurements Intervals [place] Rate: 80 P: 38 [place]: 47 QRS: -13 QRSD: 92 T: 75 QT: 393 QTc: 454 Interpretive Statements Sinus tachycardia Multiform ventricular premature complexes Short [place] interval Probable left atrial enlargement Inferior infarct, old Abnormal lateral Q waves Compared to ECG 06/06/2019 08:24:11 Electronically Signed On 07-15-2019 15:08:31 CDT by Tate Winn [email or web address] <ELECTRONICALLY SIGNED> By: Tate Winn MD 07/15/19 1508 1112 1112 Tate Winn MD /[facility]
== END 2019-07-14 12:15 | disposition home or self-care (01) ==
LOC: ER 08:51
PROVIDERS: Emergency Medicine
DX: E11.22 Type 2 diabetes mellitus with diabetic chronic kidney disease (principal); I13.0 Hypertensive heart and chronic kidney disease with heart failure and stage 1 through stage 4 chronic kidney disease, or unspecified chronic kidney disease; I50.9 Heart failure, unspecified; N18.3 Chronic kidney disease, stage 3 (moderate); G47.30 Sleep apnea, unspecified; G89.29 Other chronic pain; M54.9 Dorsalgia, unspecified; E11.40 Type 2 diabetes mellitus with diabetic neuropathy, unspecified; E78.5 Hyperlipidemia, unspecified; I25.2 Old myocardial infarction; G25.81 Restless legs syndrome; F17.210 Nicotine dependence, cigarettes, uncomplicated; Z86.14 Personal history of Methicillin resistant Staphylococcus aureus infection; Z96.653 Presence of artificial knee joint, bilateral; Z98.890 Other specified postprocedural states; Z98.42 Cataract extraction status, left eye; Z79.4 Long term (current) use of insulin; Z88.5 Allergy status to narcotic agent; Z88.8 Allergy status to other drugs, medicaments and biological substances

== ENCOUNTER → 2019-07-26 | Outpatient (CLI) | payer OTHER, BC | LOC: HYPER 15:29 | DX: T81.89XA Other complications of procedures, not elsewhere classified, initial encounter (principal); E11.621 Type 2 diabetes mellitus with foot ulcer; L97.512 Non-pressure chronic ulcer of other part of right foot with fat layer exposed; L97.522 Non-pressure chronic ulcer of other part of left foot with fat layer exposed; E11.22 Type 2 diabetes mellitus with diabetic chronic kidney disease; I12.9 Hypertensive chronic kidney disease with stage 1 through stage 4 chronic kidney disease, or unspecified chronic kidney disease; N18.4 Chronic kidney disease, stage 4 (severe); E11.43 Type 2 diabetes mellitus with diabetic autonomic (poly)neuropathy; I25.10 Atherosclerotic heart disease of native coronary artery without angina pectoris; E78.00 Pure hypercholesterolemia, unspecified; L84 Corns and callosities; I42.9 Cardiomyopathy, unspecified; E78.5 Hyperlipidemia, unspecified; I25.2 Old myocardial infarction; G47.30 Sleep apnea, unspecified; R60.0 Localized edema; J44.9 Chronic obstructive pulmonary disease, unspecified; N17.9 Acute kidney failure, unspecified; Z96.653 Presence of artificial knee joint, bilateral; Z79.4 Long term (current) use of insulin; Z87.891 Personal history of nicotine dependence; Y92.89 Other specified places as the place of occurrence of the external cause; Y83.8 Other surgical procedures as the cause of abnormal reaction of the patient, or of later complication, without mention of misadventure at the time of the procedure ==

== ENCOUNTER 2019-07-29 14:21 | Inpatient (IN) | payer OTHER, BC ==
[~2019-07-29] VITALS: Ht 172.7 cm; Wt 118.4 kg
[2019-07-29 14:22] VITALS: BP 152/93
[2019-07-29 14:58] LABS: ABSOLUTE NEUTROPHILS 7.8 thou/uL (1.4-8.2); BASOPHILS 0.7 % (0.0-2.0); EOSINOPHILS 0.9 % (0.0-3.0); HEMATOCRIT 29.2 % (42.0-52.0); HEMOGLOBIN 9.2 gm/dL (14.0-18.0); LYMPHOCYTES 4.6 % (24.0-44.0); MCH 26.6 pg (26.0-34.0); MCHC 31.6 g/dL (28.0-37.0); MCV 84.3 fL (80.0-100.0); MONOCYTES 9.6 % (1.0-8.0); PLATELET COUNT 128 thou/uL (150-400); POLYS 84.2 % (36.0-66.0); RBC 3.46 mil/uL (4.50-6.00); RDW 19.4 % (10.5-14.5); WBC 9.2 thou/uL (4.0-11.0)
[2019-07-29 15:15] LABS: ANION GAP 14 mmol/L (7-16); BUN 41 mg/dL (7-18); CALCIUM 7.9 mg/dL (8.5-10.1); CHLORIDE 107 mmol/L (98-107); CO2 23 mmol/L (21-32); CREATININE 2.3 mg/dL (0.7-1.3); GLUCOSE 148 mg/dL (74-106); POTASSIUM 3.4 mmol/L (3.5-5.1); SODIUM 144 mmol/L (136-145)
[2019-07-29 15:18] LABS: ALBUMIN 2.7 g/dL (3.4-5.0); MAGNESIUM 1.1 mg/dL (1.8-2.4); SGOT 28 U/L (15-37); SGPT 11 U/L (30-65); TOTAL BILIRUBIN 0.6 mg/dL (<0.1-1.0); TOTAL PROTEIN 5.9 g/dL (6.4-8.2); TROPONIN-I <0.06 ng/mL (<0.06)
[2019-07-29 17:38] VITALS: BP 151/92
[2019-07-29 18:26] VITALS: BP 158/89
[2019-07-29 18:32] VITALS: BP 148/93
[2019-07-29 20:20] LABS: BE(vivo) -1.6 mmol/L (-2 to +3); HCO3 22.9 mmol/L (22.0-26.0); PCO2 37.4 mmHg (35.0-45.0); PO2 109.8 mmHg (80.0-100.0); pH 7.404 (7.360-7.450); sO2 98.1 % (92.0-98.0)
[2019-07-29 20:30] VITALS: BP 160/102
[2019-07-30 00:15] VITALS: BP 148/85
--- NOTE | 2019-07-30 04:11 | NUR ---
RECEIVED REPORT FROM DAY SHIFT RN.PATIENT ON BIPAP.PAIN WELL CONTROLLED.LEFT GROIN WOUND NOTED C/D/I.MONITOR SHOWS SINUS RHYTHM,SINUS TACHY.WILL MONITOR AND CONTINUE POC.
[2019-07-30 04:53] VITALS: BP 101/64
[2019-07-30 07:16] VITALS: BP 108/62
[2019-07-30 08:00] LABS: ALBUMIN 2.2 g/dL (3.4-5.0); CALCIUM 8.9 mg/dL (8.5-10.1); CREATININE 2.8 mg/dL (0.7-1.3); POTASSIUM 4.7 mmol/L (3.5-5.1); TOTAL BILIRUBIN 0.7 mg/dL (<0.1-1.0); TOTAL PROTEIN 6.2 g/dL (6.4-8.2)
--- NOTE | 2019-07-30 10:18 | EKG ---
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 : 1955 Requested By: Pelon Prasad Order Number: [id number] MD: Paul Rojas Measurements Intervals [place] Rate: 112 P: 52 [place]: 191 QRS: -12 QRSD: 86 T: 32 QT: 313 QTc: 428 Interpretive Statements Sinus tachycardia Ventricular premature complex Inferior infarct, old Compared to ECG 07/14/2019 11:12:43 Short [place] interval no longer present Q waves no longer present Myocardial infarct finding still present Electronically Signed On 07-30-2019 10:18:21 CDT by Paul Rojas [email or web address] <ELECTRONICALLY SIGNED> By: Paul Rojas MD 07/30/19 1018 1445 1445 Paul Rojas MD /[facility]
[2019-07-30 11:41] VITALS: BP 124/65
--- NOTE | 2019-07-30 15:59 | NUR ---
Assumed pt care this am, with non pitting edema on both lower ext. Placed on contact isolation cart ordered and maintained. is at the bedside and brought supplies for pt wound om the left groin that is managed by home health and Dr. Bean as per the , consult put in for wound care. Wet to dry dressing as per the fo rthe wound. IV lasix given, pt uses the urinal. Blood sugars are on the high side insulin given accordingly as per EMAR. VS stable. Pt was sleepy for most of the shift but tolerated medication and diet well. As per the they have home health services from [facility] 3x a week. POC followed, no signs or verbalizations of distress have been noted.
--- NOTE | 2019-07-31 04:00 | NUR ---
PT LYING IN BED. DENIES PAIN. RESTING COMFORTABLY. NO NEEDS VOICED. CALL LIGHT WITHIN REACH. WILL CONTINUE TO PROVIDE FREQUENT OBSERVATION.
[2019-07-31 04:03] VITALS: BP 137/71
[2019-07-31 04:55] LABS: ALBUMIN 2.4 g/dL (3.4-5.0); CALCIUM 9.1 mg/dL (8.5-10.1); CREATININE 2.8 mg/dL (0.7-1.3); PHOSPHORUS 3.1 mg/dL (2.5-4.9); POTASSIUM 4.7 mmol/L (3.5-5.1)
[2019-07-31 07:24] VITALS: BP 126/75
[2019-07-31 12:04] VITALS: BP 120/57
[2019-07-31 15:34] VITALS: BP 142/79
[2019-07-31] MEDS ORDERED: DEMADEX20 MG PO (17:23)
[2019-07-31 17:30] VITALS: BP 142/79
--- NOTE | 2019-07-31 18:03 | NUR ---
PATIENT DISCHARGED TO HOME ACCOMPANIED BY , DISCHARGE INSTRUCTIONS GIVEN, STATED UNDERSTANDING.
--- NOTE | 2019-08-09 08:39 | HC ---
[facility] [address] CONSULTATION Name: GERI MCARTHUR Room #: 204-P [facility] IN M.R.#: [id number] Admission: 07/29/19 Attend Phys: Jenna Billingsley Discharge: 07/31/19 Date of : 55 Report #: [id number] THIS REPORT FOR: //name// CC: Adele Billingsley DATE OF SERVICE: 07/30/2019 REASON FOR THE CONSULTATION: Chronic kidney disease. HISTORY OF PRESENT ILLNESS: A 63-year-old who presented with shortness of breath and was found to have low oxygen saturation. He also had some cough associated with his shortness of breath. The patient is known to have heart failure, COPD, diabetes mellitus. He denies any fever or chills. His blood pressure has been under well control. His baseline creatinine is around 2.5. He recently was hospitalized for pneumonia, acute kidney injury, required exploration of his left groin with wound VAC. He also had some runs of SVT associated with asystole and ventricular tachycardia and remained in the ICU for some time. He required dialysis for a short period of time. He had an LAD stent. He has no symptoms of coronary artery disease. When he presented yesterday, he was found to be in pulmonary edema and was admitted to be further evaluated. He was initiated on CPAP with some improvement of his symptoms. I am being consulted to manage his chronic kidney disease. PAST MEDICAL HISTORY: Extensive and includes the followin. Hypertension. 2. Diabetes mellitus. 3. Coronary artery disease. 4. Recent LAD stent. 5. COPD. 6. Recent femoral endarterectomy, complicated by wound infection. 7. Sleep apnea. 8. Hyperlipidemia. 9. Acute kidney injury, requiring dialysis x 2. 10. History of methicillin-resistant Staphylococcus aureus. 11. Neurostimulator implant. 12. Status post SVT, asystole, V-tach. MEDICATIONS: 1. Amiodarone. 2. Clonidine. 3. Torsemide. 4. Flomax. 5. Trazodone. 6. Carvedilol. [facility] [address] [place] [address] CONSULTATION Name: MCARTHURNEVAREZ ZACHARIAH Room #: 204-P [facility] IN M.R.#: [id number] Admission: 07/29/19 Attend Phys: Jenna Billingsley Discharge: 07/31/19 Date of : 55 Report #: [id number] ALLERGIES: CODEINE AND STATINS. SOCIAL HISTORY: Denies drug or alcohol abuse. Lives with his . REVIEW OF SYSTEMS: GENERAL: No fever or chills, but significant for weakness. PULMONARY: As per history of present illness. CARDIOVASCULAR: No chest pain or palpitation. GASTROINTESTINAL: No nausea or vomiting. GENITOURINARY: No frequency or urgency. MUSCULOSKELETAL: Occasional muscle aches and back pain. SKIN: No rash or ulcerations. NEUROLOGIC: No headache, no dizziness. FAMILY HISTORY: Significant for diabetes mellitus and hypertension. PHYSICAL EXAMINATION: GENERAL: Alert, oriented. VITAL SIGNS: Blood pressure is 101/64, temperature is 37.1, pulse ox is 100% on BiPAP, pulse rate 88. HEAD AND NECK: No jugular venous distention. CHEST: Bilateral crackles. CARDIOVASCULAR: No rub detected. ABDOMEN: Soft, nontender. EXTREMITIES: Lower extremities, no edema. LABORATORY VALUES: Revealed sodium of 144, potassium of 3.4, BUN of 41, creatinine of 2.3, magnesium of 1.1. Those were from yesterday. Labs from today are pending. IMAGING: Chest x-ray reviewed, significant pulmonary edema. ASSESSMENT, IMPRESSION, PLAN: 1. Chronic kidney disease. 2. Pulmonary edema. 3. Coronary artery disease. 4. Status post cardiac arrest. 5. SVT. 6. Ventricular tachycardia. 7. Post LAD stent. 8. Dialysis dependence in the past. 9. Agree with the plan to diurese the patient for now. 10. Creatinine seems to be at baseline. 11. Continue the blood pressure control medications. 12. Continue his coronary artery disease medications. 13. [place] [address] CONSULTATION Name: GERI MCARTHUR Room #: 204-P [facility] IN M.R.#: [id number] Admission: 07/29/19 Attend Phys: Jenna Billingsley Discharge: 07/31/19 Date of : 55 Report #: [id number] 14. Fluid restrictions. 15. Salt restrictions. 16. We will bridge over to an oral diuretic regimen. <ELECTRONICALLY SIGNED> By: Kojo Aj MD 08/09/19 0839 0548 2323 Kojo Aj MD /nt
== END 2019-07-31 18:05 | disposition home or self-care (01) | DRG 291 ==
LOC: ER 14:21 → EROBS 15:38 → 2N 18:07
PROVIDERS: Emergency Medicine; Hospitalist; Internal Medicine Pulmonary Disease; Nurse Practitioner; ADMIT Hospitalist
PROC: 5A09457 Assistance with Respiratory Ventilation, 24-96 Consecutive Hours, Continuous Positive Airway Pressure (ICD-10-PCS; principal; 2019-07-29)
PROC: 5A09357 Assistance with Respiratory Ventilation, Less than 24 Consecutive Hours, Continuous Positive Airway Pressure (ICD-10-PCS; 2019-07-31)
DX: I13.0 Hypertensive heart and chronic kidney disease with heart failure and stage 1 through stage 4 chronic kidney disease, or unspecified chronic kidney disease (principal); J18.9 Pneumonia, unspecified organism; J96.01 Acute respiratory failure with hypoxia; I50.43 Acute on chronic combined systolic (congestive) and diastolic (congestive) heart failure; E46 Unspecified protein-calorie malnutrition; I47.1 Supraventricular tachycardia; J44.9 Chronic obstructive pulmonary disease, unspecified; E11.40 Type 2 diabetes mellitus with diabetic neuropathy, unspecified; E11.22 Type 2 diabetes mellitus with diabetic chronic kidney disease; I25.10 Atherosclerotic heart disease of native coronary artery without angina pectoris; E78.5 Hyperlipidemia, unspecified; G47.33 Obstructive sleep apnea (adult) (pediatric); E11.51 Type 2 diabetes mellitus with diabetic peripheral angiopathy without gangrene; G25.81 Restless legs syndrome; Z96.653 Presence of artificial knee joint, bilateral; N18.3 Chronic kidney disease, stage 3 (moderate); Z98.41 Cataract extraction status, right eye; Z98.42 Cataract extraction status, left eye; I25.2 Old myocardial infarction; Z95.5 Presence of coronary angioplasty implant and graft; Z95.820 Peripheral vascular angioplasty status with implants and grafts; Z86.14 Personal history of Methicillin resistant Staphylococcus aureus infection; Z79.82 Long term (current) use of aspirin; Z79.899 Other long term (current) drug therapy; Z79.84 Long term (current) use of oral hypoglycemic drugs; Z88.5 Allergy status to narcotic agent; Z88.8 Allergy status to other drugs, medicaments and biological substances; Z87.891 Personal history of nicotine dependence; Z68.39 Body mass index [BMI] 39.0-39.9, adult; Z99.2 Dependence on renal dialysis
CPT/HCPCS: 10194

== ENCOUNTER → 2019-08-16 | Outpatient (CLI) | payer OTHER, BC | LOC: HYPER 09:09 | DX: T81.89XD Other complications of procedures, not elsewhere classified, subsequent encounter (principal); E11.621 Type 2 diabetes mellitus with foot ulcer; L97.522 Non-pressure chronic ulcer of other part of left foot with fat layer exposed; L97.512 Non-pressure chronic ulcer of other part of right foot with fat layer exposed; S81.002D Unspecified open wound, left knee, subsequent encounter; S81.001D Unspecified open wound, right knee, subsequent encounter; E11.43 Type 2 diabetes mellitus with diabetic autonomic (poly)neuropathy; E11.40 Type 2 diabetes mellitus with diabetic neuropathy, unspecified; N17.9 Acute kidney failure, unspecified; E78.00 Pure hypercholesterolemia, unspecified; E11.22 Type 2 diabetes mellitus with diabetic chronic kidney disease; I13.0 Hypertensive heart and chronic kidney disease with heart failure and stage 1 through stage 4 chronic kidney disease, or unspecified chronic kidney disease; N18.4 Chronic kidney disease, stage 4 (severe); I50.9 Heart failure, unspecified; I42.9 Cardiomyopathy, unspecified; I25.2 Old myocardial infarction; I25.10 Atherosclerotic heart disease of native coronary artery without angina pectoris; E78.5 Hyperlipidemia, unspecified; G47.30 Sleep apnea, unspecified; R60.0 Localized edema; J44.9 Chronic obstructive pulmonary disease, unspecified; Z79.4 Long term (current) use of insulin; Z96.653 Presence of artificial knee joint, bilateral; Z87.891 Personal history of nicotine dependence; X58.XXXD Exposure to other specified factors, subsequent encounter; Y83.8 Other surgical procedures as the cause of abnormal reaction of the patient, or of later complication, without mention of misadventure at the time of the procedure ==

== ENCOUNTER → 2019-08-29 | Outpatient (CLI) | payer OTHER, BC ==
--- NOTE | 2019-08-29 09:21 | 2DMMODE ---
[facility] [place] [address] 2 D/M-MODE ECHOCARDIOGRAM Name: GERI MCARTHUR Room #: [facility]#: [id number] Admission: 08/29/19 Attend Phys: Paul Rojas MD Discharge: Date of : 55 Report #: [id number] THIS REPORT FOR: //name// APPROVED REPORT Study performed: 08/29/2019 08:23:57 EXAM: Comprehensive 2D, Doppler, and color-flow Echocardiogram Patient Location: Out-Patient Status: routine BSA: 2.36 HR: 80 bpm BP: 136/74 mmHg Rhythm: NSR/PVCs Other Information Study Quality: Adequate Indications CAD. Hx: cardiac arrest, Life Vest, MN, stent, DM, HTN. 2D Dimensions RVDd: 43.65 mm IVSd: 11.00 (7-11mm) LVOT Diam: 21.07 (18-24mm) LVDd: 62.33 mm PWd: 10.00 (7-11mm) LVDs: 53.76 (25-40mm) Aortic Root: 33.49 mm Volumes Left Atrial Volume (Systole) Single Plane 4CH: 80.08 mL Single Plane 2CH: 118.96 mL LA ESV Index: 44.00 mL/m2 Aortic Valve AoV Peak Gold.: 1.81 m/s AO Peak Gr.: 13.05 mmHg LVOT Max P.14 mmHg AO Mean Gr.: 6.99 mmHg AO V2 Mean: 1.24 m/s LVOT Max V: 1.13 m/s AO V2 VTI: 37.82 cm BENJIE Vmax: 2.19 cm2 Mitral Valve [facility] [address] [place] [address] 2 D/M-MODE ECHOCARDIOGRAM Name: GERI MCARTHUR Room #: [facility]#: [id number] Admission: 08/29/19 Attend Phys: Paul Rojas MD Discharge: Date of : 55 Report #: [id number] E/A Ratio: 1.0 MV Decel. Time: 196.05 ms MV E Max Gold.: 0.91 m/s MV A Gold.: 0.87 m/s MV PHT: 56.86 ms IVRT: 79.58 ms Pulmonary Valve PV Peak Gold.: 0.92 m/s PV Peak Gr.: 3.40 mmHg Tricuspid Valve RAP Estimate: 5.00 mmHg Left Ventricle Left ventricle is mildly dilated. There is normal left ventricular wall thickness. Left ventricular systolic function is moderately decreased. LVEF is 35-40%. Moderate diastolic dysfunction is present (pseudonormal filling). Right Ventricle Right ventricle is at the upper limits of normal. The right ventricular systolic function is normal. Atria Left atrium is moderately dilated. Right atrium is mildly dilated. Aortic Valve The aortic valve is normal in structure; mildly calcified. Mild aortic regurgitation. There is no aortic valvular stenosis. Mitral Valve The mitral valve is normal in structure. Mild to moderate mitral regurgitation. Tricuspid Valve The tricuspid valve is normal in structure. Trace tricuspid regurgitation. Unable to assess PA pressure. Pulmonic Valve Pulmonic valve is not well visualized. Great Vessels The aortic root is normal in size. Ascending aorta is not well visualized. IVC is normal in size and collapses >50% with inspiration. [facility] [address] [place] [address] 2 D/M-MODE ECHOCARDIOGRAM Name: GERI MCARTHUR ZACHARIAH Room #: [facility]#: [id number] Admission: 08/29/19 Attend Phys: Paul Rojas MD Discharge: Date of : 55 Report #: [id number] Pericardium There is no pericardial effusion. <Conclusion> Left ventricle is mildly dilated. There is normal left ventricular wall thickness. Left ventricular systolic function is moderately decreased. LVEF is 35-40%. Moderate diastolic dysfunction is present (pseudonormal filling). Left atrium is moderately dilated. Mild aortic regurgitation. Mild to moderate mitral regurgitation. Trace tricuspid regurgitation. <ELECTRONICALLY SIGNED> By: Paul Rojas MD 08/29/19920 0 0921 Paul Rojas MD /INF
== END ==
LOC: CV 08:07
DX: I08.0 Rheumatic disorders of both mitral and aortic valves (principal); I25.812 Atherosclerosis of bypass graft of coronary artery of transplanted heart without angina pectoris; I25.2 Old myocardial infarction; E11.9 Type 2 diabetes mellitus without complications; I10 Essential (primary) hypertension; Z88.8 Allergy status to other drugs, medicaments and biological substances

== ENCOUNTER → 2019-08-29 | Outpatient (CLI) | payer OTHER, BC | LOC: HYPER 08:56 | DX: T81.89XD Other complications of procedures, not elsewhere classified, subsequent encounter (principal); E11.621 Type 2 diabetes mellitus with foot ulcer; L97.512 Non-pressure chronic ulcer of other part of right foot with fat layer exposed; L97.522 Non-pressure chronic ulcer of other part of left foot with fat layer exposed; S80.211D Abrasion, right knee, subsequent encounter; S80.212D Abrasion, left knee, subsequent encounter; E11.43 Type 2 diabetes mellitus with diabetic autonomic (poly)neuropathy; E11.22 Type 2 diabetes mellitus with diabetic chronic kidney disease; I12.9 Hypertensive chronic kidney disease with stage 1 through stage 4 chronic kidney disease, or unspecified chronic kidney disease; N18.4 Chronic kidney disease, stage 4 (severe); I25.10 Atherosclerotic heart disease of native coronary artery without angina pectoris; E78.00 Pure hypercholesterolemia, unspecified; N17.9 Acute kidney failure, unspecified; E78.5 Hyperlipidemia, unspecified; L84 Corns and callosities; I42.9 Cardiomyopathy, unspecified; I25.2 Old myocardial infarction; R60.0 Localized edema; G47.30 Sleep apnea, unspecified; J44.9 Chronic obstructive pulmonary disease, unspecified; Z96.653 Presence of artificial knee joint, bilateral; Z87.891 Personal history of nicotine dependence; Z79.4 Long term (current) use of insulin; X58.XXXD Exposure to other specified factors, subsequent encounter; Y83.8 Other surgical procedures as the cause of abnormal reaction of the patient, or of later complication, without mention of misadventure at the time of the procedure ==

== ENCOUNTER → 2019-09-26 | Outpatient (CLI) | payer OTHER, BC | LOC: HYPER 08:25 | DX: E11.621 Type 2 diabetes mellitus with foot ulcer (principal); L97.522 Non-pressure chronic ulcer of other part of left foot with fat layer exposed; L97.512 Non-pressure chronic ulcer of other part of right foot with fat layer exposed; S80.211D Abrasion, right knee, subsequent encounter; S80.212D Abrasion, left knee, subsequent encounter; E11.43 Type 2 diabetes mellitus with diabetic autonomic (poly)neuropathy; E11.22 Type 2 diabetes mellitus with diabetic chronic kidney disease; I13.0 Hypertensive heart and chronic kidney disease with heart failure and stage 1 through stage 4 chronic kidney disease, or unspecified chronic kidney disease; N18.4 Chronic kidney disease, stage 4 (severe); I50.9 Heart failure, unspecified; I25.10 Atherosclerotic heart disease of native coronary artery without angina pectoris; E78.00 Pure hypercholesterolemia, unspecified; N17.9 Acute kidney failure, unspecified; L84 Corns and callosities; E78.5 Hyperlipidemia, unspecified; I42.9 Cardiomyopathy, unspecified; I25.2 Old myocardial infarction; G47.30 Sleep apnea, unspecified; R60.0 Localized edema; J44.9 Chronic obstructive pulmonary disease, unspecified; Z79.4 Long term (current) use of insulin; Z87.891 Personal history of nicotine dependence; X58.XXXD Exposure to other specified factors, subsequent encounter ==

== ENCOUNTER 2019-09-28 22:04 | Emergency (ER) | payer OTHER, BC ==
[~2019-09-28] VITALS: Ht 180.3 cm; Wt 116.6 kg
[2019-09-28 23:36] LABS: HEMOGLOBIN 8.9 gm/dL (14.0-18.0); RBC 3.41 mil/uL (4.50-6.00); RDW 19.8 % (10.5-14.5)
[2019-09-28 23:38] LABS: ABSOLUTE NEUTROPHILS 5.7 thou/uL (1.4-8.2); EOSINOPHILS 1.1 % (0.0-3.0); HEMATOCRIT 28.2 % (42.0-52.0); LYMPHOCYTES 23.3 % (24.0-44.0); MCHC 31.5 g/dL (28.0-37.0); MCV 82.6 fL (80.0-100.0); MONOCYTES 6.3 % (1.0-8.0); PLATELET COUNT 239 thou/uL (150-400); POLYS 68.3 % (36.0-66.0); WBC 8.3 thou/uL (4.0-11.0)
[2019-09-28 23:45] LABS: CALCIUM 9.3 mg/dL (8.5-10.1); CREATININE 2.9 mg/dL (0.7-1.3); POTASSIUM 4.1 mmol/L (3.5-5.1)
[2019-09-29 00:53] VITALS: BP 120/68
== END 2019-09-29 00:54 | disposition home or self-care (01) ==
LOC: ER 22:04
PROVIDERS: Emergency Medicine
DX: S80.211A Abrasion, right knee, initial encounter (principal); S90.811A Abrasion, right foot, initial encounter; S80.812A Abrasion, left lower leg, initial encounter; I50.9 Heart failure, unspecified; I13.0 Hypertensive heart and chronic kidney disease with heart failure and stage 1 through stage 4 chronic kidney disease, or unspecified chronic kidney disease; E11.22 Type 2 diabetes mellitus with diabetic chronic kidney disease; E78.5 Hyperlipidemia, unspecified; J44.9 Chronic obstructive pulmonary disease, unspecified; N18.3 Chronic kidney disease, stage 3 (moderate); M54.9 Dorsalgia, unspecified; G47.30 Sleep apnea, unspecified; G89.29 Other chronic pain; F17.210 Nicotine dependence, cigarettes, uncomplicated; Z86.14 Personal history of Methicillin resistant Staphylococcus aureus infection; Z95.5 Presence of coronary angioplasty implant and graft; Z79.4 Long term (current) use of insulin; Z88.6 Allergy status to analgesic agent; Z88.8 Allergy status to other drugs, medicaments and biological substances; W18.39XA Other fall on same level, initial encounter; Y93.89 Activity, other specified; Y92.89 Other specified places as the place of occurrence of the external cause; Y99.8 Other external cause status

== ENCOUNTER → 2019-10-24 | Outpatient (CLI) | payer OTHER, BC | LOC: HYPER 08:11 | DX: E11.621 Type 2 diabetes mellitus with foot ulcer (principal); L97.512 Non-pressure chronic ulcer of other part of right foot with fat layer exposed; S80.211D Abrasion, right knee, subsequent encounter; S90.414A Abrasion, right lesser toe(s), initial encounter; S90.811A Abrasion, right foot, initial encounter; S90.511A Abrasion, right ankle, initial encounter; L84 Corns and callosities; E11.43 Type 2 diabetes mellitus with diabetic autonomic (poly)neuropathy; E11.22 Type 2 diabetes mellitus with diabetic chronic kidney disease; I13.0 Hypertensive heart and chronic kidney disease with heart failure and stage 1 through stage 4 chronic kidney disease, or unspecified chronic kidney disease; N18.4 Chronic kidney disease, stage 4 (severe); I50.9 Heart failure, unspecified; E66.01 Morbid (severe) obesity due to excess calories; E78.00 Pure hypercholesterolemia, unspecified; E78.5 Hyperlipidemia, unspecified; G47.30 Sleep apnea, unspecified; I25.10 Atherosclerotic heart disease of native coronary artery without angina pectoris; I42.9 Cardiomyopathy, unspecified; I25.2 Old myocardial infarction; R60.0 Localized edema; N17.9 Acute kidney failure, unspecified; J44.9 Chronic obstructive pulmonary disease, unspecified; Z79.4 Long term (current) use of insulin; Z68.39 Body mass index [BMI] 39.0-39.9, adult; Z87.891 Personal history of nicotine dependence; Z98.41 Cataract extraction status, right eye; Z96.653 Presence of artificial knee joint, bilateral; X58.XXXA Exposure to other specified factors, initial encounter; Y93.89 Activity, other specified; Y92.89 Other specified places as the place of occurrence of the external cause; Y99.8 Other external cause status ==

== ENCOUNTER → 2019-11-25 | Outpatient (CLI) | payer OTHER, BC | LOC: CAT 07:26 | DX: J84.10 Pulmonary fibrosis, unspecified (principal); J98.4 Other disorders of lung; R91.8 Other nonspecific abnormal finding of lung field; I25.10 Atherosclerotic heart disease of native coronary artery without angina pectoris; I51.7 Cardiomegaly; M25.78 Osteophyte, vertebrae; I70.0 Atherosclerosis of aorta; Z87.81 Personal history of (healed) traumatic fracture ==

== ENCOUNTER 2019-11-28 12:16 | Inpatient (IN) | payer OTHER, BC ==
[~2019-11-28] VITALS: Ht 180.3 cm; Wt 111.6 kg
--- NOTE | ~2019-11-28 | D ---
[facility] [place] [address] DISCHARGE SUMMARY Name: GERI MCARTHUR Room #: 211-P [facility] IN M.R.#: [id number] Admission: 11/28/19 Attend Phys: Devendra Aldana MD Discharge: Date of : 55 Report #: [id number] THIS REPORT FOR: cc: Adele Lorenzo MD, Constance M. MD Couchonnal, Luis F. MD ~ THIS REPORT FOR: //name// CC: Devendra Lorenzo DATE OF SERVICE: 11/28/2019 ELECTROPHYSIOLOGY CONSULTATION REASON FOR CONSULTATION: Sustained monomorphic ventricular tachycardia. HISTORY: The patient is a 64-year-old male with history of coronary artery disease, status post DC and history of ventricular tachycardia. He was hospitalized last year and had an episode of sustained monomorphic ventricular tachycardia with cardiac arrest. His hospitalization was complicated by a left leg infection from a recent left femoral arterectomy performed in 03/2019. As such, a LifeVest was placed on him. I saw the patient back in August and at that time, we were planning on proceeding with ICD implantation. However, apparently he developed a left knee infection and had that undergo I and D, which was performed by Dr. Noel. He was on IV antibiotics for several weeks and eventually was transitioned over to doxycycline per the Infectious Disease specialist. He is following with Dr. Baca with [facility] Infectious Disease consultants. He is getting frequent labs performed at this doctor's office for managing his infection. Today, the patient presented to Dr. Rojas for his general cardiology followup visit for routine evaluation. Apparently, the patient has been having palpitations off and on for the past day or so with lightheadedness and apparently had a syncopal episode this morning. Apparently, he was trying to get up to sit in his chair and his found him on the floor. When he presented to the Cardiology Clinic today, he was in a sustained ventricular tachycardia with a left bundle branch block morphology, positive concordance in the precordial leads, positive in leads II, III, aVF and negative in lead I. Rates were in the 120s to 130s. He is wearing a LifeVest, but this is below the LifeVest cutoff zone. As such, I took the patient to the ER, had him sedated by anesthesia. We performed a 200 joule synchronized cardioversion with judaism of sinus rhythm. He is currently feeling better. A 12-point review of systems was performed and he denies any chest pain, shortness of breath, PND or orthopnea. No fevers or chills. Otherwise, review of systems was normal. PAST MEDICAL HISTORY: [facility] [address] [place] [address] DISCHARGE SUMMARY Name: GERI MCARTHUR Room #: 211-P [facility] IN M.R.#: [id number] Admission: 11/28/19 Attend Phys: Devendra Aldana MD Discharge: Date of : 55 Report #: [id number] 1. Coronary artery disease, status post DC in 1991. 2. Ischemic cardiomyopathy. 3. Hypertension. 4. Diabetes. 5. Hyperlipidemia. 6. Chronic renal insufficiency with acute renal failure in 09/2018 requiring dialysis x 1. He does follow with Nephrology. 7. Chronic obstructive pulmonary disease. 8. Nuclear stress test in 02/2018, non-transmural infarct in the inferior and basal inferolateral wall. EF 49%. 9. In 03/2009, underwent stent placement to the left iliac and popliteal arteries followed by left femoral arterial endarterectomy. 10. VT, status post cardiac arrest, status post LifeVest placement. At the time of that cardiac arrest, he had a stent placed to his LAD. 11. Echo in 05/2019, EF 30-35%. SOCIAL HISTORY: Does not smoke. FAMILY HISTORY: Noncontributory. ALLERGIES: Include CODEINE, PROCHLORPERAZINE, CRESTOR, LIPITOR, LIVALO, ZOCOR, LISINOPRIL. MEDICATIONS: Include albuterol, allopurinol, amiodarone 200 mg a day, aspirin, Coreg 25 b.i.d., Welchol, Cymbalta, Lunesta, Zetia, fish oil, gabapentin, hydromorphone, insulin, losartan 25 half tablet a day, Dulera, multivitamin, Niaspan, Percocet, Mirapex, Effient, Lyrica, Flomax, testosterone, Spiriva, Zanaflex and torsemide. PHYSICAL EXAMINATION: VITAL SIGNS: Afebrile. Pulse currently in the 50s, blood pressure 92/53, sats 99%. GENERAL: He is in no acute distress, but somewhat lethargic. HEENT: Oropharynx is clear. NECK: Supple. HEART: Tachycardic with no JVD. LUNGS: Clear to auscultation bilaterally. ABDOMEN: Soft, nontender, nondistended. EXTREMITIES: No clubbing, cyanosis, edema. Cranial nerves 2-12 are intact. DIAGNOSTIC IMAGING: A 12-lead EKG as mentioned showed monomorphic ventricular tachycardia. LABORATORY DATA: Hemoglobin 8, white count 4.9, and platelets 255. Sodium 138, potassium 4, BUN 72, creatinine 3.4, AST 53, ALT 37, alkaline phosphatase 355, albumin 2.6, TSH 9.9. [address] [address] DISCHARGE SUMMARY Name: GERI MCARTHUR Room #: 211-P [facility] IN ..#: [id number] Admission: 11/28/19 Attend Phys: Devendra Aldana MD Discharge: Date of : 55 Report #: [id number] ASSESSMENT: 1. Monomorphic ventricular tachycardia. 2. Ischemic cardiomyopathy. 3. Coronary artery disease. 4. Recent knee infection. 5. Acute on chronic renal insufficiency. PLAN: In summary, the patient is status post cardioversion. We will start him on high dose IV amiodarone and continue with IV loading. He has only been on 200 mg of amiodarone a day and we will need to increase this eventually to 400 mg a day after he has been appropriately loaded. We will attempt to proceed with ICD implantation this hospitalization. We will repeat an echocardiogram. We will have Infectious Disease evaluate given his recent knee infection. Nephrology will likely also need to get involved given his renal issues. We will continue to follow. By: [id number] Tate Winn MD /nt
--- NOTE | ~2019-11-28 | P ---
[facility] [place] [address] PROCEDURE REPORT Name: GERI MCARTHUR Room #: 211-P [facility] IN M.R.#: [id number] Admission: 11/28/19 Attend Phys: Devendra Aldana MD Discharge: Date of : 55 Report #: [id number] THIS REPORT FOR: cc: Adele Lorenzo MD,Tate Head MD, MD ~ CC: Devendra Lorenzo DATE OF SERVICE: 11/28/2019 CARDIOVERSION PREOPERATIVE DIAGNOSIS: Sustained ventricular tachycardia. POSTOPERATIVE DIAGNOSIS: Sustained ventricular tachycardia. HISTORY: The patient is a 64-year-old with history of ischemic cardiomyopathy, presents to the ER with sustained VT in the 130s here for cardioversion in the ER. ANESTHESIA: The patient was sedated by the ER attending using propofol. Once sedated, I performed a 200 joule synchronized cardioversion with samaritan of sinus rhythm. CONCLUSIONS: Successful DC cardioversion with samaritan of sinus rhythm. By: [id number] Tate Winn MD /nt
--- NOTE | ~2019-11-28 | EKG ---
[facility] [place] [address] ELECTROCARDIOGRAM REPORT Name: GERI MCARTHUR Room #: 239-P ADM IN M.R.#: [id number] Admission: 11/28/19 Attend Phys: Devendra Aldana MD Discharge: Date of : 55 Report #: [id number] THIS REPORT FOR: cc: Adele Lorenzo MD, Constance M. MD Epiphany, Epiphany MD ~ THIS REPORT FOR: //name// [facility] ED Test Date: 2019-11-28 Test Time: 12:52:54 Pat Name: GERI MCARTHUR Department: Room: 211 P Gender: M Master Welder: nandini : 1955 Requested By: Kelly López Order Number: [id number] MD: Measurements Intervals [place] Rate: 55 P: 54 FL: 209 QRS: -18 QRSD: 100 T: 99 QT: 439 QTc: 420 Interpretive Statements Sinus rhythm Inferior infarct, old Probable anterolateral infarct, old Compared to ECG 07/29/2019 14:45:25 Sinus tachycardia no longer present Ventricular premature complex(es) no longer present Myocardial infarct finding still present [email or web address] By: [id number] 51 Epiphany Epiphany, [place] /EPI
[~2019-11-28 12:16] MED LIST changes: -AMIODARONE HCL400 MG PO; -DOXYCYCLINE MO100 MG PO; -DULOXETINE HCL60 MG PO; -LUMIGAN2.5 M1 EA. EYE; -TORSEMIDE20 MG PO; -TRADJENTA5 MG PO
[2019-11-28 12:43] LABS: HEMOGLOBIN 8.7 gm/dL (14.0-18.0)
[2019-11-28 12:45] LABS: HEMATOCRIT 28.8 % (42.0-52.0); MCH 23.1 pg (26.0-34.0); MCHC 30.1 g/dL (28.0-37.0); MCV 76.6 fL (80.0-100.0); PLATELET COUNT 255 thou/uL (150-400); RBC 3.76 mil/uL (4.50-6.00); RDW 19.2 % (10.5-14.5); WBC 4.9 thou/uL (4.0-11.0)
[2019-11-28 12:52] LABS: ANION GAP 11 mmol/L (7-16); BUN 72 mg/dL (7-18); CALCIUM 9.3 mg/dL (8.5-10.1); CHLORIDE 101 mmol/L (98-107); CO2 26 mmol/L (21-32); CREATININE 3.4 mg/dL (0.7-1.3); GLUCOSE 105 mg/dL (74-106); SODIUM 138 mmol/L (136-145)
[2019-11-28 13:03] LABS: ALBUMIN 2.6 g/dL (3.4-5.0); DIRECT BILIRUBIN 0.2 mg/dL (<0.1-0.2); MAGNESIUM 1.8 mg/dL (1.8-2.4); SGOT 53 U/L (15-37); SGPT 37 U/L (30-65); TOTAL BILIRUBIN 0.6 mg/dL (<0.1-1.0); TOTAL PROTEIN 8.2 g/dL (6.4-8.2); TROPONIN-I <0.06 ng/mL (<0.06)
[2019-11-28 13:10] LABS: ABSOLUTE NEUTROPHILS 2.4 thou/uL (1.4-8.2); ANISOCYTOSIS 2+; PLATELET ESTIMATE NORMAL
[2019-11-28 14:21] VITALS: BP 107/57
[2019-11-28 15:01] VITALS: BP 105/55
--- NOTE | 2019-11-28 16:39 | NUR ---
PT ARRIVED TO UNIT AT APPROX 1515 BY ER STAFF. PT ALERT AND ORIENTED. VSS. DENIES PAIN. RHYTHM REGULAR SR. PT ON AMIO GTT AT 1MG/MIN PER ORDERS. O2 SATS WNL ON ROOM AIR. TELE STRIP PRINTED AND DOCUMENTED. ADMISSION COMPLETE. CONSENTS SIGNED. IN ROOM WITH PT. DR ARIAN RODRIGUES PT. PLAN IS FOR POSSIBLE ICD PLACEMENT. PT WOUNDS DOCUMENTED AND PHOTOGRAPHED PER PROTOCOL. PT DENYING NEEDS AT THIS TIME. WILL CONT TO MONITOR AND FOLLOW POC.
[2019-11-28 17:00] VITALS: BP 120/79
[2019-11-28 20:18] VITALS: BP 144/68
[2019-11-29 00:18] VITALS: BP 161/90
[2019-11-29 03:00] VITALS: BP 148/78
--- NOTE | 2019-11-29 06:49 | NUR ---
PATIENTS CARES WERE ASSUMED AT SHIFT CHANGE. PATIENT WAS ASSESSED AND MEDS WERE PASSED. PATIENT CONTINUES TO BE ON A AMIO GTT. WITH NO CONVERSIONS. THIS PATIENT HAD NO REQUEST. THE BED IS IN A LOW AND LOCKED POSITION. HOURLY ROUNDS WERE DONE
[2019-11-29 07:00] VITALS: BP 138/73
[2019-11-29 09:28] LABS: HEMATOCRIT 31.5 % (42.0-52.0); HEMOGLOBIN 9.5 gm/dL (14.0-18.0); MCH 22.8 pg (26.0-34.0); MCV 76.1 fL (80.0-100.0); PLATELET COUNT 297 thou/uL (150-400); RBC 4.14 mil/uL (4.50-6.00); RDW 19.2 % (10.5-14.5); WBC 5.6 thou/uL (4.0-11.0)
[2019-11-29 09:32] LABS: CALCIUM 9.2 mg/dL (8.5-10.1); CREATININE 3.1 mg/dL (0.7-1.3); POTASSIUM 4.6 mmol/L (3.5-5.1)
[2019-11-29 11:19] LABS: ABSOLUTE NEUTROPHILS 4.5 thou/uL (1.4-8.2); ANISOCYTOSIS 1+; HYPOCHROMASIA SLIGHT; POIKILOCYTOSIS SLIGHT
[2019-11-29 12:00] VITALS: BP 143/70
--- NOTE | 2019-11-29 14:29 | NUR ---
Nutrition: Pt admit with VTAC, S/P shocked by life vest. Admitted for cardioversion and monitoring. Received consult for diet instruction. PMH: DM, HTN, CAD, CKD. Pt rolled eyes when RD entered room. States he has not been wanting to eat today because of the IV amiodarone he is receiving-has caused loss of appetite. Did eat dinner last noc. Able to order meals. Would like [place] glucerna on trays til po improves. Last A1C 6.0 in 2019, Recent A1C pending. Endocrinology following and pt reported a favorable 70# weight loss within 6 months to physician. Unable to confirm this per [employer] hx due to highly variable weights recorded. Since weight loss, insulin requirements significantly reduced. Pt voices familiarity with heart healthy, diabetic diet guidelines and follows at home. Declines need for full review but did agree for RD to leave materials at bedside for review. Follow nutritional parameters, place as low risk for now.
[2019-11-29 15:36] LABS: URINE BILIRUBIN NEGATIVE (Negative); URINE BLOOD NEGATIVE (Negative); URINE CLARITY CLEAR; URINE COLOR YELLOW; URINE GLUCOSE-RANDOM* NEGATIVE (Negative); URINE KETONES NEGATIVE (Negative); URINE LEUKOCYTES-REFLEX NEGATIVE (Negative); URINE NITRITE-REFLEX NEGATIVE (Negative); URINE PROTEIN (DIPSTICK) NEGATIVE (Negative); URINE SPECIFIC GRAVITY 1.015 (1.005-1.035); URINE UROBILINOGEN 0.2 E.U./dl (0.2-1.0)
[2019-11-29 16:40] VITALS: BP 138/66
--- NOTE | 2019-11-29 17:16 | NUR ---
ASSESSMENT CHARTED. PT ALERT AND ORIENTED. RECEIVED PRN PAIN FO CASTRO WITH PARTIAL RELIEF. AMIO GTT INFUSING ORDERED. UP IN THE CHAIR THIS SHIFT. PRN ZOFRAN MED GIVEN THIS SHIFT. WILL CONTINUE TO MONITOR.
[2019-11-29 20:20] VITALS: BP 137/58
[2019-11-29 23:10] LABS: GLYCOHEMOGLOBIN (HGB A1C) 7.5 % (4.8-5.6)
[2019-11-30] VITALS: BP 123/77
[2019-11-30 04:46] VITALS: BP 144/86
--- NOTE | 2019-11-30 05:31 | NUR ---
PATIENTS CARES WERE ASSUMED AT SHIFT CHANGE. PATIENT WAS ASSESSED AND MEDS WERE PASSED. 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 HOURLY ROUNDS WERE MADE. PATIENT DID APPER TO HAVE A RESTFUL NIGHT.
[2019-11-30 06:24] LABS: CALCIUM 9.5 mg/dL (8.5-10.1); CREATININE 3.2 mg/dL (0.7-1.3); POTASSIUM 4.3 mmol/L (3.5-5.1)
[2019-11-30 08:02] VITALS: BP 111/64
[2019-11-30 11:23] VITALS: BP 120/76
--- NOTE | 2019-11-30 12:34 | EKG ---
[facility] [place] [address] ELECTROCARDIOGRAM REPORT Name: GERI MCARTHUR Room #: 211-P ADM IN M.R.#: [id number] Admission: 11/28/19 Attend Phys: Devendra Aldana MD Discharge: Date of : 55 Report #: [id number] THIS REPORT FOR: cc: Adele Lorenzo MD, Constance M. MD Lundgren, Craig H. MD [facility] ~ THIS REPORT FOR: //name// [facility] ED Test Date: 2019-11-28 Test Time: 12:27:43 Pat Name: GERI MCARTHUR Department: Room: 211 Gender: M Clearing Inspector: nandini : 1955 Requested By: Kelly López Order Number: [id number] MD: Chet Rodriguez Measurements Intervals [place] Rate: 129 P: 123 MT: 69 QRS: 133 QRSD: 213 T: -60 QT: 393 QTc: 576 Interpretive Statements Wide-complex tachycardia, possibly ventricular tachycardia Compared to ECG 07/29/2019 14:45:25 wide-complex tachycardia is now present Electronically Signed On 11-29-2019 9:08:07 SUSTAINABLE DESIGN CONSULTANT by Chet Rodriguez [email or web address] <ELECTRONICALLY SIGNED> By: Chet Rodriguez MD, [facility] 11/29/19 0908 1227 1227 Chet Rodriguez MD, [facility] /EPI
--- NOTE | 2019-11-30 12:34 | EKG ---
[facility] [place] [address] ELECTROCARDIOGRAM REPORT Name: GERI MCARTHUR Room #: 211-P ADM IN M.R.#: [id number] Admission: 11/28/19 Attend Phys: Devendra Aldana MD Discharge: Date of : 55 Report #: [id number] THIS REPORT FOR: cc: Adele Lorenzo MD, Constance M. MD Lundgren,Chet Jensen MD [facility] ~ THIS REPORT FOR: //name// [facility] ED Test Date: 2019-11-28 Test Time: 12:52:54 Pat Name: GERI MCARTHUR Department: Room: 211 P Gender: M Secondary Spanish Teacher: nandini : 1955 Requested By: Kelly López Order Number: [id number] MD: Chet Rodriguez Measurements Intervals [place] Rate: 55 P: 54 CO: 209 QRS: -18 QRSD: 100 T: 99 QT: 439 QTc: 420 Interpretive Statements Sinus rhythm Inferior infarct, old Nonspecific ST and T wave abnormality Compared to ECG 07/29/2019 14:45:25 Wide-complex tachycardia is no longer present Electronically Signed On 11-29-2019 9:09:01 LINEN ROOM SUPERVISOR by Chet Rodriguez [email or web address] <ELECTRONICALLY SIGNED> By: Chet Rodriguez MD, FAC 11/29/19 0909 1252 1252 Chet Rodriguez MD, FAC /EPI
--- NOTE | 2019-11-30 12:34 | EKG ---
[facility] [place] [address] ELECTROCARDIOGRAM REPORT Name: GERI MCARTHUR Room #: 211-P ADM IN M.R.#: [id number] Admission: 11/28/19 Attend Phys: Devendra Aldana MD Discharge: Date of : 55 Report #: [id number] THIS REPORT FOR: cc: Adele Lorenzo MD, Constance M. MD Lundgren,Chet Jensen MD [facility] ~ THIS REPORT FOR: //name// [facility] ED Test Date: 2019-11-28 Test Time: 12:40:53 Pat Name: GERI MCARTHUR Department: Room: 211 P Gender: M Apartment Rental Clerk: nandini : 1955 Requested By: Kelly López Order Number: [id number] MD: Chet Rodriguez Measurements Intervals [place] Rate: 128 P: 0 UT: QRS: 82 QRSD: 200 T: -54 QT: 367 QTc: 536 Interpretive Statements Wide-complex tachycardia, possibly ventricular tachycardia Compared to ECG 07/29/2019 14:45:25 No significant change was found Electronically Signed On 11-29-2019 9:08:37 MANAGER GIFT by Chet Rodriguez [email or web address] <ELECTRONICALLY SIGNED> By: Chet Rodriguez MD, [facility] 11/29/19 0908 1240 1240 Chet Rodriguez MD, [facility] /EPI
--- NOTE | 2019-11-30 12:43 | EKG ---
[facility] [place] [address] ELECTROCARDIOGRAM REPORT Name: GERI MCARTHUR Room #: 211-P ADM IN M.R.#: [id number] Admission: 11/28/19 Attend Phys: Devendra Aldana MD Discharge: Date of : 55 Report #: [id number] THIS REPORT FOR: cc: Adele Lorenzo MD, Constance M. MD Lundgren,Chet Jensen MD [facility] ~ THIS REPORT FOR: //name// [facility] Test Date: 2019-11-29 Test Time: 07:48:39 Pat Name: GERI MCARTHUR Department: Room: 211 P Gender: M Wrister: BLAKE : 1955 Requested By: Tate Winn Order Number: [id number] MD: Chet Rodriguez Measurements Intervals [place] Rate: 89 P: 51 IN: 77 QRS: -22 QRSD: 83 T: QT: 538 QTc: 655 Interpretive Statements Sinus rhythm Abnormal R-wave progression, early transition Inferior infarct, old Prolonged QT interval Compared to ECG 07/29/2019 14:45:25 Ventricular premature complex(es) no longer present Electronically Signed On 11-29-2019 9:20:37 MAINTENANCE MILLWRIGHT by Chet Rodriguez [email or web address] <ELECTRONICALLY SIGNED> By: Chet Rodriguez MD, FAC 11/29/19919 7 7 Chet Rodriguez MD, FAC /EPI
--- NOTE | 2019-11-30 13:38 | HC ---
[facility] [place] [address] CONSULTATION Name: GERI MCARTHUR Room #: 211-[facility] IN M.R.#: [id number] Admission: 11/28/19 Attend Phys: Devendra Aldana MD Discharge: Date of : 55 Report #: [id number] THIS REPORT FOR: cc: Adele Lorenzo MD, Constance M. MD Al-Mubaslat, Ahmad MD ~ CC: Devendra Lorenzo DATE OF SERVICE: 11/29/2019 ENDOCRINE CONSULTATION NOTE CONSULTING PHYSICIAN: Dr. Devendra Carnes. REASON FOR CONSULTATION: Hypothyroidism, type 2 diabetes mellitus. HISTORY OF PRESENT ILLNESS: This is a 64-year-old male patient whose medical background is significant for multiple issues including type 2 diabetes mellitus, coronary artery disease, hypertension, hyperlipidemia as well as issues with ventricular tachycardia. The patient presented yesterday with complaints over the recording of ventricular tachycardia in the outpatient setting and was admitted for cardioversion and monitoring. The patient's medical background is significant for a lengthy hospital stay last year well over 2 months during which he had significant medical events including cardiopulmonary arrest, SVTs, asystole and V-tach. Fortunately, the patient recovered from this and was able to go back home. Again, he has had type 2 diabetes mellitus since 2003 and notes that in light of losing significant amounts of weight nearly at 70 pounds over the past 6 months that his insulin requirement had dropped drastically to where it is currently at Lantus insulin 14 units daily and Humalog insulin 8 units total daily dose with most of his blood glucose values remaining under 160 mg/dL. He denies issues with hypoglycemia. He is not aware of issues pertaining to diabetic retinopathy, but has peripheral numbness and tingling. Again, the patient has an extensive background of coronary artery disease status post RI, status post stent placement in 1991 and 1992 as well as peripheral vascular disease with a left femoral endarterectomy in 04/2019 with a complicated wound recovery. Also, the patient is known to have chronic kidney disease. The patient was noted earlier during this hospital stay to have abnormal thyroid function studies, but on further questioning denied any knowledge of prior thyroid disease and indicates that he has not been on any active thyroid hormone therapy in the past. The patient has been intermittently fatigued, but as noted, he had actually lost 17 pounds over the past [address] [address] CONSULTATION Name: GERI MCARTHUR Xavier Room #: 211-P [facility] IN [facility].#: [id number] Admission: 11/28/19 Attend Phys: Devendra Aldana MD Discharge: Date of : 55 Report #: [id number] REVIEW OF SYSTEMS: CONSTITUTIONAL: Fatigue, tiredness, but not fever or chills. Also noted for significant weight loss of 70 pounds over the past 6 months. HEENT: Negative for sinus pain, ear drainage. PULMONARY: Dyspnea on exertion, occasional dyspnea, cough, but no hemoptysis. CARDIAC: Palpitations, occasional chest discomfort, lower extremity edema. No syncope or presyncope. GASTROINTESTINAL: Occasional abdominal distention, abdominal discomfort, nausea, but no vomiting. NEUROLOGY: Negative for loss of consciousness or seizure activity. Noted for occasional peripheral numbness. PSYCHIATRIC: Negative for delusions or hallucinations. Otherwise, his review of systems is noncontributory unless mentioned in HPI. PAST MEDICAL HISTORY: 1. Type 2 diabetes mellitus. 2. Hypertension. 3. Hyperlipidemia. 4. CAD, status post RI, status post stent placements. 5. COPD. 6. Obstructive sleep apnea. 7. Peripheral vascular disease, status post left femoral endarterectomy in 2019. 8. Chronic kidney disease, stage 3. 9. Degenerative disk disease. 10. Obesity. 11. Hyperlipidemia. 12. History of cardiopulmonary arrest twice last year with documentation of SVT, asystole and V-tach. OUTPATIENT MEDICATIONS: Include torsemide 40 mg daily, Effient 10 mg daily, amiodarone 400 mg daily, Lantus insulin 14 units daily, clonidine 0.2 mg transdermal patch weekly, Flomax 0.4 mg daily, trazodone 50 mg p.r.n., Spiriva 2 puffs daily; Humalog insulin as per scale, totaling at about 8 units daily; Zanaflex 4 mg daily, aspirin 81 mg daily, carvedilol 25 mg b.i.d., Zanaflex 8 mg at bedtime, multivitamins. DRUG ALLERGIES: HE IS ALLERGIC TO COMPAZINE, CODEINE, AND STATINS. FAMILY HISTORY: Noncontributory. SOCIAL HISTORY: The patient denies use of tobacco, alcohol or illicit drugs. PHYSICAL EXAMINATION: GENERAL: Pleasant -Citizen Of [place] male patient who is not in apparent pain or [address] [place] [address] CONSULTATION Name: GERI MCARTHUR Room #: 211-P [facility] IN M.R.#: [id number] Admission: 11/28/19 Attend Phys: Devendra Aldana MD Discharge: Date of : 55 Report #: [id number]. VITAL SIGNS: Blood pressure is 138/73 mmHg, heart rate is 91 beats per minute, respiration 18 per minute, temperature 36.8 degrees. CONSTITUTIONAL: The patient is lying in bed, seems comfortable, not in pain or distress. HEENT: Anicteric sclerae. Intact extraocular motions. NECK: Supple, without JVD, carotid bruits or lymphadenopathy. Thyroid examination is noted for a prominent thyroid tissue with irregular texture, nontender, no lymphadenopathy. CHEST: Noted for moderate air entry bilaterally with scattered rales and rhonchi. No wheezes. HEART: Irregularly irregular. No murmurs. ABDOMEN: Soft and lax without tenderness or organomegaly. No guarding. Has active bowel sounds. EXTREMITIES: Lower extremity exam noted for trace ankle edema bilaterally. I could not appreciate pedal pulses. Sensation to light touch is moderately diminished. NEUROLOGIC: Awake, alert and oriented to time, place and person. The remainder of his examination is nonfocal other than for peripheral sensory deficits. PSYCHIATRIC: Pleasant, awake, alert, appropriate, interactive. Normal mood and affect. LABORATORY DATA: Blood glucose levels here have ranged from 73-187 mg/dL. Otherwise, sodium 141, potassium 4.6, chloride 102, CO2 of 25, anion gap 14, BUN 61; creatinine 3.1, baseline dating back to 2018 was at 1.6; AST 53, total bilirubin 0.6, direct bilirubin 0.2, calcium 9.2, phosphorus 3.1, magnesium 1.8, alkaline phosphatase 255, ALT 37, total protein 8.2, albumin 2.6, EGFR 25. Troponin negative. Free T4 in 05/2019 was 1.3. White blood count 5.6, hemoglobin 9.5, hematocrit 31.5, platelets 297. TSH 9.915, TSH back in 05/2019 was 3.125. Hemoglobin A1c was at 6.0 in 04/2019. ASSESSMENT AND PLAN: 1. Hypothyroidism. As noted above, the patient does not have a prior history of hypothyroidism; however, his current TSH is consistent with hypothyroid outlook. This could be reflective of subclinical hypothyroidism and in order to ascertain whether the patient does or does not need active therapy, I will obtain a free T4 level as well as thyroid peroxidase antibody levels in addition to a thyroid ultrasound to better understand his therapeutic needs. Amiodarone therapy certainly represents a significant risk factor for thyroid dysfunction and is associated with hypothyroidism or hyperthyroidism in more than 40% of patients. Therapeutic recommendations will be made according to these results. 2. Type 2 diabetes mellitus. The patient describes a reasonable level of control in the outpatient setting with the dramatically lower insulin requirement largely due to his significant weight loss, which would certainly be expected with significant weight losses as the patient mentioned. I will get a [facility] [address] [place] [address] CONSULTATION Name: GERI MCARTHUR Room #: 211-P [facility] IN ..#: [id number] Admission: 11/28/19 Attend Phys: Devendra Aldana MD Discharge: Date of : 55 Report #: [id number] hemoglobin A1c to better understand the extent of his control as of late. Furthermore, I will place the patient on low intensity Humalog supplemental scale while we monitor his blood glucose values before meals and at bedtime. The patient has not been resumed on Lantus therapy and I will keep it this way until we get a better feel for his blood glucose pattern during this hospital stay. 3. Hyperlipidemia. The patient is STATIN sensitive but in view of his severe vascular disease, both coronary and peripheral, non-statin modalities should be considered and he is currently on Zetia 10 mg daily. He is advised to continue with this. 3. Coronary chronic kidney disease. The patient has an elevated creatinine that is well above his baseline. This will need to be monitored and if persistent addressed as per the primary team. 4. Ischemic cardiomyopathy, ventricular tachycardia, coronary artery disease. The patient is currently receiving an amiodarone drip following cardioversion in the Emergency Room yesterday. Further recommendations are as per the Cardiology team. I reviewed the patient's clinical care notes, laboratory data and other pertinent clinical information past and present for over 35 minutes. I certainly appreciate this consultation by Dr. Carnes. <ELECTRONICALLY SIGNED> By: Marco A Campbell MD 11/30/19 1338 1211 1338 Marco A Campbell MD /nt
--- NOTE | 2019-11-30 14:34 | NUR ---
met with patient and at bedside. patient resides at home with . All needs on one level. patient has walker/cane but has not needed to ambulate. he has been doing outpatient therapy at [facility]. 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 He is disabled. PCP Dr Adele Lorenzo. plan home at ct await ICD placement. Casemgt following.
--- NOTE | 2019-11-30 15:58 | NUR ---
PT ALERT AND ORIENTED. VSS. REPORT HAVING CHRONIC BACK PAIN BUT DENIED THE NEED FOR PAIN MED. AMIO GTT INFUSING ORDERED. AT THE BEDSIDE. WILL CONTINUE TO MONITOR.
[2019-11-30 16:30] VITALS: BP 110/71
--- NOTE | 2019-11-30 20:33 | HC ---
[facility] [place] [address] CONSULTATION Name: GERI MCARTHUR Room #: 211-[facility] IN M.R.#: [id number] Admission: 11/28/19 Attend Phys: Devendra Aldana MD Discharge: Date of : 55 Report #: [id number] THIS REPORT FOR: cc: Adele Lorenzo MD, Constance M. MD Geha, Daniel J. MD ~ CC: Devendra Lorenzo DATE OF SERVICE: 11/29/2019 INFECTIOUS DISEASE CONSULTATION REASON FOR CONSULTATION: I was asked to evaluate preoperatively for AICD placement. HISTORY OF PRESENT ILLNESS: The patient is a 64-year-old known from his previous hospitalization in April and May where he was diagnosed with in-hospital cardiac arrest and required extensive ICU stay. He was diagnosed with methicillin-susceptible Staph aureus bacteremia with involvement of his left femoral surgical site after endarterectomy. He made a dramatic recovery after several months. Ultimately, he was discharged only to have episodes of recurrent ventricular tachycardia. He has worn a LifeVest since his discharge. Has been hospitalized several times since his initial discharge with pneumonia, congestive heart failure. In August, he was diagnosed with left total knee arthroplasty infection at [facility]. Further details of this are not available. Again, treated with IV antibiotics followed by oral suppression with doxycycline. By history, it appears that he had polyethylene exchange, but this is yet being confirmed. He now returns with episodes of recurrent ventricular tachycardia. He required cardioversion yesterday. Plan now is for AICD placement. The patient denies any fever, chills or sweats. He denies any cough or sputum production. Has had no ongoing chest pain. Denies any abdominal pain, nausea, vomiting or diarrhea. No dysuria. His creatinine has remained elevated and there is consideration by Nephrology Service to place the patient back on hemodialysis. He does have underlying diabetes. REVIEW OF SYSTEMS: Ten-point review was negative other than what has been described above. He has had no further issues with wound in his left groin. Denies any other new wounds. He did fall several months ago with abrasions to his right lateral ankle and his toes. These have been slow to heal. PAST MEDICAL HISTORY: Diabetes, hypertension, hyperlipidemia, coronary artery disease, status post UT and stents, in-hospital cardiac arrest, COPD, obstructive sleep apnea, peripheral vascular disease, status post left femoral [facility] [address] [place] [address] CONSULTATION Name: GERI MCARTHUR Room #: 211-P [facility] IN [facility]#: [id number] Admission: 11/28/19 Attend Phys: Devendra Aldana MD Discharge: Date of : 55 Report #: [id number] endarterectomy, chronic kidney disease, degenerative disk disease, obesity, hyperlipidemia, left total knee arthroplasty, prosthetic joint infection. ALLERGIES: COMPAZINE, CODEINE, STATINS. MEDICATIONS: As noted on his MAR including daptomycin. FAMILY HISTORY: Noncontributory. SOCIAL HISTORY: Nonsmoker, no significant alcohol intake. PHYSICAL EXAMINATION: VITAL SIGNS: He was afebrile and hemodynamically stable. GENERAL: He is lying in bed in no acute distress. He was alert and cooperative. Mood was normal with no anxiety or depression. SKIN: With some eschars to his toes and has shallow ulcer over the lateral aspect of his right ankle. No other decubiti or rash identified. No palpable adenopathy. He was moderately obese. EYES: Without scleral icterus. MOUTH: Without mucositis. NECK: Supple. LUNGS: Clear anteriorly with few crackles in the bases bilaterally. HEART: Irregular without appreciable gallop or rub. He did have a 2/6 systolic murmur heard at left sternal border. ABDOMEN: Obese, soft, nontender, no hepatosplenomegaly or mass. EXTREMITIES: Left groin without lesion. Both knees with superficial ulcerations anteriorly. No surrounding cellulitis. No definite effusion. EXTREMITIES: With 1+ edema. NEUROLOGIC: Cranial nerves intact. Strength in the upper and lower extremities was symmetric along with sensation to touch. LABORATORY STUDIES: Reviewed. Cultures reviewed. Chest x-ray reviewed. I have not seen a recent echocardiogram. CT scan reviewed. IMPRESSION: 1. Recurrent ventricular tachycardia and need for an automated implantable cardioverter defibrillator placement. This in the setting of previous high-grade methicillin-susceptible Staphylococcus aureus bacteremia and involvement of the surgical site left femoral endarterectomy. 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 I am suspecting methicillin-susceptible Staphylococcus aureus, but have not seen reports to confirm this. The patient does continue with antibiotic suppressive therapy with doxycycline. 2. Chronic kidney disease with possible need for chronic hemodialysis. 3. Diabetes. 4. Ischemic cardiomyopathy. [facility] [address] [place] [address] CONSULTATION Name: GERI MCARTHUR Room #: 211-P ADM IN M.R.#: [id number] Admission: 11/28/19 Attend Phys: Devendra Aldana MD Discharge: Date of : 55 Report #: [id number] RECOMMENDATIONS: We will obtain microbiology reports from [facility] and determine the organism involving the left total knee arthroplasty. Repeat echocardiogram, if not done yet, to ensure no evidence of vegetation. Repeat his blood cultures today. Follow up chest x-ray, urinalysis, and urine culture. May need further imaging of the left groin, possibly do indium scan to further assess for any targeted area of inflammation. We do this prior to AICD if time allows. For now, we will stay on doxycycline. <ELECTRONICALLY SIGNED> By: Aneudy Zhong MD 11/30/19 2033 2343 0037 Aneudy Zhong MD /nt
[2019-11-30 20:48] VITALS: BP 113/61
[2019-12-01] VITALS (13 sets, daily range): BP systolic 122–141; BP diastolic 56–76
--- NOTE | 2019-12-01 04:50 | NUR ---
ASSUMED PT CARE AT 1900. PT IS ALERT AND ORIENTED WITH NO SIGN OF DISTRESS NOTED IN PT. DENIES ANY PAIN. FALL PRECAUTION IN PLACE. VITAL SIGNS STABLE. ASSESSMENT COMPLETED AND DOCUMENTED. SCHEDULED MEDS AMINISTERED TO PT. PT IS NPO AFTER MIDNIGHT FOR A SCHEDULE PROCEDURE IN THE AM. VERBALIZES UNDERSTANDING. CONTINUE TO MONITOR PATIENT.
--- NOTE | 2019-12-01 10:28 | EKG ---
[facility] [place] [facility] [place] [address] ELECTROCARDIOGRAM REPORT Name: MCARTHURGERI Park Room #: 211-P ADM IN M.R.#: [id number] Admission: 11/28/19 Attend Phys: Devendra Aldana MD Discharge: Date of : 55 Report #: [id number] THIS REPORT FOR: cc: Adele Lorenzo MD, Constance M. MD Lundgren, Craig H. MD [facility] ~ THIS REPORT FOR: //name// [facility] ED Test Date: 2019-11-28 Test Time: 12:52:54 Pat Name: GERI MCARTHUR Department: Room: 211 P Gender: M Esl Instructional Assistant: nandini : 1955 Requested By: Kelly López Order Number: [id number] MD: Measurements Intervals [place] Rate: 55 P: 54 WY: 209 QRS: -18 QRSD: 100 T: 99 QT: 439 QTc: 420 Interpretive Statements Sinus rhythm Inferior infarct, old Probable anterolateral infarct, old No previous ECG available for comparison [email or web address] By: 1445 1252 Chet Rodriguez MD, FACC /EPI
--- NOTE | 2019-12-01 14:34 | CATHLAB ---
[facility] [address] [place] [address] INVASIVE PROCEDURE REPORT Name: GERI MCARTHUR Room #: 239-P ADM IN M.R.#: [id number] Admission: 11/28/19 Attend Phys: Devendra Aldana MD Discharge: Date of : 55 Report #: [id number] THIS REPORT FOR: cc: Adele Lorenzo MD, Constance M. MD Park, Jin S. MD ~ APPROVED REPORT Study performed: 12/01/2019 11:39:54 Patient Details Patient Status: In-Patient Room #: The patient is a 64 year-old male Event Personnel Paul Rojas Development Vice President, Elin Luis RN RN, Shakira Brandt RT(R)([place]) Anna Willams David Monitor, Cristin Pino RTR Monitor Procedures Performed Art Access - R femoral artery* Left Heart Cath w/or w/o Coronaries [id number] [facility] [address] Initial Mod Sed Same Phys/QHP Gr5y [id number] , PTCA with Stenting to the [id number] Mod Sed Same Phys/QHP Ea [id number] Hemostasis w/ Mynx Indication CHF Current Status: , Non-STEMI , Arrhythmia, Cardiomyopathy, The patient presented with ventricle tachycardia and congestive heart failure. Echocardiogram revealed severe LV dysfunction, a significant change compared to a study from 3 months ago. Risk Factors Obesity, Cerebrovascular DiseasePeripheral Vascular Disease, Chronic Lung DiseaseHypercholesterolemia, Coronary Artery DiseaseHypertensionRenal Failure, Diabetes Previous Procedures/Diagnoses Previous CVAPrevious PCI, Previous Femoral Procedure, Previous CHFPrevious MIPrevious Vascular Surgery Procedure Narrative The Right Groin^ was infiltrated with 1% Lidocaine subcutaneous anesthesia. A PINNACLE 6FR Sheath #[id number] sheath was inserted into the RFA^. Coronary angiography was performed using coronary [facility] [place] [address] INVASIVE PROCEDURE REPORT Name: GERI MCARTHUR Room #: 239-P [facility] IN [facility]#: [id number] Admission: 11/28/19 Attend Phys: Xavier Noonan Discharge: Date of : 55 Report #: [id number] diagnostic catheters. The left coronary system was accessed and visualized with a JL5 catheter. The left ventricle was accessed and visualized with a pigtail catheter. Pre-demployment femoral angiogram was performed . Closure device was deployed with a Fr MYNXGRIP 6/7F #[id number]. The patient tolerated the procedure well and there were no complications associated with the procedure. There was no hematoma. Intraoperative Conscious Sedation Sedation start time: 1216 Case end Time: 1312 Fentanyl 50 mcg Versed 1 mg 1901 Fluoro Time: 10.52 minutes Dose: DAP 21596.90 cGycm2 1901 mGy Contrast Type and Amount: Visipaque 225 ml Coronary Angiography The patient's coronary anatomy is right dominant. Diagnostic Cath Left Main The left main artery is a large-caliber vessel with a severe stenosis, 80% at the distal segment. LAD There is a previously placed stent in the proximal LAD, patent with minimal restenosis. After the stent, there is mild diffuse disease in the mid segment, 30%. Diagonal 1 This is a small to moderate size caliber vessel, with a borderline stenosis proximally, 60-70%. Circumflex Supplies one moderate size OM vessel OM1 This is a moderate size caliber vessel, has a high takeoff from the left circumflex proper. This vessel is patent with no flow-limiting lesions. Right Coronary This vessel is chronically occluded. The distal segments are filled via collateral flow from the left coronary artery. Left Ventriculography Left Ventriculography was not performed. Ejection Fraction was 15% based off patient's Echocardiogram. An LVEDP was measured and there is no gradient across the outflow tract. Hemodynamics The aortic pressure is 137/71 mmHg with a mean of 95 mmHg. The left ventricular pressure is 130/10 mmHg with a mean of mmHg. The left ventricular end diastolic pressure is 25 mmHg. [facility] [address] [place] [address] INVASIVE PROCEDURE REPORT Name: GERI MCARTHUR Room #: 239-P [facility] IN M.R.#: [id number] Admission: 11/28/19 Attend Phys: Xavier Noonan Discharge: Date of : 55 Report #: [id number] PCI Technique Lesion Percutaneous coronary intervention was performed on the LM. The lesion stenosis prior to intervention was 80% with BEN 3 flow. A VISTA 6FR XB 3.5 #[id number] Guide Catheter was used to engage the ostium. A Luge Wire .014 x 182CM #[id number] Interventional Guidewire was used to cross the lesion. BALLOON DILATION A Balloon catheter Euphora RX 3.5 x 10 #[id number] was inserted and inflated up to 14.00atm for 19seconds. Additional Inflation: 14.00atm for 6seconds. STENT DEPLOYMENT A drug-eluting stent RESOLUTE BONY RX 4.5 X 12 #[id number] was inserted and inflated up to 10.00atm for 7seconds. The stent was placed in the mid left main vessel, extending into the proximal LAD. POST STENT DEPLOYMENT BALLOON DILATION A Balloon catheter TREK NC RX 4.5 X 8 #[id number] was inserted and inflated up to 18.00atm for 12seconds. Additional Inflation: 18.00atm for 7seconds. Final angiography reveals 5 % stenosis with BEN 3 flow. Conclusion 1. Successful insertion of a drug-eluting stent into the distal left main stenosis. 2. The stent in the proximal LAD is patent with minimal restenosis. 3. Chronically occluded RCA, with collateral filling of the distal segments. 4. Borderline stenosis in the first diagonal artery, recommend medical therapy. 5. Severe LV dysfunction. 6. Recommend dual antiplatelet therapy and aggressive risk factor management. <ELECTRONICALLY SIGNED> By: Paul Rojas MD 12/01/19 1433 143 143 Paul Rojas MD /INF
--- NOTE | 2019-12-01 15:17 | NUR ---
1345-RECEIVED PT FROM CV LAB. PT DENIES CP/PRSS/SOB. STATES I ALWAYS HAVE BACK PAIN,THIS IS NOT NEW. RT GROING SOFT,NO BLEEDING OR HEMATOMA.GOOD DISTAL PULSES-MARKED. WIFW AT BEDSIDE.--VW 1515-LABS DRAWN.--VW
[2019-12-01 16:15] LABS: CALCIUM 9.3 mg/dL (8.5-10.1); CREATININE 2.9 mg/dL (0.7-1.3); POTASSIUM 4.8 mmol/L (3.5-5.1)
--- NOTE | 2019-12-01 16:20 | EKG ---
[facility] [place] [address] ELECTROCARDIOGRAM REPORT Name: GERI MCARTHUR Room #: 239-P ADM IN M.R.#: [id number] Admission: 11/28/19 Attend Phys: Devendra Aldana MD Discharge: Date of : 55 Report #: [id number] THIS REPORT FOR: cc: Adele Lorenzo MD, Constance M. MD Couchonnal, Luis F. MD ~ THIS REPORT FOR: //name// [facility] Test Date: 2019-12-01 Test Time: 13:59:41 Pat Name: GERI MCARTHUR Department: Room: 239 Gender: M Assistant Education Director: Elia MCARTHUR : 1955 Requested By: Paul Rojas Order Number: [id number] MD: Tate Winn Measurements Intervals [place] Rate: 58 P: 47 ND: 197 QRS: -17 QRSD: 105 T: 47 QT: 504 QTc: 496 Interpretive Statements Sinus rhythm Inferior infarct, old Compared to ECG 11/29/2019 07:48:39 Myocardial infarct finding still present Electronically Signed On 12-01-2019 16:19:42 CLAMP REMOVER by Tate Winn [email or web address] <ELECTRONICALLY SIGNED> By: Tate Winn MD 12/01/19 1619 [id number] Tate Winn MD /EPI
--- NOTE | 2019-12-01 16:40 | NUR ---
Pt went to the laboratory geneticist today and then ICU. Possible ICD placement tomorrow or Thursday. Will continue to follow for dcplanning needs. Pt was hopeful to resume outpt therapy at dc.
[2019-12-02] VITALS (24 sets, daily range): BP systolic 104–158; BP diastolic 53–81
[2019-12-02 06:53] LABS: HEMATOCRIT 29.7 % (42.0-52.0); MCH 23.2 pg (26.0-34.0); MCHC 30.3 g/dL (28.0-37.0); MCV 76.4 fL (80.0-100.0); RBC 3.88 mil/uL (4.50-6.00); RDW 19.1 % (10.5-14.5); WBC 5.6 thou/uL (4.0-11.0)
[2019-12-02 07:22] LABS: ALBUMIN 2.4 g/dL (3.4-5.0); CALCIUM 8.9 mg/dL (8.5-10.1); CREATININE 2.7 mg/dL (0.7-1.3); PHOSPHORUS 4.1 mg/dL (2.5-4.9)
[2019-12-02 07:43] LABS: ALBUMIN 2.4 g/dL (3.4-5.0); CALCIUM 9.3 mg/dL (8.5-10.1); CREATININE 2.7 mg/dL (0.7-1.3); POTASSIUM 4.1 mmol/L (3.5-5.1); TOTAL BILIRUBIN 0.7 mg/dL (<0.1-1.0); TOTAL PROTEIN 7.6 g/dL (6.4-8.2)
--- NOTE | 2019-12-02 08:05 | NUR ---
PATIENT TRANSFERRED TO ICU AFTER RECEIVING O.T. ORDERS. Pt ON HOLD FOR O.T. DUE TO CHANGE IN STATUS. NEW ORDERS NEEDED IF/WHEN APPROPRIATE.
--- NOTE | 2019-12-02 08:07 | NUR ---
Pt TRANSFERRED TO ICU. WILL PLACE ON HOLD AND AWAIT NEW ORDERS TO RESUME
--- NOTE | 2019-12-02 08:15 | EKG ---
[facility] [place] [address] ELECTROCARDIOGRAM REPORT Name: GERI MCARTHUR Room #: 239-P ADM IN M.R.#: [id number] Admission: 11/28/19 Attend Phys: Devendra Aldana MD Discharge: Date of : 55 Report #: [id number] THIS REPORT FOR: cc: Adele Lorenzo MD, Constance M. MD Lundgren,Chet Jensen MD [facility] ~ THIS REPORT FOR: //name// [facility] Test Date: 2019-12-02 Test Time: 07:29:40 Pat Name: GERI MCARTHUR Department: Room: 239 P Gender: M Metal Engraver: BLAKE : 1955 Requested By: Paul Rojas Order Number: [id number] MD: Chet Rodriguez Measurements Intervals [place] Rate: 64 P: 54 IN: 192 QRS: -16 QRSD: 87 T: 74 QT: 506 QTc: 522 Interpretive Statements Sinus rhythm Inferior infarct, old Prolonged QT interval Compared to ECG 12/01/2019 13:59:41 Prolonged QT interval now present Electronically Signed On 12-02-2019 8:14:39 CABLE ARMORER by Chet Rodriguez [email or web address] <ELECTRONICALLY SIGNED> By: Chet Rodriguez MD, [facility] 12/02/1914 8 Chet Rodriguez MD, [facility] /EPI
--- NOTE | 2019-12-02 13:00 | NUR ---
Placed in contact isolation by Infection Control Nurse. 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
--- NOTE | 2019-12-02 15:39 | NUR ---
Pt wanting to go home today. Pt feels that he should be ready for discharge. Pt states that if he stays till tomorrow that they will keep him until Thursday. Call placed to Dr Rojas to see if possible to discharge today. Dr Rojas returned call stating that pt is not cleared for discharghe. This information was given to patient who is not happy. is at bedside. Option to leave AMA was explained. Informed that I would do anything I can to make him more comfortable or content.
--- NOTE | 2019-12-02 18:45 | NUR ---
Pt currently up in bedside recliner eating his dinner. Pt hoping to get to go home tomorrow. No chest pain today. Nuclear medicine test was not completed today due problems with pt's blood sample. Test to be repeated first thing Thursday. IV nurse, Pallavi, planning to come in Thursday at [address] a midline to obtain necessary blood for the testing to beginn. Right groin site remains stable.
[2019-12-03] VITALS (14 sets, daily range): BP systolic 99–144; BP diastolic 45–80
[2019-12-03 04:29] LABS: ALBUMIN 2.2 g/dL (3.4-5.0); CALCIUM 8.7 mg/dL (8.5-10.1); CREATININE 2.7 mg/dL (0.7-1.3); PHOSPHORUS 3.7 mg/dL (2.5-4.9); POTASSIUM 3.8 mmol/L (3.5-5.1)
--- NOTE | 2019-12-03 07:46 | NUR ---
Received report and assumed patient care. Patient is AAOx4 and on room air. Patient is sinus tin on the monitor. No complaints of pain expressed. Patient wishes to be discharged as soon as possible. Groin site is CDI without presence of hematoma. VS remained stable during this shift and no acute events occurred. Patient is progressing toward goal.
--- NOTE | 2019-12-03 13:19 | NUR ---
CALLED [facility] OBTAINED MEDICAL RECORDS PHONE #, THEN FAXED REQUEST FOR MICRO RESULTS FOR THE LAST 2 YEARS. CALLED MEDICAL RECORDS AGAIN, THEY STATED THEY WOULD FAX THEM NOW. THAT WAS FAXED AT 10:34 AND STILL NOT RECEIVED AT THIS TIME. DR. HE AND DR. DON BOTH PRESENT THIS AM AND PT INFORMED THEM HE WAS GOING TO LEAVE AMA. BOTH PHYSICIANS DISCUSSED RISKS INVOLVED WITH PT AND FAMILY. AGREES WITH PT'S INTENT TO GO AMA.
--- NOTE | 2019-12-03 13:55 | NUR ---
pt leaving Against Medical Advice, transferring per wheelchair and going home with his driving. pt's own life vest placed on pt prior to leaving hospital room.
[2019-12-03] MEDS ORDERED: LANTUS SUBQ ×2 (15:20)
[2019-12-03] MEDS ORDERED: TRADJENTA5 MG PO ×2 (15:20)
== END 2019-12-03 13:55 | disposition left against medical advice (07) | DRG 246 ==
LOC: ER 12:16 → 2N 14:01 → ICU 12-01 13:40
PROVIDERS: Emergency Medicine; Hospitalist; Internal Medicine; Internal Medicine Cardiovascular Disease; Specialist; ADMIT Hospitalist
PROC: 5A2204Z Restoration of Cardiac Rhythm, Single (ICD-10-PCS; principal; 2019-11-28)
PROC: 5A09357 Assistance with Respiratory Ventilation, Less than 24 Consecutive Hours, Continuous Positive Airway Pressure (ICD-10-PCS; 2019-11-29)
PROC: 5A09357 Assistance with Respiratory Ventilation, Less than 24 Consecutive Hours, Continuous Positive Airway Pressure (ICD-10-PCS; 2019-11-30)
PROC: 5A09357 Assistance with Respiratory Ventilation, Less than 24 Consecutive Hours, Continuous Positive Airway Pressure (ICD-10-PCS; 2019-12-01)
PROC: 4A023N7 Measurement of Cardiac Sampling and Pressure, Left Heart, Percutaneous Approach (ICD-10-PCS; 2019-12-01)
PROC: 027034Z Dilation of Coronary Artery, One Artery with Drug-eluting Intraluminal Device, Percutaneous Approach (ICD-10-PCS; 2019-12-01)
PROC: B211YZZ Fluoroscopy of Multiple Coronary Arteries using Other Contrast (ICD-10-PCS; 2019-12-01)
PROC: 5A09357 Assistance with Respiratory Ventilation, Less than 24 Consecutive Hours, Continuous Positive Airway Pressure (ICD-10-PCS; 2019-12-02)
DX: I47.2 Ventricular tachycardia (principal); I50.23 Acute on chronic systolic (congestive) heart failure; N17.9 Acute kidney failure, unspecified; I13.0 Hypertensive heart and chronic kidney disease with heart failure and stage 1 through stage 4 chronic kidney disease, or unspecified chronic kidney disease; N18.4 Chronic kidney disease, stage 4 (severe); T82.855A Stenosis of coronary artery stent, initial encounter; I25.10 Atherosclerotic heart disease of native coronary artery without angina pectoris; E78.5 Hyperlipidemia, unspecified; I25.5 Ischemic cardiomyopathy; D64.9 Anemia, unspecified; G47.30 Sleep apnea, unspecified; J44.9 Chronic obstructive pulmonary disease, unspecified; G89.29 Other chronic pain; Z96.653 Presence of artificial knee joint, bilateral; G25.81 Restless legs syndrome; E11.51 Type 2 diabetes mellitus with diabetic peripheral angiopathy without gangrene; E66.9 Obesity, unspecified; E11.42 Type 2 diabetes mellitus with diabetic polyneuropathy; E03.9 Hypothyroidism, unspecified; E11.22 Type 2 diabetes mellitus with diabetic chronic kidney disease; Z53.29 Procedure and treatment not carried out because of patient's decision for other reasons; I50.9 Heart failure, unspecified; D69.6 Thrombocytopenia, unspecified; I25.82 Chronic total occlusion of coronary artery; Z88.8 Allergy status to other drugs, medicaments and biological substances; Z79.899 Other long term (current) drug therapy; Z79.4 Long term (current) use of insulin; Z82.49 Family history of ischemic heart disease and other diseases of the circulatory system; Z79.82 Long term (current) use of aspirin; I25.2 Old myocardial infarction; Z98.42 Cataract extraction status, left eye; Z98.41 Cataract extraction status, right eye; Z87.891 Personal history of nicotine dependence; Z95.5 Presence of coronary angioplasty implant and graft; Z68.34 Body mass index [BMI] 34.0-34.9, adult; Z90.49 Acquired absence of other specified parts of digestive tract; Y92.89 Other specified places as the place of occurrence of the external cause
CPT/HCPCS: 10078; 10081

== ENCOUNTER → 2019-11-28 | Outpatient (CLI) | payer OTHER, BC ==
[~2019-11-28] MED LIST changes: +AMIODARONE HCL400 MG PO; +DOXYCYCLINE MO100 MG PO; +DULOXETINE HCL60 MG PO; +LUMIGAN2.5 M1 EA. EYE; +TORSEMIDE20 MG PO; +TRADJENTA5 MG PO
== END ==
LOC: SJCVC 14:53
DX: I25.5 Ischemic cardiomyopathy (principal); I13.0 Hypertensive heart and chronic kidney disease with heart failure and stage 1 through stage 4 chronic kidney disease, or unspecified chronic kidney disease; E11.22 Type 2 diabetes mellitus with diabetic chronic kidney disease; N18.4 Chronic kidney disease, stage 4 (severe); I50.9 Heart failure, unspecified; I25.10 Atherosclerotic heart disease of native coronary artery without angina pectoris; I47.2 Ventricular tachycardia; J44.9 Chronic obstructive pulmonary disease, unspecified; E78.5 Hyperlipidemia, unspecified; E78.00 Pure hypercholesterolemia, unspecified; I25.2 Old myocardial infarction; Z87.891 Personal history of nicotine dependence; Z79.82 Long term (current) use of aspirin; Z79.899 Other long term (current) drug therapy; Z79.4 Long term (current) use of insulin

== ENCOUNTER → 2019-12-13 | Outpatient (CLI) | payer OTHER, BC ==
[~2019-12-13] MED LIST changes: +TRADJENTA5 MG PO
--- NOTE | 2019-12-15 06:50 | SLE ---
[facility] [place] [address] POLYSOMNOGRAPHY STUDY Name: GERI MCARTHUR Room #: REG [facility]#: [id number] Admission: 12/13/19 Attend Phys: Frank Hernandez MD Discharge: Date of : 55 Report #: [id number] THIS REPORT FOR: //name// CC: Frank Medina MD DATE OF SERVICE: 12/13/2019 SLEEP STUDY ATTENDING PHYSICIAN: Dr. David Medina. The patient is a 64-year-old who weighs 252 pounds with a BMI of 35.1. The patient has prior history of severe sleep apnea and has been on positive pressure therapy. Another sleep study was requested by the patient's currency examiner. During the night study, the patient spent 473 minutes in bed and slept for 354 minutes with a sleep efficiency of 74%. Sleep latency was 11.9 minutes with a REM latency of 253 minutes. Sleep architecture showed increased stage 1 and stage 2 sleep, absent slow wave and reduced REM sleep. During the night study, the patient had 23 obstructive apneas, no mixed apneas, and 26 central apneas. There were 100 hypopneas. The patient's apnea-hypopnea index was 25 per hour with a REM index of 12 per hour. The patient's supine AHI was 25 per hour as well. EKG monitoring revealed an average heart rate of 77 beats per minute. Frequent PVCs seen throughout the study and 6-7 beat narrow complex tachycardia seen. No clinically significant PLM seen. Nocturnal oximetry study revealed an average oxygen saturation 95% with lowest of 54%. 11 minutes were spent in oxygen saturation less than 89% and another 2 minutes with saturations of less than 79%. The patient did meet the criteria for CPAP initiation; however, was late in the study as a result, CPAP could not be initiated. IMPRESSION: 1. Moderate sleep apnea-hypopnea syndrome at an AHI of 25.3 per hour. 2. Nocturnal hypoxia secondary to obstructive sleep apnea. 3. No clinically significant periodic limb movements of sleep. 4. Abnormal EKG with frequent premature ventricular contractions, bigeminies and one episode of narrow complex tachycardia. [facility] [address] [place] [address] POLYSOMNOGRAPHY STUDY Name: GERI MCARTHUR Room #: REG [facility]#: [id number] Admission: 12/13/19 Attend Phys: Frank Hernandez MD Discharge: Date of : 55 Report #: [id number] RECOMMENDATIONS: 1. The patient should return to the sleep lab for CPAP titration. 2. Once the patient is optimally treated with CPAP, then follow up in 4-6 weeks to assess compliance and to document clinical improvement. 3. Weight loss is strongly advised. 4. Avoid AIR BATTLE MANAGER depressants. 5. Cautioned regarding driving until symptoms of sleep apnea resolve with positive pressure therapy. 6. Follow up with Cardiology regarding abnormal EKG. <ELECTRONICALLY SIGNED> By: Frank Hernandez MD 12/15/19 0650 1954 20 Frank Hernandez MD /nt
== END ==
LOC: SLEEPLAB 09:32
DX: G47.33 Obstructive sleep apnea (adult) (pediatric) (principal); G47.34 Idiopathic sleep related nonobstructive alveolar hypoventilation

== ENCOUNTER → 2019-12-15 | Outpatient (CLI) | payer OTHER, BC ==
[~2019-12-15] MED LIST changes: +AMIODARONE HCL400 MG PO; +DOXYCYCLINE MO100 MG PO; +DULOXETINE HCL60 MG PO; +LUMIGAN2.5 M1 EA. EYE; +TORSEMIDE20 MG PO
== END ==
LOC: SJCVCIMAG 07:21
DX: I08.3 Combined rheumatic disorders of mitral, aortic and tricuspid valves (principal); I49.3 Ventricular premature depolarization; R94.31 Abnormal electrocardiogram [ECG] [EKG]; I25.10 Atherosclerotic heart disease of native coronary artery without angina pectoris; I42.9 Cardiomyopathy, unspecified; I47.2 Ventricular tachycardia; I25.5 Ischemic cardiomyopathy; I12.9 Hypertensive chronic kidney disease with stage 1 through stage 4 chronic kidney disease, or unspecified chronic kidney disease; N18.4 Chronic kidney disease, stage 4 (severe); I50.9 Heart failure, unspecified; J44.9 Chronic obstructive pulmonary disease, unspecified; I25.2 Old myocardial infarction; Z87.891 Personal history of nicotine dependence; Z79.899 Other long term (current) drug therapy; Z79.82 Long term (current) use of aspirin; Z79.4 Long term (current) use of insulin; Z82.49 Family history of ischemic heart disease and other diseases of the circulatory system

== ENCOUNTER → 2019-12-27 | Outpatient (CLI) | payer OTHER, BC ==
--- NOTE | 2019-12-29 14:17 | SLE ---
[facility] [place] [address] POLYSOMNOGRAPHY STUDY Name: GERI MCARTHUR Room #: REG [facility]#: [id number] Admission: 12/27/19 Attend Phys: Frank Hernandez MD Discharge: Date of : 55 Report #: [id number] THIS REPORT FOR: //name// CC: Frank Medina MD DATE OF SERVICE: 12/27/2019 SLEEP STUDY ATTENDING PHYSICIAN: Dr. David Medina. The patient is 64 years old who weighs 274 pounds with a BMI of 38. The patient has history of cardiomyopathy. The patient had a prior sleep study and was found to have moderate ANNA. This was complex sleep apnea with combination of obstructive and central apneas. The patient was referred for CPAP titration study performed at [facility]. During the night study, the patient spent 475 minutes in bed, but slept for only 131 minutes with a poor sleep efficiency of 27%. Sleep latency was 45 minutes with an absent REM sleep. Sleep architecture showed increased stage 1 sleep, normal stage 2 sleep with absent slow wave and absent REM sleep. EKG monitoring revealed an average heart rate of 70 beats per minute. PVCs were seen throughout the study. No clinically significant PLM seen. The patient was started on CPAP at a pressure of 5 cm water and then titrated up to 7 cm water. The patient was later switched to BiPAP at a pressure of 8/4; however, only 0.7 minutes of sleep seen on BiPAP. At a pressure of 7 cm water on CPAP, the patient slept for 80 minutes. The patient's AHI was 47.5/ hr from combined central and obstructive apneas. Oxygen saturation did remain above 88%. Optimum CPAP or BiPAP pressure was not achieved due to limited sleep. IMPRESSION: 1. Complex sleep apnea diagnosed by previous sleep study. It was moderate by AHI criteria. 2. No clinically significant periodic limb movements of sleep. 3. Poor sleep efficiency resulting from sleep onset and sleep maintenance insomnia. RECOMMENDATIONS: 1. Due to poor sleep efficiency, optimum CPAP or BiPAP pressure was not [facility] [address] [place] [address] POLYSOMNOGRAPHY STUDY Name: GERI MCARTHUR Room #: REG [facility]#: [id number] Admission: 12/27/19 Attend Phys: Frank Hernandez MD Discharge: Date of : 55 Report #: [id number] achieved. From the patient's history, insomnia is chronic. It should be addressed first and once insomnia has improved, the patient would need to return to sleep lab for BiPAP titration study. 2. Alternate option would be to place the patient on auto BiPAP at a maximum IPAP pressure of 20 with a minimum EPAP pressure of 10 with pressure support of 4 and follow the download data and make further recommendations. 3. Avoid DOUBLE HEAD MACHINE OPERATOR depressants. 4. Cautioned regarding driving until symptoms of sleep apnea resolve with the above recommendations. <ELECTRONICALLY SIGNED> By: Frank Hernandez MD 12/29/19 1417 0752 0823 Frank Hernandez MD /nt
== END ==
LOC: SLEEPLAB 11:19
DX: G47.33 Obstructive sleep apnea (adult) (pediatric) (principal); J44.9 Chronic obstructive pulmonary disease, unspecified; G47.30 Sleep apnea, unspecified

== ENCOUNTER 2020-01-08 22:21 | Inpatient (IN) | payer OTHER, BC ==
[~2020-01-08] VITALS: Ht 180.3 cm; Wt 113.2 kg
--- NOTE | ~2020-01-08 | P ---
[facility] [place] [address] PROCEDURE REPORT Name: GERI MCARTHUR Room #: 211-P [facility] IN M.R.#: [id number] Admission: 01/08/20 Attend Phys: Jenna Billingsley Discharge: Date of : 55 Report #: [id number] THIS REPORT FOR: cc: Adele Lorenzo MD,Tate Head MD, MD ~ CC: Adele Billingsley ICD IMPLANTATION PREOPERATIVE DIAGNOSES: 1. Ischemic cardiomyopathy. 2. Prior cardiac arrest. 3. Sustained monomorphic ventricular tachycardia. PROCEDURES PERFORMED: Dual-chamber ICD implantation. HISTORY: The patient is a 64-year-old with history of coronary artery disease, prior myocardial infarction, ischemic cardiomyopathy, prior VT/VF arrest, has been wearing a LifeVest due to recurrent infections. On November, presented with sustained monomorphic VT. Still was being treated for infection. He was admitted here to the hospital this week with acute on chronic LV systolic heart failure. He is now cleared from an infection standpoint for ICD implantation. He is here for a dual chamber ICD implantation for secondary prevention of sudden cardiac . ANESTHESIA: The patient underwent general anesthesia with no anesthesia related complications. DESCRIPTION OF PROCEDURE: The patient underwent informed consent. We discussed the details of the procedure including the risks, which include but not limited to bleeding, infection, vascular damage, cardiac perforation and pneumothorax. He understood these risks and is willing to proceed. The patient was brought to the EP laboratory in a fasting and sedated state and prepped and draped in a sterile fashion. Venogram was performed showing patency of the left axillary vein. Next, lidocaine was injected below the level of clavicle. Incision was made, pocket was created over the prepectoral fascia and access was obtained twice to left axillary vein using the extrathoracic approach. Sheaths were positioned using the modified Seldinger technique. Next, under fluoroscopy, a lead was placed in the right ventricular apex and another lead was placed on the right atrial appendage both with adequate pacing and sensing thresholds. Leads were sutured to the prepectoral fascia using Ethibond. The pocket was irrigated with vancomycin. The device was connected to the leads. Tug tests were performed and the device is functioning normally. Pocket was closed in 2 layers using 2-0 for the deep layer, 3-0 for the middle [address] [address] PROCEDURE REPORT Name: GERI MCARTHUR Xavier Room #: 211-P [facility] IN ..#: [id number] Admission: 01/08/20 Attend Phys: Jenna Billingsley Discharge: Date of : 55 Report #: [id number] layer. Surgical glue was placed outer skin layer. The patient awoke neurologically and hemodynamically intact. No complications and no significant bleeding. The implanted defibrillator was Medtronic model #LDAH3R7, serial #[id number]. Atrial lead Medtronic model #5076, serial #[id number]. The ventricular lead was Myandbtronic model #6947, serial #[id number]. Atrial lead demonstrated P-wave of 4.6 millivolts, pacing impedance of 785 ohms and a pacing threshold 1.1 volt at 0.5 milliseconds. The RV lead demonstrated R-wave of 13.9 millivolts, pacing impedance of 454 ohms, pacing threshold 0.5 volts at 0.5 milliseconds. The device was programmed to the DDDR 60-130 mode. The VT zone was set at 180-220 beats per minute with 3 rounds of burst followed by 3 rounds of ramp followed by max output shocks. The VF zone was set at greater than 220 beats per minute with ATP while charging followed by max output shocks. CONCLUSIONS: 1. Successful dual-chamber ICD implantation. 2. Satisfactory atrial and ventricular pacing and sensing thresholds. By: [id number] Tate Winn MD /nt
--- NOTE | ~2020-01-08 | HC ---
[facility] [address] [address] [place] [address] CONSULTATION Name: GERI MCARTHUR Room #: 211-P [facility] IN M.R.#: [id number] Admission: 01/08/20 Attend Phys: Jenna Billingsley Discharge: Date of : 55 Report #: [id number] THIS REPORT FOR: cc: Adele Lorenzo MD, Constance M. MD Couchonnal, Luis F. MD ~ CC: Adele Billingsley ELECTROPHYSIOLOGY CONSULTATION REASON FOR CONSULTATION: Ventricular tachycardia requiring ICD implantation. HISTORY OF PRESENT ILLNESS: The patient is a 64-year-old male who has a history of an ischemic cardiomyopathy and last year had episode of cardiac arrest with ventricular tachycardia, ventricular fibrillation. ICD was going to be implanted at that time, but he had a recent left femoral artery endarterectomy and had a subsequent leg infection. Therefore, he had a LifeVest placed. When I saw him as an outpatient, it appeared that he was improving from his infection and he was scheduled for elective ICD implantation, but then developed a knee infection. In November, the patient presented to the hospital in sustained monomorphic ventricular tachycardia. It is believed that his sustained monomorphic VT is due to prior myocardial infarction related scar mediated VT. As such, we had plans to place an ICD at that time, but he was being further worked up by Infectious Disease to rule out that his knee was infected. At that time, he was discharged again with LifeVest in place. I saw the patient in clinic and plans were to have the patient undergo ICD implantation, so we can get rid of his LifeVest, which he has been wearing for month, not adequate treatment for his ventricular arrhythmias. However, he was admitted to the hospital with acute on chronic LV systolic heart failure with shortness of breath and fatigue. Based on this, he was treated for his heart failure and is now improved and therefore, plan is for ICD implantation today. REVIEW OF SYSTEMS: A 12-point review of systems was performed and was negative other than what I mentioned above. He is not having any active chest pain. His shortness of breath is improved. He denies any PND or orthopnea, presyncope or syncope. PAST MEDICAL HISTORY: 1. Coronary artery disease, status post TN in 1991. 2. Ischemic cardiomyopathy. 3. Hypertension. 4. Diabetes mellitus. 5. Hyperlipidemia. 6. Chronic renal insufficiency. 7. Chronic obstructive pulmonary disease. 8. Nuclear stress test in 02/2018 showing evidence of an old inferior [facility] [address] [place] [address] CONSULTATION Name: GERI MCARTHUR Room #: 211-P [facility] IN ..#: [id number] Admission: 01/08/20 Attend Phys: Jenna Billingsley Discharge: Date of : 55 Report #: [id number] myocardial infarction. 9. Prior VT/VF arrest. 10. Sustained monomorphic ventricular tachycardia back in 11/2019. ALLERGIES: Have been reviewed. MEDICATIONS: Have been reviewed. PHYSICAL EXAMINATION: GENERAL: No acute distress. HEENT: Oropharynx clear. NECK: Supple, no thyromegaly. HEART: Regular rate and rhythm. LUNGS: Clear to auscultation bilaterally. ABDOMEN: Soft, nontender, nondistended. EXTREMITIES: No clubbing, cyanosis, edema. NEUROLOGIC: Cranial nerves 2-12 are intact. LABORATORY DATA: Hemoglobin 8, white count 4, platelets 207. Coags 1.2. Chemistry: Potassium 3.7, creatinine 2.7, proBNP 33,611. Echocardiogram on 01/09/2020, EF of 30% with an inferolateral TN. EKG, normal sinus rhythm, no ischemic changes and a narrow QRS complex. ASSESSMENT: 1. Severe ischemic cardiomyopathy. 2. Prior VT/VF arrest. 3. Sustained monomorphic ventricular tachycardia. 4. Chronic left ventricular systolic heart failure. 5. [place] Heart Association functional class 2-3 heart failure. 6. Hypertension. 7. Diabetes mellitus. 8. Chronic renal insufficiency. 9. Chronic obstructive pulmonary disease. ASSESSMENT AND PLAN: In summary, the patient is a 64-year-old with a history of coronary artery disease, ischemic cardiomyopathy, EF of 30% with prior cardiac arrest and sustained monomorphic ventricular tachycardia. He has [place] Heart Association functional class 2-3 heart failure symptoms. Based on these findings, he meets criteria for ICD implantation for secondary prevention of sudden cardiac . We will proceed with this emergent procedure given his life threatening arrhythmias and the inadequacy of having a LifeVest on for managing these arrhythmias. We have discussed the risks and benefits of the procedure. Risks include but not limited to bleeding, infection, vascular [facility] [address] [place] [address] CONSULTATION Name: GERI MCARTHUR Room #: 211-P ADM IN M.R.#: [id number] Admission: 01/08/20 Attend Phys: Jenna Billingsley Discharge: Date of : 55 Report #: [id number] damage, cardiac perforation and pneumothorax. He understands these risks and is willing to proceed. By: [id number] Tate Winn MD /kandi
[~2020-01-08 22:21] MED LIST changes: -AMIODARONE HCL400 MG PO; -DOXYCYCLINE MO100 MG PO; -DULOXETINE HCL60 MG PO; -LUMIGAN2.5 M1 EA. EYE; -TORSEMIDE20 MG PO
[2020-01-08 22:25] VITALS: BP 170/85
[2020-01-08 23:07] LABS: HEMATOCRIT 30.1 % (42.0-52.0); HEMOGLOBIN 9.2 gm/dL (14.0-18.0); MCH 22.7 pg (26.0-34.0); MCHC 30.5 g/dL (28.0-37.0); MCV 74.6 fL (80.0-100.0); PLATELET COUNT 251 thou/uL (150-400); RBC 4.03 mil/uL (4.50-6.00); RDW 21.3 % (10.5-14.5); WBC 6.4 thou/uL (4.0-11.0)
[2020-01-08 23:12] LABS: CALCIUM 9.4 mg/dL (8.5-10.1); CREATININE 2.1 mg/dL (0.7-1.3); POTASSIUM 4.2 mmol/L (3.5-5.1)
[2020-01-08 23:22] LABS: ALBUMIN 2.2 g/dL (3.4-5.0); TOTAL BILIRUBIN 0.9 mg/dL (<0.1-1.0); TOTAL PROTEIN 7.7 g/dL (6.4-8.2); TROPONIN-I 0.11 ng/mL (<0.06)
[2020-01-08 23:32] LABS: ABSOLUTE NEUTROPHILS 4.9 thou/uL (1.4-8.2); ANISOCYTOSIS 1+; HYPOCHROMASIA 1+; MICROCYTES 1+; NUCLEATED RBCS 1 /100WBC; POLYCHROMASIA 1+
[2020-01-09] VITALS (8 sets, daily range): BP systolic 84–171; BP diastolic 44–91
[2020-01-09] MEDS ORDERED: HYDROMORPHONE E12 MG PO (03:32)
[2020-01-09] MEDS ORDERED: PERCOCET 5-3251 EACH PO (03:36)
[2020-01-09] MEDS ORDERED: LUNESTA3 MG PO (03:37)
[2020-01-09] MEDS ORDERED: TORSEMIDE20 MG PO (03:38)
[2020-01-09] MEDS ORDERED: COZAAR 25 MG TA25 M1 PO (03:39)
[2020-01-09] MEDS ORDERED: DOXYCYCLINE MO100 MG PO (03:42)
[2020-01-09] MEDS ORDERED: LYRICA150 MG PO (03:43)
[2020-01-09] MEDS ORDERED: DULERA 200 MCG/13 GM INH (03:44)
[2020-01-09] MEDS ORDERED: ZETIA10 MG PO (03:45)
[2020-01-09] MEDS ORDERED: LUMIGAN2.5 M1 EA. EYE (03:45)
[2020-01-09] MEDS ORDERED: AMIODARONE HCL400 MG PO (03:46)
[2020-01-09] MEDS ORDERED: DULOXETINE HCL60 MG PO (03:47)
[2020-01-09] MEDS ORDERED: ALLOPURINOL 10100 M1 PO (03:49)
[2020-01-09] MEDS ORDERED: SILDENAFIL20 MG PO (03:53)
--- NOTE | 2020-01-09 06:18 | NUR ---
PATIENT ARRIVED ON UNIT AROUND 0100 FROM ED DUE TO SHORTNESS OF BREATH. PATIENT IS PLANNING ON HAVING A SLEEP APNEA TEST ON THURSDAY NIGHT AND RECEIVE A ICD/PM ON THURSDAY. RECEIVED LASIX IN ED. +2 EDEMA BILATERAL LOWER EXTREMITIES. ACHS ON LOW SSI. HAS CHRONIC BACK PAIN. OXYCODONE AVAILABLE Q6 PRN FOR PAIN 4-6. PATIENT DENIED PAIN. IN ISOLATION FOR MRSA OF NARES. FALL PRECAUTIONS IN PLACE, RECENT FALL AT HOME.
[2020-01-09 06:28] LABS: CALCIUM 9.1 mg/dL (8.5-10.1); CREATININE 2.1 mg/dL (0.7-1.3); MAGNESIUM 1.8 mg/dL (1.8-2.4); TROPONIN-I 0.07 ng/mL (<0.06)
--- NOTE | 2020-01-09 08:11 | EKG ---
[facility] [place] [address] ELECTROCARDIOGRAM REPORT Name: GERI MCARTHUR Room #: 211-P ADM IN M.R.#: [id number] Admission: 01/08/20 Attend Phys: Layton Banerjee MD Discharge: Date of : 55 Report #: [id number] THIS REPORT FOR: cc: Adele Lorenzo MD, Constance M. MD Lundgren, Craig H. 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 : 1955 Requested By: Kana Seth Order Number: [id number] MD: Chet Rodriguez Measurements Intervals [place] Rate: 100 P: 57 MN: 181 QRS: -15 QRSD: 84 T: 118 QT: 377 QTc: 487 Interpretive Statements Sinus tachycardia Inferior infarct, old Poor R wave progression Nonspecific T wave abnormality Compared to ECG 12/02/2019 07:29:40 Heart rate has increased Electronically Signed On 01-09-2020 8:10:15 CDT by Chet Rodriguez [email or web address] <ELECTRONICALLY SIGNED> By: Chet Rodriguez MD, [facility] 01/09/20 0810 31 31 Chet Rodriguez MD, [facility] /EPI
--- NOTE | 2020-01-09 13:20 | 2DMMODE ---
[address] [address] 2 D/M-MODE ECHOCARDIOGRAM Name: GERI MCARTHUR Room #: 211-P ADM IN M.R.#: [id number] Admission: 01/08/20 Attend Phys: Jenna Billingsley Discharge: Date of : 55 Report #: [id number] THIS REPORT FOR: cc: Adele Lorenzo MD, Constance M. MD Park, Jin S. MD ~ APPROVED REPORT Study performed: 01/09/2020 11:22:53 EXAM: Limited 2D Echocardiogram Patient Location: Bedside Room #: 211 Status: routine BSA: 2.35 HR: 71 bpm BP: 156/91 mmHg Rhythm: NSR Other Information Study Quality: Adequate Indications Diabetes CAD Cardiomyopathy Hypertension/HDD Hx cardiac arrest. Compete echo on 12/15/2019 2D Dimensions IVSd: 14.46 (7-11mm) LVDd: 50.04 mm PWd: 13.15 (7-11mm) LVDs: 47.47 (25-40mm) Left Ventricle Left ventricle is at the upper limits of normal. There is more pronounced hypokinesis of the inferior and inferolateral segments. Mild to moderate concentric left ventricular hypertrophy. Left ventricular systolic function is moderate to severely decreased. LVEF is 30%. Aortic Valve Aortic valve is mildly calcified. [address] [address] D/M-MODE ECHOCARDIOGRAM Name: GERI MCARTHUR Room #: 211-P ADM IN M.R.#: [id number] Admission: 01/08/20 Attend Phys: Jenna Baxter Discharge: Date of : 55 Report #: [id number] Mitral Valve The mitral valve is normal in structure. Tricuspid Valve The tricuspid valve is normal in structure. Great Vessels IVC is normal in size and collapses >50% with inspiration. Pericardium There is no pericardial effusion. <Conclusion> Left ventricle is at the upper limits of normal. Left ventricular systolic function is moderate to severely decreased. LVEF is 30%. Aortic valve is mildly calcified. The mitral valve is normal in structure. <ELECTRONICALLY SIGNED> By: Paul Rojas MD 01/09/208 17 17 Paul Rojas MD /INF
--- NOTE | 2020-01-09 18:30 | NUR ---
ASSESSMENT CHARTED. PT ALERT AND ORIENTED. VSS. DENIED HAVING PAIN OR DISCOMFORT. WOUND CARE CONSULTED. HAD LOW BP THIS AFTERNOON. WILL CONTINUE TO MONITOR.
[2020-01-10 04:17] VITALS: BP 111/59
--- NOTE | 2020-01-10 06:30 | NUR ---
ASSESSMENT CHARTED, MEDS GIVEN CHARTED. PATIENT ANNOUNCED AT SHIFT CHANGE THAT HE WANTED TO GO HOME SINCE HIS HAD JUST CALLED HIM AND TOLD HIM HIS SURGERY SCHEDULED FOR THURSDAY WAS CANCELLED BECAUSE IT WAS ELECTIVE. CALLED DR. DON WHO CHECKED WITH HEAD OF SURGERY AND HE CONFIRMED THAT HE THE SURGERY IS INDEED SCHEDULED FOR THURSDAY AND NOT ELECTIVE. THE PATIENT WAS CONVINCED TO STAY. PATIENT IS WEARING AN EXTERNAL DEFIBULATOR DURING WAIT TIME. WOUNDS BEING CARED FOR BY WOUND CARE. FALL PRECAUTIONS IN PLACE.
[2020-01-10 06:42] LABS: ANION GAP 8 mmol/L (7-16); BUN 62 mg/dL (7-18); CALCIUM 9.2 mg/dL (8.5-10.1); CHLORIDE 102 mmol/L (98-107); CO2 30 mmol/L (21-32); CREATININE 2.9 mg/dL (0.7-1.3); GLUCOSE 114 mg/dL (74-106); POTASSIUM 3.7 mmol/L (3.5-5.1); SODIUM 140 mmol/L (136-145); TROPONIN-I <0.06 ng/mL (<0.06)
[2020-01-10 08:00] VITALS: BP 97/45
[2020-01-10 12:00] VITALS: BP 87/43
[2020-01-10 12:01] LABS: HEMOGLOBIN 8.3 gm/dL (14.0-18.0); MCHC 30.9 g/dL (28.0-37.0)
[2020-01-10 12:03] LABS: HEMATOCRIT 26.9 % (42.0-52.0); MCH 23.2 pg (26.0-34.0); MCV 75.3 fL (80.0-100.0); PLATELET COUNT 207 thou/uL (150-400); RBC 3.57 mil/uL (4.50-6.00); RDW 21.7 % (10.5-14.5); WBC 4.4 thou/uL (4.0-11.0)
[2020-01-10 12:12] LABS: INR 1.2; PROTIME 12.3 Seconds (9.3-11.4)
[2020-01-10 12:56] LABS: ABSOLUTE NEUTROPHILS 2.5 thou/uL (1.4-8.2)
[2020-01-10 12:57] LABS: ANISOCYTOSIS 2+; HYPOCHROMASIA 1+
--- NOTE | 2020-01-10 17:10 | NUR ---
ASSESSMENT CHARTED. PT ALERT AND ORIENTED. HAD LOW BP MED THIS SHIFT. DR. MARTINEZ NOTIFIED. ORDERS GIVEN TO HOLD BP MEDS. HAD LOW BS. MD NOTIFIED. LOW BS PROTOCAL FOLLOWED. NPO AFTER MIDNIGHT FOR PACEMAKER PLACEMENT IN AM. CONSENT SIGNED. CONTACT ISOLATION D/C. WILL CONTINUE TO MONITOR.
[2020-01-10 19:55] VITALS: BP 130/85
[2020-01-11] VITALS (11 sets, daily range): BP systolic 96–149; BP diastolic 45–104
--- NOTE | 2020-01-11 04:11 | NUR ---
ASSESSMENTS CHARTED, MEDS CHARTED GIVEN. PATIENT RESTING IN BED DURING SHIFT. PATIENT HAS BEEN NPO SINCE MIDNIGHT FOR PACEMAKER PLACEMENT THIS MORNING WITH DR. BARRIOS. SINUS STEPHY WITH BBB TO SINUS RHYTHM ON. PATIENT WEARING EXTERNAL ICD VEST. PATIENT HAS UPPER TORSO HIBICLENS SCRUBBED AND TELEMETRY STICKERS PLACED ON HIS BACK IN PREPARATION FOR HIS PACEMAKER. ON ROOM AIR. PATIENT UP WITH ASSIST TO BATHROOM. DENIED PAIN.
[2020-01-11 06:25] LABS: CALCIUM 9.3 mg/dL (8.5-10.1); CREATININE 2.7 mg/dL (0.7-1.3); POTASSIUM 3.7 mmol/L (3.5-5.1)
--- NOTE | 2020-01-11 08:35 | HC ---
[facility] [place] [address] CONSULTATION Name: GERI MCARTHUR Room #: 211-P [facility] IN M.R.#: [id number] Admission: 01/08/20 Attend Phys: Jenna Billingsley Discharge: Date of : 55 Report #: [id number] THIS REPORT FOR: cc: Adele Lorenzo MD, Constance M. MD Althoff, Jeffrey R. MD ~ CC: Adele Billingsley DATE OF SERVICE: 01/09/2020 CHIEF COMPLAINT: Ulcerations to the right lower extremity. HISTORY OF PRESENT ILLNESS: This is a 64-year-old male patient with whom I am familiar, who was admitted to the hospital with increasing shortness of breath, possible volume overload, congestive heart failure. The patient states he is feeling a little bit better, but feeling lightheaded as his blood pressure has been running low. He has had a chronic ulceration to the right lateral ankle as well as right third and fourth toes. It has been a little while since we have seen him. PAST MEDICAL HISTORY: Positive for history of acute on chronic renal failure, requiring hemodialysis; congestive heart failure, glaucoma, myocardial infarction, coronary artery disease, cardiac arrest, hypothyroidism, type 2 diabetes mellitus, hypertension, ischemic cardiomyopathy, hyperlipidemia and MRSA bacteremia, BPH, ventricular tachycardia, insomnia, peripheral vascular disease, obstructive sleep apnea, obesity, prosthetic joint infection and degenerative disk disease. SOCIAL HISTORY: The patient rarely uses alcohol. He is a former smoker with a [id number] history, having quit in 07/2013. FAMILY HISTORY: Mother is of diabetes and bladder cancer. Father is at a young age with heart disease and cerebrovascular accident. ALLERGIES: COMPAZINE, CODEINE, STATINS. MEDICATIONS: Include Effient, Lantus, Flomax, Tradjenta, Catapres patch. REVIEW OF SYSTEMS: CONSTITUTIONAL: The patient denies fever, chills or weight loss. NEUROLOGICAL: The patient denies focal weakness, numbness or tingling. EYES: The patient denies visual changes, redness, or drainage. ENT: The patient denies earache, nasal drainage, sore throat. CARDIOVASCULAR: The patient denies chest pain, palpitations or diaphoresis. PULMONARY: The patient does complain of shortness of breath and orthopnea. [address] [address] CONSULTATION Name: GERI MCARTHUR Room #: 211-P [facility] IN ..#: [id number] Admission: 01/08/20 Attend Phys: Jenna Billingsley Discharge: Date of : 55 Report #: [id number] GASTROINTESTINAL: Denies nausea, vomiting, diarrhea or abdominal pain. ORTHOPEDIC: The patient does note the ulceration on his right lateral ankle. Other systems in a 14-point review of systems are negative. PHYSICAL EXAMINATION: VITAL SIGNS: At this time include temperature 36.1, pulse 64, respiratory rate 18, blood pressure 84/51. GENERAL: This is a somewhat chronically ill-appearing male patient who appears to be in minimal distress. HEENT: Head normocephalic. Nose and throat clear. NECK: Supple. HEART: Regular rhythm. LUNGS: Diminished. ABDOMEN: Soft, nontender. EXTREMITIES: Demonstrate diminished distal pulses. He has a circular ulcer on the right lateral ankle that has got some loose eschar, when peeled away shows some healthy granulation tissue. There is more firmly attached eschar in the central portion of this. The area does not appear to be infected. He has some dry eschar also in the dorsal aspects of the right third and fourth toes also dry, stable and intact. NEUROLOGIC: The patient is alert, does move all 4 extremities. LABORATORY DATA: White blood cell count 6.4 with hemoglobin of 9.2. Sodium 135, potassium 4.2, chloride 100, CO2 of 27, BUN 44, creatinine 2.1, total protein 7.7, albumin 2.2. CLINICAL IMPRESSION: 1. Vascular ulceration of the right third and fourth toes as well as right lateral ankle. 2. Diabetes mellitus. 3. End-stage renal disease, requiring hemodialysis. 4. Congestive heart failure. 5. Severe protein-calorie malnutrition, albumin 2.2. RECOMMENDATIONS: At this point in time, we will recommend Xeroform and Silvadene to the right lateral ankle. Recommend PRAFO boots while in bed. Betadine paint to the eschar on the right third and fourth toes. He will need ongoing nutritional support. I appreciate being asked to see him in consultation. <ELECTRONICALLY SIGNED> By: Beau Guillermo MD 01/11/20 0835 1446 1553 Beau Guillermo MD /nt
--- NOTE | 2020-01-11 14:43 | NUR ---
spoke with patient by phone. patient admits with CHF he rec ICD today and resting. 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 He rec PCP is Dr Adele Lorenzo. Resides with and all needs on one level. plan home once stable possible HH [place].
--- NOTE | 2020-01-11 16:44 | NUR ---
PT CARE ASSUMED APPROX 1130 AFTER ICD PLACEMENT. HE WAS OFF UNIT WHEN REPORT RECEIVED FROM NOC NURSE. ASSESSMENTS CHARTED. PT DENIES SOA. VSS. REPORTS LEFT SHOULDER AND ANKLE PAIN. MEDICATED. WILL MONITOR PT FOR RELIEF. PT TOLERATING POC. DENIES QUESTIONS OR CONCERNS REGARDING POC. PT'S WAS GIVEN A CLINICAL UPDATE THIS SHIFT. SHE DENIES QUESTIONS. WOUND CARE COMPLETED PER ORDERS. NO DISTRESS NOTED.
[2020-01-12 03:41] VITALS: BP 103/56
--- NOTE | 2020-01-12 04:47 | NUR ---
ASSUMED PT CARE AT 1900. PT IS ALERT AND ORIENTED. NO SIGN OF DISTRESS NOTED. PT IS STABLE. PT IS LAYING IN BED, RESTING COMFORTABLY. ASSESSMENT COMPLETED AND DOCUMENTED. VITAL SGNS STABLE. ICD SITE INTACT. NO SIGN OF BLEEDING OR HEMATOMA. ARM IMMOBILIZER IN PLACE. SCHEDULED MEDS ADMINISTERED TO PT. TOLERATED PO INTAKE. DENIES ANY FURTHER NEEDS AT THIS TIME.
[2020-01-12 05:59] LABS: CALCIUM 8.9 mg/dL (8.5-10.1); CREATININE 2.9 mg/dL (0.7-1.3); POTASSIUM 4.1 mmol/L (3.5-5.1)
[2020-01-12 08:00] VITALS: BP 126/58
[2020-01-12] MEDS ORDERED: CARVEDILOL25 MG PO (09:32)
[2020-01-12] MEDS ORDERED: PACERONE 200 M200 M1 PO (09:32)
[2020-01-12 12:09] VITALS: BP 95/48
--- NOTE | 2020-01-12 13:28 | NUR ---
DISCHARGE NOTE: SW reviewed chart and spoke with nursing and attending physician. Pt is medically stable for discharge home today. SW spoke with pt via phone to discuss discharge plan. Pt is agreeable with discharge. Pt declines HH services at this time. SW encouraged pt to contact his PCP should he feel that he needs HH services after discharge. Pt's family to provide transportation home. No SW needs identified at this time, but is available to assist should needs arise.
[2020-01-12 14:16] VITALS: BP 95/48
--- NOTE | 2020-01-12 14:31 | NUR ---
ASSUMED CARE OF PT AT SHIFT CHANGE. ASSESSMENTS CHARTED. MEDS GIVEN PER DEC. PT A&OX4. NO C/O PAIN. IV ABX GIVEN PRIOR TO DISCHARGE. DISCHARGE ORDERS COMPLETE. WILL CONTINUE TO MONITOR UNTL ARRIVES.
== END 2020-01-12 15:13 | disposition home or self-care (01) | DRG 242 ==
LOC: ER 22:21 → EROBS 23:49 → 2N 23:49 → ENTRNSPT 01-12 15:01 → EDTRNSPTSTS 01-12 15:04 → 2N 01-12 15:13
PROVIDERS: Emergency Medicine; Internal Medicine Cardiovascular Disease; Nurse Practitioner Family; ADMIT Hospitalist
PROC: 02H63JZ Insertion of Pacemaker Lead into Right Atrium, Percutaneous Approach (ICD-10-PCS; principal; 2020-01-08)
PROC: 02HK3JZ Insertion of Pacemaker Lead into Right Ventricle, Percutaneous Approach (ICD-10-PCS; principal; 2020-01-08)
PROC: 0JH606Z Insertion of Pacemaker, Dual Chamber into Chest Subcutaneous Tissue and Fascia, Open Approach (ICD-10-PCS; principal; 2020-01-08)
DX: I47.2 Ventricular tachycardia (principal); I50.43 Acute on chronic combined systolic (congestive) and diastolic (congestive) heart failure; E43 Unspecified severe protein-calorie malnutrition; N18.6 End stage renal disease; I13.0 Hypertensive heart and chronic kidney disease with heart failure and stage 1 through stage 4 chronic kidney disease, or unspecified chronic kidney disease; I25.5 Ischemic cardiomyopathy; E11.22 Type 2 diabetes mellitus with diabetic chronic kidney disease; N18.9 Chronic kidney disease, unspecified; Z68.34 Body mass index [BMI] 34.0-34.9, adult; Z95.810 Presence of automatic (implantable) cardiac defibrillator; M54.9 Dorsalgia, unspecified; J44.9 Chronic obstructive pulmonary disease, unspecified; G89.29 Other chronic pain; E11.40 Type 2 diabetes mellitus with diabetic neuropathy, unspecified; L97.519 Non-pressure chronic ulcer of other part of right foot with unspecified severity; L98.499 Non-pressure chronic ulcer of skin of other sites with unspecified severity; I25.10 Atherosclerotic heart disease of native coronary artery without angina pectoris; H40.9 Unspecified glaucoma; E03.9 Hypothyroidism, unspecified; E11.51 Type 2 diabetes mellitus with diabetic peripheral angiopathy without gangrene; Z96.653 Presence of artificial knee joint, bilateral; E66.9 Obesity, unspecified; I25.2 Old myocardial infarction; Z99.2 Dependence on renal dialysis; Z95.5 Presence of coronary angioplasty implant and graft; Z98.42 Cataract extraction status, left eye; Z98.41 Cataract extraction status, right eye; Z90.89 Acquired absence of other organs; Z87.891 Personal history of nicotine dependence; Z83.3 Family history of diabetes mellitus; Z80.52 Family history of malignant neoplasm of bladder; Z82.3 Family history of stroke; G47.00 Insomnia, unspecified; M10.9 Gout, unspecified; G47.33 Obstructive sleep apnea (adult) (pediatric); Z82.49 Family history of ischemic heart disease and other diseases of the circulatory system; Z88.5 Allergy status to narcotic agent; Z88.8 Allergy status to other drugs, medicaments and biological substances; Z79.899 Other long term (current) drug therapy; Z79.891 Long term (current) use of opiate analgesic; Z79.82 Long term (current) use of aspirin; Z98.1 Arthrodesis status

== ENCOUNTER → 2020-01-19 | Outpatient (CLI) | payer OTHER, BC ==
[~2020-01-19] MED LIST changes: +AMIODARONE HCL400 MG PO; +DOXYCYCLINE MO100 MG PO; +DULOXETINE HCL60 MG PO; +LUMIGAN2.5 M1 EA. EYE; +TORSEMIDE20 MG PO
== END ==
LOC: SJCVC 13:29
DX: I21.09 ST elevation (STEMI) myocardial infarction involving other coronary artery of anterior wall (principal); I21.19 ST elevation (STEMI) myocardial infarction involving other coronary artery of inferior wall; I44.0 Atrioventricular block, first degree; I10 Essential (primary) hypertension; I25.5 Ischemic cardiomyopathy; I25.10 Atherosclerotic heart disease of native coronary artery without angina pectoris; E78.00 Pure hypercholesterolemia, unspecified; I47.2 Ventricular tachycardia

== ENCOUNTER 2020-02-23 13:03 | Inpatient (IN) | payer OTHER, BC ==
[~2020-02-23] VITALS: Ht 180.3 cm; Wt 112.9 kg
[2020-02-23 13:07] VITALS: BP 132/78
[2020-02-23 13:38] LABS: HEMOGLOBIN 10.6 gm/dL (14.0-18.0)
[2020-02-23 13:40] LABS: HEMATOCRIT 34.4 % (42.0-52.0); MCH 23.9 pg (26.0-34.0); MCHC 30.8 g/dL (28.0-37.0); MCV 77.6 fL (80.0-100.0); PLATELET COUNT 176 thou/uL (150-400); RBC 4.43 mil/uL (4.50-6.00); RDW 21.5 % (10.5-14.5); WBC 7.6 thou/uL (4.0-11.0)
[2020-02-23 13:54] LABS: CALCIUM 9.3 mg/dL (8.5-10.1); CREATININE 3.6 mg/dL (0.7-1.3); POTASSIUM 4.1 mmol/L (3.5-5.1)
[2020-02-23 14:00] LABS: ALBUMIN 2.5 g/dL (3.4-5.0); MAGNESIUM 1.9 mg/dL (1.8-2.4); TOTAL BILIRUBIN 0.9 mg/dL (<0.1-1.0); TOTAL PROTEIN 8.2 g/dL (6.4-8.2)
[2020-02-23 14:15] LABS: ABSOLUTE NEUTROPHILS 6.2 thou/uL (1.4-8.2); MICROCYTES 1+
[2020-02-23 14:16] LABS: ANISOCYTOSIS 2+; HYPOCHROMASIA SLIGHT; LARGE PLATELETS OCCASIONAL; POLYCHROMASIA OCCASIONAL
[2020-02-23 14:31] VITALS: BP 143/60
[2020-02-23] MEDS ORDERED: PACERONE200 MG PO (14:57)
[2020-02-23 15:14] LABS: URINE BILIRUBIN NEGATIVE (Negative); URINE BLOOD NEGATIVE (Negative); URINE CLARITY CLEAR; URINE COLOR YELLOW; URINE GLUCOSE-RANDOM* NEGATIVE (Negative); URINE KETONES NEGATIVE (Negative); URINE LEUKOCYTES-REFLEX NEGATIVE (Negative); URINE NITRITE-REFLEX NEGATIVE (Negative); URINE PROTEIN (DIPSTICK) NEGATIVE (Negative); URINE SPECIFIC GRAVITY 1.015 (1.005-1.035); URINE UROBILINOGEN 0.2 E.U./dl (0.2-1.0)
[2020-02-23 16:23] VITALS: BP 124/75
[2020-02-23] MEDS ORDERED: NIACIN 500 MG500 M1 PO (19:33)
[2020-02-23] MEDS ORDERED: DOXYCYCLINE 10100 M2 PO (19:33)
[2020-02-23] MEDS ORDERED: TRAZODONE HCL100 MG PO (19:34)
[2020-02-23] MEDS ORDERED: CLONAZEPAM 0.50.5 M1 PO (19:34)
[2020-02-23] MEDS ORDERED: SYNTHROID88 MC1 PO (19:35)
[2020-02-23 22:00] VITALS: BP 156/72
[2020-02-24] VITALS (22 sets, daily range): BP systolic 95–170; BP diastolic 53–93
--- NOTE | 2020-02-24 02:20 | NUR ---
Patient admitted at 2049. Able to move himself over from cart to bed. On RA. Amio gtt infusing at 1mg/min via peripheral IV. Oriented to room and use of call light. See vitals and assessment for more info.
[2020-02-24 03:07] LABS: GLYCOHEMOGLOBIN (HGB A1C) 6.5 % (4.8-5.6)
[2020-02-24 06:13] LABS: CHOLESTEROL 98 mg/dL (<200); HDL CHOLESTEROL 38 mg/dL (>40); LDL CHOLESTEROL 44 mg/dL (<100); SERUM ASSESSMENT Clear; TC:HDL 2.6 Ratio (Not establshd); TRIGLYCERIDE 80 mg/dL (<150); VLDL 16 mg/dL (<40)
--- NOTE | 2020-02-24 06:42 | NUR ---
POST VOID RESIDUAL DONE PER DR. MOORE. TOTAL 270. DR. MOORE AWARE.
--- NOTE | 2020-02-24 08:31 | EKG ---
[facility] [place] [address] ELECTROCARDIOGRAM REPORT Name: GERI MCARTHUR Room #: 243-P ADM IN M.R.#: [id number] Admission: 02/23/20 Attend Phys: Devendra Aldana MD Discharge: Date of : 55 Report #: [id number] THIS REPORT FOR: cc: Adele Lorenzo MD, Constance M. MD Lundgren, Craig H. 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 1955 Requested By: Isaiah Cates Order Number: [id number] MD: Chet Rodriguez Measurements Intervals [place] Rate: 117 P: 176 AR: 31 QRS: 112 QRSD: 190 T: -50 QT: 358 QTc: 500 Interpretive Statements Wide-complex tachycardia consistent with ventricular tachycardia RBBB and LPFB Inferior infarct, age indeterminate Baseline wander in lead(s) V6 Compared to ECG 01/08/2020 22:32:57 Ventricular tachycardia is now present Electronically Signed On 02-24-2020 8:29:52 CDT by Chet Rodriguez [email or web address] <ELECTRONICALLY SIGNED> By: Chet Rodriguez MD, [facility] 02/24/20 0829 1335 1335 Chet Rodriguez MD, [facility] /EPI
--- NOTE | 2020-02-24 08:39 | EKG ---
[facility] [place] [address] ELECTROCARDIOGRAM REPORT Name: GERI MCARTHUR Room #: 243-P ADM IN M.R.#: [id number] Admission: 02/23/20 Attend Phys: Devendra Aldana MD Discharge: Date of : 55 Report #: [id number] THIS REPORT FOR: cc: Adele Lorenzo MD, Constance M. 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 : 1955 Requested By: Rocio Han Order Number: [id number] MD: Chet Rodriguez Measurements Intervals [place] Rate: 86 P: 39 MO: 192 QRS: -28 QRSD: 90 T: 105 QT: 387 QTc: 463 Interpretive Statements Sinus rhythm Inferior infarct, old Anterolateral infarct, age indeterminate Compared to ECG 01/08/2020 22:32:57 Ventricular tachycardia is no longer present Electronically Signed On 02-24-2020 8:37:27 CDT by Chet Rodriguez [email or web address] <ELECTRONICALLY SIGNED> By: Chet Rodriguez MD, [facility] 02/24/20 0837 1703 1703 Chet Rodriguez MD, [facility] /EPI
[2020-02-24 09:08] LABS: ALBUMIN 3.1 g/dL (3.4-5.0); CALCIUM 8.6 mg/dL (8.5-10.1); PHOSPHORUS 3.2 mg/dL (2.5-4.9); POTASSIUM 4.4 mmol/L (3.5-5.1)
[2020-02-24 09:12] LABS: CREATININE 1.5 mg/dL (0.7-1.3)
--- NOTE | 2020-02-24 10:00 | NUR ---
ASSUMED CARE AT 0700. PATIENT IS ALERT AND ORIENTATED, STROKE SCALE 2-3 THIS AM. PATIENT SWALLOWING WATER WITHOUT COUGHING OR POCKETING WATER OR FOOD. MONITOR SHOWS VT WITH RESPONSE OF 118 TO 123, ALERT AND ORINETATED X4 BP STABLE. AMIODARONE INCREASE TO 1MG/MIN AT 0915, BOLUS INFUSING AND EKG DONE AT 0929. MRI INFORMED THAT PATIENT HAS METAL IN HIS BACK AND AN AICD AND CANNOT HAVE MRI, HAS NERVE STIMULATOR. WILL CONTINUE TO MONITOR. COVID 19 RESULTS PENDING.
--- NOTE | 2020-02-24 10:03 | NUR ---
chart review. cm unable to visit with pt or bedside nurse, rt nurse in pt room. no contact number for halley. noted pt been her in past for cardiac. cm called spoke with his zane via phone call, intro to cm, transition of care hh, and outpt rehab. zane provided halley cell number [phone], he has it but if he has it on per . she reported " live in house, no stairs. independent when he is feeling ok. can dress and bath himself. has equip to check his bs, gives himself his own insulin. have built in bench. no hh in past or rehab. he was supposed to do outpt cardiac rehab but then covid happened. no longer works, he disabled. rarely drives since may 2019. thank you for calling"/zane. will cont following as needed for dc needs.
[2020-02-24 10:53] LABS: URINE CREATININE-RANDOM* 46.1 mg/dL
--- NOTE | 2020-02-24 13:23 | NUR ---
DR LANGE AT BEDSIDE, PACED PATIENT OUT OF VT INTO NSR WITH HEART RATE IN THE 80'S BP STABLE. AMIODARONE CONTINUES AT 1MG/MIN WILL CONTINUE TO MONITOR. PLEASE SEE STRIPS.
--- NOTE | 2020-02-24 13:30 | NUR ---
EDNA GARCIA DC ENHANCED PRECAUTIONS PER YENY RODRIGUEZ RN, AFTER REVIEWING THE CHART.
--- NOTE | 2020-02-24 14:30 | HC ---
[facility] [place] [address] CONSULTATION Name: GERI MCARTHUR Room #: [address] [place] [address] IN M.R.#: [id number] Admission: 02/23/20 Attend Phys: Devendra Aldana MD Discharge: Date of : 55 Report #: [id number] THIS REPORT FOR: cc: Adele Lorenzo MD, Constance M. MD Couchonnal, Luis F. MD ~ CC: Devendra Lorenzo DATE OF SERVICE: 02/24/2020 ELECTROPHYSIOLOGY CONSULTATION REASON FOR CONSULTATION: Sustained VT. HISTORY: The patient is a 64-year-old male who has a history of coronary artery disease as well as known sustained monomorphic ventricular tachycardia, status post recent dual-chamber ICD implantation. He presented to the Emergency Room with increased weakness and was noted to be in sustained ventricular tachycardia at 115 beats per minute. I interrogated his device in the ER and I was able to pace him out of his VT. He denies any chest pain. His shortness of breath is stable. He denies PND or orthopnea. A 12-point review of systems was performed and was negative other than what I mentioned above. PAST MEDICAL HISTORY: Reviewed. SOCIAL HISTORY: Does not smoke. FAMILY HISTORY: Noncontributory. ALLERGIES AND MEDICATIONS: Reviewed. PHYSICAL EXAMINATION: VITALS: Stable. GENERAL: No acute distress. HEENT: Oropharynx clear. NECK: Supple, no thyromegaly. HEART: Regular rate and rhythm. LUNGS: Clear to auscultation bilaterally. ABDOMEN: Soft, nontender, nondistended with no hepatosplenomegaly. EXTREMITIES: No clubbing, cyanosis or edema. Cranial nerves 2-12 intact. ASSESSMENT: Monomorphic ventricular tachycardia. [facility] [address] [place] [address] CONSULTATION Name: MCARTHURGERI Room #: 243-P [facility] IN .R.#: [id number] Admission: 02/23/20 Attend Phys: Devendra Aldana MD Discharge: Date of : 55 Report #: [id number] PLAN: We will go to ICU. We will start on IV amiodarone. We will follow. <ELECTRONICALLY SIGNED> By: Tate Winn MD 02/24/20 1430 1326 1345 Tate Winn MD /nt
--- NOTE | 2020-02-24 14:58 | NUR ---
5N CONSULT RECEIVED FOR THIS Pt. Pt SEEN BY CAROLINE MARIA NP. Pt CURRENTLY IN ICU D/T VTACH WITH UNCONTROLLED RATES. WILL CONTINUE TO FOLLOW Pt TO DETERMINE IF Pt IS A CANDIDATE FOR 5N REHAB. R/O COVID AND AWAITING THERAPY INPUT AT THIS TIME.
--- NOTE | 2020-02-24 16:10 | 2DMMODE ---
[facility] [address] [place] [address] 2 D/M-MODE ECHOCARDIOGRAM Name: GERI MCARTHUR Room #: 243-P ADM IN M.R.#: [id number] Admission: 02/23/20 Attend Phys: Devendra Aldana MD Discharge: Date of : 55 Report #: [id number] THIS REPORT FOR: cc: Adele Lorenzo MD, Constance M. MD Lammoglia, Francisco J. MD ~ APPROVED REPORT Study performed: 02/24/2020 14:52:08 EXAM: Comprehensive 2D, Doppler, and color-flow Echocardiogram Patient Location: ICU Room #: 243 Status: routine BSA: 2.29 HR: 79 bpm BP: 123/78 mmHg Other Information Study Quality: Technically Difficult Technically limited study due to patient sitting up, unable to lay flat or on left side. Indications COPD Diabetes Cardiomyopathy 2D Dimensions RVDd: 41.24 mm IVSd: 11.11 (7-11mm) LVOT Diam: 22.20 (18-24mm) LVDd: 55.11 mm PWd: 10.60 (7-11mm) LVDs: 50.10 (25-40mm) Aortic Root: 30.20 mm Volumes Left Atrial Volume (Systole) Single Plane 4CH: 67.17 mL Single Plane 2CH: 37.20 mL LA ESV Index: 26.00 mL/m2 Aortic Valve AoV Peak Gold.: 1.73 m/s AO Peak Gr.: 11.96 mmHg LVOT Max P.[address] [facility] [address] [place] [address] 2 D/M-MODE ECHOCARDIOGRAM Name: GERI MCARTHUR Room #: [address] [place] [address] [place] [facility].#: [id number] Admission: 02/23/20 Attend Phys: Xavier Noonan Discharge: Date of : 55 Report #: [id number] LVOT Max V: 0.98 m/s BENJIE Vmax: 2.19 cm2 AI Vmax: 3.96 m/s AI Becker: 2.60 m/s2 AI PHT: 442.83 ms Mitral Valve E/A Ratio: 0.6 MV Decel. Time: 227.10 ms MV E Max Gold.: 0.49 m/s MV A Gold.: 0.84 m/s MV PHT: 65.86 ms IVRT: 128.03 ms Pulmonary Valve PV Peak Gold.: 0.92 m/s PV Peak Gr.: 3.41 mmHg Tricuspid Valve TR Peak Gold.: 2.97 m/s TR Peak Gr.: 35.30 mmHg Left Ventricle Left ventricle is mildly dilated. Global hypokinesis is noted There is normal left ventricular wall thickness. Left ventricular systolic function is moderately decreased. LVEF is 30%. Transmitral Doppler flow pattern suggests mild impaired LV relaxation. Right Ventricle Right ventricle is mildly dilated. The right ventricular systolic function is normal. Atria The left atrium size is normal. Right atrium is mildly dilated. Aortic Valve Aortic valve appears mildly calcified. Mild aortic regurgitation. There is no aortic valvular stenosis. Mitral Valve The mitral valve is normal in structure. Mild mitral regurgitation. No evidence of mitral valve stenosis. Tricuspid Valve The tricuspid valve is normal in structure. Trace to mild tricuspid regurgitation. PAP is estimated at 35 mmHg + estimated RA [facility] [address] [address] 2 D/M-MODE ECHOCARDIOGRAM Name: MCARTHURGERI Room #: [address] [place] [address] IN ..#: [id number] Admission: 02/23/20 Attend Phys: Xavier Noonan Discharge: Date of : 55 Report #: [id number] pressure. Pulmonic Valve Pulmonic valve is not well visualized. Great Vessels The aortic root is normal in size. IVC is not visualized. Pericardium There is no pericardial effusion. <Conclusion> Left ventricle is mildly dilated. LVEF is 30%. Global hypokinesis is noted Right ventricle is mildly dilated. Aortic valve appears mildly calcified. Mild aortic regurgitation. The mitral valve is normal in structure. Mild mitral regurgitation. The tricuspid valve is normal in structure. Trace to mild tricuspid regurgitation. PAP is estimated at 35 mmHg + estimated RA pressure. Pulmonic valve is not well visualized. There is no pericardial effusion. <ELECTRONICALLY SIGNED> By: Antwon Champagne MD 02/24/20 1608 1608 1608 Antwon Champagne MD /INF
--- NOTE | 2020-02-24 16:12 | EKG ---
[facility] [place] [address] ELECTROCARDIOGRAM REPORT Name: GERI MCARTHUR Room #: 243- ADM IN M.R.#: [id number] Admission: 02/23/20 Attend Phys: Devendra Aldana MD Discharge: Date of : 55 Report #: [id number] THIS REPORT FOR: cc: Adele Lorenzo MD, Constance M. MD Lundgren, Craig H. MD [facility] ~ THIS REPORT FOR: //name// [facility] Test Date: 2020-02-24 Test Time: 09:29:17 Pat Name: GERI MCARTHUR Department: Room: [facility] Gender: M [employer]: RN : 1955 Requested By: Rocio Han Order Number: [id number] MD: Chet Rodriguez Measurements Intervals [place] Rate: 118 P: 0 LA: 110 QRS: 114 QRSD: 201 T: -60 QT: 457 QTc: 641 Interpretive Statements Ventricular tachycardia Compared to ECG 02/23/2020 17:03:11 Ventricular tachycardia has replaced sinus rhythm Electronically Signed On 02-24-2020 16:11:09 CDT by Chet Rodriguez [email or web address] <ELECTRONICALLY SIGNED> By: Chet Rodriguez MD, [facility] 02/24/20 1611 0929 Chet Rodriguez MD, [facility] /EPI
--- NOTE | 2020-02-24 18:09 | NUR ---
CARDIAC ECHO COMPLETED AT 1515 WHILE THE PATIENT WAS IN THE CHAIR. ASSISTED BACK TO BED AND BILATERAL CAROTID DOPPLER DONE AT THE BEDSIDE AT 1600. PATIENT REMAINS ALERT, AMIDARONE REMAINS AT 1 MG/MIN. NS INFUSING AT 50 ML/HR AFTER SPEAKING WITH DR MOORE. PATIENT TAKING PO WITHOUT NAUSEA. PATIENT PROGRESSING TOWARDS OUTCOME GOALS.
--- NOTE | 2020-02-24 19:25 | NUR ---
SPOKE WITH DAUGHTER IN LAW [employer] CONCERNING PATIENT STATUS AND UPDATED AT 1845. QUESTIONS ANSWERED AND REASSURANCE GIVEN. CONCERNS VOICED CONCERNING PLACING PATIENT ON BLOOD THINNER AND HIS FREQUENT FALL, SOMETIMES FACE FORWARD DUE TO DROP IN BP.
[2020-02-25] VITALS (11 sets, daily range): BP systolic 122–162; BP diastolic 68–95
[2020-02-25 04:09] LABS: ALBUMIN 2.2 g/dL (3.4-5.0); CALCIUM 9.1 mg/dL (8.5-10.1); CREATININE 2.8 mg/dL (0.7-1.3); PHOSPHORUS 3.7 mg/dL (2.5-4.9); POTASSIUM 3.7 mmol/L (3.5-5.1)
--- NOTE | 2020-02-25 04:27 | NUR ---
Patient making progress towards outcome goals. Vital signs and rhythm stable on Amiodorone drip t 1 mg/kg/min. NIH 3. Hogh fall risks fall precautions in place.
[2020-02-25 04:46] LABS: ALBUMIN 2.3 g/dL (3.4-5.0); CALCIUM 8.8 mg/dL (8.5-10.1); CREATININE 2.9 mg/dL (0.7-1.3); POTASSIUM 3.8 mmol/L (3.5-5.1); TOTAL BILIRUBIN 0.9 mg/dL (<0.1-1.0); TOTAL PROTEIN 6.8 g/dL (6.4-8.2)
--- NOTE | 2020-02-25 11:29 | NUR ---
PT STATES THAT HE WANTS TO LEAVE AMA AFTER HE SEES EACH OF HIS DR'S TODAY. HE STATES THAT HIS IS ON HOSPICE AND ONLY HAS A FEW DAYS TO LIVE AND HE NEEDS TO BE AT HOME WITH HER. PHYSICIANS RECOMMENDING THAT PT REMAIN IN HOSPITAL BUT HE IS INSISTANT THAT HE IS LEAVING AMA. PT VERBALIZED UNDERSTANDING OF RISK OF LEAVING INCLUDING SERIOUS ILLNESS AND . AMA PAPERWORK SIGNED. NOTIFIED ALL PHYSICIANS. PT AWATING RIDE FROM SON. IV DC AND AMIO STOPPED REQUESTED BY PT.
--- NOTE | 2020-02-25 11:54 | NUR ---
PT'S SON HERE FOR TRANSPORT HOME. PT LEFT AMA
--- NOTE | 2020-02-29 10:56 | HC ---
[facility] [place] [address] CONSULTATION Name: GERI MCARTHUR Room #: [facility] IN M.R.#: [id number] Admission: 02/23/20 Attend Phys: Devendra Aldana MD Discharge: 02/25/20 Date of : 55 Report #: [id number] THIS REPORT FOR: cc: Adele Lorenzo MD, Constance M. MD Althoff, Jeffrey R. MD ~ CC: Devendra Lorenzo DATE OF SERVICE: 02/24/2020 CHIEF COMPLAINT: Ankle and toe ulcerations. HISTORY OF PRESENT ILLNESS: This is a 64-year-old male patient admitted to the hospital with concern for left sided weakness. He was noted to have diabetic ulcerations of his right ankle and some of his right toes and I have been asked to see him with regard to wound care. PAST MEDICAL HISTORY: Positive for history of acute on chronic kidney injury, left sided weakness with a history of stroke, frequent falls, ventricular tachycardia and acute kidney injury. He has a history of diabetes, heart disease, hypertension, and peripheral vascular disease. SOCIAL HISTORY: Positive for smoking, having quit greater than a year ago. No drug use. No alcohol use. He does live at home with his family and spouse. FAMILY HISTORY: Noncontributory. MEDICATIONS: Include aspirin, clopidogrel, ezetimibe, prasugrel, amiodarone, enoxaparin, pramipexole, tamsulosin, torsemide, Spiriva, insulin. ALLERGIES: STATINS, PROCHLORPERAZINE, CODEINE. REVIEW OF SYSTEMS: CONSTITUTIONAL: The patient denies fever, chills or weight loss. NEUROLOGICAL: The patient denies left sided weakness. ENT: The patient denies earache, nasal drainage or sore throat. EYES: The patient denies visual changes, redness or drainage. CARDIOVASCULAR: The patient denies chest pain, palpitations or diaphoresis. PULMONARY: The patient denies cough or shortness of breath. GASTROINTESTINAL: The patient denies nausea, vomiting, diarrhea or abdominal pain. ORTHOPEDIC: The patient does note ulceration on his right ankle and third and fourth toes. Other systems in a 14-point review of systems are negative. [address] [address] CONSULTATION Name: GERI MCARTHUR Room #: [address] [place] [address]#: [id number] Admission: 02/23/20 Attend Phys: Devendra Aldana MD Discharge: 02/25/20 Date of : 55 Report #: [id number] PHYSICAL EXAMINATION: VITAL SIGNS: At this time include temperature 36.8, pulse 119, respiratory rate 13, blood pressure 123/78. GENERAL: This is a somewhat chronically ill-appearing male patient who appears to be in minimal distress. HEENT: Head normocephalic. Nose and throat are clear. NECK: Supple. LUNGS: Diminished. HEART: Irregular and tachycardic. ABDOMEN: Soft, nontender. EXTREMITIES: Lower extremities demonstrate diabetic ulceration to the right lateral ankle that is a mix of granulation and some fibrin. He has diabetic ulcers to the right third and fourth toes as well. They are relatively clean with granulation tissue and a little bit of surrounding crust. NEUROLOGIC: The patient is alert, does move all 4 extremities, seems a little bit weaker on the right than on the left. CLINICAL IMPRESSION: 1. Diabetic ulceration, right lateral ankle. 2. Diabetic ulceration, right third and fourth toes. 3. Type 2 diabetes mellitus. 4. Acute on chronic renal failure. 5. Hypertension. 6. Coronary artery disease. RECOMMENDATIONS: At this point in time, we will continue with Bactroban ointment and bordered foam to the right ankle and Bactroban and Band-Aid to the toe ulcers. We will recommend PRAFO boots for pressure prophylaxis while he is in bed. Continue with aggressive nutritional support. I appreciate being asked to see him in consultation. <ELECTRONICALLY SIGNED> By: Beau Guillermo MD 02/29/20 1056 1652 [id number] Beau Guillermo MD /nt
--- NOTE | 2020-03-05 05:55 | HC ---
[facility] [place] [address] CONSULTATION Name: GERI MCARTHUR Room #: [facility] IN M.R.#: [id number] Admission: 02/23/20 Attend Phys: Devendra Aldana MD Discharge: 02/25/20 Date of : 55 Report #: [id number] THIS REPORT FOR: cc: Adele Lorenzo MD, Constance M. MD Al-Absi, Ahmed I. MD ~ CC: Devendra Lorenzo REASON FOR CONSULTATION: Chronic kidney disease. REASON FOR PRESENTATION: Not feeling well. HISTORY OF PRESENT ILLNESS: This is a very well-known patient to me. He has chronic kidney disease due to diabetes mellitus and hypertension. His baseline creatinine is anywhere from 2.5-3. He has had numerous acute kidney injury events in the past and required multiple dialysis with complete resolution of his acute kidney injury, back to his baseline. He is also known to have extensive cardiac history, status post cardiac arrest and prolonged hospital stay on multiple times in the past. He has peripheral vascular disease with left femoral endarterectomy. He also has repeated episodes of sepsis on numerous occasions. I have talked with him on the phone in the mid part of January due to the current COVID-19 pandemic and his creatinine at that time was around 2.4. He presented not feeling well yesterday and reported some symptoms that were concerning for stroke. He was also found to have ventricular tachycardia. He tells me that his pacemaker has not been firing lately. Of notice is the fact that the patient has had those issues with his ventricular tachycardia and had an angiogram most recently with a stent placement in his proximal LAD. He is also known to have significant cardiomyopathy with an ejection fraction of around 35%. On presentation to the Emergency Room yesterday, he was yet again in ventricular tachycardia and was admitted to the Intensive Care Unit. He is currently being ruled out for COVID-19 infection. I was asked to evaluate for his acute kidney injury. Creatinine when the patient presented yesterday was 3.6. Of notice also is the fact that the patient has a tendency to have some issues with urinary retention. Bedside bladder scan did not reveal that this is an issue. PAST MEDICAL HISTORY: 1. Diabetes mellitus. 2. Chronic kidney disease with a baseline creatinine of around 2.5-3. 3. Hyperlipidemia. 4. Ventricular tachycardia. 5. Coronary artery disease. 6. Peripheral arterial disease. 7. Multiple septic episodes. 8. Multiple hemodialysis requirement episodes. 9. Lumbar laminectomy. [address] [address] CONSULTATION Name: GERI MCARTHUR Room #: 243-P [facility]#: [id number] Admission: 02/23/20 Attend Phys: Devendra Aldana MD Discharge: 02/25/20 Date of : 55 Report #: [id number] 10. Methicillin-resistant Staphylococcus aureus bacteremia and empyema. 11. Cataract surgeries. 12. Popliteal artery stent placement. 13. Femoral endarterectomy. 14. Status post cardiac arrest. 15. Ventricular tachycardia. MEDICATIONS: 1. Insulin lispro. 2. Torsemide. 3. Losartan. 4. Aspirin. 5. Multivitamins. 6. ____. 7. Carvedilol. ALLERGIES: STATIN. FAMILY HISTORY: Hypertension and diabetes mellitus. SOCIAL HISTORY: He lives with his . No drug or alcohol abuse. REVIEW OF SYSTEMS: GENERAL: Significant for weakness and lethargy. CARDIOVASCULAR: No chest pain or palpitation. Pacemaker has been firing. PULMONARY: No cough or hemoptysis. GASTROINTESTINAL: No nausea or vomiting. GENITOURINARY: No frequency, no urgency. MUSCULOSKELETAL: Just few diffuse myalgias and aches. PHYSICAL EXAMINATION: GENERAL: Blood pressure is 130/85, temperature is 36.3, pulse rate 118 and respiratory rate is ____. HEAD AND NECK: No jugular venous distention. CHEST: No crackles. CARDIOVASCULAR: Regular with no rub. There is a left-sided pacemaker. ABDOMEN: Soft, nontender. EXTREMITIES: Lower extremities, no edema. LABORATORY VALUES: Reviewed. White blood cell count is 7.6, hemoglobin is 10.6. Sodium from yesterday was 135, potassium 4.1, BUN was 93, creatinine was 3.6. AST was 77, ALT was 81. IMPRESSION AND PLAN: 1. Acute kidney injury due to hypertension and ventricular tachycardia. 2. Chronic kidney disease with a baseline creatinine of around 2.5-3. [facility] [address] [place] [address] CONSULTATION Name: GERI MCARTHUR Room #: 243-P [facility] IN M.R.#: [id number] Admission: 02/23/20 Attend Phys: Devendra Aldana MD Discharge: 02/25/20 Date of : 55 Report #: [id number] 3. Ventricular tachycardia. 4. Cardiomyopathy with ejection fractions of around 30%. 5. Extensive coronary artery disease, status post recent catheterization and left anterior descending stent. 6. Extensive peripheral arterial disease. 7. History of methicillin-resistant Staphylococcus aureus empyema and bacteremia. 8. Repeated episodes of acute kidney injury, requiring hemodialysis. 9. History of cardiac arrest. 10. The patient's acute kidney injury is likely related to a prerenal condition with volume depletion given his ventricular tachycardia and hypotension. I will send urine studies. 11. Continue to watch daily electrolytes and kidney function along with the urine output. 12. No evidence of obstruction on bedside assessment. 13. Hold all of his blood pressure medication and his diuretics. 14. Cardiology is currently managing his ventricular tachycardia. <ELECTRONICALLY SIGNED> By: Kojo Aj MD 03/05/20 0555 [id number] Kojo Aj MD /nt
[2020-03-07] MEDS ORDERED: HYDROMORPHONE E12 MG PO (01:05)
[2020-03-07] MEDS ORDERED: REGLAN10 MG PO (01:09)
[2020-03-07] MEDS ORDERED: MEXILETINE PO (01:16)
[2020-03-07] MEDS ORDERED: OMEGA3 PO (01:20)
[2020-03-07] MEDS ORDERED: TESTOSTERONE TROCHE (01:22)
[2020-03-07] MEDS ORDERED: VIT D3 PO (01:24)
== END 2020-02-25 11:54 | disposition left against medical advice (07) | DRG 64 ==
LOC: ER 13:03 → ICU 14:50 → EROBS 14:50 → ICU 20:50
PROVIDERS: Hospitalist; Physician Assistant; ADMIT Hospitalist
DX: I63.9 Cerebral infarction, unspecified (principal); N17.0 Acute kidney failure with tubular necrosis; E43 Unspecified severe protein-calorie malnutrition; I47.2 Ventricular tachycardia; I13.0 Hypertensive heart and chronic kidney disease with heart failure and stage 1 through stage 4 chronic kidney disease, or unspecified chronic kidney disease; L97.319 Non-pressure chronic ulcer of right ankle with unspecified severity; I25.5 Ischemic cardiomyopathy; I25.10 Atherosclerotic heart disease of native coronary artery without angina pectoris; J44.9 Chronic obstructive pulmonary disease, unspecified; G47.30 Sleep apnea, unspecified; M54.9 Dorsalgia, unspecified; G89.29 Other chronic pain; G62.9 Polyneuropathy, unspecified; E78.5 Hyperlipidemia, unspecified; I10 Essential (primary) hypertension; Z96.653 Presence of artificial knee joint, bilateral; G25.81 Restless legs syndrome; N18.3 Chronic kidney disease, stage 3 (moderate); I50.9 Heart failure, unspecified; E11.22 Type 2 diabetes mellitus with diabetic chronic kidney disease; Z96.89 Presence of other specified functional implants; R13.10 Dysphagia, unspecified; R74.0 Nonspecific elevation of levels of transaminase and lactic acid dehydrogenase [LDH]; G47.00 Insomnia, unspecified; M10.9 Gout, unspecified; E11.622 Type 2 diabetes mellitus with other skin ulcer; L97.519 Non-pressure chronic ulcer of other part of right foot with unspecified severity; S80.212A Abrasion, left knee, initial encounter; E11.69 Type 2 diabetes mellitus with other specified complication; S80.211A Abrasion, right knee, initial encounter; S80.811A Abrasion, right lower leg, initial encounter; X58.XXXA Exposure to other specified factors, initial encounter; Z95.810 Presence of automatic (implantable) cardiac defibrillator; Z91.81 History of falling; Z86.73 Personal history of transient ischemic attack (TIA), and cerebral infarction without residual deficits; Z95.5 Presence of coronary angioplasty implant and graft; I25.2 Old myocardial infarction; Z88.8 Allergy status to other drugs, medicaments and biological substances; Z88.5 Allergy status to narcotic agent; Z98.42 Cataract extraction status, left eye; Z98.41 Cataract extraction status, right eye; Z95.820 Peripheral vascular angioplasty status with implants and grafts; Z90.49 Acquired absence of other specified parts of digestive tract; Y93.89 Activity, other specified; Y92.89 Other specified places as the place of occurrence of the external cause; Y99.8 Other external cause status; Z79.899 Other long term (current) drug therapy
CPT/HCPCS: 10078; 10204

== ENCOUNTER 2020-03-06 23:24 | Inpatient (IN) | payer OTHER, BC ==
[~2020-03-06] VITALS: Ht 180.3 cm; Wt 111.6 kg
--- NOTE | ~2020-03-06 | HC ---
[facility] [place] [address] CONSULTATION Name: GERI MCARTHUR Room #: 249-P [facility] IN M.R.#: [id number] Admission: 03/07/20 Attend Phys: Jenna Billingsley Discharge: Date of : 55 Report #: [id number] THIS REPORT FOR: cc: SEPIDEH Klein family physician/PCP SEPIDEH Klein family physician/PCP Kojo Aj MD ~ CC: SEPIDEH physician/PCP Jenna Billingsley DATE OF SERVICE: 03/07/2020 REASON FOR CONSULTATION: Acute kidney injury. REASON FOR PRESENTATION: Weakness. HISTORY OF PRESENT ILLNESS: A 64-year-old with history of chronic kidney disease, baseline creatinine is around 2.5, AFib, ventricular tachycardia, coronary artery disease, post-pacemaker. He presented to the hospital reporting that he has been feeling very weak in the last couple of days. He also reported left-sided weakness and slurred speech. He was admitted and is currently being intubated for potential TIA. He was on the hypotensive side. He denies fever or chills. He denies any issues with his pacemaker. He reported to me that he has been having significant nausea and vomiting. He reported decreased oral intake. When the patient presented to the Emergency Room, he was found to be in acute kidney injury with a creatinine value of 4.2, which is way above his baseline. Chronically, the patient is known to have chronic kidney disease, he sees me in the clinic. He is maintained on Flomax for recurrent urinary retention, losartan, torsemide. He was recently admitted to the hospital a couple of weeks ago for issues related to his pacemaker. His creatinine upon discharge was close to his normal range at 2.9. I was consulted to manage his acute kidney injury. PAST MEDICAL HISTORY: 1. Chronic kidney disease with a baseline creatinine of around 2.8. 2. Recurrent episodes of acute kidney injury requiring hemodialysis. 3. Methicillin-resistant Staphylococcus aureus bacteremia. 4. Diabetes mellitus. 5. Obstructive sleep apnea. 6. Hypertension. 7. Hyperlipidemia. 8. Recurrent ventricular tachycardia. 9. Coronary artery disease. 10. Chronic back pain. 11. Bilateral lower extremity neuropathy. 12. Meningitis as a child. 13. Multiple cardiac stents. [facility] [address] [place] [address] CONSULTATION Name: LYUBOVNEVAREZ M Room #: 249-P [facility] IN ..#: [id number] Admission: 03/07/20 Attend Phys: Jenna Billingsley Discharge: Date of : 55 Report #: [id number] 14. Peripheral vascular disease with left popliteal artery stent. 15. Left femoral endarterectomy. 16. Post-cardiac arrest on numerous occasions. MEDICATIONS: 1. Ezetimibe. 2. Amiodarone. 3. Levothyroxine. 4. Flomax. 5. Torsemide. 6. Effient. 6. Carvedilol. 7. Losartan. 8. Insulin. 9. Lyrica. ALLERGIES: STATINS. REVIEW OF SYSTEMS: GENERAL: Significant for generalized weakness. CARDIOVASCULAR: No chest pain or palpitation. PULMONARY: No cough or hemoptysis. GASTROINTESTINAL: Persistent nausea and vomiting. GENITOURINARY: No frequency, no urgency. FAMILY HISTORY: Significant for diabetes mellitus and hypertension. SOCIAL HISTORY: He lives with his who has gallbladder cancer and is currently on hospice. PHYSICAL EXAMINATION: GENERAL: Alert, oriented. VITAL SIGNS: Blood pressure is 121/56, pulse rate 64. HEAD AND NECK: No jugular venous distention. CHEST: Decreased air entry bilaterally. CARDIOVASCULAR: No rub detected. ABDOMEN: Soft, nontender. EXTREMITIES: Lower extremities, no edema. LABORATORY VALUES: Revealed hemoglobin of 8.9, platelet of 136. Sodium 136, BUN is 79, creatinine is 3.8. Liver enzymes are mildly elevated. Chest x-ray, no acute pulmonary edema. IMPRESSION AND PLAN: 1. Acute kidney injury. [address] [address] CONSULTATION Name: GERI MCARTHUR Xavier Room #: 249-P [facility] IN M.R.#: [id number] Admission: 03/07/20 Attend Phys: Jenna Billingsley Discharge: Date of : 55 Report #: [id number] 2. Chronic kidney disease. 3. Hypertension. 4. Coronary artery disease. 5. Left-sided weakness with slurred speech. 6. Anemia. 7. Gastrointestinal bleeding, recently started on Eliquis with positive guaiac. 8. Cardiomyopathy with ejection fractions of around 35%. 9. History of ventricular tachycardia, atrial fibrillation. Status post automated implantable cardioverter defibrillator placement. 10. The patient's acute kidney injury is related to hypotension. We will give some albumin for intravascular volume replacement. 11. Received some IV fluid yesterday. 12. Continue to hold blood pressure medications. 13. Continue to hold diuresis. 14. Anemia is being addressed by the admitting team. 15. Cardiology is following regarding his anticoagulation. By: 0901 0950 Kojo Aj MD /nt
--- NOTE | ~2020-03-06 | HC ---
[facility] [place] [address] CONSULTATION Name: GERI MCARTHUR Room #: 249-P ADM IN M.R.#: [id number] Admission: 03/07/20 Attend Phys: Jenna Billingsley Discharge: Date of : 55 Report #: [id number] THIS REPORT FOR: cc: SEPIDEH - Latoya family physician/PCP SEPIDEH - Latoya family physician/PCP Alessandro Diamond MD ~ CC: SEPIDEH physician/PCP Jenna Billingsley DATE OF SERVICE: 03/07/2020 HISTORY OF PRESENT ILLNESS: This 64-year-old male patient who was seen by me because of the weakness on the left side. Initial history I got from Emergency Room physician was that this happened within the time window for a stroke, but when I get the history from him this he said it is going on for 2 days and it just became worse today. He is pretty irritable and does not provide a good history, but he has some weakness on the left side. He was seen by neurologist during his last admission, Dr. Fitzgerald. He said he does not feel good in generalized fashion. However, he is more weak on the left side than the right. This started 2 days ago and it became worse today. This is the history he provides me, which is different than the history he provided to Emergency Room physician earlier, but he has no known weakness on the left side because of the prior stroke. His record indicates that he was recently put on Eliquis and baby aspirin. He has developed multiple problems since that time. His hemoglobin is down to 7.4. His hemoglobin on 02/23/2020 was 10.6, although he has run on the lower side, but he has not been that low. His creatinine has increased to 4.2 and it has not been that high, although he runs higher creatinine. His blood pressure when he came in was running about 97/52. His examination is limited because he is not very cooperative. The best I can tell, he is weak on the left side, but the weakness is about 4/5, which was same as the last time. When I tried to do the sensation on him, he is not very cooperative, especially with the position sense. So, the best neurological examination could be carried out in this patient does not look like it shows any significant changes. I discussed with Dr. Cuenca and tried to discuss with him. I think multiple metabolic problems, especially low blood pressure has caused him a lot of symptoms. They are probably aggravated by metabolic problems like high creatinine and low hemoglobin. They are not very good options on him. He has a defibrillator, so we cannot do an MRI and his creatinine has gone to 4.[address] angio is not a very good option on him. Moreover, his symptoms started about [address] [facility] [address] [place] [address] CONSULTATION Name: GERI MCARTHUR Room #: 249-P [facility] IN M.R.#: [id number] Admission: 03/07/20 Attend Phys: Jenna Billingsley Discharge: Date of : 55 Report #: [id number] All of this will indicate that he is not an intervention candidate. He is on anticoagulation and aspirin. His source of bleed need to be determined and I will suggest reconsulting Cardiology about his antithrombotic therapy. Thank you very much for this referral and we will follow this patient later on today with you. By: 0117 0145 Alessandro Diamond MD /nt
[~2020-03-06 23:24] MED LIST changes: +CLONAZEPAM 0.50.5 M1 PO; +DOXYCYCLINE 10100 M2 PO; +NIACIN 500 MG500 M1 PO; +PACERONE200 MG PO; +SYNTHROID88 MC1 PO
[2020-03-06 23:25] VITALS: BP 97/52
[2020-03-06 23:51] LABS: WBC 4.5 thou/uL (4.0-11.0)
[2020-03-06 23:53] LABS: HEMATOCRIT 23.8 % (42.0-52.0); HEMOGLOBIN 7.4 gm/dL (14.0-18.0); MCH 25.3 pg (26.0-34.0); MCHC 31.2 g/dL (28.0-37.0); MCV 81.2 fL (80.0-100.0); PLATELET COUNT 151 thou/uL (150-400); RBC 2.93 mil/uL (4.50-6.00); RDW 24.5 % (10.5-14.5)
[2020-03-07] VITALS (25 sets, daily range): BP systolic 94–154; BP diastolic 48–104
[2020-03-07] LABS: ANION GAP 3 mmol/L (7-16); BUN 85 mg/dL (7-18); CALCIUM 8.3 mg/dL (8.5-10.1); CHLORIDE 101 mmol/L (98-107); CO2 30 mmol/L (21-32); CREATININE 4.2 mg/dL (0.7-1.3); GLUCOSE 158 mg/dL (74-106); POTASSIUM 4.8 mmol/L (3.5-5.1); SODIUM 134 mmol/L (136-145)
[2020-03-07 00:04] LABS: APTT 36.1 Seconds (24.5-32.8); INR 1.3; PROTIME 13.2 Seconds (9.3-11.4)
[2020-03-07 00:10] LABS: MAGNESIUM 1.9 mg/dL (1.8-2.4); SGOT 123 U/L (15-37); SGPT 101 U/L (30-65); TOTAL BILIRUBIN 1.1 mg/dL (<0.1-1.0); TOTAL PROTEIN 6.2 g/dL (6.4-8.2); TROPONIN-I <0.06 ng/mL (<0.06)
[2020-03-07 00:45] LABS: ANISOCYTOSIS 3+; LARGE PLATELETS FEW; PLATELET ESTIMATE NORMAL; POIKILOCYTOSIS 1+; POLYCHROMASIA 1+
[2020-03-07] MEDS ORDERED: HYDROMORPHONE E12 MG PO ×2 (01:05)
[2020-03-07] MEDS ORDERED: REGLAN10 MG PO ×2 (01:09)
[2020-03-07] MEDS ORDERED: FLOMAX0.4 MG PO (01:10)
[2020-03-07] MEDS ORDERED: DULERA 200 MCG/13 GM INH (01:13)
[2020-03-07] MEDS ORDERED: LATANOPROST 0.2.5 ML EA. EYE (01:15)
[2020-03-07] MEDS ORDERED: ELIQUIS5 MG PO (01:16)
[2020-03-07] MEDS ORDERED: MEXILETINE PO ×2 (01:16)
[2020-03-07] MEDS ORDERED: MIRAPEX0.125 MG PO (01:18)
[2020-03-07] MEDS ORDERED: OMEGA3 PO ×2 (01:20)
[2020-03-07] MEDS ORDERED: SUPER THERAVIT1 EACH PO (01:21)
[2020-03-07] MEDS ORDERED: TESTOSTERONE TROCHE ×2 (01:22)
[2020-03-07] MEDS ORDERED: VIT D3 PO ×2 (01:24)
--- NOTE | 2020-03-07 03:19 | NUR ---
Pt admitted from ED, prior to admission, pt reportedly had slurred speech, he states he has had left sided weakness since his last admit approx 2 weeks ago. He also states he has fallen recently, with injuries, he has areas of bruising/scabs, bandaids to BLE. No pressure sores are noted, and his heels are intact, SCD's were placed. 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 Monitor reads SR 60's, 1*AVB/BBB, rare pacer spikes, he is hypotensive, MAP are > 60 mmHg, receiving IVF's and PRBC's at this time. Pt denies noticing any dark stools, pt has a protonix gtt infusing, that he hasn't had a BM for at least a week. When the [employer] collected a specimen for occult stool, she noted hard stools. Pt has attempted to void, w/o results, will monitor. The bed is in the low/locked position, the siderails are up x 4, the call light is within reach and the bed alarm is set. A POC was initiated, will continue to monitor.
[2020-03-07 06:27] LABS: URINE BILIRUBIN NEGATIVE (Negative); URINE BLOOD NEGATIVE (Negative); URINE CLARITY CLEAR; URINE COLOR YELLOW; URINE GLUCOSE-RANDOM* NEGATIVE (Negative); URINE KETONES NEGATIVE (Negative); URINE LEUKOCYTES-REFLEX NEGATIVE (Negative); URINE NITRITE-REFLEX NEGATIVE (Negative); URINE PROTEIN (DIPSTICK) NEGATIVE (Negative); URINE UROBILINOGEN 0.2 E.U./dl (0.2-1.0)
[2020-03-07 06:35] LABS: AMP/METHAMP Negative (Negative); BARBITURATES Negative (Negative); BENZODIAZEPINES Negative (Negative); COCAINE Negative (Negative); METHADONE Negative (Negative); OPIATES POSITIVE (Negative); PCP Negative (Negative)
[2020-03-07 07:44] LABS: HEMATOCRIT 28.3 % (42.0-52.0); HEMOGLOBIN 8.9 gm/dL (14.0-18.0); MCHC 31.6 g/dL (28.0-37.0); MCV 82.4 fL (80.0-100.0); RBC 3.43 mil/uL (4.50-6.00); RDW 24.2 % (10.5-14.5); WBC 4.2 thou/uL (4.0-11.0)
[2020-03-07 08:08] LABS: CALCIUM 8.4 mg/dL (8.5-10.1); CREATININE 3.8 mg/dL (0.7-1.3); POTASSIUM 4.5 mmol/L (3.5-5.1)
--- NOTE | 2020-03-07 08:08 | EKG ---
[facility] [place] [address] ELECTROCARDIOGRAM REPORT Name: JEREMI MCARTHURIN Xavier Room #: 249-P ADM IN M.R.#: [id number] Admission: 03/07/20 Attend Phys: Jenna Billingsley Discharge: Date of : 55 Report #: [id number] THIS REPORT FOR: cc: SEPIDEH - No family physician/PCP SEPIDEH - No family physician/PCP Chet Rodriguez MD 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 : 1955 Requested By: Aneudy Cuenca Order Number: [id number] MD: Chet Rodriguez Measurements Intervals [place] Rate: 76 P: DE: 223 QRS: -21 QRSD: 109 T: 100 QT: 477 QTc: 537 Interpretive Statements Atrial-paced rhythm Inferior infarct, old Compared to ECG 02/24/2020 09:29:17 Ventricular tachycardia is no longer present Electronically Signed On 03-07-2020 8:06:57 CDT by Chet Rodriguez [email or web address] <ELECTRONICALLY SIGNED> By: Chet Rodriguez MD, [facility] 03/07/20 0806 2344 2344 Chet Rodriguez MD, [facility] /EPI
--- NOTE | 2020-03-07 10:00 | NUR ---
ASSUMED CARE AT 0700 FROM THE NIGHT NURSE, ALLIE. PATIENT IS ALERT AND ORIENTED. SOME DECREASED SENSATION IN LOWER EXTERMITIES, HISTORY OF DIABETIC NEUROPATHY, LEFT SIDE TREMORS AND TENDS TO DRIFT SLIGHTLY WITH STROKE SCALE. LAB DRAWN AND HEMAGLOBIN NOTED TO BE UP TO 8.9 AFTER BLOOD TRANSFUSION. PATIENT ASSISTED UP TO THE COMMODE AND THEN TO THE CHAIR. TOLERATED WELL. MONITOR INITIALLY SHOWING NSR WITH 1 DEGREE AV BLOCK AND BBB AND RARE PACED BEAT, SINCE 0900 NOTED TO BE ATRIALLY PACED. OTHRO STATIC HYPOTENSION NOTED INTIAL BP WHEN GETTING TO THE CHAIR WAS LOWER. WILL CONTINUE TO MONITOR. OT IN TO EVALUATE PATIENT.
--- NOTE | 2020-03-07 16:36 | NUR ---
INITIAL ASSESSMENT: ELOINA reviewed chart and spoke with nursing and attending physician. Pt was admitted from home due to TIA/GI bleed. GI consulted. Pt to have an EGD. Pt with hx of CVA and has left sided weakness. SW attempted to contact pt in his room via cell phone. No answer. Pt was recently hospitalized at [facility] and left AMA on 02/24. Per chart, pt's is currently on hospice at home. Pt has been at [facility] in the past. Pt has a cane and walker at home. Pt has been to [facility] and [facility] in the past. ELOINA notified that pt is currently on service with [facility] . ELOINA spoke with Jonelle in intake, who states pt is receving HH RN/PT/OT services. Pt's PCP is Dr. Adele Lorenzo. Pt will have therapy evaluations. 5N to eval pt for possible admission to inpt acute rehab if appropriate. ELOINA spoke with pt's , Yana, via phone to provide update. Pt is normally alert/orientated x 4. Pt has DME in place. No stairs at home. Pt's states they are hoping pt can return home and resume HH services when medically stable. ELOINA is following to assist as needed with discharge planning.
--- NOTE | 2020-03-07 19:00 | NUR ---
SUPP GIVEN THIS AM, UP TO COMMODE FOR HARD FORMED YELLOW BROWN STOOL WITH STREKS OF BLOOD ON OUTSIDE OF STOOL.
--- NOTE | 2020-03-07 19:48 | NUR ---
GIVEN STROKE EDUCATION BOOKLET. PATIENT NEURO STATUS UNCHANGED WITH NIH SCORE OF 2, TREMORS NOTED. AND DIABETIC NEUROPATHY NOTED. MONITOR A PACED. VSS NO DIZZINESS NOTED. PROGRESSING TOWARDS OUTCOME GOALS.
[2020-03-08] VITALS (15 sets, daily range): BP systolic 127–171; BP diastolic 68–91
[2020-03-08 04:59] LABS: HEMATOCRIT 28.4 % (42.0-52.0); HEMOGLOBIN 8.9 gm/dL (14.0-18.0); MCH 25.9 pg (26.0-34.0); MCHC 31.2 g/dL (28.0-37.0); RBC 3.42 mil/uL (4.50-6.00); RDW 24.6 % (10.5-14.5); WBC 6.1 thou/uL (4.0-11.0)
[2020-03-08 05:59] LABS: ALBUMIN 3.5 g/dL (3.4-5.0); CALCIUM 9.2 mg/dL (8.5-10.1); CREATININE 3.2 mg/dL (0.7-1.3); PHOSPHORUS 3.1 mg/dL (2.5-4.9); POTASSIUM 3.8 mmol/L (3.5-5.1)
--- NOTE | 2020-03-08 06:16 | NUR ---
ASSUMED CARE OF PATIENT AT 1900, PATIENT TRANSFERRED FROM CHAIR TO BED AT 1900 WITH X1 ASSISTANCE AND GAIT BELT. ABRASIONS NOTED TO BILATERAL KNEES, RIGHT 2ND-5TH TOE, LEFT 4TH TOE. WOUND NOTED TO OUTER PORTION OF RIGHT ANKLE. PHOTOS TAKEN AT 2000 AND COMPLETED DRESSING CHANGES, OINTMENT APPLIED TO TOES. PATIENT IS ALERT AND ORIENTED X4, Q4H NIH STROKE SCALE COMPLETED, PATIENT CURRENT SCORE IS ONE. SINUS RHYTHM ON AUTOMATIC PATTERN EDGER, NO PACER SPIKES NOTED. ON ROOM AIR, O2 SAT INTERMITTENLY DROPED BELOW 90%. PATIENT STATES HE HAS A HISTORY OF SLEEP APNEA WITH HOME CPAP MACHINE CURRENTLY NOT AT THE BEDSIDE. PATIENT HAD EPISODE OF DRY HEAVING AT 0240, RELIVED BY LUCERO SIMMONS. NPO SINCE 20051, PATIENT HAD SMALL HARD BOWEL MOVEMENT THIS MORNING. VOIDS INDEPENDENTLY, BLADDER SCANNED 164 ML POST VOID AT 0600. PLAN FOR EGD TODAY, CONSENT SIGNED BY PATIENT AND PLACED ON CHART. NO SIGN OF BLEEDING NOTED THROUGHOUT THE NIGHT, AM LABWORK COMPLETED HGB IS 8.9. WILL CONTINUE TO MONITOR.
--- NOTE | 2020-03-08 11:16 | NUR ---
ASSUMED CARE @ 0700 03/08/20, PT ASSESSMENTS AND VSS COMPLETE PER ICU PROTOCOL AND DOCUMENTED. PT AXOX4, PT NIH SCORE 1. PT ON RA SATS 95-97, PT SR ON MONITOR, JORGE MUNGUIA AND DR MARTINEZ HERE THIS AM TO ROUND, NEW ORDERS RECIEVED. DR MARTINEZ WANTED RN TO LET GI KNOW THAT PT NEEDS TO BE ON EFFIENT, THIS WAS COMMUNICATED TO ITZ MUNGUIA WITH GI. RN WAS TOLD DURING REPORT THAT PT WAS SUPPOSED TO BE NPO FOR EGD TODAY, RN CALLS GI LAB TO SEE WHERE PT IS, ON THE SCHEDULE, RN IS INFORMED THAT PT IS NOT ON THE SCHEDULE FOR TODAY BUT ON THE SCHEDULE FOR TOMMORROW, PT TAKEN OUT OF NPO AND DIET ORDERED PER ITZ MUNGUIA. DR CRIAG HERE TO ROUND, VERBAL ORDERS GIVEN TO STOP ALBUMIN TREATMENT TOMORROW. DR ROJAS HERE TO ROUND, TRANSFER ORDERS PLACED FOR CCU. WILL CONT TO MONITOR.
--- NOTE | 2020-03-08 12:18 | NUR ---
ON-GOING ASSESSMENT: CM REVIEWED CHART AND SPOKE WITH ATTENDING. PLANS ARE FOR PATIENT TO HAVE AN EGF IN THE AM. 5N HAS ALSO BEEN CONSULTED AND WILL SEE PATIENT TODAY. CM AWAITING FURTHER INPUT FROM 5N. CM WILL CONTINUE TO FOLLOW TO ASSIST NEEDED.
[2020-03-08] MEDS ORDERED: TIZANIDINE HCL4 M1 PO (22:58)
[2020-03-09 00:45] VITALS: BP 174/92
[2020-03-09 04:45] VITALS: BP 152/76
[2020-03-09 04:46] LABS: HEMATOCRIT 27.6 % (42.0-52.0); HEMOGLOBIN 8.8 gm/dL (14.0-18.0); MCH 26.3 pg (26.0-34.0); MCHC 31.8 g/dL (28.0-37.0); MCV 82.7 fL (80.0-100.0); RBC 3.33 mil/uL (4.50-6.00); RDW 24.5 % (10.5-14.5); WBC 10.9 thou/uL (4.0-11.0)
--- NOTE | 2020-03-09 04:48 | NUR ---
ASSESSMENTS CHARTED, MEDS GIVEN CHARTED. PATIENT C/O PAIN TO HIS RIBS AND BACK FROM DRY HEAVING DURING THE DAY. RATED PAIN 10/10. ONLY HAD TYLENOL FOR PAIN OF 6/10. CONNECTED WITH [facility] AND WERE ABLE TO RESTART HIS MEDS. UNFORTUNATELY, IT TOOK TIME FOR THE MEDS TO BE VERIFIED AND THE ORDER FILLED. THE PATIENT WAS UPSET WITH THE LENGTH OF TIME HE WAS IN PAIN. MEDS WERE PICKED UP FROM THE PHARMACY TO SHAVE TIME. PATIENT WAS NPO SINCE MIDNIGHT FOR EGD SCHEDULED THIS MORNING. FALL PRECAUTIONS IN PLACE DURING SHIFT. PATIENT USING URINAL IN BED.
[2020-03-09 04:55] LABS: CALCIUM 9.3 mg/dL (8.5-10.1); CREATININE 2.5 mg/dL (0.7-1.3); POTASSIUM 4.2 mmol/L (3.5-5.1)
[2020-03-09 07:36] VITALS: BP 146/99
[2020-03-09 10:46] VITALS: BP 141/70
--- NOTE | 2020-03-09 12:50 | NUR ---
11:00 REPORT CALLED TO GI LAB. PT VERY ANXIOUS TO GET PROCEDURE DONE OFFERED REASSURANCE AND I CALLED OUR NURSING APARTMENT MAINTENANCE MANAGER [facility] TO VERIFY THIS PROCEDURE IS ON SCHEDULE AND SOON HE IS THREATENING NOW TO LEAVE AMA.
[2020-03-09 13:28] VITALS: BP 141/70
--- NOTE | 2020-03-09 13:34 | NUR ---
Pt declined 5N acute rehab stay and would like to resume his HH f/u per Jorge Minor. He had EGD this am and has been cleared by GI for dc home today. Awaiting final dc order. [facility] notified and they can resume his services. DC home later today. Dc associate merchandise planner to fax his final orders later this afternoon. No other needs noted. Pt's spouse is at home on hospice services and he is anxious to return home to be with her.
--- NOTE | 2020-03-09 15:08 | NUR ---
14:30 PM PT. BACK FROM GI LAB C/O ABDOMEN DISCOMFORT PAIN MEDICATION PER IV GIVEN FOR SUCH. AWAITING A DISCHARGE ORDER FROM MD. WILL GO HOME TODAY AND WILL CONTINUE ON WITH HOME HEALTH VISITS. PT. DENIES ANY CHEST PAIN AT THIS TIME, ATE ALL HIS LUNCH AND NUASEA HAS IMPROVED WELL TODAY OVERALL.
--- NOTE | 2020-03-09 16:18 | NUR ---
FAXED DC ORDERS/SUMMARY [facility] SPOKE WITH GOSIA IN INTAKE THEY RECEIVED ORDERS AND WILL NOTIFY PT TIME OF VISITS/
--- NOTE | 2020-03-12 10:18 | P ---
[facility] [place] [address] PROCEDURE REPORT Name: GERI MCARTHUR Room #: 212-P [facility] IN .R.#: [id number] Admission: 03/07/20 Attend Phys: Jenna Billingsley Discharge: 03/09/20 Date of : 55 Report #: [id number] THIS REPORT FOR: cc: SEPIDEH - No family physician/PCP FAM - No family physician/PCP Tima Stewart MD ~ CC: [facility] physician/PCP Jenna Rojas MD DATE OF SERVICE: 03/09/2020 PROCEDURE PERFORMED: Upper endoscopy with biopsies. HISTORY OF PRESENT ILLNESS: The patient is a 64-year-old male with multiple medical problems, admitted with nausea, vomiting, was also noted to be anemic, which he has a history of. He was given 1 unit of packed cells. He was Hemoccult positive during his hospital stay. The patient underwent a colonoscopy last fall by my partner, Dr. Andrade, which was normal except for hemorrhoids. He has been on Effient and Eliquis. This has been held. Plan is for upper endoscopy. DESCRIPTION OF PROCEDURE: The risks and benefits of the procedure were explained to the patient, those risks including but not limited to bleeding, perforation and the risk of sedation. He understood these risks and gave informed consent. Sedation was given using propofol per Anesthesia. Next, using a standard Olympus upper endoscope, the scope was placed in the patient's mouth and advanced under direct vision through the esophagus, stomach and into the second portion of the duodenum. The upper and mid esophagus was normal in appearance. In the distal esophagus, grade A erosive esophagitis was noted. There was a diffuse moderate gastritis noted throughout the stomach. Biopsies were obtained to rule out H. pylori. No ulcerations or erosions. The pylorus was normal and patent. The duodenal bulb, first and second portion were all normal. The scope was then withdrawn and the procedure terminated. The patient tolerated the procedure well. IMPRESSION: 1. Diffuse moderate gastritis. No evidence of active bleeding. 2. Grade A erosive esophagitis. 3. Otherwise, normal upper endoscopy. RECOMMENDATIONS: 1. Await biopsy results. 2. Recommend daily PPI therapy. 3. Okay to restart Effient and Eliquis at this time, would recommend monitoring [address] [address] PROCEDURE REPORT Name: GERI MCARTHUR Room #: 212-P [facility].#: [id number] Admission: 03/07/20 Attend Phys: Jenna Billingsley Discharge: 03/09/20 Date of : 55 Report #: [id number] hemoglobin. Thank you for allowing me to participate in his care. <ELECTRONICALLY SIGNED> By: Tima Stewart MD 03/12/20 1018 1300 190 Tima Stewart MD /nt
--- NOTE | 2020-03-13 18:07 | PATH ---
[facility] [address] [place] [address] PATHOLOGY RPT PROCEDURE Name: MEDLEYGERI Room #: 212-P [facility] IN M.R.#: [id number] Admission: 03/07/20 Date of : 55 Discharge: 03/09/20 Report #: [id number] Path Case #: [id number] [facility] Accession Number: [id number] . 01 Material submitted: . stomach - BX OF GASTRITIS . 01 Clinical history: . anemia N/Y, gastritis esophaghitis . 02 Diagnosis: Gastric mucosa, gastritis, rule out H. pylori, endoscopic biopsy: - Mild chronic active gastritis associated with features of reactive gastropathy. - Negative for intestinal metaplasia or atrophy. - Negative for Helicobacter pylori (properly-controlled immunohistochemical stain performed). . (IUV:mml; 03/13/2020) QLM 03/13/2020 1326 Local . 02 Electronically signed: . Kiesha Guerrero MD, Pathologist NPI- [id number] . 01 Gross description: . The specimen is received in formalin, labeled "Geri Medley, BX of gastritis rule out H. pylori" and consists of 2 fragments of pink-guzman tissue measuring 0.9 x 0.2 x 0.2 cm in aggregate which are entirely submitted in A1. ([facility]; 03/09/2020) JFQ/JFQ 03/09/2020 1643 Local . 02 Pathologist provided ICD-10: K29.50 . 02 CPT . 691907, [id number] Specimen Comment: A courtesy copy of this report has been sent to [phone] Specimen Comment: [phone] Specimen Comment: Report sent to / DR ROJAS Performed at: [address] [id number] MD Costa Seals MD Phone: [phone] Performed at: [address] [address] PATHOLOGY RPT PROCEDURE Name: GERI MEDLEY Room #: 212-P DIS IN M.R.#: [id number] Admission: 03/07/20 Date of : 55 Discharge: 03/09/20 Report #: [id number] Path Case #: [id number] Lab[address] [id number] MD Kiesha Guerrero MD Phone: [phone]
== END 2020-03-09 16:04 | disposition home health service (06) | DRG 380 ==
LOC: ER 23:24 → EROBS 03-07 00:56 → ICU 03-07 00:56 → 2N 03-07 00:56 → ICU 03-07 01:28 → 2N 03-08 12:57
PROVIDERS: Emergency Medicine; Hospitalist; Nurse Practitioner Family; ADMIT Hospitalist
PROC: 30233N1 Transfusion of Nonautologous Red Blood Cells into Peripheral Vein, Percutaneous Approach (ICD-10-PCS; principal; 2020-03-07)
PROC: 0DB68ZX Excision of Stomach, Via Natural or Artificial Opening Endoscopic, Diagnostic (ICD-10-PCS; 2020-03-09)
DX: K22.11 Ulcer of esophagus with bleeding (principal); K85.90 Acute pancreatitis without necrosis or infection, unspecified; N17.0 Acute kidney failure with tubular necrosis; E43 Unspecified severe protein-calorie malnutrition; G45.8 Other transient cerebral ischemic attacks and related syndromes; I50.22 Chronic systolic (congestive) heart failure; I42.9 Cardiomyopathy, unspecified; I47.2 Ventricular tachycardia; I13.0 Hypertensive heart and chronic kidney disease with heart failure and stage 1 through stage 4 chronic kidney disease, or unspecified chronic kidney disease; K29.71 Gastritis, unspecified, with bleeding; I25.10 Atherosclerotic heart disease of native coronary artery without angina pectoris; J44.9 Chronic obstructive pulmonary disease, unspecified; M54.9 Dorsalgia, unspecified; E11.40 Type 2 diabetes mellitus with diabetic neuropathy, unspecified; E78.5 Hyperlipidemia, unspecified; Z96.653 Presence of artificial knee joint, bilateral; G25.81 Restless legs syndrome; N18.3 Chronic kidney disease, stage 3 (moderate); G47.33 Obstructive sleep apnea (adult) (pediatric); D69.6 Thrombocytopenia, unspecified; E11.51 Type 2 diabetes mellitus with diabetic peripheral angiopathy without gangrene; D64.9 Anemia, unspecified; G89.4 Chronic pain syndrome; M10.9 Gout, unspecified; Z88.6 Allergy status to analgesic agent; E11.22 Type 2 diabetes mellitus with diabetic chronic kidney disease; K59.00 Constipation, unspecified; Z20.828 Contact with and (suspected) exposure to other viral communicable diseases; G47.00 Insomnia, unspecified; E11.65 Type 2 diabetes mellitus with hyperglycemia; I25.2 Old myocardial infarction; Z86.14 Personal history of Methicillin resistant Staphylococcus aureus infection; Z98.42 Cataract extraction status, left eye; Z87.891 Personal history of nicotine dependence; Z98.41 Cataract extraction status, right eye; Z95.5 Presence of coronary angioplasty implant and graft; Z88.8 Allergy status to other drugs, medicaments and biological substances; Z68.34 Body mass index [BMI] 34.0-34.9, adult
CPT/HCPCS: 10078; 10081; 62110; 62900; 70005

== ENCOUNTER 2020-03-10 14:38 | Inpatient (IN) | payer OTHER, BC ==
[~2020-03-10] VITALS: Ht 152.4 cm; Wt 113.9 kg
[~2020-03-10 14:38] MED LIST changes: +ELIQUIS5 MG PO; +LATANOPROST 0.2.5 ML EA. EYE; +MEXILETINE PO; +OMEGA3 PO; +REGLAN10 MG PO; +SUPER THERAVIT1 EACH PO; +TESTOSTERONE TROCHE; +VIT D3 PO
[2020-03-10 14:39] VITALS: BP 88/45
[2020-03-10 15:21] LABS: WBC 9.8 thou/uL (4.0-11.0)
[2020-03-10 15:23] LABS: CALCIUM 9.4 mg/dL (8.5-10.1); POTASSIUM 5.1 mmol/L (3.5-5.1)
[2020-03-10 15:24] LABS: HEMATOCRIT 28.2 % (42.0-52.0); HEMOGLOBIN 9.1 gm/dL (14.0-18.0); MCH 26.7 pg (26.0-34.0); MCHC 32.2 g/dL (28.0-37.0); MCV 82.9 fL (80.0-100.0); PLATELET COUNT 101 thou/uL (150-400); RDW 25.2 % (10.5-14.5)
[2020-03-10 15:25] LABS: CREATININE 4.1 mg/dL (0.7-1.3)
[2020-03-10 15:33] LABS: DIRECT BILIRUBIN 1.6 mg/dL (<0.1-0.2); TOTAL BILIRUBIN 2.8 mg/dL (<0.1-1.0); TOTAL PROTEIN 7.7 g/dL (6.4-8.2); TROPONIN-I 0.08 ng/mL (<0.06)
[2020-03-10 15:55] LABS: ABSOLUTE NEUTROPHILS 7.4 thou/uL (1.4-8.2); ANISOCYTOSIS 3+; LARGE PLATELETS OCCASIONAL; PLATELET ESTIMATE DECREASED
[2020-03-10 15:56] LABS: MACROCYTES SLIGHT; MICROCYTES SLIGHT; OVALOCYTES FEW; POIKILOCYTOSIS 1+; TARGET CELLS FEW
--- NOTE | 2020-03-10 17:30 | NUR ---
INTERAGATION DONE, [employer] CALLED
[2020-03-10 18:33] LABS: URINE BILIRUBIN 1+ (Negative); URINE BLOOD NEGATIVE (Negative); URINE CLARITY CLEAR; URINE COLOR YELLOW; URINE GLUCOSE-RANDOM* NEGATIVE (Negative); URINE KETONES NEGATIVE (Negative); URINE LEUKOCYTES-REFLEX NEGATIVE (Negative); URINE NITRITE-REFLEX NEGATIVE (Negative); URINE PROTEIN (DIPSTICK) 1+ (Negative)
[2020-03-10 18:35] LABS: ICTOTEST (BILI CONFIRMATORY) Negative (Negative)
[2020-03-10 18:40] LABS: CRYSTALS None Seen /LPF (None Seen); HYALINE CASTS 4-10 Moderate /LPF (None Seen); MUCUS 0-3 Light strn/LPF (None Seen); SQUAMOUS None Seen /LPF (0-3)
[2020-03-10 18:41] LABS: BACTERIA-REFLEX None Seen /HPF (None Seen); URINE RBC None Seen /HPF (0-2); URINE WBC-REFLEX 0-5 Rare /HPF (0-5)
[2020-03-10 18:42] VITALS: BP 99/54
[2020-03-10 19:20] VITALS: BP 134/68
[2020-03-10 21:30] VITALS: BP 136/63
[2020-03-11] VITALS: BP 135/72
[2020-03-11 05:10] VITALS: BP 110/60
[2020-03-11 09:11] VITALS: BP 128/59
--- NOTE | 2020-03-11 10:09 | NUR ---
ADMIT PT ADMITTED FROM ER FOR CHF EXACERBATION PT HAS GENERALIZED EDEMA. TO FLOOR WITH IV TO RW AND BUCKLEY CATH IN PLACE ORIENTED TO ROOM CALL LIGHT AND POC. ADMISSION COMPLETE AND PT GIVEN AN ADMISSION PACKET ALL CONSENTS SIGNED ALBUMIN GIVEN ORDERED CONTINUE POC.
[2020-03-11 12:03] LABS: ALBUMIN 4.5 g/dL (3.4-5.0); CALCIUM 9.8 mg/dL (8.5-10.1); CREATININE 3.8 mg/dL (0.7-1.3); PHOSPHORUS 3.7 mg/dL (2.5-4.9); POTASSIUM 3.8 mmol/L (3.5-5.1)
--- NOTE | 2020-03-11 12:05 | EKG ---
[facility] [place] [address] ELECTROCARDIOGRAM REPORT Name: GERI MCARTHUR Room #: 462- ADM IN M.R.#: [id number] Admission: 03/10/20 Attend Phys: Layton Banerjee MD Discharge: Date of : 55 Report #: [id number] THIS REPORT FOR: cc: Adele Lorenzo MD, Constance M. MD Park, Jin S. 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
--- NOTE | 2020-03-11 12:28 | HC ---
[facility] [place] [address] CONSULTATION Name: GERI MCARTHUR Room #: 462-P ADM IN M.R.#: [id number] Admission: 03/10/20 Attend Phys: Layton Banerjee MD Discharge: Date of : 55 Report #: [id number] THIS REPORT FOR: cc: Adele Lorenzo MD, Constance M. MD Park, Jin S. MD ~ CC: Adele Banerjee DATE OF SERVICE: 03/10/2020 CARDIOLOGY CONSULTATION INDICATION: Shortness of breath. HISTORY OF PRESENT ILLNESS: This is a 64-year-old gentleman with a history of CAD, ND, stent to the left main, ventricular tachycardia, ischemic cardiomyopathy, ICD, hypertension, intolerance to statins, diabetes mellitus, chronic kidney disease, COPD, CVA, presenting with lethargy and respiratory distress. He has a prior CVA and was recently admitted with exacerbation of left-sided weakness. However, he was found to have slow ventricular tachycardia at that time. He underwent cardioversion with anti-tachycardic pacing from his defibrillator. He had been on amiodarone and mexiletine was started. During that admission, Neurology felt that he may have had emboli from his cardiomyopathy causing his weakness, although that was never documented. He was started on Eliquis therapy. Shortly thereafter, he was readmitted with left-sided weakness and found to have hemoglobin of 7.4. He received blood transfusion and Eliquis was discontinued. His symptoms resolved. He was discharged home after a GI evaluation for nausea and vomiting. Since he had been stable, it was decided not to continue with his diuretic therapy, as per Nephrology. He now returns with ____. He was discharged yesterday after his endoscopy and felt well. This morning, he was lethargic and difficult to arouse. He complained of shortness of breath. In the ER, he was noted to be hypoxic, more arousable on oxygen supplement. He denies any chest pain or fevers. His hemoglobin is stable. His laboratory values are just suggestive for fluid overload. PAST MEDICAL HISTORY: Ventricular tachycardia, status post ICD. Currently on amiodarone and mexiletine. History of CAD with recent stent to the left main. Ischemic cardiomyopathy, chronic kidney disease, diabetes mellitus, COPD, intolerant to statins, prior CVA. Recent anemia. ALLERGIES: Please see MAR for full listing. MEDICATIONS: At home, please see his medical records for full listing. [facility] [address] [place] [address] CONSULTATION Name: GERI MCARTHUR Room #: 462-P [facility] IN [facility]#: [id number] Admission: 03/10/20 Attend Phys: Layton Banerjee MD Discharge: Date of : 55 Report #: [id number] SOCIAL HISTORY: Negative for tobacco use. FAMILY HISTORY: Negative for premature CAD. REVIEW OF SYSTEMS: A full 10-point review of systems performed. Only the pertinent positives and negatives are described in the HPI. PHYSICAL EXAMINATION: VITAL SIGNS: Blood pressure is 98/54, heart rate is 60 beats per minute. GENERAL APPEARANCE: An overweight male, in no acute distress. HEENT: Normocephalic, atraumatic. LUNGS: Diminished breath sounds at the bases. CARDIAC: Distant heart sounds, S1, S2 positive. ABDOMEN: Protuberant, soft, nontender. EXTREMITIES: Trace edema. ECG reveals atrial paced rhythm with normal QRS. LABORATORY VALUES: Hemoglobin is 9.1. Sodium is 138, creatinine is 4.1. Abnormal AST and ALT. Troponin 0.08. ProBNP is over 50,000. ASSESSMENT AND PLAN: 1. Respiratory failure attributed to congestive heart failure, treated with IV Lasix, strict I's and O's. Maintain a low salt diet. 2. Ventricular tachycardia, no further evidence. Continue with amiodarone and mexiletine. 3. Coronary artery disease/left main stent. Continue on Effient and resume aspirin. 4. Hypercholesterolemia, intolerant to statins. 5. Diabetes mellitus, as per PCP. 6. Chronic kidney disease as per Nephrology. <ELECTRONICALLY SIGNED> By: Paul Rojas MD 03/11/20 1228 1737 51 Paul Rojas MD /nt
[2020-03-11 14:30] VITALS: BP 115/64
--- NOTE | 2020-03-11 16:12 | NUR ---
Assumed patient care at 0715. Vital signs stable. LSCTA (diminished).He is wearing O2 at 2Liters per nasal cannula. He is unable to ambulate. Patient has been pleasant and cooperative. He would like to return home to be with his but he understands that he needs to stay in the hospital until he is strong enough to do so. Patient has been resting in bed and has been compliant with scheduled medications. Patient appears to be in no distress. Will continue to monitor.
[2020-03-11 19:35] VITALS: BP 136/63
--- NOTE | 2020-03-12 03:59 | NUR ---
RECIEVED CARE OF THIS PATIENT AT 1900. PATIENT ALERT AND ORIENTED X4.IV IN RW PATIENT WITH ALBUMIN INFUSING. PATIENT ON TELE. HAS BUCKLEY THAT IS PATIENT. C/O NAUSEA AND PAIN, NOTHING ON BOARD FOR EITHER ONE, SCRIPT MANAGER WAS CALLED AND AN ORDER OBTAINED FOR BOTH OF THESE. ALSO RECEIVED AN ORDER FOR SOMETHING TO HELP HIM SLEEP. PATIENT SLEPT OFF AND ON DURING NIGHT.
[2020-03-12 05:09] VITALS: BP 133/74
[2020-03-12 06:37] LABS: ALBUMIN 4.4 g/dL (3.4-5.0); CALCIUM 9.4 mg/dL (8.5-10.1); CREATININE 3.4 mg/dL (0.7-1.3); PHOSPHORUS 3.5 mg/dL (2.5-4.9); POTASSIUM 3.8 mmol/L (3.5-5.1)
[2020-03-12 08:58] VITALS: BP 146/75
--- NOTE | 2020-03-12 19:37 | NUR ---
Assumed patient care at 0715. Vital signs have been stable except for increased Blood Pressure (patient asymptomatic). LSCTA, abdomen distended, slightly tender. Patient is now on Room Air, he is alert and oriented x's 4. He was given Lasix early am with output of 1700cc's in Hernandez Catheter. Food and fluid intake adequate. Patient was assisted from bed to chair for lunch; assist x's 2 needed. Patient was assessed by PT. He was seen by Dr Banerjee and Dr Garg this am. Patient has been upset because he is not ready yet for Discharge. He has asked for Oxycodone x's 1 during this shift for bilateral shoulder pain; this was effective as patient noted to be sleeping approximately 30 minutes after administration. Report given to on-coming nurse.
[2020-03-12 20:41] VITALS: BP 160/91
[2020-03-13 03:47] VITALS: BP 149/84
[2020-03-13 05:54] LABS: HEMATOCRIT 29.2 % (42.0-52.0); MCH 25.9 pg (26.0-34.0); MCV 83.7 fL (80.0-100.0); RBC 3.48 mil/uL (4.50-6.00); RDW 24.9 % (10.5-14.5); WBC 5.2 thou/uL (4.0-11.0)
[2020-03-13 06:18] LABS: ALBUMIN 4.9 g/dL (3.4-5.0); CALCIUM 9.9 mg/dL (8.5-10.1); CREATININE 3.2 mg/dL (0.7-1.3); MAGNESIUM 1.9 mg/dL (1.8-2.4); POTASSIUM 4.6 mmol/L (3.5-5.1); TOTAL BILIRUBIN 2.9 mg/dL (<0.1-1.0)
[2020-03-13 07:09] VITALS: BP 149/82
[2020-03-13 15:10] VITALS: BP 145/70
--- NOTE | 2020-03-13 16:48 | NUR ---
PT ADMITTED RELATED TO CHF EXACERBATION, ACUTE ON CHRONIC KIDNEY INFECTION. CM REVIEWED CHART AND SPOKE WITH CARE TEAM. CM SPOKE WITH PT HE HAD BEEN AT HOME ON [facility] HH PLUMBER ASSISTANT. HIS IS AT HOME ON HOSPICE. SHE IS LISTED CONTACT MENTION OF SUPPORTIVE SON AND DTR IN LAW BUT NO PHONE NUMBERS. PT INDICATED HE PLANS TO RETURN HOME SOON HE CAN TO BE WITH HIS . PT NOT RECEPTIVE TO POST ACUTE CARE STAY. CM TO FOLLOW INDICAGTED WITH DC PLANNING.
[2020-03-13 19:22] VITALS: BP 148/76
--- NOTE | 2020-03-13 20:03 | NUR ---
Assumed patient care at 0715. Vital signs stable, LSCTA, abdomen is distended, non-tender, skin is clean, warm, dry and intact. Patient is up with assist of one. He has been very irritable, wanting to go home. He has been informed by the Doctors that he needs to stay until his labs are more stable. He does not agree with the Doctors and has asked this nurse to "call the Doctor to ask why he can't be Discharged." He has been on the phone complaining, talking about "getting a Net Maker." He has been refusing to eat his meals, displaying "child-like" behaviors. Report given to on-coming nurse.
--- NOTE | 2020-03-14 04:38 | NUR ---
Pt. rested quietly during the night when checked on during frequent rounds. Po pain med given (see emar) fro c/o right shoulder pain with some relief noted. Bed alarm is on.
[2020-03-14 06:03] LABS: ALBUMIN 5.5 g/dL (3.4-5.0); CALCIUM 10.4 mg/dL (8.5-10.1); CREATININE 2.9 mg/dL (0.7-1.3); PHOSPHORUS 3.5 mg/dL (2.5-4.9); POTASSIUM 4.1 mmol/L (3.5-5.1)
[2020-03-14 07:30] VITALS: BP 150/78
[2020-03-14] MEDS ORDERED: ACETAMINOPHEN325 M1 PO ×2 (12:13)
[2020-03-14] MEDS ORDERED: MEXILETINE 150150 MG PO ×2 (12:13)
[2020-03-14] MEDS ORDERED: COREG6.25 MG PO ×2 (12:13)
--- NOTE | 2020-03-14 13:18 | NUR ---
Assumed pt care this am, VS stable, blood sugar checks done. Diet and medications are well tolerated. FC in place draining yellow urine, strict I & O monitored. Seen by Dr. Rojas and was cleared from his stand point. POC followed with no signs or verbalizations of distress noted. Chronic pain noted on the right shoulder, managed with pain medications.
[2020-03-14 13:48] VITALS: BP 150/78
--- NOTE | 2020-03-14 14:03 | NUR ---
FAXED REFERRAL TO [facility] HH SPOKE WITH GOSIA IN INTAKE THEY CAN ACCEPT AT DC. PT DISCHARGING TODAY FAXED DC ORDERS/SUMMARY RECEIVED CONFIRMATION AND SPOKE WITH GOSIA IN INTAKE SHE WILL NOTIFY PT TIME OF VISITS.
[2020-03-14 15:18] VITALS: BP 162/85
== END 2020-03-14 18:38 | disposition home health service (06) | DRG 291 ==
LOC: ER 14:38 → 4W 16:51 → EROBS 16:51 → 4W 19:19
PROVIDERS: Emergency Medicine; Hospitalist; ADMIT Internal Medicine
DX: I13.0 Hypertensive heart and chronic kidney disease with heart failure and stage 1 through stage 4 chronic kidney disease, or unspecified chronic kidney disease (principal); J96.21 Acute and chronic respiratory failure with hypoxia; G92 Toxic encephalopathy; I50.23 Acute on chronic systolic (congestive) heart failure; E43 Unspecified severe protein-calorie malnutrition; N17.9 Acute kidney failure, unspecified; Z68.42 Body mass index [BMI] 45.0-49.9, adult; I48.20 Chronic atrial fibrillation, unspecified; I69.354 Hemiplegia and hemiparesis following cerebral infarction affecting left non-dominant side; E78.5 Hyperlipidemia, unspecified; E11.40 Type 2 diabetes mellitus with diabetic neuropathy, unspecified; G25.81 Restless legs syndrome; G47.00 Insomnia, unspecified; E11.22 Type 2 diabetes mellitus with diabetic chronic kidney disease; N18.3 Chronic kidney disease, stage 3 (moderate); I25.10 Atherosclerotic heart disease of native coronary artery without angina pectoris; G47.33 Obstructive sleep apnea (adult) (pediatric); E78.00 Pure hypercholesterolemia, unspecified; G89.4 Chronic pain syndrome; E66.01 Morbid (severe) obesity due to excess calories; I95.9 Hypotension, unspecified; M10.9 Gout, unspecified; J44.9 Chronic obstructive pulmonary disease, unspecified; R53.81 Other malaise; Z96.653 Presence of artificial knee joint, bilateral; I25.2 Old myocardial infarction; Z99.81 Dependence on supplemental oxygen; Z95.5 Presence of coronary angioplasty implant and graft; Z98.42 Cataract extraction status, left eye; Z98.41 Cataract extraction status, right eye; Z79.01 Long term (current) use of anticoagulants; Z87.891 Personal history of nicotine dependence; Z88.5 Allergy status to narcotic agent; Z88.8 Allergy status to other drugs, medicaments and biological substances; Z79.899 Other long term (current) drug therapy; Z79.82 Long term (current) use of aspirin; Z79.4 Long term (current) use of insulin
CPT/HCPCS: 10045

== ENCOUNTER → 2020-03-20 | Outpatient (CLI) | payer OTHER, BC ==
[~2020-03-20] VITALS: Ht 180.3 cm; Wt 110.7 kg
[~2020-03-20] MED LIST changes: +ACETAMINOPHEN325 M1 PO; +COREG6.25 MG PO; +MEXILETINE 150150 MG PO
[2020-03-20 11:18] VITALS: BP 151/65
[2020-03-20 13:10] VITALS: BP 150/72
--- NOTE | 2020-03-20 13:29 | NUR ---
IN FOR INJECTAFER INFUSION FOR IRON DEFICIENCY ANEMIA. STATED FEELING MUCH BETTER SINCE HAD A BLOOD TRANSFUSION AND AN IRON INFUSION WHILE IN HOSPITAL LAST WEEK. ADMISSION HISTORY AND ASSESSMENT COMPLETED. MEDICATION RECONCILED. IV STARTED IN RFA AND INFUSED INJECTAFER OVER 30 MINUTES. TOLERTED WELL. OBSERVED FOR 30 MINUTES. POST BP GOOD. NO ADVERSE REACTION NOTED. REMOVED IV AND DISMISSED IN STABLE CONDITION.
== END ==
LOC: OPONC 10:52
DX: D50.9 Iron deficiency anemia, unspecified (principal)
CPT/HCPCS: 95000

== ENCOUNTER → 2020-03-22 | Outpatient (CLI) | payer OTHER, BC | LOC: HYPER 08:12 | DX: E11.621 Type 2 diabetes mellitus with foot ulcer (principal); L97.512 Non-pressure chronic ulcer of other part of right foot with fat layer exposed; E11.622 Type 2 diabetes mellitus with other skin ulcer; L89.512 Pressure ulcer of right ankle, stage 2; L97.311 Non-pressure chronic ulcer of right ankle limited to breakdown of skin; S90.414D Abrasion, right lesser toe(s), subsequent encounter; E11.43 Type 2 diabetes mellitus with diabetic autonomic (poly)neuropathy; E11.22 Type 2 diabetes mellitus with diabetic chronic kidney disease; I13.0 Hypertensive heart and chronic kidney disease with heart failure and stage 1 through stage 4 chronic kidney disease, or unspecified chronic kidney disease; N18.4 Chronic kidney disease, stage 4 (severe); I50.9 Heart failure, unspecified; R60.0 Localized edema; E78.00 Pure hypercholesterolemia, unspecified; E78.5 Hyperlipidemia, unspecified; E66.01 Morbid (severe) obesity due to excess calories; G47.30 Sleep apnea, unspecified; I42.9 Cardiomyopathy, unspecified; I25.2 Old myocardial infarction; I25.10 Atherosclerotic heart disease of native coronary artery without angina pectoris; N17.9 Acute kidney failure, unspecified; J44.9 Chronic obstructive pulmonary disease, unspecified; Z79.4 Long term (current) use of insulin; Z68.39 Body mass index [BMI] 39.0-39.9, adult; Z87.891 Personal history of nicotine dependence; Z95.820 Peripheral vascular angioplasty status with implants and grafts; Z96.653 Presence of artificial knee joint, bilateral; X58.XXXD Exposure to other specified factors, subsequent encounter ==

== ENCOUNTER → 2020-03-28 | Outpatient (CLI) | payer OTHER, BC | LOC: LAB 12:38 | PROVIDERS: ATTEND Pediatrics | DX: Z03.818 Encounter for observation for suspected exposure to other biological agents ruled out (principal) ==

== ENCOUNTER → 2020-03-28 | Outpatient (CLI) | payer OTHER, BC | LOC: SJCVC 13:03 | PROVIDERS: ATTEND Internal Medicine Cardiovascular Disease | DX: Z45.02 Encounter for adjustment and management of automatic implantable cardiac defibrillator (principal); R94.31 Abnormal electrocardiogram [ECG] [EKG]; I25.5 Ischemic cardiomyopathy; I25.10 Atherosclerotic heart disease of native coronary artery without angina pectoris; I47.2 Ventricular tachycardia; I13.0 Hypertensive heart and chronic kidney disease with heart failure and stage 1 through stage 4 chronic kidney disease, or unspecified chronic kidney disease; E11.22 Type 2 diabetes mellitus with diabetic chronic kidney disease; N18.9 Chronic kidney disease, unspecified; I50.9 Heart failure, unspecified; E78.00 Pure hypercholesterolemia, unspecified; I63.9 Cerebral infarction, unspecified; I25.2 Old myocardial infarction; E78.5 Hyperlipidemia, unspecified; Z82.49 Family history of ischemic heart disease and other diseases of the circulatory system; Z87.891 Personal history of nicotine dependence; Z95.810 Presence of automatic (implantable) cardiac defibrillator; Z86.73 Personal history of transient ischemic attack (TIA), and cerebral infarction without residual deficits; Z79.899 Other long term (current) drug therapy ==

== ENCOUNTER → 2020-04-02 | Outpatient (CLI) | payer OTHER, BC ==
--- NOTE | 2020-04-05 21:35 | SLE ---
[facility] [place] [address] POLYSOMNOGRAPHY STUDY Name: GERI MCARTHUR Room #: [facility]#: [id number] Admission: 04/02/20 Attend Phys: Margareth Auguste MD Discharge: Date of : 55 Report #: [id number] THIS REPORT FOR: //name// CC: Margareth Medina MD DATE OF SERVICE: 04/02/2020 SLEEP STUDY REFERRING PHYSICIAN: Dr. David Medina. The patient is a 64-year-old who weighs 248 pounds with a BMI of 34.6. The patient has history of congestive heart failure. The patient had a prior sleep study and was found to have complex moderate sleep apnea. The patient could not achieve a therapeutic CPAP or BiPAP pressure due to low sleep efficiency. The patient was referred back to [facility] for a full night BiPAP titration study. During the night of the study, the patient spent 432 minutes in bed and slept for 344 minutes with a much improved sleep efficiency of 79.6%. Sleep latency was short at 1.3 minutes with a REM latency of 66 minutes. Sleep architecture showed increased stage 1 and stage 2 sleep, absent slow wave and normal REM sleep. EKG monitoring revealed an average heart rate of 60 beats per minute. There were PVCs observed. There was short run of narrow complex tachycardia seen. No clinically significant PLM seen. The patient was started on BiPAP at a pressure of 8/4 and titrated up to 14/8. At the final pressure, the patient slept for 77 minutes. The patient had 10.6 minutes of REM sleep. The patient's AHI did improve, but was still 15.6 per hour. Oxygen saturations remained above 92%. I would recommend that the patient should be placed on an auto BiPAP. IMPRESSION: 1. Complex sleep apnea diagnosed by previous sleep study. 2. No clinically significant PLMs. 3. Abnormal EKG with PVC's. RECOMMENDATIONS: 1. Optimum BiPAP pressure was not achieved. I would recommend the patient should be placed on auto BiPAP with a maximum IPAP pressure of 20 and a minimum EPAP pressure of 12 with pressure support of 4. [facility] [address] [place] [address] POLYSOMNOGRAPHY STUDY Name: JEREMI MCARTHURLINDA Park Room #: [facility]#: [id number] Admission: 04/02/20 Attend Phys: Margareth Auguste MD Discharge: Date of : 55 Report #: [id number] 2. The patient should have a followup download in 30 days to assess the efficacy of current auto BiPAP. Any necessary adjustments in the pressure can be made at that time. 3. Weight loss is strongly advised. 4. Avoid WOOD TYPE CUTTER depressants. 5. Cautioned regarding driving until symptoms of sleep apnea resolve with the use of BiPAP. <ELECTRONICALLY SIGNED> By: Frank Hernandez MD 04/05/20 2135 Frank Hernandez MD /kandi
== END ==
LOC: SLEEPLAB 01-09 09:02
PROVIDERS: ATTEND Internal Medicine Pulmonary Disease
DX: G47.30 Sleep apnea, unspecified (principal)

== ENCOUNTER → 2020-04-03 | Outpatient (CLI) | payer OTHER, BC | LOC: SJCVC 07:56 | PROVIDERS: ATTEND Internal Medicine Cardiovascular Disease | DX: I25.5 Ischemic cardiomyopathy (principal) ==

== ENCOUNTER → 2020-04-19 | Outpatient (CLI) | payer OTHER, BC | LOC: HYPER 09:43 | PROVIDERS: ATTEND Emergency Medicine Emergency Medical Services | DX: E11.621 Type 2 diabetes mellitus with foot ulcer (principal); I70.235 Atherosclerosis of native arteries of right leg with ulceration of other part of foot; L97.512 Non-pressure chronic ulcer of other part of right foot with fat layer exposed; L97.522 Non-pressure chronic ulcer of other part of left foot with fat layer exposed; E11.622 Type 2 diabetes mellitus with other skin ulcer; L89.513 Pressure ulcer of right ankle, stage 3; L97.312 Non-pressure chronic ulcer of right ankle with fat layer exposed; S81.011D Laceration without foreign body, right knee, subsequent encounter; L84 Corns and callosities; E11.43 Type 2 diabetes mellitus with diabetic autonomic (poly)neuropathy; R60.0 Localized edema; E11.22 Type 2 diabetes mellitus with diabetic chronic kidney disease; I13.0 Hypertensive heart and chronic kidney disease with heart failure and stage 1 through stage 4 chronic kidney disease, or unspecified chronic kidney disease; N18.4 Chronic kidney disease, stage 4 (severe); I50.9 Heart failure, unspecified; E78.5 Hyperlipidemia, unspecified; E78.00 Pure hypercholesterolemia, unspecified; G47.30 Sleep apnea, unspecified; N17.9 Acute kidney failure, unspecified; I42.9 Cardiomyopathy, unspecified; I25.10 Atherosclerotic heart disease of native coronary artery without angina pectoris; I25.2 Old myocardial infarction; J44.9 Chronic obstructive pulmonary disease, unspecified; Z79.4 Long term (current) use of insulin; Z87.891 Personal history of nicotine dependence; Z95.820 Peripheral vascular angioplasty status with implants and grafts; Z98.41 Cataract extraction status, right eye; Z96.653 Presence of artificial knee joint, bilateral; X58.XXXD Exposure to other specified factors, subsequent encounter ==

== ENCOUNTER 2020-04-30 15:31 | Inpatient (IN) | payer OTHER, BC ==
[~2020-04-30] VITALS: Ht 182.9 cm; Wt 106.1 kg
[~2020-04-30 15:31] MED LIST changes: +SYNTHROID50 MCG PO; -SYNTHROID88 MC1 PO
[2020-04-30 15:33] VITALS: BP 122/58
[2020-04-30 15:54] LABS: HEMATOCRIT 32.4 % (42.0-52.0); HEMOGLOBIN 10.9 gm/dL (14.0-18.0); WBC 5.3 thou/uL (4.0-11.0)
[2020-04-30 15:55] LABS: MCHC 33.5 g/dL (28.0-37.0); MCV 89.5 fL (80.0-100.0); PLATELET COUNT 135 thou/uL (150-400); RBC 3.63 mil/uL (4.50-6.00)
[2020-04-30 16:00] VITALS: BP 136/71
[2020-04-30 16:01] LABS: CALCIUM 8.9 mg/dL (8.5-10.1); CREATININE 3.8 mg/dL (0.7-1.3); MAGNESIUM 1.8 mg/dL (1.8-2.4); POTASSIUM 3.7 mmol/L (3.5-5.1)
[2020-04-30 16:32] LABS: ABSOLUTE NEUTROPHILS 3.6 thou/uL (1.4-8.2); PLATELET ESTIMATE NORMAL
[2020-04-30 17:02] LABS: URINE BILIRUBIN NEGATIVE (Negative); URINE BLOOD NEGATIVE (Negative); URINE CLARITY CLEAR; URINE COLOR YELLOW; URINE GLUCOSE-RANDOM* NEGATIVE (Negative); URINE KETONES NEGATIVE (Negative); URINE LEUKOCYTES-REFLEX NEGATIVE (Negative); URINE NITRITE-REFLEX NEGATIVE (Negative); URINE PROTEIN (DIPSTICK) NEGATIVE (Negative); URINE UROBILINOGEN 0.2 E.U./dl (0.2-1.0)
[2020-04-30 17:09] LABS: URINE CREATININE-RANDOM* 54.1 mg/dL
[2020-04-30 17:18] VITALS: BP 133/62
[2020-04-30 17:23] VITALS: BP 129/61
[2020-04-30 18:00] VITALS: BP 136/71
--- NOTE | 2020-04-30 19:44 | NUR ---
PT CARE ASSUMED 1545. ASSESSMENT CHARTED. IV RFA-20-S/L. PACEMAKER LEFT SUBCLAVIAN. CTA, RA.
[2020-04-30 20:05] VITALS: BP 136/70
[2020-05-01] VITALS (7 sets, daily range): BP systolic 107–131; BP diastolic 56–61
[2020-05-01 05:47] LABS: EOSINOPHILS 0.1 % (0.0-3.0); MCV 89.9 fL (80.0-100.0)
[2020-05-01 05:52] LABS: ABSOLUTE NEUTROPHILS 1.9 thou/uL (1.4-8.2); BASOPHILS 0.3 % (0.0-2.0); HEMATOCRIT 33.7 % (42.0-52.0); HEMOGLOBIN 11.1 gm/dL (14.0-18.0); MCH 29.6 pg (26.0-34.0); MONOCYTES 10.7 % (1.0-8.0); PLATELET COUNT 131 thou/uL (150-400); POLYS 42.9 % (36.0-66.0); RBC 3.75 mil/uL (4.50-6.00); RDW 24.4 % (10.5-14.5); WBC 4.5 thou/uL (4.0-11.0)
[2020-05-01 06:28] LABS: ALBUMIN 2.5 g/dL (3.4-5.0); CALCIUM 8.8 mg/dL (8.5-10.1); MAGNESIUM 1.8 mg/dL (1.8-2.4); PHOSPHORUS 3.4 mg/dL (2.5-4.9); POTASSIUM 3.3 mmol/L (3.5-5.1)
--- NOTE | 2020-05-01 07:52 | EKG ---
[facility] [place] [address] ELECTROCARDIOGRAM REPORT Name: JEREMI MCARTHURIN Xavier Room #: 205- ADM IN M.R.#: [id number] Admission: 04/30/20 Attend Phys: Talib Yi MD Discharge: Date of : 55 Report #: [id number] THIS REPORT FOR: cc: SEPIDEH - Latoya family physician/PCP SEPIDEH - Latoya family physician/PCP Chet Rodriguez MD [facility] THIS REPORT FOR: //name// [facility] ED Test Date: 2020-04-30 Test Time: 15:48:19 Pat Name: GERI MCARTHUR Department: Room: [facility] Gender: M [employer] Manager: miriam : 1955 Requested By: Avelino Holbrook Order Number: [id number] MD: Chet Rodriguez Measurements Intervals [place] Rate: 67 P: 0 GA: 68 QRS: -29 QRSD: 111 T: 82 QT: 503 QTc: 531 Interpretive Statements Sinus rhythm Inferior infarct, old Poor R wave progression Prolonged QT interval Compared to ECG 03/10/2020 14:46:33 Atrial pacing no longer present Electronically Signed On 05-01-2020 7:52:25 CDT by Chet Rodriguez [email or web address] <ELECTRONICALLY SIGNED> By: Chet Rodriguez MD, [facility] 05/01/20 0752 1548 1548 Chet Rodriguez MD, [facility] /EPI
--- NOTE | 2020-05-01 08:18 | NUR ---
SLEPT ALMOST ALL NIGHT.CPAP AND CONTINUOUS PULSE OX ON.VOIDED.DENIES NEEDS.POC CONTINUED.
--- NOTE | 2020-05-01 15:38 | NUR ---
Spoke with patient he resides at home with in independent home. All needs on one level. Independent with adls and self care. Uses a walker for ambulation. Patient rec [facility] prior to admission. Sp with patient regarding 5N eval. Patients at home on service with Hospice. He reports her long time friend, son and family assist with care at home. Patient hesitant regarding transition to 5N due to wanting to be home with . He reports he is agreeable to transfer to 5N once stable. Possible bed avail on 5N on . Patient expressed he does not care for his HH agecy. Gave brochures and list of new HH agencies. Discussed patient or family member needs to call current HH agency and request to be discharged from their service prior to start new HH agency. Updated 5N and phys
--- NOTE | 2020-05-01 17:57 | NUR ---
PT CARE ASSUMED AT 0700. ASSESSMENTS CHARTED. MEDICATION CHARTED. WOUND CARE CONSULTED FOR LT FOOT WOUND AND SM WOUND ON LT 4TH TOE. PT HAD SM BM. PT WEAK EVEN WITH WALKER, KNEES CLOSE TO BUCKLING, ACCORDING TO POULTRY HATCHERY MAN. PT OCCASSIONALY A-PACED. PACEMAKER LT SUBCLAVIAN. CPAP @ HS.
[2020-05-02 04:45] VITALS: BP 151/81
[2020-05-02 05:58] LABS: ALBUMIN 2.4 g/dL (3.4-5.0); CALCIUM 8.8 mg/dL (8.5-10.1); CREATININE 3.3 mg/dL (0.7-1.3); PHOSPHORUS 3.3 mg/dL (2.5-4.9)
--- NOTE | 2020-05-02 06:36 | NUR ---
PT IS ALERT AND ORIENTED X4. LUNGS WHEZZES. ON ROOOM AIR. VOIDS PER URINAL. CALL LIGHT WITHIN REACH IF NEEDS ASSSITANCE . SLEPT WITH SLEEP APNEA MACHINE . DENIES ANY PAIN WITH ASSESSMENT. NO COMPLAINTS NOTED PER PT WITH ASSESSMENT AND AM, PILLS THIS MORNING
[2020-05-02 08:13] VITALS: BP 126/66
[2020-05-02 11:57] VITALS: BP 143/75
--- NOTE | 2020-05-02 13:28 | NUR ---
WOUND CONSULT; THE RIGHT LAT MALLEOLOUS HAS HEALTHY RED TISSUE WITH GRANULATION BUDS PRESENT NO S/S OF INFECTION. THE RIGHT 2ND AND 3RD TOES HAVE PALE RED TISSUE WITH NO S/S OF INFECTION. THE LEFT 4TH TOE IS SCAB-LIKE. NO INFECTION SEEN. THE LEFT MEDIAL GREAT TOE HAS SOME FIBRIN IN THE WOUND BED. RECOMMEDNATIONS; 1-PURACOL AG/BORDER FOAM TO THE RIGHT LAT MALLEOLOUS 2-BARRIER SWAB TO THE RIGHT 2ND / 3RD TOES 3-BETADINE TO THE LEFT 4TH TOE 4-THERAHONEY/BORDER FOAM TO THE LEFT MEDIAL GREAT TOE DISCUSSED WITH RN
--- NOTE | 2020-05-02 14:32 | NUR ---
Patient accepted to 5N and stable for transfer today.
--- NOTE | 2020-05-02 14:46 | NUR ---
PT CARE ASSUMED APPROX 0700. ASSESSMENT CHARTED. PT DENIES PAIN AND SOA. VSS. BS WITHIN NORMAL LIMITS. PT DISCHARGED TO REHAB AT THIS TIME. REPORT CALLED TO DON REHAB NURSE. RECEIVING NURSE DENIED QUESTIONS OR CONCERNS REGARDING PT'S TRANSFER OR POC. IV LEFT IN PLACE PER REHAB NURSE REQUEST. PT DENIES QUESTIONS OR CONCERNS REGARDING POC OR TRANSFER. CLINICAL UPDATE GIVEN TO PT'S DAUGHTER IN LAW [place] WHO AFTERWARDS ALSO DENIED QUESTIONS OR CONCERNS. NO DISTRESS NOTED. PT ESCORTED TO 5N VIA WHEELCHAIR APPROX 30 MIN AGO. WOUND CARE DONE PER JAMIE DE LA ROSA NURSE.
[2020-05-02] MEDS ORDERED: ALLOPURINOL 10100 M1 PO (15:05)
[2020-05-02] MEDS ORDERED: LANTUS SUBQ (15:06)
[2020-05-02] MEDS ORDERED: ZANAFLEX4 M1 PO (15:07)
[2020-05-02] MEDS ORDERED: LYRICA150 MG PO ×2 (15:07)
[2020-05-02] MEDS ORDERED: CLONAZEPAM 0.50.5 M1 PO (15:08)
[2020-05-02] MEDS ORDERED: IPRAT-ALBUT 0.5-3 ML INH (15:09)
[2020-05-02] MEDS ORDERED: PROAIR HFA8.5 GM INH (15:09)
[2020-05-02] MEDS ORDERED: OMEGA-3 FISH1200 MG PO (15:12)
[2020-05-02] MEDS ORDERED: SILDENAFIL20 MG PO (15:12)
[2020-05-02] MEDS ORDERED: TESTOSTERONE TROCHE PO (15:13)
[2020-05-02] MEDS ORDERED: TORSEMIDE20 MG PO (15:14)
[2020-05-02] MEDS ORDERED: PERCOCET 5-3251 EACH PO (15:14)
[2020-05-02] MEDS ORDERED: REGLAN10 MG PO (15:15)
[2020-05-02] MEDS ORDERED: VIBRAMYCIN 100100 MG PO (15:15)
[2020-05-02] MEDS ORDERED: VITAMIN D31250 MC1 PO (15:16)
--- NOTE | 2020-05-04 20:47 | HC ---
[facility] [place] [address] CONSULTATION Name: GERI MCARTHUR Room #: 205-P [facility] IN M.R.#: [id number] Admission: 04/30/20 Attend Phys: Talib Yi MD Discharge: 05/02/20 Date of : 55 Report #: [id number] THIS REPORT FOR: cc: SEPIDEH Klein family physician/PCP SEPIDEH - Latoya family physician/PCP Kojo Aj MD ~ CC: Talib BUNN physician/PCP DATE OF SERVICE: 05/01/2020 REASON FOR CONSULTATION: Acute kidney injury. REASON FOR PRESENTATION: Bilateral lower extremity weakness. HISTORY OF PRESENT ILLNESS: A 64-year-old with extensive past medical history, who is well known to me. He is known to have extensive cardiac history including and not limited to cardiomyopathy, coronary artery disease, V-tach, multiple cath procedures, multiple stents, pacemaker. He has chronic kidney disease, who sees me in the clinic. Baseline creatinine has been in the 3-3.5 lately. He presented with progressive weakness of the lower extremities, repeated falls and was found to have a creatinine of 3.8 mandating a Nephrology consultation. This unfortunately has been a recurrent issue for the problems given his poor social support recently. His was diagnosed with gallbladder cancer. This was deemed to be terminal and she is going through hospice. I think most of the patient's issues are related to his poor 's health condition. The patient denies any active symptoms at present other than the above-mentioned. I was asked to assist with the management of his chronic kidney disease. PAST MEDICAL AND SURGICAL HISTORY: 1. Diabetes mellitus. 2. Hypertension. 3. Coronary artery disease. 4. Multiple cardiac procedures in the past. 5. Pacemaker. 6. Multiple knee surgeries in the past. 7. Recurrent sepsis and empyemas in the past requiring prolonged ICU hospital stay, complicated by acute kidney injury requiring dialysis. SOCIAL HISTORY: He lives with his . No drug or alcohol abuse. MEDICATIONS: 1. Lispro insulin. 2. Oxycodone. 3. Amiodarone. [facility] [address] [place] [address] CONSULTATION Name: MCARTHURGERI Room #: 205-P [facility] IN ..#: [id number] Admission: 04/30/20 Attend Phys: Talib Yi MD Discharge: 05/02/20 Date of : 55 Report #: [id number] 4. Trazodone. 5. Torsemide. 6. Carvedilol. ALLERGIES: STATINS. REVIEW OF SYSTEMS: GENERAL: Significant for weakness. CARDIOVASCULAR: No chest pain or palpitation. PULMONARY: No cough or hemoptysis. GASTROINTESTINAL: No nausea or vomiting. GENITOURINARY: No frequency, no urgency. MUSCULOSKELETAL: As per the history of present illness. PHYSICAL EXAMINATION: GENERAL: Alert, oriented at baseline. VITAL SIGNS: Blood pressure is 124/59. Temperature is 36.6. Pulse rate is 67. HEAD AND NECK: No jugular venous distention. CHEST: No crackles. CARDIOVASCULAR: No rub. ABDOMEN: Soft, nontender. EXTREMITIES: Lower extremities, no edema with bruises present over the knees. LABORATORY VALUES: Sodium is 141, potassium 3.3, BUN is 67, creatinine is 3.0. Hemoglobin is 11.1. IMPRESSION AND PLAN: 1. Acute kidney injury. 2. Chronic kidney disease. 3. Debility and deconditioning. 4. Numerous cardiac issues with cardiomyopathy, coronary artery disease. 5. Very poor social support. 6. The patient's creatinine is back to his usual baseline. Continue to watch his electrolytes, volume status. 7. Keep off torsemide for now. 8. Very difficult social situation, very difficult volume issues. Initiation of diuretics in the past had resulted in significant acute kidney injury events. Withholding diuretics had resulted in significant fluid overload. His current 's situation is not helping him by any means. 9. We will try to do our best here. <ELECTRONICALLY SIGNED> By: Kojo Aj MD 05/04/20 2047 [id number] Kojo Aj MD /nt
== END 2020-05-02 14:45 | DRG 682 ==
LOC: ER 15:31 → 2N 17:12 → EROBS 17:12 → 2N 17:12
PROVIDERS: Emergency Medicine; Hospitalist; Nurse Practitioner; ADMIT Hospitalist; ATTEND Hospitalist
PROC: 5A09357 Assistance with Respiratory Ventilation, Less than 24 Consecutive Hours, Continuous Positive Airway Pressure (ICD-10-PCS; principal; 2020-04-30)
PROC: 5A09357 Assistance with Respiratory Ventilation, Less than 24 Consecutive Hours, Continuous Positive Airway Pressure (ICD-10-PCS; 2020-05-01)
DX: N17.0 Acute kidney failure with tubular necrosis (principal); E43 Unspecified severe protein-calorie malnutrition; I50.22 Chronic systolic (congestive) heart failure; I13.0 Hypertensive heart and chronic kidney disease with heart failure and stage 1 through stage 4 chronic kidney disease, or unspecified chronic kidney disease; I42.9 Cardiomyopathy, unspecified; I69.354 Hemiplegia and hemiparesis following cerebral infarction affecting left non-dominant side; J44.9 Chronic obstructive pulmonary disease, unspecified; G47.30 Sleep apnea, unspecified; M54.89 Other dorsalgia; E11.40 Type 2 diabetes mellitus with diabetic neuropathy, unspecified; E78.5 Hyperlipidemia, unspecified; Z96.653 Presence of artificial knee joint, bilateral; G25.81 Restless legs syndrome; N18.3 Chronic kidney disease, stage 3 (moderate); E11.22 Type 2 diabetes mellitus with diabetic chronic kidney disease; M10.9 Gout, unspecified; F17.210 Nicotine dependence, cigarettes, uncomplicated; E03.9 Hypothyroidism, unspecified; I25.10 Atherosclerotic heart disease of native coronary artery without angina pectoris; G89.4 Chronic pain syndrome; E11.42 Type 2 diabetes mellitus with diabetic polyneuropathy; G47.33 Obstructive sleep apnea (adult) (pediatric); I48.0 Paroxysmal atrial fibrillation; E66.01 Morbid (severe) obesity due to excess calories; Z68.31 Body mass index [BMI] 31.0-31.9, adult; Z90.49 Acquired absence of other specified parts of digestive tract; Z95.5 Presence of coronary angioplasty implant and graft; Z79.01 Long term (current) use of anticoagulants; Z79.4 Long term (current) use of insulin; Z79.891 Long term (current) use of opiate analgesic; Z79.899 Other long term (current) drug therapy; I25.2 Old myocardial infarction; Z88.5 Allergy status to narcotic agent; Z88.8 Allergy status to other drugs, medicaments and biological substances; Z95.0 Presence of cardiac pacemaker
CPT/HCPCS: 10081

== ENCOUNTER 2020-05-02 11:27 | Inpatient (IN) | payer OTHER, BC ==
[~2020-05-02] VITALS: Ht 182.9 cm; Wt 102.5 kg
--- NOTE | ~2020-05-02 | H ---
[facility] [place] [address] HISTORY AND PHYSICAL Name: GERI MCARTHUR Room #: 512-P ADM IN M.R.#: [id number] Admission: 05/02/20 Attend Phys: Trevor Villalobos MD Discharge: Date of : 55 Report #: [id number] THIS REPORT FOR: cc: SEPIDEH - Latoya family physician/PCP SEPIDEH - No family physician/PCP Trevor Villalobos MD ~ CC: Trevor BUNN physician/PCP DATE OF SERVICE: 05/02/2020 HISTORY AND PHYSICAL/POSTADMISSION PHYSICIAN EVALUATION HISTORY OF PRESENT ILLNESS: The patient is a 64-year-old -[place] male originally admitted to [facility] on 04/30/2020 with weakness, found to have acute renal insufficiency superimposed on chronic kidney disease. His creatinine was 3.8, BUN is 70. Nephrology was consulted. He has a prior history of cerebrovascular accident x 2 with left-sided weakness, CHF, obstructive sleep apnea and chronic pain syndrome. His course was complicated by chronic systolic heart failure with cardiomyopathy and he has had prior history of permanent pacemaker with [place]. Nephrology was involved and the patient was stabilized to the best of the ability to have the medical team. He does have significant functional deficits with his prior CVA and left-sided weakness and was noted to have late effect cerebrovascular accident. With his functional decline, it was felt that he would be a good candidate for an acute in-hospital inpatient rehabilitation stay. He has been admitted for acute in-hospital inpatient rehabilitation stay. ALLERGIES: No known drug allergies. MEDICATIONS: Please see the full MAR. SOCIAL HISTORY: Premorbidly living at home with his . No stairs, used 4-wheeled walker, was independent with ADLs and family and friends assisting with IADLs. is noted to be on hospice for her stage 4 cancer. His goal is to try to return back home with her, prior medical history is delineated above. He has had a prior bilateral knee replacement, thoracentesis, cholecystectomy, cervical diskectomy, cholecystectomy. REVIEW OF SYSTEMS: Did not offer any complaints of chest pain, shortness of breath or abdominal discomfort. Notes that he is weaker than the typical is and has concerns regarding being able to return back to the home setting. PHYSICAL EXAMINATION: GENERAL: The patient was seen on 05/02/2020. He was alert, pleasant. Facies appeared symmetric. Somewhat obese. [address] [address] HISTORY AND PHYSICAL Name: GERI MCARTHUR Room #: 512-P [facility] IN M.R.#: [id number] Admission: 05/02/20 Attend Phys: Trevor Villalobos MD Discharge: Date of : 55 Report #: [id number] VITALS SIGNS: Stable. HEENT: Otherwise appeared benign. CHEST: Sounded clear to auscultation. CARDIOVASCULAR: Regular rate and rhythm. ABDOMEN: Bowel sounds positive, nontender. GENITOURINARY AND RECTAL: Deferred. EXTREMITIES: He does have left-sided weakness, upper and lower extremity of a moderate grade. He needs assistance as far as standby assist to come to stand. He has left knee buckling with attempt short distance ambulation. ASSESSMENT 1. Medical complexity with generalized debilitation. 2. 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 3. Acute renal insufficiency superimposed on chronic kidney disease. 4. Congestive heart failure with cardiomyopathy. 5. Coronary artery disease with history of permanent pacemaker. 6. Obstructive sleep apnea. 7. Chronic obstructive pulmonary disease. 8. Diabetes mellitus type 2. 9. Peripheral neuropathy. 10. History of chronic pain syndrome. 11. Hypertension. 12. Hyperlipidemia. PLAN: The patient has been admitted for acute in-hospital inpatient rehabilitation. From a postadmission physician evaluation perspective, there are no relevant changes since the preadmission screening. Please see the above review of prior and current medical and functional conditions and comorbidities. Please see the patient's previous and current functional status. As far as risk of complications, the patient has multiple medical comorbidities as noted above. Initial plan of care involves the interdisciplinary acute inpatient rehabilitation program. Measurable functional goals would be for the patient to become modified independent with transfers, mobility, ADLs and hopefully obtain as close as possible to his prior premorbid function. Prognosis is reasonably good with estimated length of stay probably fairly short around 7-10 days. Potential barriers would include his multiple medical comorbidities and decreased functional status. The patient meets diagnostic criteria for an acute in-hospital inpatient rehabilitation stay. He meets the medical necessity criteria. We will have the [address] [address] HISTORY AND PHYSICAL Name: GERI MCARTHUR Room #: 512-P [facility] IN ..#: [id number] Admission: 05/02/20 Attend Phys: Trevor Villalobos MD Discharge: Date of : 55 Report #: [id number] incident response consultant physicians continue to follow. He does have the tolerance for therapies and has appropriate discharge goals back to the home setting. By: [id number] Trevor Villalobos MD /[facility]
[2020-05-02] MEDS ORDERED: ALLOPURINOL 10100 M1 PO (15:05)
[2020-05-02] MEDS ORDERED: LANTUS SUBQ (15:06)
[2020-05-02] MEDS ORDERED: ZANAFLEX4 M1 PO (15:07)
[2020-05-02] MEDS ORDERED: LYRICA150 MG PO ×2 (15:07)
[2020-05-02] MEDS ORDERED: CLONAZEPAM 0.50.5 M1 PO (15:08)
[2020-05-02] MEDS ORDERED: IPRAT-ALBUT 0.5-3 ML INH (15:09)
[2020-05-02] MEDS ORDERED: PROAIR HFA8.5 GM INH (15:09)
[2020-05-02] MEDS ORDERED: SILDENAFIL20 MG PO (15:12)
[2020-05-02] MEDS ORDERED: OMEGA-3 FISH1200 MG PO (15:12)
[2020-05-02] MEDS ORDERED: TESTOSTERONE TROCHE PO (15:13)
[2020-05-02] MEDS ORDERED: PERCOCET 5-3251 EACH PO (15:14)
[2020-05-02] MEDS ORDERED: TORSEMIDE20 MG PO (15:14)
[2020-05-02] MEDS ORDERED: REGLAN10 MG PO (15:15)
[2020-05-02] MEDS ORDERED: VIBRAMYCIN 100100 MG PO (15:15)
[2020-05-02] MEDS ORDERED: VITAMIN D31250 MC1 PO (15:16)
--- NOTE | 2020-05-02 15:46 | NUR ---
1430 ADMITTED PATIENT TO ROOM 512. PATIENT IS ALERT AND ORIENTED X4. PATIENT CURRY'S. PATIENT HAS MILD LEFT SIDED WEAKNESS. LUNGS ARE DEMINISHED. ABD IS SOFT WITH BSX4. FALL AND SAFETY PROTOCOLS IN PLACE. PATIENT HAS CALL LIGHT IN REACH. PATIENT HAS WOUNDS TO HIS LEFT AND RIGHT ANKLES COVERED WITH OPTIFOAM DRESSINGS. PLAN EVALS FOR PT/OT/ST IN A.M. WILL CONTINUE TO MONITER
[2020-05-02 19:30] VITALS: BP 133/66
--- NOTE | 2020-05-03 00:54 | NUR ---
Assumed care on 05/02/20 @ 19:15, lying in bed at shift change. Eyes closed respirations even and unlabored. Awakens to voice. A&Ox4 Lungs diminished, HRRR, ABD N x 4Q, last reported BM 05/01. FSBS 124, no s/s required. Saline lock IV in RFA. On heart healthy, low sodium, Renal diet. Will continue to round q 1 hour for patient safety.
[2020-05-03 05:53] LABS: HEMATOCRIT 36.7 % (42.0-52.0); HEMOGLOBIN 12.1 gm/dL (14.0-18.0); MCH 29.8 pg (26.0-34.0); MCV 90.3 fL (80.0-100.0); RBC 4.06 mil/uL (4.50-6.00); RDW 24.5 % (10.5-14.5); WBC 4.2 thou/uL (4.0-11.0)
[2020-05-03 06:25] LABS: ALBUMIN 2.3 g/dL (3.4-5.0); CALCIUM 9.4 mg/dL (8.5-10.1); CREATININE 2.6 mg/dL (0.7-1.3); PHOSPHORUS 3.3 mg/dL (2.5-4.9); POTASSIUM 4.1 mmol/L (3.5-5.1)
[2020-05-03 09:35] VITALS: BP 121/68
--- NOTE | 2020-05-03 10:45 | NUR ---
pt out of room with therapy, unable visit with him at this time. noted per chart he lives with , his is on hospice services. he independent prior to hospital, has walker. manage own mediation. had [facility] in past but would like to use different hh company. will cont following as needed for dc needs.
--- NOTE | 2020-05-03 19:30 | NUR ---
ASSUME PT CARE AT 0700. PATIENT IS ALERT AND ORIENTED X4. ABLE TO VOICE HIS NEEDS. VSS ON RA. REASSESSMENT PER HCART. PATIENT CURRY'S. PATIENT HAS MILD LEFT SIDED WEAKNESS. LUNGS ARE DIMINISHED. ABD IS SOFT WITH BSX4. OFFERED SUPPORTIVE CARE. BS MONITOR, INSULIN AND MEDS GIVEN ORDRED. WOUND DOCTOR CAME TO SEE PT TODAY AND CHANGED DRESSINGS. FALL AND SAFETY PROTOCOLS IN PLACE. PATIENT HAS CALL LIGHT IN REACH. PATIENT HAS WOUNDS TO HIS LEFT AND RIGHT ANKLES COVERED WITH OPTIFOAM DRESSINGS. PT WAS UP AND PARTICIPATED WELL WITH THERAPY. WORRY ABOUT HIS IN HOSPICE FOR HER CANCER. OFFERED EMOTION SUPPORT. GAVE REPORT TO NIGHT NURSE TO CONTINUE TO MONITOR.
[2020-05-03 20:34] VITALS: BP 134/60
[2020-05-03 21:45] VITALS: BP 94/50
--- NOTE | 2020-05-04 06:10 | NUR ---
05-03-20 CARE TRANSFERED 1899 NOTED PT SUPINE IN BED WITH EYES CLOSED. 2009 PT AAOX4, SKIN W/D, VSS, RR EVEN AND NONLABORED ON RA. PT DENIES ANY NEW CONCERNS AT THIS TIME. ERYNNG MEDICATION ADMIN PT HAD ZERO DIFFICULTIES. THROUGHOUT NURSING ROUNDS ZERO ACUTE DISTRESS NOTED. WILL CONTINUE TO MONITOR PER PROTOCOL.
[2020-05-04 06:44] LABS: CALCIUM 8.7 mg/dL (8.5-10.1); CREATININE 3.1 mg/dL (0.7-1.3); PHOSPHORUS 3.9 mg/dL (2.5-4.9); POTASSIUM 4.3 mmol/L (3.5-5.1)
[2020-05-04 08:00] VITALS: BP 102/53
--- NOTE | 2020-05-04 08:53 | HC ---
[facility] [place] [address] CONSULTATION Name: GERI MCARTHUR Room #: 512-P ADM IN M.R.#: [id number] Admission: 05/02/20 Attend Phys: Trevor Villalobos MD Discharge: Date of : 55 Report #: [id number] THIS REPORT FOR: cc: SEPIDEH - No family physician/PCP SEPIDEH - No family physician/PCP Beau Guillermo MD ~ CC: Trevor BUNN physician/PCP DATE OF SERVICE: 05/03/2020 CHIEF COMPLAINT: Lower extremity ulcerations. HISTORY OF PRESENT ILLNESS: This is a 64-year-old male patient with whom I am familiar from both previous hospitalization as well as outpatient followup. He has a history of diabetes, atrial fibrillation and lower extremity ulcers for which he has been followed. He has been admitted to the rehab floor with severe debility and deconditioning due to underlying medical issues and prior cerebrovascular accident. I have been asked to see him with regard to wound care. The patient denies much discomfort at this time. PAST MEDICAL HISTORY: Positive for history of cerebrovascular accident with some residual weakness, acute on chronic renal failure, hypertension, diabetes type 2, history of recent GI bleeding, congestive heart failure with ejection fraction 30-35%. He is status post AICD placement. He has a history of coronary artery disease, hypothyroidism, COPD, atrial fibrillation, peripheral vascular disease, coronary artery disease. ALLERGIES: STATINS, HMG, PROCHLORPERAZINE, CODEINE. MEDICATIONS: Include Tylenol, ipratropium, albuterol, allopurinol, Pacerone, budesonide, Coreg, duloxetine, Zetia, glucagon, insulin, latanoprost, Synthroid, mexiletine, Niaspan, Mirapex, pregabalin, tamsulosin, trazodone. SOCIAL HISTORY: The patient does smoke cigarettes. FAMILY HISTORY: Noncontributory. REVIEW OF SYSTEMS: CONSTITUTIONAL: The patient denies fever, chills or weight loss. Does complain of some generalized weakness. NEUROLOGICAL: The patient denies focal weakness, numbness or tingling. EYES: The patient denies visual changes, redness, or drainage. ENT: The patient denies earache, nasal drainage or sore throat. CARDIOVASCULAR: The patient denies chest pain, palpitations or diaphoresis. PULMONARY: The patient denies cough or shortness of breath. [address] [address] CONSULTATION Name: GERI MCARTHUR Room #: 512-P [facility] IN ..#: [id number] Admission: 05/02/20 Attend Phys: Trevor Villalobos MD Discharge: Date of : 55 Report #: [id number] GASTROINTESTINAL: The patient denies nausea, vomiting, diarrhea or abdominal pain. ORTHOPEDIC: The patient notes ulcerations on the lower extremities. Other systems in a 14-point review of systems are negative. PHYSICAL EXAMINATION: VITAL SIGNS: Include pulse rate of 89, blood pressure 121/68. He is currently afebrile with a respiratory rate of 16. GENERAL: This is a chronically ill-appearing male patient who appears to be in minimal distress. HEENT: Head normocephalic. Nose and throat clear. NECK: Supple. LUNGS: Diminished. HEART: Irregular. ABDOMEN: Soft and nontender. EXTREMITIES: Examination of the lower extremities demonstrates diminished distal pulses. He has 1+ edema bilaterally. He has ulcerations to the right lateral malleolus, right anterior knee and on the medial left first MTP region. All areas are relatively healthy, clean and granulating with a little bit of fibrin on the left foot. None of these areas appear to be infected. NEUROLOGIC: The patient is alert and oriented. LABORATORY DATA: White blood cell count 4.2 with a hemoglobin of 12.1. Sodium 140, potassium 4.1, chloride 104, CO2 of 25, BUN 59, creatinine 2.6, albumin is 2.3. CLINICAL IMPRESSION: 1. Traumatic wound to the right knee/prepatellar region. 2. Diabetic ulceration to the right lateral malleolus and left first MTP. 3. Type 2 diabetes mellitus. 4. History of peripheral arterial disease. 5. History of coronary artery disease and congestive heart failure/cardiomyopathy. RECOMMENDATIONS: At this point in time, we will recommend topical Xeroform gauze and Bordered Foam to the knee, right lateral malleolus and left first MTP ulceration. We will recommend elevation of his extremities when possible. He certainly is cleared to participate fully in rehab activities from the wound care perspective, recommend continuation of current medications. I appreciate being asked to see him in consultation. <ELECTRONICALLY SIGNED> By: Beau Guillermo MD 05/04/20 0853 [id number] Beau Guillermo MD /nt
--- NOTE | 2020-05-04 09:42 | NUR ---
ASSUME PT CARE AT 0700.REPORTS SLEPT WELL LAST NIGHT. VSS ON RA THIS AM. PT UP FOR OT AND PT. PHYSICAL THERAPIST REPORTED PT'S B/P DROP TO 85/43 AFTER THERAPY AT 9:15AM PT FEELS SLEEPY. ASSESSED PT AND PUT HIM ON TRENDELENBURG POSITION. RECHECK B/P 132/60 AT 9:45. PT FEELS LITTLE BETTER NOW. PATIENT IS ALERT AND ORIENTED X4. ABLE TO VOICE HIS NEEDS. VSS ON RA. REASSESSMENT PER CHART. PATIENT CURRY'S. PATIENT HAS MILD LEFT SIDED WEAKNESS. LUNGS ARE DIMINISHED. ABD IS SOFT WITH BSX4. OFFERED SUPPORTIVE CARE. BS 73 THIS AM. NO INSULIN ATE 100% BREAKFAST AND MEDS GIVEN ORDRED. FALL AND SAFETY PROTOCOLS IN PLACE. PATIENT HAS CALL LIGHT IN REACH. PATIENT HAS WOUNDS TO HIS LEFT AND RIGHT ANKLES COVERED WITH OPTIFOAM DRESSINGS. ENCOURAGE PT TO BE UP AND PARTICIPATE WITH THERAPY. WILL CONTINUE TO MONITOR.
--- NOTE | 2020-05-04 10:32 | NUR ---
lida received phone call from daughter rocky who stated " i was told that mom and dad can video call rt mom is at home on hospice. i asked few days ago but have not heard from anyone"/rocky. education that would pass on to rehab blast furnace supervisor and bedside nurse. lida visited with pt rt information passed on that pt feels cant afford his medication. cm verified that he has rx coverage and he can afford his rx per his daughter rocky. will cont following as needed for dc needs.
[2020-05-04 20:20] VITALS: BP 116/54
--- NOTE | 2020-05-05 06:02 | NUR ---
ASSUMED CARE OF PT AT 1900HRS. PT AOX4 AND LETS NEEDS BE KNOWN. FALL PRECAUTION IN PLACE. ASSESSMENT CHARTED. PT WAS ABLE TO GET COMFORTABLE AND SLEEP PRT OF THE SHIFT. VSS AND NO S/S OF ACUTE DISTRESS. WILL CONTINUE TO MONITOR FOR CHANGES.
[2020-05-05 06:31] LABS: CALCIUM 8.7 mg/dL (8.5-10.1); CREATININE 2.6 mg/dL (0.7-1.3)
[2020-05-05 08:30] VITALS: BP 90/54
--- NOTE | 2020-05-05 09:50 | NUR ---
Assumed care 0700. Voices no complaints. Sitting up for breakfast. Self fed for breakfast. Quiet demeanor. Goal is to get his laundry done.
--- NOTE | 2020-05-05 17:10 | NUR ---
Patient did not offer pain complaints. He had a syncopal episode reported by OT at the laundry room. After sitting down JC=341/70. He quickly recovered without further seeing things go black. He took a nap in the afternoon. Other clothes were brought to him this afternoon. Lungs with slight expiratory wheezing upper anterior and posterior [place]. Heart in sinus rhythm. Abdomen with active sounds. No reported BM today. Ankles with slight edema.
[2020-05-05 20:41] VITALS: BP 124/78
--- NOTE | 2020-05-06 03:50 | NUR ---
PLEASANT, BLOOD SUGAR 126 AT HS. TOLERATING MEDS WHOLE WITH WATER, HAD TO THINK FOR A SECOND BEFORE RECOGNIZING MEXTIL. EYEDROPS OBTAINED AND GIVEN APPROX MIDNIGHT RATHER THAN HS WHEN THEY WERE SCHEDULED BUT COULD NOT BE FOUND. USING URINAL
[2020-05-06 08:00] VITALS: BP 126/64
--- NOTE | 2020-05-06 16:19 | NUR ---
PT UP TO CHAIR FOR MOST OF SHIFT. AMBULATED HALLS WITH THERAPY USING GAIT BELT AND WALKER. PT USES URINAL AT BEDSIDE OR IN CHAIR. CALLS FOR ASSIST APPROPRIATELY. FALL PRECAUTIONS IN PLACE.
[2020-05-06 20:26] VITALS: BP 110/61
--- NOTE | 2020-05-07 05:52 | NUR ---
PT LYING IN BED. VOIDING PER URINAL. DENIES PAIN. RESTING COMFORTABLY. NO NEEDS VOICED. CALL LIGHT WITHIN REACH. FREQUENT OBSERVATION.
[2020-05-07 08:30] VITALS: BP 135/57
--- NOTE | 2020-05-07 10:27 | NUR ---
cm received message from pt daughter stating " dad said going home in few days and [facility] has been set up, not sure if this is correct, i know meeting is on thu. mom is on hospice and is now bedbound needing a hospital bed, she total care. dad has to be independent, walking, has to be able to take himself to bathroom., his is decline and i would hate for him not to be there but he has to be able to care for himself at this time. not sure if his was his personal time line or something he has been told. [facility] is what he is talking about not [facility]"/ daughter rocky. cm passed on information to bedside nurse, pt still has tx to bilat heels needed as well.
--- NOTE | 2020-05-07 10:31 | NUR ---
ASSUMED CARE AT 0700. PATIENT IS ALERT AND ORIENTED X4. PATIENT HAS LEFT SIDED WEAKNESS. PRODUCTION CONTROL COORDINATING CLERK ARE SLIGHTLY WEAKER ON THE LEFT. LUNGS ARE CLEAR AND DEMINISHED. ABD IS SOFT WITH BSX4. PATIENT IS UP WITH ASSIST OF 1 STAFF AND GAIT BELT TO BATHROOM TO VOID AND HAVE BM. PATIENT HAS OPTIFOAM TO HIS RIGHT ANKLE. PATIENT VOIDS PER URINAL PERLA COLORED URINE. FALL AND SAFETY PROTOCOLS IN PLACE. DENIES PAIN AT THIS TIME. CONTINUES TO PROGRESS SLOWLY TOWARDS D/C GOALS. WILL CONTINUE TO MONITER.
[2020-05-07 19:55] VITALS: BP 134/58
[2020-05-08] VITALS (7 sets, daily range): BP systolic 90–135; BP diastolic 42–73
--- NOTE | 2020-05-08 03:01 | NUR ---
PLEASANT, USING URINAL, APPRECIATES EYEDROPS AND PO MEDS. AWARE THAT FLOMAX WILL BE GIVEN AT HS, RATHER THAN IN AM, STARTING 05/08. TAKING MEDS WHOLE WITH WATER.
[2020-05-08 06:31] LABS: ALBUMIN 2.1 g/dL (3.4-5.0); CALCIUM 8.8 mg/dL (8.5-10.1); CREATININE 2.2 mg/dL (0.7-1.3); PHOSPHORUS 2.8 mg/dL (2.5-4.9); POTASSIUM 3.9 mmol/L (3.5-5.1)
--- NOTE | 2020-05-08 08:25 | NUR ---
cm sent referral to [facility], will cont following as needed for dc needs. anticipated dc on home with hh and family has already set up [facility] to start at night time.
[2020-05-08 08:53] LABS: HEMATOCRIT 34.9 % (42.0-52.0); HEMOGLOBIN 11.5 gm/dL (14.0-18.0); MCH 30.3 pg (26.0-34.0); MCHC 32.8 g/dL (28.0-37.0); MCV 92.3 fL (80.0-100.0); RBC 3.78 mil/uL (4.50-6.00); RDW 22.6 % (10.5-14.5); WBC 4.6 thou/uL (4.0-11.0)
--- NOTE | 2020-05-08 10:47 | NUR ---
SPOKE WITH DONNY IN INTAKE AT [facility] THEY CAN ACCEPT PT AT DISCHARGE. DP TO FOLLOW.
--- NOTE | 2020-05-08 13:51 | NUR ---
ASSUMED CARE AT 0700. REPORTS SLEPT FAIR LAST NIGHT. PATIENT IS ALERT AND ORIENTED X4. ABLE TO VOICE HIS NEEDS. PATIENT HAS LEFT SIDED WEAKNESS. REASSESSMENT PER CHART. LUNGS ARE CLEAR AND DIMINISHED. ABD IS SOFT WITH BSX4. PATIENT IS UP WITH ASSIST OF 1 STAFF AND GAIT BELT TO BATHROOM TO VOID. HASN'T BM FOR AWHILE. OFFERED WARM PRUNE JUICE. HAVE SMALL FORMED BM PRIOR PHYSICAL THERAPY. OPTIFOAM DRESSINGS ON BLE INTACT, WOUND CARE ON //. BETADINE APPLIED ON TOES ORDERED. PATIENT VOIDS PER URINAL PERLA COLORED URINE. FALL AND SAFETY PROTOCOLS IN PLACE. C/O BACK PAIN 5/10, PRN TYLENOL AND MUSCLE RELAXANT GIVEN PER REQUEST. CONTINUES TO PROGRESS TOWARDS D/C GOALS TOMORROW. WILL CONTINUE TO MONITOR.
--- NOTE | 2020-05-08 23:16 | NUR ---
REPORT RECEIVED AT 2100. PT SLEEPY BUT APPROPRIATE. PT RESISTANT TO USING CPAP MACHINE, BUT LATER AGREED TO WEAR IT MUCH HE COULD TONIGHT. PT TOOK MEDS WITHOUT DIFFICULTY. PT DEMONSTRATED ABILITY TO TURN HIMSELF, AND BED ALARM IS ON. PT STATED HE IS GOING HOME TOMORROW TO BE WITH HIS , AND IS POSITIVE ABOUT THIS MOVE. WILL CONTINUE TO MONITOR.
--- NOTE | 2020-05-09 06:22 | NUR ---
ASSUMED CARE OF PT AT 0200. PT IS A&OX4 AND VITAL SIGNS ARE STABLE. PT DENIES PAIN AT THIS TIME. DRESSINGS C/D/I. DAILY WEIGHT OBTAINED. PLANS FOR DISCHARGE TODAY. FALL PRECAUTINOS IN PLACE AND NURSING WILL CONTINUE TO MONITOR.
[2020-05-09 08:00] VITALS: BP 119/60
[2020-05-09] MEDS ORDERED: COLACE100 MG PO (09:45)
[2020-05-09] MEDS ORDERED: MIRAPEX0.125 MG PO (09:45)
[2020-05-09] MEDS ORDERED: FLOMAX0.4 MG PO (09:45)
[2020-05-09 12:36] VITALS: BP 135/73
--- NOTE | 2020-05-09 12:37 | NUR ---
Balta w/c audi arranged for a 1300 ride home today. 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 All parties updated. DC today with HH.
--- NOTE | 2020-05-09 15:08 | NUR ---
FAXED DC ORDERS/SUMMARY TO [facility] CAN SPOKE WITH DONNY IN INTAKE SHE RECEIVED ORDERS AND WILL NOTIFY PT AND ARRANGE VISITS.
--- NOTE | 2020-05-09 18:36 | NUR ---
PT WAS IN BED WHEN i FIRST SAW HIM. tO BE D/C TODAY MEDICATIONS TAKEN ORDERED. lUNGS CLEAR X2 PEDAL PULSE EQUAL AND FAINT. NO BM TODAY BOWEL SOUNDS FAINT. PT ATE MOST OF HIS FOOD & MEDICATIONS TAKEN ORDERED. tRANSPORTATION VIA VAN CAME TO MANAGER FILM ON FLOOR @1:30. DISCHARGE FORM REVIEWED AND SIGNED , ALL FORMS REVIEWED WITH PT AND UNDERSTOOD PER PT. ALL BELONGING RETURNED TO PT. ALERT AND ORIENTATED X4.
--- NOTE | 2020-05-10 13:13 | NUR ---
LATE ENTRY: ADMISSION CARE TOOL SCORE FROM 05/03 SUPINE>SIT: 6 WITH GOAL OF 6 SIT>SUPINE: 6 WITH GOAL OF 6 SIT<>STAND: 4 WITH GOAL OF 6 CHAIR<>BED: 4 WITH GOAL OF 6 CAR TRANSFER: 88 WITH GOAL OF 6 AMB 10': 3 WITH GOAL OF 6 AMB 50': 3 WITH GOAL OF 6 AMB 150': 88 WITH GOAL OF 88 AMB OVER UNEVEN SURFACE: 3 WITH GOAL OF 5 1 STEP: 3 WITH GOAL OF 5 4 STEPS: 3 WITH GOAL OF 5 12 STEPS: 88 WITH GOAL OF 88 RETRIEVING OBJECT: 3 WITH GOAL OF 6 W/C MOBILITY: NOT APPLICABLE
== END 2020-05-09 13:57 | disposition home health service (06) | DRG 947 ==
PROVIDERS: Hospitalist; Nurse Practitioner Family; ADMIT Physical Medicine & Rehabilitation; ATTEND Physical Medicine & Rehabilitation
PROC: 5A09357 Assistance with Respiratory Ventilation, Less than 24 Consecutive Hours, Continuous Positive Airway Pressure (ICD-10-PCS; principal; 2020-05-02)
PROC: 5A09357 Assistance with Respiratory Ventilation, Less than 24 Consecutive Hours, Continuous Positive Airway Pressure (ICD-10-PCS; 2020-05-03)
DX: R53.81 Other malaise (principal); E43 Unspecified severe protein-calorie malnutrition; I69.354 Hemiplegia and hemiparesis following cerebral infarction affecting left non-dominant side; I42.9 Cardiomyopathy, unspecified; N17.9 Acute kidney failure, unspecified; I50.22 Chronic systolic (congestive) heart failure; I25.10 Atherosclerotic heart disease of native coronary artery without angina pectoris; G47.33 Obstructive sleep apnea (adult) (pediatric); J44.9 Chronic obstructive pulmonary disease, unspecified; E11.42 Type 2 diabetes mellitus with diabetic polyneuropathy; G89.4 Chronic pain syndrome; I12.9 Hypertensive chronic kidney disease with stage 1 through stage 4 chronic kidney disease, or unspecified chronic kidney disease; E11.22 Type 2 diabetes mellitus with diabetic chronic kidney disease; E78.5 Hyperlipidemia, unspecified; E11.621 Type 2 diabetes mellitus with foot ulcer; L97.529 Non-pressure chronic ulcer of other part of left foot with unspecified severity; I95.1 Orthostatic hypotension; E03.9 Hypothyroidism, unspecified; N18.3 Chronic kidney disease, stage 3 (moderate); Z96.653 Presence of artificial knee joint, bilateral; M10.9 Gout, unspecified; G47.00 Insomnia, unspecified; E66.01 Morbid (severe) obesity due to excess calories; I48.0 Paroxysmal atrial fibrillation; S81.001A Unspecified open wound, right knee, initial encounter; X58.XXXA Exposure to other specified factors, initial encounter; E11.51 Type 2 diabetes mellitus with diabetic peripheral angiopathy without gangrene; Z95.810 Presence of automatic (implantable) cardiac defibrillator; Z79.01 Long term (current) use of anticoagulants; Z79.4 Long term (current) use of insulin; Z88.8 Allergy status to other drugs, medicaments and biological substances; Z88.5 Allergy status to narcotic agent; I25.2 Old myocardial infarction; Z98.42 Cataract extraction status, left eye; Z98.41 Cataract extraction status, right eye; Z90.49 Acquired absence of other specified parts of digestive tract; Z68.30 Body mass index [BMI] 30.0-30.9, adult
CPT/HCPCS: 10112

== ENCOUNTER → 2020-05-17 | Outpatient (CLI) | payer OTHER, BC ==
[~2020-05-17] MED LIST changes: +COLACE100 MG PO; +OMEGA-3 FISH1200 MG PO; +TESTOSTERONE TROCHE PO; +VIBRAMYCIN 100100 MG PO; +VITAMIN D31250 MC1 PO; +ZANAFLEX4 M1 PO
== END ==
LOC: HYPER 08:22
PROVIDERS: ATTEND Emergency Medicine
DX: E11.621 Type 2 diabetes mellitus with foot ulcer (principal); I70.235 Atherosclerosis of native arteries of right leg with ulceration of other part of foot; L97.512 Non-pressure chronic ulcer of other part of right foot with fat layer exposed; L97.522 Non-pressure chronic ulcer of other part of left foot with fat layer exposed; E11.622 Type 2 diabetes mellitus with other skin ulcer; L89.513 Pressure ulcer of right ankle, stage 3; L97.312 Non-pressure chronic ulcer of right ankle with fat layer exposed; S81.011D Laceration without foreign body, right knee, subsequent encounter; L84 Corns and callosities; E11.43 Type 2 diabetes mellitus with diabetic autonomic (poly)neuropathy; E11.22 Type 2 diabetes mellitus with diabetic chronic kidney disease; I13.0 Hypertensive heart and chronic kidney disease with heart failure and stage 1 through stage 4 chronic kidney disease, or unspecified chronic kidney disease; N18.4 Chronic kidney disease, stage 4 (severe); R60.0 Localized edema; E66.01 Morbid (severe) obesity due to excess calories; E78.00 Pure hypercholesterolemia, unspecified; E78.5 Hyperlipidemia, unspecified; N17.9 Acute kidney failure, unspecified; I25.10 Atherosclerotic heart disease of native coronary artery without angina pectoris; I42.9 Cardiomyopathy, unspecified; I50.9 Heart failure, unspecified; I25.2 Old myocardial infarction; G47.30 Sleep apnea, unspecified; J44.9 Chronic obstructive pulmonary disease, unspecified; Z87.891 Personal history of nicotine dependence; Z79.4 Long term (current) use of insulin; Z95.828 Presence of other vascular implants and grafts; Z98.41 Cataract extraction status, right eye; Z96.653 Presence of artificial knee joint, bilateral; Z68.39 Body mass index [BMI] 39.0-39.9, adult; X58.XXXD Exposure to other specified factors, subsequent encounter

== ENCOUNTER → 2020-05-21 | Outpatient (CLI) | payer OTHER, BC | LOC: SJCVC 10:32 | PROVIDERS: ATTEND Internal Medicine Cardiovascular Disease | DX: R94.31 Abnormal electrocardiogram [ECG] [EKG] (principal); I25.5 Ischemic cardiomyopathy; E78.00 Pure hypercholesterolemia, unspecified; I25.10 Atherosclerotic heart disease of native coronary artery without angina pectoris; I47.2 Ventricular tachycardia; I13.0 Hypertensive heart and chronic kidney disease with heart failure and stage 1 through stage 4 chronic kidney disease, or unspecified chronic kidney disease; N18.4 Chronic kidney disease, stage 4 (severe); I50.9 Heart failure, unspecified; J44.9 Chronic obstructive pulmonary disease, unspecified; Z82.49 Family history of ischemic heart disease and other diseases of the circulatory system; Z79.899 Other long term (current) drug therapy; Z87.891 Personal history of nicotine dependence; Z95.0 Presence of cardiac pacemaker ==

== ENCOUNTER → 2020-05-28 | Outpatient (CLI) | payer OTHER, BC | LOC: SJCVC 09:53 | PROVIDERS: ATTEND Internal Medicine Cardiovascular Disease | DX: I13.0 Hypertensive heart and chronic kidney disease with heart failure and stage 1 through stage 4 chronic kidney disease, or unspecified chronic kidney disease (principal); N18.4 Chronic kidney disease, stage 4 (severe); I50.9 Heart failure, unspecified; R94.31 Abnormal electrocardiogram [ECG] [EKG]; I25.10 Atherosclerotic heart disease of native coronary artery without angina pectoris; I25.5 Ischemic cardiomyopathy; I47.2 Ventricular tachycardia; E78.00 Pure hypercholesterolemia, unspecified; R60.9 Edema, unspecified; I25.2 Old myocardial infarction; Z82.49 Family history of ischemic heart disease and other diseases of the circulatory system; Z79.899 Other long term (current) drug therapy; Z87.891 Personal history of nicotine dependence ==

== ENCOUNTER → 2020-06-05 | Outpatient (CLI) | payer OTHER, BC | LOC: HYPER 14:27 | PROVIDERS: ATTEND Emergency Medicine | DX: E11.621 Type 2 diabetes mellitus with foot ulcer (principal); I70.235 Atherosclerosis of native arteries of right leg with ulceration of other part of foot; L97.512 Non-pressure chronic ulcer of other part of right foot with fat layer exposed; L97.522 Non-pressure chronic ulcer of other part of left foot with fat layer exposed; E11.622 Type 2 diabetes mellitus with other skin ulcer; I70.238 Atherosclerosis of native arteries of right leg with ulceration of other part of lower leg; L97.812 Non-pressure chronic ulcer of other part of right lower leg with fat layer exposed; L89.513 Pressure ulcer of right ankle, stage 3; I70.233 Atherosclerosis of native arteries of right leg with ulceration of ankle; L97.311 Non-pressure chronic ulcer of right ankle limited to breakdown of skin; S81.011D Laceration without foreign body, right knee, subsequent encounter; S80.12XD Contusion of left lower leg, subsequent encounter; E11.43 Type 2 diabetes mellitus with diabetic autonomic (poly)neuropathy; R60.0 Localized edema; L84 Corns and callosities; I25.10 Atherosclerotic heart disease of native coronary artery without angina pectoris; E78.00 Pure hypercholesterolemia, unspecified; J44.9 Chronic obstructive pulmonary disease, unspecified; E11.22 Type 2 diabetes mellitus with diabetic chronic kidney disease; I13.0 Hypertensive heart and chronic kidney disease with heart failure and stage 1 through stage 4 chronic kidney disease, or unspecified chronic kidney disease; I50.9 Heart failure, unspecified; N17.9 Acute kidney failure, unspecified; N18.4 Chronic kidney disease, stage 4 (severe); E78.5 Hyperlipidemia, unspecified; I25.2 Old myocardial infarction; G47.30 Sleep apnea, unspecified; Z87.891 Personal history of nicotine dependence; Z79.4 Long term (current) use of insulin; X58.XXXD Exposure to other specified factors, subsequent encounter ==

== ENCOUNTER 2020-06-10 00:32 | Emergency (ER) | payer OTHER, BC ==
[~2020-06-10] VITALS: Ht 182.9 cm; Wt 103.0 kg
[2020-06-10 00:52] LABS: MCH 30.9 pg (26.0-34.0); WBC 5.9 thou/uL (4.0-11.0)
[2020-06-10 00:53] LABS: HEMATOCRIT 34.8 % (42.0-52.0); HEMOGLOBIN 11.6 gm/dL (14.0-18.0); MCHC 33.3 g/dL (28.0-37.0); MCV 92.7 fL (80.0-100.0); PLATELET COUNT 170 thou/uL (150-400); RBC 3.75 mil/uL (4.50-6.00); RDW 18.8 % (10.5-14.5)
[2020-06-10 00:59] LABS: ANION GAP 6 mmol/L (7-16); BUN 35 mg/dL (7-18); CALCIUM 9.1 mg/dL (8.5-10.1); CHLORIDE 104 mmol/L (98-107); CO2 28 mmol/L (21-32); GLUCOSE 164 mg/dL (74-106); POTASSIUM 3.8 mmol/L (3.5-5.1); SODIUM 138 mmol/L (136-145)
[2020-06-10 01:09] LABS: ALBUMIN 2.3 g/dL (3.4-5.0); MAGNESIUM 1.5 mg/dL (1.8-2.4); SGOT 99 U/L (15-37); SGPT 79 U/L (30-65); TOTAL PROTEIN 7.2 g/dL (6.4-8.2); TROPONIN-I <0.06 ng/mL (<0.06)
[2020-06-10 01:46] LABS: ABSOLUTE NEUTROPHILS 3.5 thou/uL (1.4-8.2); ANISOCYTOSIS 2+; POIKILOCYTOSIS 2+
[2020-06-10 01:47] LABS: PLATELET ESTIMATE NORMAL
[2020-06-10 03:11] VITALS: BP 136/74
--- NOTE | 2020-06-11 09:32 | EKG ---
[facility] [place] [address] ELECTROCARDIOGRAM REPORT Name: GERI MCARTHUR Room #: DEP [facility]#: [id number] Admission: 06/10/20 Attend Phys: Discharge: 06/10/20 Date of : 55 Report #: [id number] THIS REPORT FOR: cc: Paul Rojas MD, Jin S. MD Lundgren, Craig H. MD [facility] ~ THIS REPORT FOR: //name// [facility] ED Test Date: 2020-06-10 Test Time: 00:36:48 Pat Name: GERI MCARTHUR Department: Room: Gender: Mechanism Assembler: : 1955 Requested By: Aneudy Cuenca Order Number: [id number] MD: Chet Rodriguez Measurements Intervals [place] Rate: 112 P: 0 IN: 102 QRS: -58 QRSD: 150 T: 100 QT: 418 QTc: 571 Interpretive Statements Marked baseline artifact Undetermined rhythm, probably supraventricular with occasional ventricular ectopy Inferior infarct, old Compared to ECG 04/30/2020 15:48:19 Heart rate has increased Electronically Signed On 06-11-2020 9:32:31 CDT by Chet Rodriguez [email or web address] <ELECTRONICALLY SIGNED> By: Chet Rodriguez MD, [facility] 06/11/20 0932 0036 0036 Chet Rodriguez MD, [facility] /EPI
== END 2020-06-10 03:09 | disposition home or self-care (01) ==
LOC: ER 00:32
PROVIDERS: Emergency Medicine
DX: I50.9 Heart failure, unspecified (principal); E83.42 Hypomagnesemia; I47.2 Ventricular tachycardia; I13.0 Hypertensive heart and chronic kidney disease with heart failure and stage 1 through stage 4 chronic kidney disease, or unspecified chronic kidney disease; E11.22 Type 2 diabetes mellitus with diabetic chronic kidney disease; N18.3 Chronic kidney disease, stage 3 (moderate); I25.10 Atherosclerotic heart disease of native coronary artery without angina pectoris; I25.2 Old myocardial infarction; J44.9 Chronic obstructive pulmonary disease, unspecified; E78.5 Hyperlipidemia, unspecified; E03.9 Hypothyroidism, unspecified; F17.210 Nicotine dependence, cigarettes, uncomplicated; Z79.899 Other long term (current) drug therapy; Z88.5 Allergy status to narcotic agent; Z88.8 Allergy status to other drugs, medicaments and biological substances; Z79.4 Long term (current) use of insulin

== ENCOUNTER 2020-06-11 13:05 | Inpatient (IN) | payer OTHER, BC ==
[~2020-06-11] VITALS: Ht 182.9 cm; Wt 109.3 kg
--- NOTE | ~2020-06-11 | HC ---
[facility] [place] [address] [place] [address] CONSULTATION Name: GERI MCARTHUR Room #: 354-P [facility] IN M.R.#: [id number] Admission: 06/11/20 Attend Phys: Jenna Billingsley Discharge: Date of : 55 Report #: [id number] THIS REPORT FOR: cc: Paul Rojas MD, Jin S. MD Smithson, David G. MD ~ CC: Jenna Rojas DATE OF SERVICE: 06/13/2020 HISTORY OF PRESENT ILLNESS: The patient is a 64-year-old -Omani male previously known to me, who was recently on the acute inpatient rehab [facility] from 05/02/2020-05/08/2020 and was able to be discharged back to the home setting. He has been doing well at home, but has had the development of increased shortness of breath and his ICD was discharged x 1. He was noted to have increased weakness and lower extremity edema. He has been diagnosed with CHF, V-tach, severe debilitation, coronary artery disease, and chronic renal insufficiency. We are seeing him in rehabilitation medicine consultation. PAST MEDICAL HISTORY: Includes a prior CVA with some residual left-sided weakness, history of acute renal insufficiency, chronic kidney disease, CHF, coronary artery disease with permanent pacemaker, obstructive sleep apnea, and diabetes mellitus type 2. MEDICATIONS: Please see the full medication listing. ALLERGIES: As noted. PRIOR SURGICAL HISTORY: He has had bilateral total knee replacements, left quadriceps repair, left ulnar transposition, lumbar laminectomy x 2 and stent to LAD. HABITS: Former tobacco abuse, quit greater than a year ago. No history of alcohol abuse. SOCIAL HISTORY: His recently within the last month. He does have family members and he notes that there is someone that could be with him at all times. No stairs. Used a four-wheeled walker. At the time of discharge from rehabilitation last month, he was ambulating 100 feet, modified independent with a four-wheeled walker. PHYSICAL EXAMINATION: GENERAL: He is pleasant, alert, appropriate. HEENT: Appeared to be benign. VITAL SIGNS: Last recorded temperature 36.6, pulse 63, respirations 17, and [facility] [address] [place] [address] CONSULTATION Name: GERI MCARTHUR Room #: 354-P [facility] IN M.R.#: [id number] Admission: 06/11/20 Attend Phys: Jenna Billingsley Discharge: Date of : 55 Report #: [id number] blood pressure 115/61. NEUROLOGIC: Facies are symmetric. He is appropriate. EXTREMITIES: He has functional range of motion of both upper extremities. Strength is grade 4-/5. DTRs are trace to 1. Lower extremities, 2+ pitting edema. No focal calf swelling. He has decreased distal sensation with his diabetic peripheral neuropathy. He has had prior knee surgeries with the replacements with incisions well healed. Strength of the lower extremities is probably a grade 3+ to 4-/5. He notes that he can walk, although therapy has not seen him as of yet. ASSESSMENT: A 64-year-old -Omani male well known to me now, readmitted with the following problem list: 1. Generalized weakness and debilitation. 2. Congestive heart failure. 3. Ventricular tachycardia. 4. Coronary artery disease. 5. Chronic renal insufficiency. 6. Prior history of a cerebrovascular accident with some residual left-sided weakness. PLAN: I do not see that the patient meets diagnostic criteria for another acute 5 [facility] inpatient rehabilitation stay. We just had him on rehabilitation last month when he was discharged back to the home setting. We will go ahead and ask physical therapy and occupational therapy to work with him. He is hoping to return directly home. We will need to see how he does in therapies and proceed from there. Thank you for asking us to assist in this patient's care. By: [id number] Trevor Villalobos MD /nt
[2020-06-11 13:33] VITALS: BP 125/71
--- NOTE | 2020-06-11 14:56 | EKG ---
[facility] [place] [address] ELECTROCARDIOGRAM REPORT Name: GERI MCARTHUR Room #: [facility]#: [id number] Admission: Attend Phys: Discharge: Date of : 55 Report #: [id number] THIS REPORT FOR: cc: Paul Rojas MD, Jin S. MD Couchonnal, Luis F. MD ~ THIS REPORT FOR: //name// [facility] ED Test Date: 2020-06-11 Test Time: 14:08:25 Pat Name: GERI MCARTHUR Department: Room: Gender: M Matcher Operator: aubrey : 1955 Requested By: Isaiah Cates Order Number: [id number] MD: Tate Winn Measurements Intervals [place] Rate: 72 P: 32 [place]: 213 QRS: -20 QRSD: 114 T: 69 QT: 500 QTc: 548 Interpretive Statements Sinus rhythm Borderline prolonged [place] interval Inferior infarct, old Abnormal lateral Q waves Electronically Signed On 06-11-2020 14:56:34 CDT by Tate Winn [email or web address] <ELECTRONICALLY SIGNED> By: Tate Winn MD 06/11/20 1456 D: [id number] Tate Winn MD /RONALD
[2020-06-11 15:39] LABS: HEMATOCRIT 27.9 % (42.0-52.0); MCH 31.4 pg (26.0-34.0); MCHC 33.7 g/dL (28.0-37.0); MCV 93.1 fL (80.0-100.0); PLATELET COUNT 163 thou/uL (150-400); RDW 18.7 % (10.5-14.5)
[2020-06-11 15:40] LABS: HEMOGLOBIN 9.4 gm/dL (14.0-18.0)
[2020-06-11 15:48] LABS: CALCIUM 8.5 mg/dL (8.5-10.1); CREATININE 1.8 mg/dL (0.7-1.3); POTASSIUM 3.9 mmol/L (3.5-5.1)
[2020-06-11 15:53] LABS: ALBUMIN 1.9 g/dL (3.4-5.0); TOTAL BILIRUBIN 0.7 mg/dL (0.2-1.0); TOTAL PROTEIN 6.3 g/dL (6.4-8.2); TROPONIN-I 0.38 ng/mL (<0.06)
[2020-06-11 16:07] LABS: ABSOLUTE NEUTROPHILS 4.4 thou/uL (1.4-8.2)
[2020-06-11 16:08] LABS: ANISOCYTOSIS 1+; PLATELET ESTIMATE NORMAL
--- NOTE | 2020-06-11 19:00 | NUR ---
CALL RECEIVED FROM PHARMACY STATING PT'S HOME MED MEXILETINE [employer] IS CURRENTLY UNAVAILABLE (BACK ORDER), REQUESTING PT TO BRING OWN SUPPLY FROM HOME. RN CORONARY CARE UNIT NOTIFIED PT OF WHICH PT STATED HE HAS SUPPLIES AT HOME AND WOULD WANT DAUGHTER [facility] [facility] ([phone]) TO BE CONTACTED TO BRING MED TO HOSPITAL. RN CORONARY CARE UNIT CALLED BUT NO RESPONSE, VOICE MESSAGE LEFT TO RETURN CALL. INCOMING NURSE WILL ALSO BE MADE AWARE. .
[2020-06-11 19:40] VITALS: BP 141/79
[2020-06-11 19:41] LABS: AMP/METHAMP Negative (Negative); BARBITURATES Negative (Negative); BENZODIAZEPINES Negative (Negative); COCAINE Negative (Negative); METHADONE Negative (Negative); OPIATES Negative (Negative); PCP Negative (Negative)
[2020-06-11 20:01] VITALS: BP 151/87
[2020-06-11 20:37] VITALS: BP 140/79
--- NOTE | 2020-06-11 21:00 | NUR ---
RECIEVED PT VIA NICOLAS FROM ED, UPON ARRIVAL TO UNIT PT ALERT ORIENTED X4 DATA BASE COMPLETED AND ASSESSMENT COMPLETED,MEDICATION GIVEN ORDERD. CARDAIC MONITOR SHOWS NSR . PT HAVE AICD . DISCUSSED PLAN OF CARE AND PT VERBALIZED UNDERSTANDING AND AGREEABLE. WILL CONITINUE WITH CURRENT PLAN OF CARE AND WILL REPORT CHANGES.
[2020-06-12 04:12] VITALS: BP 138/90
[2020-06-12 08:07] VITALS: BP 138/69
[2020-06-12 11:24] VITALS: BP 130/67
--- NOTE | 2020-06-12 15:11 | NUR ---
PT ON IV LASIX AND WILL MONITOR STRICT I/O AMD DAILY WEIGHTS...DIURESING WELL..
[2020-06-12 15:55] VITALS: BP 114/70
[2020-06-12 15:59] LABS: HEMATOCRIT 28.9 % (42.0-52.0); HEMOGLOBIN 9.5 gm/dL (14.0-18.0); MCH 31.2 pg (26.0-34.0); MCV 94.3 fL (80.0-100.0); RBC 3.06 mil/uL (4.50-6.00); RDW 18.6 % (10.5-14.5); WBC 6.4 thou/uL (4.0-11.0)
--- NOTE | 2020-06-12 16:04 | NUR ---
PT MAY BE REMOVED FROM [facility] PRECAUT[facility] PER DR RIBEIRO
[2020-06-12 16:09] LABS: CALCIUM 8.7 mg/dL (8.5-10.1); CREATININE 2.1 mg/dL (0.7-1.3)
[2020-06-12 16:13] LABS: ALBUMIN 1.8 g/dL (3.4-5.0); MAGNESIUM 2.3 mg/dL (1.8-2.4); PHOSPHORUS 3.8 mg/dL (2.5-4.9)
[2020-06-12 20:33] VITALS: BP 139/55
[2020-06-13 03:34] VITALS: BP 115/58
[2020-06-13 05:37] LABS: HEMATOCRIT 28.6 % (42.0-52.0); HEMOGLOBIN 9.5 gm/dL (14.0-18.0); MCH 31.4 pg (26.0-34.0); MCHC 33.1 g/dL (28.0-37.0); MCV 94.9 fL (80.0-100.0); RBC 3.02 mil/uL (4.50-6.00); RDW 18.6 % (10.5-14.5); WBC 4.6 thou/uL (4.0-11.0)
[2020-06-13 06:02] LABS: ALBUMIN 1.8 g/dL (3.4-5.0); CALCIUM 8.3 mg/dL (8.5-10.1); CREATININE 1.8 mg/dL (0.7-1.3); POTASSIUM 4.3 mmol/L (3.5-5.1)
[2020-06-13 08:17] VITALS: BP 115/61
--- NOTE | 2020-06-13 09:35 | 2DMMODE ---
[facility] [address] [place] [address] 2 D/M-MODE ECHOCARDIOGRAM Name: GERI MCARTHUR Room #: 354-P ADM IN M.R.#: [id number] Admission: 06/11/20 Attend Phys: Jenan Billingsley Discharge: Date of : 55 Report #: [id number] THIS REPORT FOR: cc: Paul Rojas MD, Jin S. MD Park, Jin S. MD ~ APPROVED REPORT Study performed: 06/13/2020 08:23:20 EXAM: Comprehensive 2D, Doppler, and color-flow Echocardiogram Patient Location: Bedside Room #: 354 Status: routine BSA: 2.31 HR: 65 bpm BP: 130/67 mmHg Rhythm: Pacemaker Other Information Study Quality: Good Indications Short of breath, elevated troponin, CHF. Hx: NC, stent, ICD, ISCM, COPD. 2D Dimensions RVDd: 43.58 mm IVSd: 8.42 (7-11mm) LVOT Diam: 21.68 (18-24mm) LVDd: 65.35 mm PWd: 9.89 (7-11mm) Ascending Ao: 34.01 (22-36mm) LVDs: 58.10 (25-40mm) Aortic Root: 30.90 mm Volumes Left Atrial Volume (Systole) Single Plane 4CH: 133.75 mL Single Plane 2CH: 137.43 mL LA ESV Index: 62.00 mL/m2 Aortic Valve AoV Peak Gold.: 1.85 m/s AO Peak Gr.: 13.63 mmHg LVOT Max P.54 mmHg AO Mean Gr.: 6.90 mmHg AO V2 Mean: 1.24 m/s LVOT Max V: 1.07 m/s [facility] [address] [place] [address] 2 D/M-MODE ECHOCARDIOGRAM Name: GERI MCARTHUR Room #: 354-P [facility]#: [id number] Admission: 06/11/20 Attend Phys: Jenna Flowers [facility] Discharge: Date of : 55 Report #: [id number] AO V2 VTI: 37.30 cm BENJIE Vmax: 2.13 cm2 AI Vmax: 4.62 m/s AI Dyer: 3.40 m/s2 AI PHT: 393.74 ms Mitral Valve E/A Ratio: 1.8 MV Decel. Time: 188.18 ms MV E Max Gold.: 0.98 m/s MV A Gold.: 0.56 m/s MV PHT: 54.57 ms IVRT: 76.12 ms Pulmonary Valve PV Peak Gold.: 0.72 m/s PV Peak Gr.: 2.09 mmHg Pulmonary Vein P Vein S: 0.36 m/s P Vein A: 0.30 m/s P Vein D: 0.41 m/s P Vein A Dur.: 143.0 msec P Vein S/D Ratio: 0.88 Tricuspid Valve TR Peak Gold.: 3.54 m/s RAP Estimate: 15.00 mmHg TR Peak Gr.: 50.15 mmHg PA Pressure: 65.00 mmHg Left Ventricle Left ventricle is dilated. There is normal left ventricular wall thickness. Left ventricular systolic function is severely decreased. LVEF is 25%. Moderate diastolic dysfunction is present. Right Ventricle Right ventricle is mildly dilated. Right ventricle is mildly hypokinetic. Device lead is present in the right ventricle. Atria Left atrium is severely dilated. Right atrium is mildly dilated. Aortic Valve Aortic valve is moderately calcified but has adequate excursion. Moderate aortic regurgitation. Mitral Valve The mitral valve is normal in structure. Moderate mitral [facility] [address] [place] [address] 2 D/M-MODE ECHOCARDIOGRAM Name: GERI MCARTHUR Room #: 354-P [facility] IN [facility].#: [id number] Admission: 06/11/20 Attend Phys: Jenna Baxter Discharge: Date of : 55 Report #: [id number] regurgitation. Tricuspid Valve The tricuspid valve is normal in structure. Mild to moderate tricuspid regurgitation. Estimated PAP is 60 mmHg. Pulmonic Valve The pulmonary valve is normal in structure. Trace pulmonic regurgitation. Great Vessels The aortic root is normal in size. The ascending aorta is normal in size. IVC is dilated and collapses <50% with inspiration. Pericardium There is no pericardial effusion. <Conclusion> Left ventricle is dilated. Left ventricular systolic function is severely decreased. LVEF is 25%. Moderate diastolic dysfunction is present. Right ventricle is mildly dilated. Device lead is present in the right ventricle. Moderate aortic regurgitation. Moderate mitral regurgitation. Mild to moderate tricuspid regurgitation. Estimated PAP is 60 mmHg. <ELECTRONICALLY SIGNED> By: Paul Rojas MD 06/13/2035 4 4 Paul Rojas MD /INF
--- NOTE | 2020-06-13 13:43 | NUR ---
CM COMPLETED INITIAL ASSESSMENT WITHPT [facility], PT DID NOT ANSWER TELEPHONE. PT LIVES AT HOME ALONE, CURRENT W/[place] . PT HAS PRIVATE PAY VISITING [employer]ELS FROM 10P-10A AND PT SON AND DIL ARE IN AND OUT THROUGHOUT THE DAY. PT WAS RECENTLY APPROVED FOR PROGRAM THROUGH DC/[facility], "SO WE ARE GOING TO HIRE SOME ADD'L HELP. PT HAS HAD INCREASE FALLS, BUT OTHER AUGUSTIN "DOING OKAY" AT HOME/[facility]. THE PLAN IS FOR PT TO RTRN HOME AT D/C WITH HH. PT CELL # [phone]. CM TO CONT TO FOLLOW.
[2020-06-13 17:26] VITALS: BP 138/73
--- NOTE | 2020-06-13 18:40 | NUR ---
PT IS A&OX3, PT IS COTINUING O2 2L/MIN/NC, PT'S VS ARE STABLE, PT HAS SOME COUGHING , PT NEEDS ONE STAFF TO HELP TO GO TO BATHROOM , PT'S COVID TEST WAS NEGATIVE , BUT PT REFUSED TO TRANSFER TO [facility], PT WANTS TO GO HOME SOON. PT DENIES PAIN AND SOB AT THIS TIME,
[2020-06-13 20:25] VITALS: BP 129/70
[2020-06-14 04:15] VITALS: BP 116/58
[2020-06-14 08:12] VITALS: BP 123/66
[2020-06-14] MEDS ORDERED: TORSEMIDE20 MG PO (09:15)
[2020-06-14 10:59] VITALS: BP 123/66
[2020-06-14 12:10] VITALS: BP 123/66
--- NOTE | 2020-06-14 15:44 | NUR ---
DISCHARGE NOTE: ELOINA reviewed chart and spoke with nursing and attending physician. Pt is medically stable for discharge home today with services. Rest/exercise oximetry completed. Pt requiring 2L continuous O2. ELOINA obtained script for home O2. ELOINA placed call to pt's room. No answer. ELOINA spoke with pt's dtr-in-law, Wendy, via phone to discuss discharge plan and notify of new home O2. ELOINA reviewed therapy notes and their recommendations. Pt's dtr verbalized understanding and is agreeable with discharge plan. Options for DME companies discussed. No preference voiced. Pt will have private duty in place from [id number] starting this evening. Pt's family are with pt during the daytime. ELOINA faxed finalized discharge orders/summary to [facility] and spoke with Cherelle in intake who confirmed info was received. Start of care planned for tomorrow. ELOINA faxed clinical info/script/testing to [facility] for review. Notified [facility] liaison of new referral. Portable O2 tank delivered to pt's room. Contact info for and Ana placed in pt's discharge summary. Pt's family to provide transportation home. No additional SW needs identified at this time, but is available to assist should needs arise.
--- NOTE | 2020-06-14 16:09 | NUR ---
PT IS A&OX3, PT 'S VS ARE STABLE , RN RECEIVED ORDER PT DC TO HOME WITH HOME HEALTH , PT HAS O2 WITH HIM TO GO HOME, RN HAS GIVING DC TEACHING TO PT AND PT'S FAMILY , THEY UNDERSTAND WELL, PT 'S FAMILY CLERICAL ADMINISTRATOR PT AT 1500PM.
== END 2020-06-14 15:16 | disposition home health service (06) | DRG 291 ==
LOC: ER 13:05 → 3W 16:48 → EROBS 16:48 → 3W 20:01
PROVIDERS: Nurse Practitioner; Physician Assistant; ADMIT Hospitalist; ATTEND Hospitalist
DX: I13.0 Hypertensive heart and chronic kidney disease with heart failure and stage 1 through stage 4 chronic kidney disease, or unspecified chronic kidney disease (principal); J96.21 Acute and chronic respiratory failure with hypoxia; E43 Unspecified severe protein-calorie malnutrition; I50.31 Acute diastolic (congestive) heart failure; I47.2 Ventricular tachycardia; F11.20 Opioid dependence, uncomplicated; I69.354 Hemiplegia and hemiparesis following cerebral infarction affecting left non-dominant side; I42.9 Cardiomyopathy, unspecified; Z20.828 Contact with and (suspected) exposure to other viral communicable diseases; J44.9 Chronic obstructive pulmonary disease, unspecified; M54.9 Dorsalgia, unspecified; E78.5 Hyperlipidemia, unspecified; E11.40 Type 2 diabetes mellitus with diabetic neuropathy, unspecified; Z96.653 Presence of artificial knee joint, bilateral; G25.81 Restless legs syndrome; N18.3 Chronic kidney disease, stage 3 (moderate); M10.9 Gout, unspecified; I48.91 Unspecified atrial fibrillation; G47.00 Insomnia, unspecified; E11.22 Type 2 diabetes mellitus with diabetic chronic kidney disease; I25.10 Atherosclerotic heart disease of native coronary artery without angina pectoris; G47.33 Obstructive sleep apnea (adult) (pediatric); Z60.2 Problems related to living alone; E03.9 Hypothyroidism, unspecified; E11.42 Type 2 diabetes mellitus with diabetic polyneuropathy; G89.4 Chronic pain syndrome; E11.51 Type 2 diabetes mellitus with diabetic peripheral angiopathy without gangrene; Z79.4 Long term (current) use of insulin; I25.2 Old myocardial infarction; Z98.42 Cataract extraction status, left eye; Z98.41 Cataract extraction status, right eye; Z95.820 Peripheral vascular angioplasty status with implants and grafts; Z86.14 Personal history of Methicillin resistant Staphylococcus aureus infection; Z88.6 Allergy status to analgesic agent; Z88.8 Allergy status to other drugs, medicaments and biological substances; Z87.891 Personal history of nicotine dependence
CPT/HCPCS: 10879

== ENCOUNTER → 2020-06-19 | Outpatient (CLI) | payer OTHER, BC | LOC: SJCVC 09:33 | PROVIDERS: ATTEND Internal Medicine Cardiovascular Disease | DX: I25.5 Ischemic cardiomyopathy (principal); I25.10 Atherosclerotic heart disease of native coronary artery without angina pectoris; I13.0 Hypertensive heart and chronic kidney disease with heart failure and stage 1 through stage 4 chronic kidney disease, or unspecified chronic kidney disease; E11.22 Type 2 diabetes mellitus with diabetic chronic kidney disease; N18.9 Chronic kidney disease, unspecified; I50.42 Chronic combined systolic (congestive) and diastolic (congestive) heart failure; I73.9 Peripheral vascular disease, unspecified; J44.9 Chronic obstructive pulmonary disease, unspecified; R60.9 Edema, unspecified; E78.00 Pure hypercholesterolemia, unspecified; I47.2 Ventricular tachycardia; I25.2 Old myocardial infarction; Z79.899 Other long term (current) drug therapy; Z79.4 Long term (current) use of insulin; Z82.49 Family history of ischemic heart disease and other diseases of the circulatory system; Z87.891 Personal history of nicotine dependence ==